=== PATIENT | male | born 1945 | race Caucasian/White ===

== ENCOUNTER 2017-11-11 19:41 | Observation (INO) | payer MEDICARE, BC, SELFPAY ==
[2017-11-11] VITALS (11 sets, daily range): BP systolic 97–138; BP diastolic 52–73; PULSE 52–136; RESP 14–20; TEMP 36.6–37.1; O2SAT 96–99; BMI 41.4; BMI 39.5
--- NOTE | 2017-11-11 20:25 | EKG12_ITS ---
Test Reason : REPEAT Blood Pressure : / mmHG Vent. Rate : 059 BPM Atrial Rate : 059 BPM P-R Int : 220 ms QRS Dur : 116 ms QT Int : 432 ms P-R-T Axes : 045 043 042 degrees QTc Int : 427 ms Sinus bradycardia with 1st degree A-V block Otherwise normal ECG Confirmed by JUMANA CONTRERAS, IRISH ([id number]), acquisitions editor REGINA PASCUAL ([id number] on 11/17/2017 2:34:27 PM Referred By: DR GARCIA Confirmed By:IRISH DENNEY MD
[2017-11-11 20:39] LABS: Absolute Lymphocyte Count 2.05 X10^3/ul (0.83-4.51); Absolute Neutrophil Count 6.3 X10^3/uL (2.0-7.7); Basophil# 0.04 X10^3/uL; Basophil% 0.4 % (0-1); Eosinophil# 0.22 X10^3/uL; Eosinophils% 2.3 % (0-5); Hematocrit 33.4 % (40-54); Hemoglobin 10.1 g/dl (13.0-16.5); Lymphocyte # 2.05 X10^3/ul (4.0); Lymphocyte % 21.6 % (19-41); Mean Corp Hgb Conc 30.2 g/gl (32-36); Mean Corpuscular Hgb 22.1 pg (27.0-32.0); Mean Corpuscular Volume 72.9 fL (80-94); Mean Platelet Vol. 9.9 fl (6.2-12.0); Monocyte# 0.88 X10^3/uL; Monocyte% 9.3 % (0-10); Neutrophil % 66.2 % (47-70); Platelet Count 373 K/mm3 (150-450); RBC Distribution Width CV 18.3 % (11.6-14.6); RBC Distribution Width SD 47.8 fl (35.1-43.9); Red Blood Count 4.58 M/mm3 (4.6-6.2); White Blood Count 9.5 K/mm3 (4.4-11.0)
[2017-11-11 20:42] LABS: POSITIVE COUNT NO; POSITIVE DIFFERENTIAL NO; POSITIVE MORPHOLOGY YES
[2017-11-11 20:43] LABS: Differential Indicated SCAN CRITERIA MET
--- NOTE | 2017-11-11 20:48 | RAD_ITS ---
STUDY: X-RAY CHEST REASON FOR EXAM: Male, 72 years old. Chest pain TECHNIQUE: Single AP portable view of the chest. COMPARISON: October 27, 2016 FINDINGS: There are monitoring devices. The lungs are hyperexpanded. There is no demonstrated pleural abnormality. There is mild cardiac enlargement. Normal mediastinum and chanell. Normal visualized pulmonary arteries. Normal visualized aortic arch and descending thoracic aorta. There are diffuse degenerative changes of the visualized thoracic spine. Stable left rib fractures. There is no demonstrated abnormality of the visualized soft tissue structures of the upper abdomen. RAD/Chest 1 View (Portable) IMPRESSION: Degenerative changes, as described above. No demonstrated acute cardiopulmonary process. Electronically Signed: Luigi Tinoco MD at 21:35 EDT , Service support ,
[2017-11-11 20:54] LABS: Anion Gap 10 (5-15); BUN 20 mg/dL (7-18); BUN/Creat Ratio 16.1 RATIO (10-20); Calcium,Total 8.5 mg/dL (8.5-10.1); Chloride 105 mmol/L (98-107); Creatinine, Serum 1.24 mg/dL (0.70-1.30); EST Glomerular Filtration Rate 61 mL/min (>60); Est Glom Filt Rate - Afr Amer 73 mL/min (>60); Estimated Creatinine Clearance 48.86 ml/min; Glucose 175 mg/dL (74-106); Potassium 3.9 mmol/L (3.5-5.1); Sodium Level 141 mmol/L (136-145)
[2017-11-11] MEDS: dilTIAZem 25 MG/5 ML Vial 20 MG IV BOLUS (20:54)
[2017-11-11] MEDS: Aspirin 81 MG TAB.CHEW 324 MG PO (20:54)
[2017-11-11 21:03] LABS: Anisocytosis 1+; Crenated RBC RARE; Differential Comment SCANNED; Hypochromasia RARE; Ovalocyte 1+; Schistocytes RARE
--- NOTE | 2017-11-11 22:03 | ED.VISSUMM ---
- ER Visit Summary Date of Service: 11/11/17 Chief Complaint: Chest pain History of Present Illness: The patient is a 72 M who presents with chest pain. It began 1 hour ago. It was with light activity after just walking across the room. He also felt short of breath. He describes his chest pain as a heaviness substernally. It was 8 out of 10 but is currently only 3 out of 10. He denies any nausea or diaphoresis. He has never had symptoms quite like this before. He is on antibiotics currently for an abrasion to his right forearm. It sounds like he was placed on this prophylactically. He did have some diarrhea for 1 day about 5 days ago but none since that time. Physical Examination: Afebrile heart rate 133 Heart irregularly irregular and tachycardic Lungs clear Abdomen soft 2+ radial pulses Extremities nontender Alert Test Results: EKG shows atrial fibrillation at a rate of 132. Chest x-ray shows no acute process. Labs notable for hemoglobin 10.1. Repeat EKG shows sinus bradycardia. Emergency Department Course and Treatment: Patient was given IV Cardizem. He converted to normal sinus rhythm. His symptoms resolved. However I am concerned that he states he has never had chest pain with atrial fibrillation before. He did have a stress test 1 month ago. I spoke to his career orientation teacher who would like patient to be placed in observation for repeat enzymes and monitoring. Treatment Plan: [] Disposition: Admit Impression: Chest pain Atrial for ablation with RVR This note was generated with [employer] dictation software. It may contain incorrect words, spelling, and punctuation that were not noted in review of the chart prior to signing ED Disposition - Plan for ED Patient: Chief Complaint: Chest Pain Referrals: Nathaniel Estrada MD [Primary Care Provider] -
--- NOTE | 2017-11-11 22:16 | PCM.HP.STD ---
Problem List (1) Paroxysmal atrial fibrillation Status: Chronic (2) Essential hypertension Status: Chronic (3) Type II diabetes mellitus Status: Chronic History of Present Illness Date of Admission: 11/11/17 Chief Complaint: Chest pain. The patient is a 72 year old M with past medical history as mentioned above presented to the emergency department because of chest pain. His symptoms started around 7 PM tonight when he was sitting watching TV with left-sided chest pain, sharp shooting pain, radiates to his neck, mild pain, 8 out of 10 in severity, associated with mild shortness of breath and palpitation and without aggravating or relieving factors. He denies dizziness, lightheadedness, syncope or presyncope. He denied nausea, vomiting or diaphoresis. At this time, he has no more chest pain. Upon arrival to ER, he was in A. fib with RVR, heart rate was 132, blood pressure was stable, was afebrile and pulse ox was 98% on 2 L. His routine blood work was remarkable for hemoglobin of 10.1 g/dL, otherwise normal. Initial EKG revealed A. fib with RVR, rate of 132, no acute ischemic changes. Patient received 1 dose of IV Cardizem bolus and he converted back to sinus rhythm and repeat EKG revealed sinus bradycardia with heart rate of 59 and again without acute ischemic changes. Troponin was negative. Chest x-ray showed no acute findings. 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 Dr. Wilson recommended to admit the patient and to cycle the cardiac enzymes without need to repeat stress test at this time. He is being admitted for A. fib with RVR, converted back to sinus rhythm as well as chest pain for evaluation. Past Medical History Past Medical History (Chronic Problems): Chronic Problems Paroxysmal atrial fibrillation (Chronic) Non-alcoholic fatty liver disease (Chronic) Essential hypertension (Chronic) Type II diabetes mellitus (Chronic) Allergies chlorpheniramine maleate [From Ornade] Adverse Reaction (Verified 11/11/17 19:42) Upset Stomach phenylpropanolamine HCl [From Ornade] Adverse Reaction (Verified 11/11/17 19:42) Upset Stomach rofecoxib [From Vioxx] Adverse Reaction (Verified 11/11/17 19:42) Upset Stomach sulfamethoxazole [From Bactrim] Adverse Reaction (Verified 11/11/17 19:42) Upset Stomach trimethoprim [From Bactrim] Adverse Reaction (Verified 11/11/17 19:42) Upset Stomach NALDECON Adverse Reaction (Uncoded 11/11/17 19:42) Upset Stomach Home Medications: Ambulatory Orders Medication Instructions Recorded Aspirin E.C. [Ecotrin] 81 mg PO DAILY@0800 09/15/14 Atenolol [Tenormin (beta des)] 12.5 mg PO DAILY 09/15/14 Flecainide [Tambocor] 100 mg PO BID 09/15/14 Furosemide [Lasix] 20 mg PO BID 09/15/14 Metformin HCl [Glucophage] 1,000 mg PO BID 09/15/14 Omeprazole [Prilosec] 20 mg PO DAILY 09/15/14 Warfarin [Coumadin] 6 mg PO SUTUTHSA 09/15/14 Warfarin [Coumadin] 7 mg PO MOWEFR 09/15/14 glipiZIDE XL [Glucotrol Xl] 5 mg PO DAILY@0800 09/15/14 Cephalexin [Keflex] 500 mg PO Q8 11/11/17 Dicyclomine HCl 10 mg PO QHS 11/11/17 Lisinopril [Zestril] 10 mg PO DAILY 11/11/17 Pioglitazone [Actos] 15 mg PO DAILY 11/11/17 Spironolactone [Aldactone] 25 mg PO DAILY 11/11/17 Surgical History: total knee arthroplasty, - - Partial thyroidectomy. Psychiatric History: No pertinent psych hx Lives: Spouse/ Significant Other Smoking Status: Former smoker Alcohol: None, Occasional Drugs: None - *Family History Maternal History Items: No pertinent history Paternal History Items: No pertinent history Review of Systems Constitutional: Denies: Anorexia, Chills, Fever, Weakness Eyes: Denies: Blurred vision, Double vision, Drainage, Redness HEENT: Denies: Difficulty Hearing, Ear Pain, Eye Pain, Nasal Congestion, Sore Throat Cardiovascular: Reports: Chest Pain, Palpitations. Denies: Edema, Heaviness, Light Headedness, Paroxysmal Noc. Dyspnea, Syncope Respiratory: Reports: Shortness of Breath. Denies: Cough, Pleuritic Pain, Sputum production, Wheezing Gastrointestinal: Denies: Abdominal Pain, Constipation, Diarrhea, Nausea, Vomiting Genitourinary: Denies: Dysuria, Frequency, Hematuria Musculoskeletal: Denies: Arm Pain, Back Pain, Foot Pain Skin: Denies: Dryness, Rash Neurological: Denies: Balance problems, Double vision, Change in Speech, Slurred speech, Focal weakness, Incoordination, Numbness Psychiatric: Denies: Anxiety, Depression Endocrine: Denies: Change in Body Habitus, Polydipsia VTE Information - Inpt Only VTE Present on Admission: No VTE Mechan Device Prophylaxis: None VTE Pharm Prophylaxis ordered?: No - Physical Exam General: Alert, Oriented x3, Cooperative HEENT: Atraumatic, PERRLA, EOMI, Normocephalic Oral: Moist Mucosa, No Gingival or Mucosal Lesions/ Ulcerations Neck: Supple, No JVD, Negative Carotid Bruits, Trachea Midline, Thyroid Normal Size and Texture Lungs: Clear to auscultation, No rhonchi, No wheeze, No rales, Diminished Cardiovascular: Regular rate, Regular Rhythm, Normal S1, Normal S2, PMI Normal, Bradycardic Abdomen: Bowel Sounds Present, Soft, Non Tender, Non-Distended, No Hepato-splenomegaly, Obese Extremities: No clubbing, No cyanosis, No edema Skin: No rashes, No breakdown Lymphatic: No Cervical, Supraclavicular, or Inguinal Adenopathy Neurological: Cranial nerves II-XII grossly intact, Motor Exam 5/5 strength throughout Psych/Mental Status: Normal Affect, Appropriate, Alert and oriented to time, place, person, mood and affect Vital Signs Temp Pulse Resp BP Pulse Ox 98.7 F 57 L 17 105/57 L 99 11/11/17 22:15 11/11/17 22:15 11/11/17 22:15 11/11/17 22:15 11/11/17 22:15 Oxygen Flow Rate (L/min) 2 Oxygen Delivery Method Nasal Cannula Weight: 264 lb 12.403 oz Body Mass Index (BMI) 41.4 Laboratory Tests Past 24 Hrs 11/11/17 11/11/17 19:46 19:46 WBC 9.5 RBC 4.58 L Hgb 10.1 L Hct 33.4 L MCV 72.9 L MCH 22.1 L MCHC 30.2 L RDW 18.3 H RDW Differential 47.8 H Plt Count 373 MPV 9.9 Immature Gran % (Auto) 0.200 Neut % (Auto) 66.2 Lymph % (Auto) 21.6 [place] % (Auto) 9.3 Eos % (Auto) 2.3 Baso % (Auto) 0.4 Absolute Neuts (auto) 6.3 Absolute Lymphs (auto) 2.05 Total Counted Not Reportable Differential Comment SCANNED RBC Morphology RARE Hypochromasia RARE Anisocytosis 1+ Ovalocytes 1+ Schistocytes RARE Sodium 141 Potassium 3.9 Chloride 105 Carbon Dioxide 26.0 Anion Gap 10 BUN 20 H Creatinine 1.24 Estim Creat Clear Calc 48.86 Est GFR (MDRD) Af Amer 73 Est GFR (MDRD) Non-Af 61 BUN/Creatinine Ratio 16.1 Glucose 175 H Calcium 8.5 Troponin I < 0.015 Clinical Impression(s) from Imaging Studies Chest X-Ray 11/11/17 20:48 IMPRESSION: Degenerative changes, as described above. No demonstrated acute cardiopulmonary process. Electronically Signed: Luigi Tinoco MD at 21:35 EDT , Service support , Assessment/Plan This is a 72 years old male patient presented to the ER because of chest pain, found to have A. fib with RVR, converted back to sinus rhythm after received 1 dose of IV Cardizem bolus and he is being admitted for observation. #1 chest pain: Could be due to A. fib with RVR. Initial and repeat EKG without acute ischemic changes. Troponin is negative x1. Chest x-ray without acute findings. At this time, patient in sinus rhythm, heart rate stable and he has no more chest pain. Reportedly and according to ER physician who spoke with Dr. Tariq Wilson, patient had a stress test last month and that was unremarkable for stress-induced myocardial ischemia. Plan: Admit to PCU for observation, cardiac monitoring, serial cardiac enzymes, repeat EKG tomorrow morning, continue aspirin, atenolol, lisinopril. According to Dr. Wilson after discussion with the ER physician, no need to repeat the stress test at this time unless cardiac enzymes become positive or patient started to have new EKG changes. #2 A. fib with RVR: Converted back to sinus rhythm after 1 dose of IV Cardizem bolus. At this time, heart rate is around 50s, blood pressure stable. EKG after the Cardizem bolus reviewed. Plan to continue atenolol and flecainide for rate control, continue Coumadin for anticoagulation, repeat EKG tomorrow morning, check pro time and INR. #3 anemia: Admission hemoglobin is 10.1 g/dL. In October,, hemoglobin was 12.2 g/dL. Patient mentioned that he had right upper forearm injury/laceration around 1 week ago and he had a large amount of bleeding. He denied epistaxis, hematemesis, hemoptysis, hematuria, hematochezia or melena. No indication for transfusion. Plan to repeat CBC tomorrow morning. #4 recent history of right upper forearm injury/laceration: Laceration of the right forearm is healing, dry and no evidence of infection. Patient was started on Keflex 6 days ago, plan to continue Keflex to complete 10 days of treatment as prescribed. #5 paroxysmal A. fib: Plan as above, continue atenolol and flecainide for rate control, continue Coumadin, check INR. #6 hypertension: Blood pressure stable, continue atenolol, Lasix, lisinopril and Aldactone. #7 type 2 diabetes mellitus: ADA diet, Accu-Cheks, insulin sliding scale, continue glipizide, metformin and Actos. #8 DVT prophylaxis: Patient on Coumadin, will check INR. This note was generated with [employer] dictation software. It may contain incorrect words, spelling, and punctuation that were not noted in checking the note before signing. Code Visit OBSV E&M: 08474 Initial observation care L3
--- NOTE | 2017-11-11 22:26 | HP.PCM_ITS ---
Problem List (1) Paroxysmal atrial fibrillation Status: Chronic (2) Essential hypertension Status: Chronic (3) Type II diabetes mellitus Status: Chronic History of Present Illness Date of Admission: 11/11/17 Chief Complaint: Chest pain. The patient is a 72 year old M with past medical history as mentioned above presented to the emergency department because of chest pain. His symptoms started around 7 PM tonight when he was sitting watching TV with left-sided chest pain, sharp shooting pain, radiates to his neck, mild pain, 8 out of 10 in severity, associated with mild shortness of breath and palpitation and without aggravating or relieving factors. He denies dizziness, lightheadedness , syncope or presyncope. He denied nausea, vomiting or diaphoresis. At this time, he has no more chest pain. Upon arrival to ER, he was in A. fib with RVR , heart rate was 132, blood pressure was stable, was afebrile and pulse ox was 98% on 2 L. His routine blood work was remarkable for hemoglobin of 10.1 g/dL, otherwise normal. Initial EKG revealed A. fib with RVR, rate of 132, no acute ischemic changes. Patient received 1 dose of IV Cardizem bolus and he converted back to sinus rhythm and repeat EKG revealed sinus bradycardia with heart rate of 59 and again without acute ischemic changes. Troponin was negative. Chest x-ray showed no acute findings. 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 Dr. Wilson recommended to admit the patient and to cycle the cardiac enzymes without need to repeat stress test at this time. He is being admitted for A. fib with RVR, converted back to sinus rhythm as well as chest pain for evaluation. Past Medical History Past Medical History (Chronic Problems): Chronic Problems Paroxysmal atrial fibrillation (Chronic) Non-alcoholic fatty liver disease (Chronic) Essential hypertension (Chronic) Type II diabetes mellitus (Chronic) Allergies chlorpheniramine maleate [From Ornade] Adverse Reaction (Verified 11/11/17 19:42 ) Upset Stomach phenylpropanolamine HCl [From Ornade] Adverse Reaction (Verified 11/11/17 19:42) Upset Stomach rofecoxib [From Vioxx] Adverse Reaction (Verified 11/11/17 19:42) Upset Stomach sulfamethoxazole [From Bactrim] Adverse Reaction (Verified 11/11/17 19:42) Upset Stomach trimethoprim [From Bactrim] Adverse Reaction (Verified 11/11/17 19:42) Upset Stomach NALDECON Adverse Reaction (Uncoded 11/11/17 19:42) Upset Stomach Home Medications: Ambulatory Orders Medication Instructions Recorded Aspirin E.C. [Ecotrin] 81 mg PO DAILY@0800 09/15/14 Atenolol [Tenormin (beta des)] 12.5 mg PO DAILY 09/15/14 Flecainide [Tambocor] 100 mg PO BID 09/15/14 Furosemide [Lasix] 20 mg PO BID 09/15/14 Metformin HCl [Glucophage] 1,000 mg PO BID 09/15/14 Omeprazole [Prilosec] 20 mg PO DAILY 09/15/14 Warfarin [Coumadin] 6 mg PO SUTUTHSA 09/15/14 Warfarin [Coumadin] 7 mg PO MOWEFR 09/15/14 glipiZIDE XL [Glucotrol Xl] 5 mg PO DAILY@0800 09/15/14 Cephalexin [Keflex] 500 mg PO Q8 11/11/17 Dicyclomine HCl 10 mg PO QHS 11/11/17 Lisinopril [Zestril] 10 mg PO DAILY 11/11/17 Pioglitazone [Actos] 15 mg PO DAILY 11/11/17 Spironolactone [Aldactone] 25 mg PO DAILY 11/11/17 Surgical History: total knee arthroplasty, - - Partial thyroidectomy. Psychiatric History: No pertinent psych hx Lives: Spouse/ Significant Other Smoking Status: Former smoker Alcohol: None, Occasional Drugs: None - *Family History Maternal History Items: No pertinent history Paternal History Items: No pertinent history Review of Systems Constitutional: Denies: Anorexia, Chills, Fever, Weakness Eyes: Denies: Blurred vision, Double vision, Drainage, Redness HEENT: Denies: Difficulty Hearing, Ear Pain, Eye Pain, Nasal Congestion, Sore Throat Cardiovascular: Reports: Chest Pain, Palpitations. Denies: Edema, Heaviness, Light Headedness, Paroxysmal Noc. Dyspnea, Syncope Respiratory: Reports: Shortness of Breath. Denies: Cough, Pleuritic Pain, Sputum production, Wheezing Gastrointestinal: Denies: Abdominal Pain, Constipation, Diarrhea, Nausea, Vomiting Genitourinary: Denies: Dysuria, Frequency, Hematuria Musculoskeletal: Denies: Arm Pain, Back Pain, Foot Pain Skin: Denies: Dryness, Rash Neurological: Denies: Balance problems, Double vision, Change in Speech, Slurred speech, Focal weakness, Incoordination, Numbness Psychiatric: Denies: Anxiety, Depression Endocrine: Denies: Change in Body Habitus, Polydipsia VTE Information - Inpt Only VTE Present on Admission: No VTE Mechan Device Prophylaxis: None VTE Pharm Prophylaxis ordered?: No - Physical Exam General: Alert, Oriented x3, Cooperative HEENT: Atraumatic, PERRLA, EOMI, Normocephalic Oral: Moist Mucosa, No Gingival or Mucosal Lesions/ Ulcerations Neck: Supple, No JVD, Negative Carotid Bruits, Trachea Midline, Thyroid Normal Size and Texture Lungs: Clear to auscultation, No rhonchi, No wheeze, No rales, Diminished Cardiovascular: Regular rate, Regular Rhythm, Normal S1, Normal S2, PMI Normal, Bradycardic Abdomen: Bowel Sounds Present, Soft, Non Tender, Non-Distended, No Hepato- splenomegaly, Obese Extremities: No clubbing, No cyanosis, No edema Skin: No rashes, No breakdown Lymphatic: No Cervical, Supraclavicular, or Inguinal Adenopathy Neurological: Cranial nerves II-XII grossly intact, Motor Exam 5/5 strength throughout Psych/Mental Status: Normal Affect, Appropriate, Alert and oriented to time, place, person, mood and affect Vital Signs Temp Pulse Resp BP Pulse Ox 98.7 F 57 L 17 105/57 L 99 11/11/17 22:15 11/11/17 22:15 11/11/17 22:15 11/11/17 22:15 11/11/17 22:15 Oxygen Flow Rate (L/min) 2 Oxygen Delivery Method Nasal Cannula Weight: 264 lb 12.403 oz Body Mass Index (BMI) 41.4 Laboratory Tests Past 24 Hrs 11/11/17 11/11/17 19:46 19:46 WBC 9.5 RBC 4.58 L Hgb 10.1 L Hct 33.4 L MCV 72.9 L MCH 22.1 L MCHC 30.2 L RDW 18.3 H RDW Differential 47.8 H Plt Count 373 MPV 9.9 Immature Gran % (Auto) 0.200 Neut % (Auto) 66.2 Lymph % (Auto) 21.6 [place] % (Auto) 9.3 Eos % (Auto) 2.3 Baso % (Auto) 0.4 Absolute Neuts (auto) 6.3 Absolute Lymphs (auto) 2.05 Total Counted Not Reportable Differential Comment SCANNED RBC Morphology RARE Hypochromasia RARE Anisocytosis 1+ Ovalocytes 1+ Schistocytes RARE Sodium 141 Potassium 3.9 Chloride 105 Carbon Dioxide 26.0 Anion Gap 10 BUN 20 H Creatinine 1.24 Estim Creat Clear Calc 48.86 Est GFR (MDRD) Af Amer 73 Est GFR (MDRD) Non-Af 61 BUN/Creatinine Ratio 16.1 Glucose 175 H Calcium 8.5 Troponin I < 0.015 Clinical Impression(s) from Imaging Studies Chest X-Ray 11/11/17 20:48 IMPRESSION: Degenerative changes, as described above. No demonstrated acute cardiopulmonary process. Electronically Signed: Luigi Tinoco MD at 21:35 EDT , Service support , Assessment/Plan This is a 72 years old male patient presented to the ER because of chest pain, found to have A. fib with RVR, converted back to sinus rhythm after received 1 dose of IV Cardizem bolus and he is being admitted for observation. #1 chest pain: Could be due to A. fib with RVR. Initial and repeat EKG without acute ischemic changes. Troponin is negative x1. Chest x-ray without acute findings. At this time, patient in sinus rhythm, heart rate stable and he has no more chest pain. Reportedly and according to ER physician who spoke with Dr. Tariq Wilson, patient had a stress test last month and that was unremarkable for stress-induced myocardial ischemia. Plan: Admit to PCU for observation, cardiac monitoring, serial cardiac enzymes, repeat EKG tomorrow morning, continue aspirin, atenolol, lisinopril. According to Dr. Wilson after discussion with the ER physician, no need to repeat the stress test at this time unless cardiac enzymes become positive or patient started to have new EKG changes. #2 A. fib with RVR: Converted back to sinus rhythm after 1 dose of IV Cardizem bolus. At this time, heart rate is around 50s, blood pressure stable. EKG after the Cardizem bolus reviewed. Plan to continue atenolol and flecainide for rate control, continue Coumadin for anticoagulation, repeat EKG tomorrow morning, check pro time and INR. #3 anemia: Admission hemoglobin is 10.1 g/dL. In October,, hemoglobin was 12.2 g/dL. Patient mentioned that he had right upper forearm injury/laceration around 1 week ago and he had a large amount of bleeding. He denied epistaxis, hematemesis, hemoptysis, hematuria, hematochezia or melena. No indication for transfusion. Plan to repeat CBC tomorrow morning. #4 recent history of right upper forearm injury/laceration: Laceration of the right forearm is healing, dry and no evidence of infection. Patient was started on Keflex 6 days ago, plan to continue Keflex to complete 10 days of treatment as prescribed. #5 paroxysmal A. fib: Plan as above, continue atenolol and flecainide for rate control, continue Coumadin, check INR. #6 hypertension: Blood pressure stable, continue atenolol, Lasix, lisinopril and Aldactone. #7 type 2 diabetes mellitus: ADA diet, Accu-Cheks, insulin sliding scale, continue glipizide, metformin and Actos. #8 DVT prophylaxis: Patient on Coumadin, will check INR. This note was generated with [employer] dictation software. It may contain incorrect words, spelling, and punctuation that were not noted in checking the note before signing. Code Visit OBSV E&M: 23763 Initial observation care L3
--- NOTE | 2017-11-11 22:37 | EKG12_ITS ---
Test Reason : CP Blood Pressure : / mmHG Vent. Rate : 132 BPM Atrial Rate : 132 BPM P-R Int : 264 ms QRS Dur : 124 ms QT Int : 342 ms P-R-T Axes : 000 050 017 degrees QTc Int : 506 ms Sinus tachycardia with 1st degree A-V block Otherwise normal ECG Confirmed by JUMANA CONTRERAS, IRISH ([id number]), market editor REGINA PASCUAL ([id number]) on 11/17/2017 2:34:45 PM Referred By: RADHA Confirmed By:IRISH DENNEY MD
[2017-11-11 23:18] LABS: International Normalized Ratio 2.3; Prothrombin Time (Protime)PT. 25.4 SECONDS (11.7-14.9)
[2017-11-11 23:39] LABS: Magnesium 1.7 mg/dL (1.6-2.6); Thyroid Stim Hormone (TSH) 2.86 uIU/mL (0.358-3.74)
[2017-11-12] MEDS: 0.9% NaCl Peripheral Flush Adult/Peds IV (02:00)
[2017-11-12] MEDS: Acetaminophen 325 MG Tablet 650 MG PO (02:00)
[2017-11-12] MEDS: Ondansetron 4 MG/2 ML Vial IV (02:01)
[2017-11-12 02:59] LABS: Absolute Lymphocyte Count 2.67 X10^3/ul (0.83-4.51); Absolute Neutrophil Count 4.2 X10^3/uL (2.0-7.7); Basophil# 0.03 X10^3/uL; Basophil% 0.4 % (0-1); Eosinophil# 0.25 X10^3/uL; Eosinophils% 3.1 % (0-5); Hematocrit 34.2 % (40-54); Lymphocyte # 2.67 X10^3/ul (4.0); Lymphocyte % 33.3 % (19-41); Mean Corp Hgb Conc 29.2 g/gl (32-36); Mean Corpuscular Hgb 21.5 pg (27.0-32.0); Mean Corpuscular Volume 73.4 fL (80-94); Mean Platelet Vol. 9.4 fl (6.2-12.0); Monocyte# 0.85 X10^3/uL; Monocyte% 10.6 % (0-10); Neutrophil % 52.2 % (47-70); Platelet Count 347 K/mm3 (150-450); Red Blood Count 4.66 M/mm3 (4.6-6.2)
[2017-11-12 03:00] VITALS: PULSE 55
[2017-11-12 03:10] LABS: Differential Indicated SCAN CRITERIA MET; POSITIVE COUNT NO; POSITIVE DIFFERENTIAL NO; POSITIVE MORPHOLOGY YES
[2017-11-12 03:12] LABS: Differential Comment SCANNED; Hypochromasia 2+; Microcytosis 2+
[2017-11-12 04:58] VITALS: BP 105/58; PULSE 56; RESP 16; TEMP 36.6; O2SAT 92
[2017-11-12] MEDS: Cephalexin 500 MG Capsule PO (05:11)
--- NOTE | 2017-11-12 05:55 | EKG12_ITS ---
Test Reason : AM EKG Blood Pressure : / mmHG Vent. Rate : 055 BPM Atrial Rate : 055 BPM P-R Int : 200 ms QRS Dur : 112 ms QT Int : 466 ms P-R-T Axes : 072 037 043 degrees QTc Int : 445 ms Sinus bradycardia Otherwise normal ECG When compared with ECG of 11-NOV-2017 21:28, MANUAL COMPARISON REQUIRED, DATA IS UNCONFIRMED Confirmed by JUMANA CONTRERAS, IRISH ([id number]), graphics editor REGINA PASCUAL ([id number]) on 11/16/2017 2:06:31 PM Referred By: MATEUSZ Confirmed By:IRISH DENNEY MD
[2017-11-12 06:50] LABS: Bedside Glucose 102 mg/dL (70-110)
[2017-11-12 07:46] VITALS: O2SAT 94
[2017-11-12 08:08] VITALS: PULSE 58
[2017-11-12] MEDS: Aspirin E.C. 81 MG Tablet PO (08:47)
[2017-11-12] MEDS: glipiZIDE XL 5 MG Tablet PO (08:47)
[2017-11-12] MEDS: metFORMIN HCl 1,000 MG Tablet 1000 MG PO (08:47)
[2017-11-12 10:53] VITALS: BP 112/59; PULSE 60; RESP 14; TEMP 36.6; O2SAT 95
[2017-11-12] MEDS: Furosemide 20 MG Tablet PO (10:56)
[2017-11-12] MEDS: Flecainide 100 MG Tablet PO (10:56)
[2017-11-12] MEDS: Pantoprazole Sodium 20 MG Tablet PO (10:57)
[2017-11-12] MEDS: Spironolactone 25 MG Tablet PO (10:57)
[2017-11-12] MEDS: Lisinopril 10 MG Tablet PO (10:57)
[2017-11-12] MEDS: Pioglitazone Hydrochloride 15 MG Tablet PO (10:57)
[2017-11-12] MEDS: Atenolol 25 MG Tablet 12.5 MG PO (10:58)
[2017-11-12 11:07] VITALS: PULSE 61
--- NOTE | 2017-11-12 11:16 | DCINST_ITS ---
You will use the following diet at home:: Cardiac - <2g sodium per day Your food should be the consistency of: Regular Your liquids should be the consistency of: Regular/Thin Discharge Activity: Return to Normal Activity Allergies/Adverse Reactions: Allergies chlorpheniramine maleate [From Ornade] Adverse Reaction (Verified 11/11/17 19:42 ) Upset Stomach phenylpropanolamine HCl [From Ornade] Adverse Reaction (Verified 11/11/17 19:42) Upset Stomach rofecoxib [From Vioxx] Adverse Reaction (Verified 11/11/17 19:42) Upset Stomach sulfamethoxazole [From Bactrim] Adverse Reaction (Verified 11/11/17 19:42) Upset Stomach trimethoprim [From Bactrim] Adverse Reaction (Verified 11/11/17 19:42) Upset Stomach NALDECON Adverse Reaction (Uncoded 11/11/17 19:42) Upset Stomach Medications to take at Discharge Aspirin E.C. [Ecotrin] 81 mg PO DAILY@0800 09/15/14 Atenolol [Tenormin (beta des)] 12.5 mg PO DAILY 09/15/14 Flecainide [Tambocor] 100 mg PO BID 09/15/14 Furosemide [Lasix] 20 mg PO BID 09/15/14 Metformin HCl [Glucophage] 1,000 mg PO BID 09/15/14 Omeprazole [Prilosec] 20 mg PO DAILY 09/15/14 Warfarin [Coumadin] 6 mg PO SUTUTHSA 09/15/14 Warfarin [Coumadin] 7 mg PO MOWEFR 09/15/14 glipiZIDE XL [Glucotrol Xl] 5 mg PO DAILY@0800 09/15/14 Cephalexin [Keflex] 500 mg PO Q8 11/11/17 Dicyclomine HCl 10 mg PO QHS 11/11/17 Lisinopril [Zestril] 10 mg PO DAILY 11/11/17 Pioglitazone [Actos] 15 mg PO DAILY 11/11/17 Spironolactone [Aldactone] 25 mg PO DAILY 11/11/17 Primary Care Physician: Nathaniel Estrada MD [Primary Care Provider] - Please follow up with your Primary Care Physician in: 2 weeks Test Results: Test results from this visit will be discussed in further detail at your follow- up appointment, if applicable. Please Follow Up With: Sudarshan Gant MD When: 1-2 weeks Proposed Discharge Date: 11/12/17
[2017-11-12 12:10] LABS: Bedside Glucose 105 mg/dL (70-110)
--- NOTE | 2017-11-12 13:23 | PCM.DC.SUM ---
<Doni Rapp - Last Filed: 11/12/17 13:23> Discharge Date and Diagnosis Date of Admission: 11/11/17 Date of Discharge: 11/12/17 - Primary Discharge Diagnosis Paroxysmal atrial fibrillation with RVR Chest pain secondary to above Microcytic anemia Recent right upper forearm laceration Hypertension Type 2 diabetes - Secondary Discharge Diagnosis Chronic Problems Paroxysmal atrial fibrillation (Chronic) Non-alcoholic fatty liver disease (Chronic) Essential hypertension (Chronic) Type II diabetes mellitus (Chronic) Hospital Course and Treatment Imaging Results: RAD/Chest 1 View (Portable) IMPRESSION: Degenerative changes, as described above. No demonstrated acute cardiopulmonary process. Operations: None Procedures: None Summary of Care Provided: Physical exam on day of discharge: General: Resting comfortably NAD Psych: A/Ox3 normal affect HEENT: PEARRLA AT NC Neck: Supple NT CV: RRR no m/t/r/g/h Resp: CTA Abd: [id number] Soft NT no guarding or rigidity Ext: DP2+= no edema Skin: W/D normal turgor Lymph/Heme: No active bleeding or adenopathy Neuro: CN2-12 intact Hospital course: The patient is a 72 year old M with a history of paroxysmal atrial fibrillation who follows with Dr. Sudarshan Gant-on flecainide atenolol and warfarin as an outpatient, also with a history of a forearm laceration 1 week ago for which she is currently being treated with Keflex, and a history of hypertension, microcytic anemia, type 2 diabetes mellitus, who presented to the emergency room with chest pain and was found to be in atrial fibrillation with rapid ventricular response. EKG and troponin were negative, TSH was negative, magnesium was negative. He was given a dose of IV Cardizem in the emergency room and converted to normal sinus rhythm. Per discussion with his river rat he had a stress test 1 month ago which was negative at that time and he recommended hospital admission, cycling enzymes, and not repeating the stress test. Patient was admitted to PCU placed on cardiac monitoring, serial EKGs and troponins were obtained which were negative. His rate and rhythm remained normal throughout the rest of his stay with no additional agents provided. His Coumadin remained therapeutic. The following morning he had no further chest pain, and no events overnight. He was discharged home in stable condition and advised to follow-up with his PCP and with his river rat in 1-2 weeks. This patient was seen by Doni Rapp PA-C under the supervision of Doctor Mary. [] Discharge Diet: Low fat/ Low Cholesterol, 1800 Calorie Control Diet, 2000 mg Sodium Diet Discharge Activity: Return to Normal Activity Home Medications: Medications to take at Discharge Aspirin E.C. [Ecotrin] 81 mg PO DAILY@0800 09/15/14 Atenolol [Tenormin (beta des)] 12.5 mg PO DAILY 09/15/14 Flecainide [Tambocor] 100 mg PO BID 09/15/14 Furosemide [Lasix] 20 mg PO BID 09/15/14 Metformin HCl [Glucophage] 1,000 mg PO BID 09/15/14 Omeprazole [Prilosec] 20 mg PO DAILY 09/15/14 Warfarin [Coumadin] 6 mg PO SUTUTHSA 09/15/14 Warfarin [Coumadin] 7 mg PO MOWEFR 09/15/14 glipiZIDE XL [Glucotrol Xl] 5 mg PO DAILY@0800 09/15/14 Cephalexin [Keflex] 500 mg PO Q8 11/11/17 Dicyclomine HCl 10 mg PO QHS 11/11/17 Lisinopril [Zestril] 10 mg PO DAILY 11/11/17 Pioglitazone [Actos] 15 mg PO DAILY 11/11/17 Spironolactone [Aldactone] 25 mg PO DAILY 11/11/17 Primary Care Physician: Nathaniel Estrada MD [Primary Care Provider] - Please follow up with your Primary Care Physician in: 2 weeks Please Follow Up With: Sudarshan Gant MD When: 1-2 weeks Disposition: Home Minutes spent on discharge:: 35 Patient Condition:: Stable Medical Necessity - Tobacco Use Smoking Status: Former smoker Meaningful Use Info Meaningful Use Diagnoses (Choose all that apply): None applicable <Irving Hernandez - Last Filed: 11/12/17 14:08> Discharge Date and Diagnosis - Secondary Discharge Diagnosis Chronic Problems Paroxysmal atrial fibrillation (Chronic) Non-alcoholic fatty liver disease (Chronic) Essential hypertension (Chronic) Type II diabetes mellitus (Chronic) Hospital Course and Treatment Operations: None Procedures: None Summary of Care Provided: Patient seen and examined independently. Data reviewed. I agree with the above note by the physician assistant superintendent. The patient is a 72 year old M presents with H fibrillation with RVR. Patient converted to normal sinus rhythm with a one-time dose of IV Cardizem. She was monitored overnight and had no further atrial fibrillation with RVR. He has remained chest pain-free, and is short of breath free. Patient will be discharged with instruction to follow-up with cardiology. [] Discharge Diet: Low fat/ Low Cholesterol, 1800 Calorie Control Diet, 2000 mg Sodium Diet Discharge Activity: Return to Normal Activity Disposition: Home Minutes spent on discharge:: 35 Patient Condition:: Stable Meaningful Use Info Meaningful Use Diagnoses (Choose all that apply): None applicable Code Visit OBSV E&M: 17862 Observation care discharge
--- NOTE | 2017-11-12 13:30 | DS.PCM_ITS ---
<Doni Rapp - Last Filed: 11/12/17 13:23> Discharge Date and Diagnosis Date of Admission: 11/11/17 Date of Discharge: 11/12/17 - Primary Discharge Diagnosis Paroxysmal atrial fibrillation with RVR Chest pain secondary to above Microcytic anemia Recent right upper forearm laceration Hypertension Type 2 diabetes - Secondary Discharge Diagnosis Chronic Problems Paroxysmal atrial fibrillation (Chronic) Non-alcoholic fatty liver disease (Chronic) Essential hypertension (Chronic) Type II diabetes mellitus (Chronic) Hospital Course and Treatment Imaging Results: RAD/Chest 1 View (Portable) IMPRESSION: Degenerative changes, as described above. No demonstrated acute cardiopulmonary process. Operations: None Procedures: None Summary of Care Provided: Physical exam on day of discharge: General: Resting comfortably NAD Psych: A/Ox3 normal affect HEENT: PEARRLA AT NC Neck: Supple NT CV: RRR no m/t/r/g/h Resp: CTA Abd: NABSX4 Soft NT no guarding or rigidity Ext: DP2+= no edema Skin: W/D normal turgor Lymph/Heme: No active bleeding or adenopathy Neuro: CN2-12 intact Hospital course: The patient is a 72 year old M with a history of paroxysmal atrial fibrillation who follows with Dr. Sudarshan Gant-on flecainide atenolol and warfarin as an outpatient, also with a history of a forearm laceration 1 week ago for which she is currently being treated with Keflex, and a history of hypertension, microcytic anemia, type 2 diabetes mellitus, who presented to the emergency room with chest pain and was found to be in atrial fibrillation with rapid ventricular response. EKG and troponin were negative, TSH was negative, magnesium was negative. He was given a dose of IV Cardizem in the emergency room and converted to normal sinus rhythm. Per discussion with his building equipment inspector he had a stress test 1 month ago which was negative at that time and he recommended hospital admission, cycling enzymes, and not repeating the stress test. Patient was admitted to PCU placed on cardiac monitoring, serial EKGs and troponins were obtained which were negative. His rate and rhythm remained normal throughout the rest of his stay with no additional agents provided. His Coumadin remained therapeutic. The following morning he had no further chest pain, and no events overnight. He was discharged home in stable condition and advised to follow-up with his PCP and with his building equipment inspector in 1- 2 weeks. This patient was seen by Doni Rapp PA-C under the supervision of Doctor Mary. [] Discharge Diet: Low fat/ Low Cholesterol, 1800 Calorie Control Diet, 2000 mg Sodium Diet Discharge Activity: Return to Normal Activity Home Medications: Medications to take at Discharge Aspirin E.C. [Ecotrin] 81 mg PO DAILY@0800 09/15/14 Atenolol [Tenormin (beta des)] 12.5 mg PO DAILY 09/15/14 Flecainide [Tambocor] 100 mg PO BID 09/15/14 Furosemide [Lasix] 20 mg PO BID 09/15/14 Metformin HCl [Glucophage] 1,000 mg PO BID 09/15/14 Omeprazole [Prilosec] 20 mg PO DAILY 09/15/14 Warfarin [Coumadin] 6 mg PO SUTUTHSA 09/15/14 Warfarin [Coumadin] 7 mg PO MOWEFR 09/15/14 glipiZIDE XL [Glucotrol Xl] 5 mg PO DAILY@0800 09/15/14 Cephalexin [Keflex] 500 mg PO Q8 11/11/17 Dicyclomine HCl 10 mg PO QHS 11/11/17 Lisinopril [Zestril] 10 mg PO DAILY 11/11/17 Pioglitazone [Actos] 15 mg PO DAILY 11/11/17 Spironolactone [Aldactone] 25 mg PO DAILY 11/11/17 Primary Care Physician: Nathaniel Estrada MD [Primary Care Provider] - Please follow up with your Primary Care Physician in: 2 weeks Please Follow Up With: Sudarshan Gant MD When: 1-2 weeks Disposition: Home Minutes spent on discharge:: 35 Patient Condition:: Stable Medical Necessity - Tobacco Use Smoking Status: Former smoker Meaningful Use Info Meaningful Use Diagnoses (Choose all that apply): None applicable <Irving Hernandez - Last Filed: 11/12/17 14:08> Discharge Date and Diagnosis - Secondary Discharge Diagnosis Chronic Problems Paroxysmal atrial fibrillation (Chronic) Non-alcoholic fatty liver disease (Chronic) Essential hypertension (Chronic) Type II diabetes mellitus (Chronic) Hospital Course and Treatment Operations: None Procedures: None Summary of Care Provided: Patient seen and examined independently. Data reviewed. I agree with the above note by the physician acute care certified nursing assistant. The patient is a 72 year old M presents with H fibrillation with RVR. Patient converted to normal sinus rhythm with a one-time dose of IV Cardizem. She was monitored overnight and had no further atrial fibrillation with RVR. He has remained chest pain-free, and is short of breath free. Patient will be discharged with instruction to follow-up with cardiology. [] Discharge Diet: Low fat/ Low Cholesterol, 1800 Calorie Control Diet, 2000 mg Sodium Diet Discharge Activity: Return to Normal Activity Disposition: Home Minutes spent on discharge:: 35 Patient Condition:: Stable Meaningful Use Info Meaningful Use Diagnoses (Choose all that apply): None applicable Code Visit OBSV E&M: 25140 Observation care discharge
== END 2017-11-12 11:16 | disposition home or self-care (01) ==
LOC: ED 20:59 → PCU 22:21
PROVIDERS: Admitting Provider Hospitalist; Emergency Provider Emergency Medicine; Family Provider Family Medicine; PCP Family Medicine
DX: I48.0 Paroxysmal atrial fibrillation (principal); R00.1 Bradycardia, unspecified; E11.9 Type 2 diabetes mellitus without complications; I10 Essential (primary) hypertension; K76.0 Fatty (change of) liver, not elsewhere classified; Z79.899 Other long term (current) drug therapy; Z79.82 Long term (current) use of aspirin; Z79.01 Long term (current) use of anticoagulants; Z79.84 Long term (current) use of oral hypoglycemic drugs; Z87.891 Personal history of nicotine dependence; K21.9 Gastro-esophageal reflux disease without esophagitis; D50.9 Iron deficiency anemia, unspecified; S51.811D Laceration without foreign body of right forearm, subsequent encounter; W45.8XXD Other foreign body or object entering through skin, subsequent encounter
CPT/HCPCS: 36415; 71045; 80048; 82962; 83735; 84443; 84484; 85025; 85610; 93005; 96374; 96375; 99218; 99285; J7030; A4216; G0378; J2405

== ENCOUNTER 2018-04-19 11:19 | Day surgery (SDC) | payer MEDICARE, BC, SELFPAY ==
[2018-04-19 11:40] LABS: Prothrombin Time Fingerstick 13.4 SEC (11.9-14.4)
[2018-04-19 11:48] VITALS: BP 128/77; PULSE 53; RESP 16; TEMP 36.7; O2SAT 95; BMI 38.9
[2018-04-19 11:55] LABS: Bedside Glucose 98 mg/dL (70-110)
--- NOTE | 2018-04-19 12:30 | IMM_PTH ---
PATIENT: ANKIT RODRIGUEZ Jr. LOC: EN U#:[id number] AGE/SX: 73/M ROOM: RE04/19/[address]: Dr. Lola Lyon MD : 1945 BED: DIS: 04/19/2018 SPEC #: [id number] RECD: 04/19/18 15:49 STATUS: JUAN REQ #: [id number] ZORA: 04/19/18 12:[address]: Lola Lyon DEPT: IMMUNOHISTOCHEMISTRY RECD BY: Мария Mcdaniel ENTERED: 04/19/18 15:49 SP TYPE: IMMUNO OTHR DR: Dr. Nathaniel Estrada MD Tissues: Stomach, NOS Procedures: H Pylori (initial) Comments: @ Specimen number changed from [id number] to [id number] @ on 04/20/18 at 0756 by RGOOD. PHYSICIAN & INSTITUTION [place] [id number] SPECIMEN INFORMATION: Tissue Source: Antrum biopsy Clinical Info: Matias Specimen Number: [id number] CPT code: 71952 METHODOLOGY: Deparaffinized sections of prefer/formalin-fixed tissue or PAP/DQ stained slides are incubated with monoclonal/polyclonal antibodies/oligonucleotide probes. Localization is made via biotin free immunoperoxidase method. Appropriate controls are performed and reacted as expected. Results on target cell population are indicated in the following table: RESULTS: ANTIBODY / CLONE RESULT H Pylori (polyclonal) negative These tests were developed and their performance characteristics determined by [facility]. They may not have been cleared or approved by the [place]. Food and Drug Administration. The FDA has determined that such clearance or approval is not necessary. INTERPRETATION: Antrum, biopsy: Negative for Helicobacter pylori organisms. SJ:dorothy 04/20/18
--- NOTE | 2018-04-19 12:30 | EGD_PTH ---
PATIENT: ANKIT RODRIGUEZ Jr. LOC: EN U#:[id number] AGE/SX: 73/M ROOM: RE04/19/[address]: Dr. Lola Lyon MD : 1945 BED: DIS: 04/19/2018 SPEC #: [id number] RECD: 04/19/18 13:23 STATUS: JUAN AGUSTÍN #: [id number] ZORA: 04/19/18 12:[address]: Lola Lyon DEPT: SURGICAL PATHOLOGY RECD BY: Mack Millan ENTERED: 04/19/18 13:37 SP TYPE: EGD BIOPSY OTHR DR: Dr. Nathaniel Estrada MD Tissues: Gastric mucous membrane Procedures: Surgery Specimen Level IV HEADER OPERATION: Colonoscopy, EGD ([facility]) PRE-OP DIAGNOSIS: Anemia TISSUE SUBMITTED: Antrum biopsy for H. pylori and path MICROSCOPIC DIAGNOSIS Antral biopsy: Mild gastritis. See microscopic description and comment. SJ:dorothy 04/20/18 COMMENT The results of immunohistochemistry for Helicobacter pylori will be reported separately ([id number]). MICROSCOPIC DESCRIPTION Slides are reviewed. The specimen shows fragments of gastric mucosa with chronic inflammatory cell infiltrates in the lamina propria consisting of lymphocytes and plasma cells, consistent with mild chronic gastritis. GROSS DESCRIPTION Received in fixative is one container labeled with the patient's name and designated antrum. The specimen consists of one irregular fragment of light garcia soft tissue that measures 0.5 x 0.5 x 0.1 cm. The specimen is totally submitted in one cassette. / AM:dorothy 04/19/18 TC:3 [facility]: [id number]
--- NOTE | 2018-04-19 12:38 | PCM.HP.BLA ---
History and Physical Date of Admission: 04/19/18 Junior West Jr. 1945 ? REFERRING PHYSICIAN: Nathaniel Estrada MD ? CHIEF COMPLAINT: Consult (anemia) ? HPI: The patient is a pleasant 72 year old male presents with iron deficiency anemia. Last had colonoscopy [address] Briones - findings of diverticulosis, fecal occult blood negative. Denies abdominal pain - except chronic left upper quadrant. Denies noting blood in stools. Denies melena. Denies hematemesis. Had been scheduled for cardiac catheterization but cancelled due to Hgb of 10.1. Patient's major complaint is left sided chest pain for which he states radiates to left side of neck and down left arm. Denies heartburn. Denies swallowing problems. ? Brother had esophageal cancer d'xd in his 60s. Sister of MD at age 54. ? ? PAST MEDICAL HISTORY ? Abdominal pain, LLQ 12/04/2014 ? Atrial fibrillation (HCC) ? ? chronic ? Biliary dyskinesia 10/01/2011 ? Symptom free at this time 03/2015 ? BPH W URINARY OBS/LUTS 05/12/2006 ? DIARRHEA NOS 10/12/2008 ? Essential and other specified forms of tremor 09/10/2011 ? Essential hypertension, benign 12/26/2009 ? Fatty liver 05/08/2011 ? Generalized osteoarthrosis, unspecified site ? ? hands, knees, hips ? GERD without esophagitis 03/06/2015 ? Hiatal hernia. ? HALLUX VALGUS 10/14/2005 ? Hypertension ? ? Irritable bowel syndrome ? ? episodic abd pain, diarrhea ? Mesenteric adenitis 10/27/2014 ? Multinodular goiter 12/19/2013 ? S/p left lobectomy ? LOI treated with BiPAP ? ? [place] ? Postinflammatory pulmonary fibrosis (HCC) ? ? asbestos exposure and smoking ? Trigger finger (acquired) 07/17/2014 ? Type 2 diabetes mellitus with diabetic neuropathy (HCC) 03/06/2015 ? ? PAST SURGICAL HISTORY ? COLONOSCOP W/ OR W/O [facility] SPEC ? 1997,1988 ? Colonoscopy ? COLONOSCOPY W/BX ? 10/12/08 ? COLONOSCOPY W/BX ? 12/04/2014 ? Repeat 2024 ? EGD W/O [facility] SPECIMEN W/BX ? 10/12/08 ? FECAL OCCULT BLOOD TEST ? 08/01/2016 ? negative ? INCISION OF TENDON SHEATH ? 07/07/14 ? right thumb trigger release ? PAST SURGICAL HISTORY OF ? 1962 ? left knee ? PAST SURGICAL HISTORY OF ? 2013 ? R knee meniscus tears ? STRESS TEST ? 07/2015 ? NL ? STRESS TEST ? 10/09/2017 ? normel ? THYROIDECTOMY ? 2004 ? Left side ? TOTAL KNEE REPLACEMENT ? 05/24/2012 ? Left ? ? Current Outpatient Prescriptions: glipiZIDE (GLUCOTROL XL) 10mg 24 hr tablet TAKE 1 TABLET DAILY docusate sodium (STOOL SOFTENER ORAL) Take by mouth. warfarin (COUMADIN) 3 mg tablet TAKE 1 TABLET DAILY OR DIRECTED ferrous sulfate 325 mg (65 mg iron) tablet Take 1 tablet by mouth three times daily with meals. metFORMIN ER (GLUCOPHAGE XR) 500 mg 24 hr tablet TAKE 2 TABLETS TWICE A DAY dicyclomine (BENTYL) 10 mg capsule TAKE 1 CAPSULE AT BEDTIME NEEDED spironolactone (ALDACTONE) 25 mg tablet Take 1 tablet by mouth once daily. potassium chloride ER (K-DUR, KLOR-CON) 10 mEq tablet Take 1 tablet by mouth once daily. flecainide (TAMBOCOR) 100 mg tablet Take 1 tablet by mouth twice daily. May take extra 100 mg once a day for breakthru symptoms atenolol (TENORMIN) 25 mg tablet TAKE ONE-HALF (1/2) TABLET DAILY furosemide (LASIX) 20 mg tablet TAKE 1 TABLET TWICE A DAY warfarin (COUMADIN) 2 mg tablet Take 1 tablet by mouth daily as directed. (Patient taking differently: Take 7 mg by mouth daily as directed. Alternating 7mg and 6mg ?lisinopril (PRINIVIL) 10 mg tablet Take 1 tablet by mouth once daily. pioglitazone (ACTOS) 15 mg tablet Take 1 tablet by mouth once daily. warfarin (COUMADIN) 5 mg tablet In combination with 2 or 3mg tablet as directed. nitroglycerin sublingual (NITROQUICK) 0.4 mg SL tablet Dissolve 1 tablet under the tongue as needed. FOR CHEST PAIN. IF NO RELIEF CALL 911 Artificial Tear, Hypromellose, (SYSTANE GEL) 0.3 % gel Use 1 Drop in both eyes daily at bedtime. Lancets lancets USE TO TEST BLOOD SUGAR ONCE A DAY AND NEEDED blood sugar diagnostic (CONTOUR TEST STRIPS) test strip USE FOR BLOOD SUGAR TESTING ONCE DAILY AND NEEDED, 250.00 omeprazole (PRILOSEC) 20 mg ORAL capsule Take one(1) capsule daily. aspirin(ECOTRIN LOW STRENGTH 81 MG TAB) Take one(1) tablet daily. mupirocin (BACTROBAN) 2 % ointment Apply 1 application to affected area three times daily. Location: right forearm ? ? ALLERGIES: Flomax [Tamsulosin Hcl]; Cortisone; Dexamethasone; Naldecon Senior Ex [Guaifenesin]; Ornade [Other]; Rynatan [Chlorpheniramine-Pe Tannates]; Septra [Sulfamethoxazole-Trimethoprim]; Vioxx [Rofecoxib] ? 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 Daughter Sole Galindo ? FAMILY HISTORY ? Heart Failure Mother ? ? COPD Mother ? ? Hypertension Mother ? ? other (tremors) Father ? ? age 96. ? other (AAA) Father ? ? Repaired at [facility]. ? Diabetes Brother ? ? other (tremors) Paternal Uncle ? ? Heart Failure Sister 54 ? viral. ? Cancer Brother ? ? esophagus ? Cancer Sister ? ? pancreas ? Cervical Cancer Maternal Aunt ? ? lung ? Cancer Maternal Aunt ? ? other (Idiopathic pulmonary fibrosis) Son ? ? age 47 after 2 lung transplants. ? ? REVIEW OF SYSTEMS: General: The patient NOTES fatigue, denies weight loss, denies weight gain, NOTES feeling hot, and denies feelings of cold. Eyes: The patient denies glaucoma, NOTES eye injury/surgery, does not wear glasses or contacts. Ear/Nose/Throat: The patient denies allergies, denies hayfever, denies ear infections, and denies bloody noses. Cardiovascular: The patient denies chest pain, denies heart disease, denies high blood pressure,denies cardiac stent, denies prior heart attack, NOTES irregular heart beat, denies high cholesterol, denies poor circulation, denies heart failure, other cardiac issues, denies claudication, denies cold feet, denies peripheral arterial stent. Respiratory: The patient denies tuberculosis, denies pneumonia, denies frequent cough, denies pulmonary embolism, denies shortness of breath, and denies coughing up blood. Gastrointestinal: The patient denies difficulty swallowing, denies acid reflux, denies ulcers, denies vomiting, denies jaundice/hepatitis, denies gallbladder problems, denies black or tarry stools, denies hemorrhoids, denies bleeding from rectum, denies diverticulitis, denies constipation, NOTES diarrhea, denies loss of stool control, and denies hernias. Kidney/Bladder: The patient denies kidney stones, denies urine infections, and denies bloody urine. Skin: The patient denies a history of skin cancer, denies bleeding/changing moles, and denies a history of skin rash. Neurologic: The patient denies a history of epilepsy/convulsions, denies headaches, denies head/spinal injuries, and denies stroke/TIA. Psychiatric: The patient denies psychiatric medications, denies depression, and denies voices, denies substance abuse. Endocrine: The patient denies thyroid disorders, NOTES diabetes, and denies hormonal problems. Hematologic: The patient denies a history of bruising, denies bleeding, and denies anemia, denies blood clots. Infections: The patient NOTES a history of measles and mumps, denies rheumatic fever, and denies sexually transmitted diseases. Musculoskeletal: The patient denies back pain/injury, denies back problems, denies sciatica, denies knee/foot trouble, denies arthritis, or denies gout. ? PHYSICAL EXAMINATION: General: The patient is 72 year old male, well nourished, well hydrated in no acute distress. The patient is oriented to time, place, and person. VITALS: Blood pressure 118/60, pulse 60, weight 117 kg (258 lb) Ht: 5'8 Body mass index is 40.11 kg/m?. Head ? Normocephalic. EOM intact with sclera clear and no icterus noted. Wearing glasses. Mouth with mucus membranes moist. Neck - supple with no jugular venous distention noted. Trachea is midline. Lungs ? clear to auscultation. Normal breath sounds. No rales/rhonchi/wheezing noted. No labored breathing noted, such as retractions. . Heart ? normal S1 and S2 auscultated. No rubs/clicks/murmurs noted. Regular rate. Abdomen ? soft and benign. Normal bowel sounds. Extremities ? no calf tenderness noted. Skin ? normal skin integrity. Neurological ? gait normal, no focal deficits noted Psych ? calm and appropriate ? IMPRESSION: iron deficiency anemia, chest pain ? PLAN: I have discussed the above with the patient. Since patient requires anesthesia (MAC for procedure), I discussed case with anesthesia at [facility]. They state that patient is high risk and rec'd consideration of MAC endoscopy at [facility]. I have explained the above to the patient and he understands. I have counseled the patient as to the risks of the procedure, including but not limited to: infection, bleeding, preforation of the GI tract, inability to complete the procedure, etc. - he understands . He wishes to proceed. ? I have answered all questions to the patient?s satisfaction and the patient has no further questions. . Diagnoses: (D50.9) Iron deficiency anemia, unspecified iron deficiency anemia type (primary encounter diagnosis) Return to Clinic: The patient is instructed to follow-up with me as per needed. ? Lola Lyon MD
[2018-04-19 13:15] VITALS: BP 128/77; BP 87/62; PULSE 54; RESP 15; TEMP 36.5; O2SAT 94
--- NOTE | 2018-04-19 13:17 | OP.ENDO_ITS ---
Patient Name: Junior West Procedure Date: 04/19/2018 12:34 PM Date of : 1945 Age: 73 Procedure: Upper GI endoscopy Indications: Iron deficiency anemia Providers: Lola Lyon MD Referring MD: Nathaniel Estrada Md Medicines: See the Anesthesia note for documentation of the administered medications Patient Profile: Refer to note in patient chart for documentation of history and physical. Complications: No immediate complications. Procedure: Pre-Anesthesia Assessment: - Prior to the procedure, a History and Physical was performed, and patient medications and allergies were reviewed. The patient is competent. The risks and benefits of the procedure and the sedation options and risks were discussed with the patient. All questions were answered and informed consent was obtained. Patient identification and proposed procedure were verified by the physician in the pre-procedure area. Mental Status Examination: alert and oriented. Airway Examination: normal oropharyngeal airway and neck mobility. Respiratory Examination: clear to auscultation. CV Examination: normal. Prophylactic Antibiotics: The patient does not require prophylactic antibiotics. Prior Anticoagulants: The patient has taken no previous anticoagulant or antiplatelet agents. ASA Grade Assessment: III - A patient with severe systemic disease. After reviewing the risks and benefits, the patient was deemed in satisfactory condition to undergo the procedure. The anesthesia plan was to use monitored anesthesia care (MAC). Immediately prior to administration of medications, the patient was re-assessed for adequacy to receive sedatives. The heart rate, respiratory rate, oxygen saturations, blood pressure, adequacy of pulmonary ventilation, and response to care were monitored throughout the procedure. The physical status of the patient was re-assessed after the procedure. After obtaining informed consent, the endoscope was passed under direct vision. Throughout the procedure, the patient's blood pressure, pulse, and oxygen saturations were monitored continuously. The gastroscope was introduced through the mouth, and advanced to the second part of duodenum. The upper GI endoscopy was accomplished without difficulty. The patient tolerated the procedure well. Scope In: 12:51:11 PM Scope Out: 12:55:15 PM Total Procedure Duration Time 0 hours 4 minutes 4 seconds Findings: Biopsies were taken with a cold forceps in the gastric antrum for histology. The examined esophagus was normal. The first portion of the duodenum and second portion of the duodenum were normal. The entire examined stomach was normal. Impression: - Normal esophagus. - Normal first portion of the duodenum and second portion of the duodenum. - Normal stomach. - Biopsies were taken with a cold forceps for histology in the gastric antrum. Recommendation: - My office will telephone with pathology results in 1-2 weeks.. - Continue present medications. Procedure Code(s): --- Professional --- 95758, Esophagogastroduodenoscopy, flexible, transoral; with biopsy, single or multiple Diagnosis Code(s): --- Professional --- D50.9, Iron deficiency anemia, unspecified CPT copyright 2017 [employer]. All rights reserved. The codes documented in this report are preliminary and upon kitchen food server review may be revised to meet current compliance requirements. MD Lola Alamo MD 04/19/2018 1:17:11 PM This report has been signed electronically. Number of Addenda: 0 Note Initiated On: 04/19/2018 12:34 PM
--- NOTE | 2018-04-19 13:19 | OP.ENDO_ITS ---
Patient Name: Junior West Procedure Date: 04/19/2018 12:57 PM Date of : 1945 Age: 73 Procedure: Colonoscopy Indications: Iron deficiency anemia Providers: Lola Lyon MD Referring MD: Nathaniel Estrada Md Medicines: See the Anesthesia note for documentation of the administered medications Patient Profile: Refer to note in patient chart for documentation of history and physical. Last Colonoscopy: date unknown. Complications: No immediate complications. Procedure: Pre-Anesthesia Assessment: - Prior to the procedure, a History and Physical was performed, and patient medications and allergies were reviewed. The patient is competent. The risks and benefits of the procedure and the sedation options and risks were discussed with the patient. All questions were answered and informed consent was obtained. Patient identification and proposed procedure were verified by the physician in the pre-procedure area. Mental Status Examination: alert and oriented. Airway Examination: normal oropharyngeal airway and neck mobility. Respiratory Examination: clear to auscultation. CV Examination: normal. Prophylactic Antibiotics: The patient does not require prophylactic antibiotics. Prior Anticoagulants: The patient has taken no previous anticoagulant or antiplatelet agents. ASA Grade Assessment: III - A patient with severe systemic disease. After reviewing the risks and benefits, the patient was deemed in satisfactory condition to undergo the procedure. The anesthesia plan was to use monitored anesthesia care (MAC). Immediately prior to administration of medications, the patient was re-assessed for adequacy to receive sedatives. The heart rate, respiratory rate, oxygen saturations, blood pressure, adequacy of pulmonary ventilation, and response to care were monitored throughout the procedure. The physical status of the patient was re-assessed after the procedure. After I obtained informed consent, the scope was passed under direct vision. Throughout the procedure, the patient's blood pressure, pulse, and oxygen saturations were monitored continuously. The colonoscope was introduced through the anus and advanced to the cecum, identified by appendiceal orifice and ileocecal valve. The colonoscopy was performed without difficulty. The patient tolerated the procedure well. The quality of the bowel preparation was adequate. Scope In: 12:58:38 PM Scope Withdrawal Time 0 hours 8 minutes 11 seconds Scope Out: 1:10:43 PM Total Procedure Duration Time 0 hours 12 minutes 5 seconds Findings: The perianal and digital rectal examinations were normal. Pertinent negatives include normal sphincter tone. Multiple small and large-mouthed diverticula were found in the sigmoid colon. Non-bleeding internal hemorrhoids were found. Impression: - Diverticulosis in the sigmoid colon. - Non-bleeding internal hemorrhoids. - No specimens collected. Recommendation: - Repeat colonoscopy in 10 years for screening purposes. - Return to primary care physician PRN. - Continue present medications. Procedure Code(s): --- Professional --- 95407, Colonoscopy, flexible; diagnostic, including collection of specimen(s) by brushing or washing, when performed (separate procedure) Diagnosis Code(s): --- Professional --- K64.8, Other hemorrhoids D50.9, Iron deficiency anemia, unspecified K57.30, Diverticulosis of large intestine without perforation or abscess without bleeding CPT copyright 2017 [employer]. All rights reserved. The codes documented in this report are preliminary and upon director enterprise sales review may be revised to meet current compliance requirements. MD Lola Alamo MD 04/19/2018 1:18:52 PM This report has been signed electronically. Number of Addenda: 0 Note Initiated On: 04/19/2018 12:57 PM
[2018-04-19 13:20] VITALS: BP 103/66; BP 128/77; PULSE 49; RESP 16; O2SAT 93
[2018-04-19 13:25] VITALS: BP 113/65; BP 128/77; PULSE 52; RESP 16; O2SAT 95
[2018-04-19 13:30] VITALS: BP 116/68; BP 128/77; PULSE 51; RESP 16; TEMP 36.6; O2SAT 97
[2018-04-19 13:54] VITALS: BP 128/77
--- OUTSIDE RECORDS SUMMARY | 2018-07-22 00:59 | XMS RPT_ITS ---
:1945 Author Organization OHIP Care Team Providers Name Role Phone Nathaniel Lakhani Primary Care Unavailable Ashelfah, Ghasem Admitting Unavailable Irving Hernandez Attending Unavailable Ashelfah, Ghasem Admitting Unavailable Ashelfah, Ghasem Attending Unavailable Nathaniel Lakhani Primary Care Unavailable Ashelfah, Ghasem Consulting Unavailable Ashelfah, Ghasem Admitting Unavailable Nathaniel Lakhani Primary Care Unavailable Irving Hernandez Consulting Unavailable Irving Hernandez Attending Unavailable Renan Thomas Attending Unavailable Ashelfah, Ghasem Referring Unavailable Lola Lyon Attending Unavailable Nathaniel Lakhani Primary Care Unavailable Kar, Nathaniel Referring Unavailable LAURA HOANG JR Attending Unavailable LAURA HOANG JR Referring Unavailable JADYN, SUDARSHAN E Referring Unavailable JADYN, SUDARSHAN E Referring Unavailable KAR, NATHANIEL A Referring Unavailable KAR, NATHANIEL A Attending Unavailable KAR, NATHANIEL A Referring Unavailable KAR, NATHANIEL A Referring Unavailable JADYN, SUDARSHAN E Attending Unavailable JADYN, SUDARSHAN E Referring Unavailable JADYN, SUDARSHAN E Referring Unavailable KAR, NATHANIEL A Referring Unavailable KAR, NATHANIEL A Referring Unavailable KAR, NATHANIEL A Referring Unavailable MADELAINE MARTINEZ (ARNOL) Attending Unavailable CLAUDIA PRADHAN Referring Unavailable JADYN, SUDARSHAN E Referring Unavailable KAR, NATHANIEL A Referring Unavailable KAR, NATHANIEL A Referring Unavailable JADYN, SUDARSHAN E Referring Unavailable JUAN, MADELAINE (ARNOL) Referring Unavailable RAQUEL PARADA (ARNOL) Referring Unavailable RAQUEL PARADA (ARNOL) Referring Unavailable JADYN, SUDARSHAN E Referring Unavailable JADYN, SUDARSHAN E Referring Unavailable JADYN, SUDARSHAN E Attending Unavailable JADYN, SUDARSHAN E Referring Unavailable JADYN, SUDARSHAN E Referring Unavailable JADYN, SUDARSHAN E Referring Unavailable JADYN, SUDARSHAN E Attending Unavailable JADYN, SUDARSHAN E Referring Unavailable JADYN, SUDARSHAN E Referring Unavailable JADYN, SUDARSHAN E Referring Unavailable KAR, NATHANEIL A Attending Unavailable JADYN, SUDARSHAN E Referring Unavailable LOLA LYON Attending Unavailable KAR, NATHANIEL A Referring Unavailable KAR, NATHANIEL A Attending Unavailable KAR, NATHANIEL A Referring Unavailable KAR, NATHANIEL A Referring Unavailable JADYN, SUDARSHAN E Attending Unavailable JADYN, SUDARSHAN E Referring Unavailable JUAN, MADELAINE (PA) Attending Unavailable JUAN MADELAINE (PA) Referring Unavailable JADYN, SUDARSHAN E Referring Unavailable JUAN, MADELAINE (PA) Referring Unavailable KAR, NATHANIEL A Referring Unavailable KAR, NATHANIEL A Referring Unavailable KAR, NATHANIEL A Referring Unavailable CHEY LINK Admitting Unavailable CHEY LINK Attending Unavailable JADYN, SUDARSHAN Attending Unavailable JADYN, SUDARSHAN Referring Unavailable CHEY LINK Admitting Unavailable CHEY LINK Attending Unavailable Kar Nathaniel A Primary Care Unavailable Chanel CHAMBERS Attending Unavailable SUDARSHAN SALAMANCA Referring Unavailable Nathaniel Lakhani Primary Care Unavailable Chanel CHAMBERS Attending Unavailable SUDARSHAN SALAMANCA Referring Unavailable Nathaniel Lakhani Primary Care Unavailable CHEY LINK Admitting Unavailable CHEY LINK Attending Unavailable Nathaniel Lakhani Primary Care Unavailable PROBLEMS PROBLEMS DATE TYPE CONDITION / CODE ATTENDING STATUS SOURCE 03/17/2018 Active Other forms of FARIBA CHEY Active [place] dyspnea / [facility] Other R06.09(ICD-10) [place] Repository 03/17/2018 Active Atherosclerotic CHEY LINK Active [facility]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 [facility] Other nikolai coronary [place] artery with other Repository forms of angina pectoris / I25.118(ICD-10) 03/17/2018 Admitting Unknown / CHEY LINK Active [facility] UNK(Unknown) [facility] Repository 02/05/2018 Active Iron deficiency NA Active [facility] anemia, unspecified Clinic Main / D50.9(ICD-10) [place] Repository 10/06/2017 Active Other shelter NA Active [facility] (current) drug Clinic Main therapy / [place] Z79.899(ICD-10) Repository 03/06/2015 Active Gastro-esophageal NA Active [facility] reflux disease Clinic Main without esophagitis [place] / K21.9(ICD-10) Repository 12/23/2017 Unknown R07.9 - Chest pain, William, Perry Active [facility] unspecified / Community R07.9(ICD-10) Hospital Repository 12/23/2017 Unknown R00.1 - Bradycardia, William, Renan Active [facility] unspecified / Community R00.1(ICD-10) Hospital Repository 12/23/2017 Unknown I48.0 - Paroxysmal William, Perry Active [place] atrial fibrillation Community / I48.0(ICD-10) Hospital Repository 12/23/2017 Unknown I10 - Essential William, Perry Active [place] (primary) Community hypertension / Hospital I10(ICD-10) Repository 10/29/2017 Active Other nonspecific NA Active [facility] abnormal finding of Clinic Main lung field / [place] R91.8(ICD-10) Repository 10/15/2017 Active Unspecified NA Active [facility] abdominal pain / Clinic Main R10.9(ICD-10) [place] Repository 10/15/2017 Active Unknown / NA Active [facility] UNK(Unknown) Clinic Main [place] Repository 10/13/2017 Active Paroxysmal atrial NA Active [facility] fibrillation / Clinic Main I48.0(ICD-10) [place] Repository 10/13/2017 Active Atherosclerosis of NA Active [facility] nikolai arteries of [facility] Main extremities with [place] intermittent Repository claudication, bilateral legs / I70.213(ICD-10) 10/13/2017 Active Chronic diastolic NA Active [facility] (congestive) heart [facility] Main failure / [place] I50.32(ICD-10) Repository 10/12/2017 Active Dysphagia, NA Active [facility] unspecified / Clinic Other R13.10(ICD-10) [place] Repository 10/09/2017 Active Encounter for NA Active [facility] screening for Clinic Other cardiovascular [place] disorders / Repository Z13.6(ICD-10) 03/11/2016 Active Disorder of NA Active [facility] prostate, [facility] Main unspecified / [place] N42.9(ICD-10) Repository 03/11/2016 Active Atherosclerotic NA Active [facility]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 [facility] Main nikolai coronary [place] artery without Repository angina pectoris / I25.10(ICD-10) 03/11/2016 Active Coronary NA Active [facility] atherosclerosis due Clinic Main to lipid rich plaque [place] / I25.83(ICD-10) Repository 11/08/2015 Active Type 2 diabetes NA Active [facility] mellitus with Clinic Main diabetic neuropathy, [place] unspecified / Repository E11.40(ICD-10) 03/06/2015 Active Essential (primary) NA Active [facility] hypertension / Clinic Main I10(ICD-10) [place] Repository 06/29/2017 Active Persistent atrial NA Active [facility] fibrillation / Clinic Main I48.1(ICD-10) [place] Repository PROCEDURES PROCEDURES No Procedure Records FoundRESULTS RESULTS CT CHEST WO IVCON Observed: 04/22/2018 Status: F Source: [place] 1:50 PM [facility]INIC [facility] REPOSITORY * * *Final Report* * * DATE OF EXAM: Apr 22 2018 1:50PM [facility] 0541 - CT CHEST WO IVCON / PROCEDURE REASON: Lung nodules * * * * Physician Interpretation * * * * EXAMINATION: CHEST CT WITHOUT CONTRAST CLINICAL HISTORY: Lung nodules Technique: Spiral CT acquisition of the chest from the thoracic inlet to the upper abdomen without contrast. MQ: CTCWOR_4 CT Dose-Length Product: 561 mGy*cm CT Dose Reduction Employed: Automated exposure control(AEC) and iterative recon Comparison: 10/29/2017, 04/17/2017, 10/07/2016. RESULT: Limitations: None. Lines, tubes, and devices: None. Lung parenchyma and pleura: There is mild emphysema with mild, diffuse bronchiectasis. There is mild biapical fibrosis. There is mild reticulation seen within the periphery of the lungs and lower lobes, bilaterally, suggesting early interstitial lung disease. No CT evidence for pneumonia. There is no pleural effusion, endobronchial lesion, or pneumothorax. There are stable subcentimeter pulmonary nodules. For example, there is a stable, approximately 5 mm nodule seen within the superior segment of the right lower lobe (series 2, image #118). Thoracic inlet, heart, and mediastinum: There is stable mediastinal adenopathy. For example, a precarinal lymph node measures approximately 1.3 cm in short axis dimension (series 2, image #78). There is stable bilateral hilar adenopathy. No owen axillary adenopathy is identified. Stable enlargement of the right lobe of thyroid gland, with associated substernal extension and heterogeneity, which can be seen with thyroid goiter. The left lobe of the thyroid gland is absent. Atherosclerotic calcifications are present thoracic aorta and predominantly the LAD. There is fatty hypertrophy of the intra-atrial septum. There is cardiomegaly. There is no significant pericardial effusion. Again seen are enlarged distal paraesophageal lymph nodes, stable. Bones and soft tissues: There is osteopenia, scoliosis, and multilevel degenerative change seen within the thoracic spine. There is no destructive bony lesion. There is bilateral shoulder DJD. Upper abdomen: Nonspecific wall thickening of the stomach likely relates to underdistention. The gallbladder is relatively collapsed but is otherwise unremarkable. Granulomas are again seen within the spleen. Fat stranding, with prominent lymph nodes again seen within the root of mesentery, a nonspecific finding but one which can be seen with mesenteric panniculitis. There is mild, nonspecific bilateral perinephric fat stranding. Calcified periportal lymph nodes. There is an approximately 1.5 x 1.2 cm exophytic cyst seen arising from the left kidney (series 3, image #208). IMPRESSION: No seen interval change in CT appearance of the chest. Mild emphysema with mild, diffuse bronchiectasis. Mild biapical fibrosis. No acute pulmonary process is identified. Reticulation again seen within the periphery of the lungs and lower lobes, bilaterally, suggesting early interstitial lung disease. Stable subcentimeter pulmonary nodules. Stable mediastinal, bilateral hilar, and distal esophageal lymphadenopathy. Stable fat stranding and prominent lymph nodes within the root of mesentery, a nonspecific finding, but one which can be seen with mesenteric panniculitis. Baseball Player: SIVAKUMAR Transcribe Date/Time: Apr 23 2018 7:33A Dictated by : ASAF BARRY MD This examination was interpreted and the report reviewed and electronically signed by: ASAF BARRY MD on Apr 23 2018 7:37AM EST [id number] HISTORY AND PHYSICAL Observed: 04/19/2018 Status: F Source: [facility] EXAM 1:47 PM [facility] REPOSITORY [facility] Medical Records Department [address] [place] [address] History and Physical 04/19/18 1238 MR#: [id number] Acct: [id number] Name: ANKIT WEST JrRicki Rep #: [id number] : 1945 73 From: Lola Lyon MD PCP: Nathaniel Lakhani MD Status: [facility] Location: [place] [address] History and Physical Date of Admission: 04/19/18 Ankit Keems Jenkins 1945 REFERRING PHYSICIAN: Nathaniel Lakhani MD CHIEF COMPLAINT: Consult (anemia) HPI: The patient is a pleasant 72 year old male presents with iron deficiency anemia. Last had colonoscopy [address] Briones - findings of diverticulosis, fecal occult blood negative. Denies abdominal pain - except chronic left upper quadrant. Denies noting blood in stools. Denies melena. Denies hematemesis. Had been scheduled for cardiac catheterization but cancelled due to Hgb of 10.1. Patient's major complaint is left sided chest pain for which he states radiates to left side of neck and down left arm. Denies heartburn. Denies swallowing problems. Brother had esophageal cancer d'xd in his 60s. Sister of IA at age 54. PAST MEDICAL HISTORY Abdominal pain, LLQ 12/04/2014 Atrial fibrillation (HCC) chronic Biliary dyskinesia 10/01/2011 Symptom free at this time 03/2015 BPH W URINARY OBS/LUTS 05/12/2006 DIARRHEA NOS 10/12/2008 Essential and other specified forms of tremor 09/10/2011 Essential hypertension, benign 12/26/2009 Fatty liver 05/08/2011 Generalized osteoarthrosis, unspecified site hands, knees, hips GERD without esophagitis 03/06/2015 Hiatal hernia. 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 Trigger finger (acquired) 07/17/2014 Type 2 diabetes mellitus with diabetic neuropathy (HCC) 03/06/2015 PAST SURGICAL HISTORY COLONOSCOP W/ OR W/O [facility] SPEC 1997,1988 Colonoscopy COLONOSCOPY W/BX 10/12/08 COLONOSCOPY W/BX 12/04/2014 Repeat 2024 EGD W/O [facility] SPECIMEN W/BX 10/12/08 FECAL OCCULT BLOOD TEST 08/01/2016 negative INCISION OF TENDON SHEATH 07/07/14 right thumb trigger release PAST SURGICAL HISTORY OF 1961 left knee PAST SURGICAL HISTORY OF 2013 R knee meniscus tears STRESS TEST 07/2015 NL STRESS TEST 10/09/2017 normel THYROIDECTOMY 2004 Left side TOTAL KNEE REPLACEMENT 05/24/2012 Left Current Outpatient Prescriptions: glipiZIDE (GLUCOTROL XL) 10mg 24 hr tablet TAKE 1 TABLET DAILY docusate sodium (STOOL SOFTENER ORAL) Take by mouth. warfarin (COUMADIN) 3 mg tablet TAKE 1 TABLET DAILY OR DIRECTED ferrous sulfate 325 mg (65 mg iron) tablet Take 1 tablet by mouth three times daily with meals. metFORMIN ER (GLUCOPHAGE XR) 500 mg 24 hr tablet TAKE 2 TABLETS TWICE A DAY dicyclomine (BENTYL) 10 mg capsule TAKE 1 CAPSULE AT BEDTIME NEEDED spironolactone (ALDACTONE) 25 mg tablet Take 1 tablet by mouth once daily. potassium chloride ER (K-DUR, KLOR-CON) 10 mEq tablet Take 1 tablet by mouth once daily. flecainide (TAMBOCOR) 100 mg tablet Take 1 tablet by mouth twice daily. May take extra 100 mg once a day for breakthru symptoms atenolol (TENORMIN) 25 mg tablet TAKE ONE-HALF (1/2) TABLET DAILY furosemide (LASIX) 20 mg tablet TAKE 1 TABLET TWICE A DAY warfarin (COUMADIN) 2 mg tablet Take 1 tablet by mouth daily as directed. (Patient taking differently: Take 7 mg by mouth daily as directed. Alternating 7mg and 6mg lisinopril (PRINIVIL) 10 mg tablet Take 1 tablet by mouth once daily. pioglitazone (ACTOS) 15 mg tablet Take 1 tablet by mouth once daily. warfarin (COUMADIN) 5 mg tablet In combination with 2 or 3mg tablet as directed. nitroglycerin sublingual (NITROQUICK) 0.4 mg SL tablet Dissolve 1 tablet under the tongue as needed. FOR CHEST PAIN. IF NO RELIEF CALL 911 Artificial Tear, Hypromellose, (SYSTANE GEL) 0.3 % gel Use 1 Drop in both eyes daily at bedtime. Lancets lancets USE TO TEST BLOOD SUGAR ONCE A DAY AND NEEDED blood sugar diagnostic (CONTOUR TEST STRIPS) test strip USE FOR BLOOD SUGAR TESTING ONCE DAILY AND NEEDED, 250.00 omeprazole (PRILOSEC) 20 mg ORAL capsule Take one(1) capsule daily. aspirin(ECOTRIN LOW STRENGTH 81 MG TAB) Take one(1) tablet daily. mupirocin (BACTROBAN) 2 % ointment Apply 1 application to affected area three times daily. 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 Daughter Sole Galindo FAMILY HISTORY Heart Failure Mother COPD Mother Hypertension Mother other (tremors) Father age 96. other (AAA) Father Repaired at [facility]. Diabetes Brother other (tremors) Paternal Uncle Heart Failure Sister 54 viral. Cancer Brother esophagus Cancer Sister pancreas Cervical Cancer Maternal Aunt lung Cancer Maternal Aunt other (Idiopathic pulmonary fibrosis) Son age 47 after 2 lung transplants. REVIEW OF SYSTEMS: General: The patient NOTES fatigue, denies weight loss, denies weight gain, NOTES feeling hot, and denies feelings of cold. Eyes: The patient denies glaucoma, NOTES eye injury/surgery, does not wear glasses or contacts. Ear/Nose/Throat: The patient denies allergies, denies hayfever, denies ear infections, and denies bloody noses. Cardiovascular: The patient denies chest pain, denies heart disease, denies high blood pressure,denies cardiac stent, denies prior heart attack, NOTES irregular heart beat, denies high cholesterol, denies poor circulation, denies heart failure, other cardiac issues, denies claudication, denies cold feet, denies peripheral arterial stent. Respiratory: The patient denies tuberculosis, denies pneumonia, denies frequent cough, denies pulmonary embolism, denies shortness of breath, and denies coughing up blood. Gastrointestinal: The patient denies difficulty swallowing, denies acid reflux, denies ulcers, denies vomiting, denies jaundice/hepatitis, denies gallbladder problems, denies black or tarry stools, denies hemorrhoids, denies bleeding from rectum, denies diverticulitis, denies constipation, NOTES diarrhea, denies loss of stool control, and denies hernias. Kidney/Bladder: The patient denies kidney stones, denies urine infections, and denies bloody urine. Skin: The patient denies a history of skin cancer, denies bleeding/changing moles, and denies a history of skin rash. Neurologic: The patient denies a history of epilepsy/convulsions, denies headaches, denies head/spinal injuries, and denies stroke/TIA. Psychiatric: The patient denies psychiatric medications, denies depression, and denies voices, denies substance abuse. Endocrine: The patient denies thyroid disorders, NOTES diabetes, and denies hormonal problems. Hematologic: The patient denies a history of bruising, denies bleeding, and denies anemia, denies blood clots. Infections: The patient NOTES a history of measles and mumps, denies rheumatic fever, and denies sexually transmitted diseases. Musculoskeletal: The patient denies back pain/injury, denies back problems, denies sciatica, denies knee/foot trouble, denies arthritis, or denies gout. PHYSICAL EXAMINATION: General: The patient is 72 year old male, well nourished, well hydrated in no acute distress. The patient is oriented to time, place, and person. VITALS: Blood pressure 118/60, pulse 60, weight 117 kg (258 lb) Ht: 5'8 Body mass index is 40.11 kg/m . Head Normocephalic. EOM intact with sclera clear and no icterus noted. Wearing glasses. Mouth with mucus membranes moist. Neck - supple with no jugular venous distention noted. Trachea is midline. Lungs clear to auscultation. Normal breath sounds. No rales/rhonchi/wheezing noted. No labored breathing noted, such as retractions. . Heart normal S1 and S2 auscultated. No rubs/clicks/murmurs noted. Regular rate. Abdomen soft and benign. Normal bowel sounds. Extremities no calf tenderness noted. Skin normal skin integrity. Neurological gait normal, no focal deficits noted Psych calm and appropriate IMPRESSION: iron deficiency anemia, chest pain PLAN: I have discussed the above with the patient. Since patient requires anesthesia (MAC for procedure), I discussed case with anesthesia at [facility]. They state that patient is high risk and rec'd consideration of MAC endoscopy at [facility]. I have explained the above to the patient and he understands. I have counseled the patient as to the risks of the procedure, including but not limited to: infection, bleeding, preforation of the GI tract, inability to complete the procedure, etc. - he understands . He wishes to proceed. I have answered all questions to the patient s satisfaction and the patient has no further questions. . Diagnoses: (D50.9) Iron deficiency anemia, unspecified iron deficiency anemia type (primary encounter diagnosis) Return to Clinic: The patient is instructed to follow-up with me as per needed. Lola Lyon MD 04/19/18 2954 <Electronically signed by Lola Lyon MD> Date Lola Lyon MD Cosigner Signature: Date (if applicable) CC: Nathaniel Lakhani MD; Lola Lyon MD Signed OPERATIVE REPORT - Observed: 04/19/2018 Status: F Source: [facility] END[facility] 1:19 PM [facility] REPOSITORY [facility] Medical Records Department [address] [place] [address] Operative Report - Endoscopy MR#: [id number] Acct: [id number] Name: ANKIT WEST Jr. Rep #: [id number] : 1945 73 From: Lola Lyon MD PCP: Nathaniel Lakhani MD [place] [facility] Patient Name: Ankit West Procedure Date: 04/19/2018 12:57 PM Date of : 1945 Age: 73 Procedure: Colonoscopy Indications: Iron deficiency anemia Providers: Lola Lyon MD Referring MD: Nathaniel Lakhani Md Medicines: See the Anesthesia note for documentation of the administered medications Patient Profile: Refer to note in patient chart for documentation of history and physical. Last Colonoscopy: date unknown. Complications: No immediate complications. Procedure: Pre-Anesthesia Assessment: - Prior to the procedure, a History and Physical was performed, and patient medications and allergies were reviewed. The patient is competent. The risks and benefits of the procedure and the sedation options and risks were discussed with the patient. All questions were answered and informed consent was obtained. Patient identification and proposed procedure were verified by the physician in the pre-procedure area. Mental Status Examination: alert and oriented. Airway Examination: normal oropharyngeal airway and neck mobility. Respiratory Examination: clear to auscultation. CV Examination: normal. Prophylactic Antibiotics: The patient does not require prophylactic antibiotics. Prior Anticoagulants: The patient has taken no previous anticoagulant or antiplatelet agents. ASA Grade Assessment: III - A patient with severe systemic disease. After reviewing the risks and benefits, the patient was deemed in satisfactory condition to undergo the procedure. The anesthesia plan was to use monitored anesthesia care (MAC). Immediately prior to administration of medications, the patient was re-assessed for adequacy to receive sedatives. The heart rate, respiratory rate, oxygen saturations, blood pressure, adequacy of pulmonary ventilation, and response to care were monitored throughout the procedure. The physical status of the patient was re-assessed after the procedure. After I obtained informed consent, the scope was passed under direct vision. Throughout the procedure, the patient's blood pressure, pulse, and oxygen saturations were monitored continuously. The colonoscope was introduced through the anus and advanced to the cecum, identified by appendiceal orifice and ileocecal valve. The colonoscopy was performed without difficulty. The patient tolerated the procedure well. The quality of the bowel preparation was adequate. Scope In: 12:58:38 PM Scope Withdrawal Time 0 hours 8 minutes 11 seconds Scope Out: 1:10:43 PM Total Procedure Duration Time 0 hours 12 minutes 5 seconds Findings: The perianal and digital rectal examinations were normal. Pertinent negatives include normal sphincter tone. Multiple small and large-mouthed diverticula were found in the sigmoid colon. Non-bleeding internal hemorrhoids were found. Impression: - Diverticulosis in the sigmoid colon. - Non-bleeding internal hemorrhoids. - No specimens collected. Recommendation: - Repeat colonoscopy in 10 years for screening purposes. - Return to primary care physician PRN. - Continue present medications. Procedure Code(s): --- Professional --- 42737, Colonoscopy, flexible; diagnostic, including collection of specimen(s) by brushing or washing, when performed (separate procedure) Diagnosis Code(s): --- Professional --- K64.8, Other hemorrhoids D50.9, Iron deficiency anemia, unspecified K57.30, Diverticulosis of large intestine without perforation or abscess without bleeding CPT copyright 2017 [employer]. All rights reserved. The codes documented in this report are preliminary and upon fur repair inspector review may be revised to meet current compliance requirements. MD Lola Alamo MD 04/19/2018 1:18:52 PM This report has been signed electronically. Number of Addenda: 0 Note Initiated On: 04/19/2018 12:57 PM 04/19/18 1318 Date Lola Lyon MD Cosigner Signature: Date (if indicated) CC: Nathaniel Lakhani MD; Lola Lyon MD Date Dictated: 04/19/181256 Transcribed: Baseball Player: CYNTHIA Signed OPERATIVE REPORT - Observed: 04/19/2018 Status: F Source: [facility] ENDOSCOPY 1:17 PM [facility] REPOSITORY [facility] Medical Records Department [address] [place] [address] Operative Report - Endoscopy MR#: [id number] Acct: [id number] Name: ANKIT WEST Jr. Rep #: [id number] : 1945 73 From: Lola Lyon MD PCP: Nathaniel Lakhani MD Status: REG SDC Patient Name: Ankit West Procedure Date: 04/19/2018 12:34 PM Date of : 1945 Age: 73 Procedure: Upper GI endoscopy Indications: Iron deficiency anemia Providers: Lola Lyon MD Referring MD: Nathaniel Lakhani Md Medicines: See the Anesthesia note for documentation of the administered medications Patient Profile: Refer to note in patient chart for documentation of history and physical. Complications: No immediate complications. Procedure: Pre-Anesthesia Assessment: - Prior to the procedure, a History and Physical was performed, and patient medications and allergies were reviewed. The patient is competent. The risks and benefits of the procedure and the sedation options and risks were discussed with the patient. All questions were answered and informed consent was obtained. Patient identification and proposed procedure were verified by the physician in the pre-procedure area. Mental Status Examination: alert and oriented. Airway Examination: normal oropharyngeal airway and neck mobility. Respiratory Examination: clear to auscultation. CV Examination: normal. Prophylactic Antibiotics: The patient does not require prophylactic antibiotics. Prior Anticoagulants: The patient has taken no previous anticoagulant or antiplatelet agents. ASA Grade Assessment: III - A patient with severe systemic disease. After reviewing the risks and benefits, the patient was deemed in satisfactory condition to undergo the procedure. The anesthesia plan was to use monitored anesthesia care (MAC). Immediately prior to administration of medications, the patient was re-assessed for adequacy to receive sedatives. The heart rate, respiratory rate, oxygen saturations, blood pressure, adequacy of pulmonary ventilation, and response to care were monitored throughout the procedure. The physical status of the patient was re-assessed after the procedure. After obtaining informed consent, the endoscope was passed under direct vision. Throughout the procedure, the patient's blood pressure, pulse, and oxygen saturations were monitored continuously. The gastroscope was introduced through the mouth, and advanced to the second part of duodenum. The upper GI endoscopy was accomplished without difficulty. The patient tolerated the procedure well. Scope In: 12:51:11 PM Scope Out: 12:55:15 PM Total Procedure Duration Time 0 hours 4 minutes 4 seconds Findings: Biopsies were taken with a cold forceps in the gastric antrum for histology. The examined esophagus was normal. The first portion of the duodenum and second portion of the duodenum were normal. The entire examined stomach was normal. Impression: - Normal esophagus. - Normal first portion of the duodenum and second portion of the duodenum. - Normal stomach. - Biopsies were taken with a cold forceps for histology in the gastric antrum. Recommendation: - My office will telephone with pathology results in 1-2 weeks.. - Continue present medications. Procedure Code(s): --- Professional --- 34647, Esophagogastroduodenoscopy, flexible, transoral; with biopsy, single or multiple Diagnosis Code(s): --- Professional --- D50.9, Iron deficiency anemia, unspecified CPT copyright 2017 [employer]. All rights reserved. The codes documented in this report are preliminary and upon fur repair inspector review may be revised to meet current compliance requirements. MD Lola Alamo MD 04/19/2018 1:17:11 PM This report has been signed electronically. Number of Addenda: 0 Note Initiated On: 04/19/2018 12:34 PM 04/19/18 1317 Date Lola Lyon MD Cosigner Signature: Date (if indicated) CC: Nathaniel Lakhani MD; Lola Lyon MD Date Dictated: 04/19/18 1234 Date Transcribed: Baseball Player: CYNTHIA Signed EGD ([facility]) Observed: 04/19/2018 Status: F Source: [place] 12:30 PM [facility] REPOSITORY Patient: ANKIT WEST Jr. : 1945 (73/M) Acct Num: [id number] Phys: Lola Lyon MD Unit Num: [id number] Loc: EN Specimen: [id number] Received: 04/19/181322 Spec Type: EGD BIOPSY TISSUES 1 TISSUES: Gastric mucous membrane COMMENT The results of immunohistochemistry for Helicobacter pylori will be reported separately ([id number]). GROSS DESCRIPTION Received in fixative is one container labeled with the patient's name and designated antrum. The specimen consists of one irregular fragment of light garcia soft tissue that measures 0.5 x 0.5 x 0.1 cm. The specimen is totally submitted in one cassette. / AM:dorothy 04/19/18 TC:3 CPT: 74282 HEADER OPERATION: Colonoscopy, EGD ([facility]) PRE-OP DIAGNOSIS: Anemia TISSUE SUBMITTED: Antrum biopsy for H. pylori and path MICROSCOPIC DESCRIPTION Slides are reviewed. The specimen shows fragments of gastric mucosa with chronic inflammatory cell infiltrates in the lamina propria consisting of lymphocytes and plasma cells, consistent with mild chronic gastritis. MICROSCOPIC DIAGNOSIS Antral biopsy: Mild gastritis. See microscopic description and comment. SJ:dorothy 04/20/18 Signed Jose Angel Tiwari MD 04/20/18 <signature on file> Performed By: #### PEGD #### [facility] [address] [place] [address]. [place], [place], [id number] IMMUNOHISTOCHEMISTRY Observed: 04/19/2018 Status: F Source: [place] 12:30 PM [facility] REPOSITORY Patient: ANKIT WEST Jr. : 1945 (73/M) Acct Num: [id number] Phys: Lola Lyon MD Unit Num: [id number] Loc: EN Specimen: [id number] Received: 04/19/18 1549 Spec Type: IMMUNO TISSUES 1 TISSUES: Stomach, NOS SPECIMEN INFORMATION: Tissue Source: Antrum biopsy Clinical Info: Anemia Specimen Number: [id number] CPT code: 66080 METHODOLOGY: Deparaffinized sections of prefer/formalin-fixed tissue or PAP/DQ stained slides are incubated with monoclonal/polyclonal antibodies/oligonucleotide probes. Localization is made via biotin free immunoperoxidase method. Appropriate controls are performed and reacted as expected. Results on target cell population are indicated in the following table: RESULTS: ANTIBODY / CLONE RESULT H Pylori (polyclonal) negative These tests were developed and their performance characteristics determined by [facility]. They may not have been cleared or approved by the U.S. Food and Drug Administration. The FDA has determined that such clearance or approval is not necessary. INTERPRETATION: Antrum, biopsy: Negative for Helicobacter pylori organisms. SJ:dorothy 04/20/18 PHYSICIAN AND INSTITUTION [address] [address] Signed Jose Angel Tiwari MD 04/20/18 <signature on file> Performed By: #### PIMM #### [facility] [address] [place] [address], [id number] BEDSIDE GLUCOSE Collected: 04/19/2018 Status: F Source: [place] 11:44 AM [facility] REPOSITORY TYPE CODE TESTS RESULT OUT OF RANGE REFERENCE UNITS LAB L501.080 70-110 mg/dL Normal BEDSIDE GLU 98 Result Comment: MANAGEMENT OF PATIENT CARE PER NURSING PROTOCOL Performed By: #### L501.080 #### [facility] Point of Care [address] [place] [address] PROTIME W/INR Collected: 04/19/2018 Status: F Source: [place] F[place]ER[place] 11:36 AM [facility] REPOSITORY TYPE CODE TESTS RESULT OUT OF RANGE REFERENCE UNITS LAB L9200.1001 11.9-14.4 SEC Normal PROTIME ISTAT 13.4 Result Comment: Reference Range 11.9 - 14.4 LAB L9200.2000 Normal INR ISTAT 1.10 Result Comment: Critical Value > 3.5 Performed By: #### L9200.0000 #### [facility] Point of Care [address] [place] [address] PROTIME Collected: 04/13/2018 Status: F Source: [place] 1:08 PM [facility] REPOSITORY TYPE CODE TESTS RESULT OUT OF RANGE REFERENCE UNITS LAB PSEC 9.7-13.0 sec High PT Sec 20.5 LAB INR 0.9-1.3 High PT INR 2.0 Result Comment: Vitamin K Antagonist (VKA) Therapeutic Range: INR 2 to 3 (Target INR of 2.5) Note: For patients treated with VKA drugs, such as warfarin, the [place] 2012 Guideline recommends a therapeutic INR range of 2 to 3 (target INR of 2.5). This recommendation includes high-risk patients with antiphospholipid syndrome with previous arterial or venous thromboembolism, current-generation mechanical or bioprosthetic aortic heart valve replacement. Note: Patients with mechanical aortic valve replacement and additional risk factors for thromboembolic events (atrial fibrillation, previous thromboembolism, LV dysfunction, hypercoagulable conditions) or an older generation mechanical AVR (i.e., ball in-Cage) or any mechanical MVR should have a INR therapeutic range of 2.5 to 3.5 (target INR of 3). Gusulmatt GH, et al. Chest 2012, 141:7S-47S Dave RA, et al. [facility] 2017, 70: 252-289 Performed By: #### PT #### [facility] [address], [place] [address] PROGRESS Observed: 04/12/2018 Status: COMPLETED Source: [place] 10:31 AM [facility] REPOSITORY HNO ID: [id number] Author: Madelaine Martinez Service: (none) Author Type: Physician Supervisor Waterproofing Type: Progress Notes Filed: 04/12/2018 10:51 AM Note Text: [facility] [place], 04/12/18: INTERVAL HISTORY: Mr. West is a 72 yo male who presents for follow up of dyspnea and exercise intolerance. PMH: AFib, HTN, LOI on CPAP, DM, Hyperlipidemia, ASHD, GERD, BPH. Former smoker, quit 1987. 111 pack years. Patient states breathing is the same as 6 months ago. Difficulty with climbing stairs. Minimal cough. Variable wheezing. No fevers or chills. Consistently wears CPAP with sleep. 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 ? ROS: General: Generally feels out of breath. Appetite good. Weight stable. Eyes, Ears, nose, throat: No post nasal drip, rhinorrhea, purulent nasal discharge, epistaxis, hoarseness. Vision stable. Cardiac: No angina, orthopnea, lower extremity edema. GI: No heartburn, diarrhea, constipation. 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 Musculoskeletal: No pain. Neuro:No headache, focal weakness, tremor. Skin: No rash. Otherwise negative. Allergies reviewed and updated, and medications reconciled today. Immunization History Administered Date(s) Administered Influenza Seasonal - High Dose - Age 65+ 04/04/2016 02/06/2017 03/10/2018 Influenza Seasonal Inj Age 3+ 03/02/2014 Influenza Seasonal Inj Quadrivalent Age 3+ 03/06/2015 Influenza Vaccine, Split-Non Spec 03/06/2006 03/09/2008 02/08/2009 03/29/2010 02/26/2011 03/01/2012 02/22/2013 Pneumococcal-13 Vac Conjugate 03/06/2015 Pneumovax 03/10/2005 03/29/2010 07/30/2016 Tdap (Age 7+) 02/06/2017 PMH: Reviewed with patient today. No changes. FAMH: Reviewed with patient today. No changes. SOCH: No changes. PHYSICAL EXAMINATION: BP 124/82 Pulse 54 Resp 17 Wt 260 lb (117.9kg) SpO2 98% Body mass index is 40.42 kg/m?. Gen: No acute distress. Cooperative with examination. ENT: Sclerae clear. Nares clear. Oral hygeine/dentition good. Pharynx clear. No halitosis. Resp: No stridor, accessory respiratory muscle use, supra- sternal or intercostal retractions. No crackles, wheezes, rubs. CV: Regular rythm. Heart tones normal. No carotid bruit. Radial pulses normal. Abd: Non distended. MSK: No kyphoscoliosis, joint deformities. Ext: Warm and well perfused. No clubbing, cyanosis, edema. Skin: Color normal. Texture normal. No rash, eczema, urticaria, Petechiae. Lymph: No adenopathy in neck, supra-clavicular fossae. Endo: No goiter, exophthalmos, onycholysis. Neuro: Mental status normal. Affect normal. Muscle tone normal. No tremor. IMPRESSION AND RECOMMENDATIONS: 1. Dyspnea. There is no CT evidence of ILD, specific asbestosis or asbestos related pleural disease. Additionally, there is no evidence of limit to ambulation, or O2 desaturation with ambulation, hence no evidence of ILD. - No further Pulmonary evaluation or treamtent is indicated at this time. 2. The subcentimeter pulmonary nodules identified on this CT scan. Initial CT scan October 2016. CT scan 04/2017 and 10/[address] scan now. Goal is for 2 years of stability (10/2018) -->If stable, repeat in 6 months. -->If progression, will further evaluate with flexible bronchoscopy and PET scan. 3. Your shortness of breath is most likely due to your morbid obesity. Body Mass Index (BMI) currently is 40.42 at current weight of 260 pounds. Normal BMI is 18.5-25, corresponding to a goal weight range of 120-160 pounds in an individual 5 feet 7 inches tall. - Weight loss is critical. Consider referral to Weight Management program such as Weight Watchers, or to Bariatric Surgery program. Deferred to Primary Care Physician, Nathaniel Lakhani MD. I addressed the questions of the patient and , and they expressed understanding and acceptance of my answers. Madelaine Martinez PA-C [facility] [place] [facility] [address] [address] CNOV Observed: 04/12/2018 Status: COMPLETED Source: [place] 10:30 AM [facility] REPOSITORY Office Visit (PULMWS) ANKIT WEST ([id number]) 1945 M [facility] Date Time Provider Department 04/12/18 10:30 AM MADELAINE MARTINEZ During your visit today, we recorded the following information about you: Pulse Respiration Blood pressure Weight 54/minute 17/minute 124/82 117.9 kg Madelaine Martinez PA-C 04/12/2018 10:51 AM Signed [facility] [place], 04/12/18: INTERVAL HISTORY: Mr. West is a 72 yo male who presents for follow up of dyspnea and exercise intolerance. PMH: AFib, HTN, LOI on CPAP, DM, Hyperlipidemia, ASHD, GERD, BPH. Former smoker, quit 1987. 111 pack years. Patient states breathing is the same as 6 months ago. Difficulty with climbing stairs. Minimal cough. Variable wheezing. No fevers or chills. Consistently wears CPAP with sleep. 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 ? ROS: General: Generally feels out of breath. Appetite good. Weight stable. Eyes, Ears, nose, throat: No post nasal drip, rhinorrhea, purulent nasal discharge, epistaxis, hoarseness. Vision stable. Cardiac: No angina, orthopnea, lower extremity edema. GI: No heartburn, diarrhea, constipation. 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 Musculoskeletal: No pain. Neuro:No headache, focal weakness, tremor. Skin: No rash. Otherwise negative. Allergies reviewed and updated, and medications reconciled today. Immunization History Administered Date(s) Administered Influenza Seasonal - High Dose - Age 65+ 04/04/2016 02/06/2017 03/10/2018 Influenza Seasonal Inj Age 3+ 03/02/2014 Influenza Seasonal Inj Quadrivalent Age 3+ 03/06/2015 Influenza Vaccine, Split-Non Spec 03/06/2006 03/09/2008 02/08/2009 03/29/2010 02/26/2011 03/01/2012 02/22/2013 Pneumococcal-13 Vac Conjugate 03/06/2015 Pneumovax 03/10/2005 03/29/2010 07/30/2016 Tdap (Age 7+) 02/06/2017 PMH: Reviewed with patient today. No changes. FAMH: Reviewed with patient today. No changes. SOCH: No changes. PHYSICAL EXAMINATION: BP 124/82 Pulse 54 Resp 17 Wt 260 lb (117.9kg) SpO2 98% Body mass index is 40.42 kg/m?. Gen: No acute distress. Cooperative with examination. ENT: Sclerae clear. Nares clear. Oral hygeine/dentition good. Pharynx clear. No halitosis. Resp: No stridor, accessory respiratory muscle use, supra- sternal or intercostal retractions. No crackles, wheezes, rubs. CV: Regular rythm. Heart tones normal. No carotid bruit. Radial pulses normal. Abd: Non distended. MSK: No kyphoscoliosis, joint deformities. Ext: Warm and well perfused. No clubbing, cyanosis, edema. Skin: Color normal. Texture normal. No rash, eczema, urticaria, Petechiae. Lymph: No adenopathy in neck, supra-clavicular fossae. Endo: No goiter, exophthalmos, onycholysis. Neuro: Mental status normal. Affect normal. Muscle tone normal. No tremor. IMPRESSION AND RECOMMENDATIONS: 1. Dyspnea. There is no CT evidence of ILD, specific asbestosis or asbestos related pleural disease. Additionally, there is no evidence of limit to ambulation, or O2 desaturation with ambulation, hence no evidence of ILD. - No further Pulmonary evaluation or treamtent is indicated at this time. 2. The subcentimeter pulmonary nodules identified on this CT scan. Initial CT scan October 2016. CT scan 04/2017 and 10/[address] scan now. Goal is for 2 years of stability (10/2018) -->If stable, repeat in 6 months. -->If progression, will further evaluate with flexible bronchoscopy and PET scan. 3. Your shortness of breath is most likely due to your morbid obesity. Body Mass Index (BMI) currently is 40.42 at current weight of 260 pounds. Normal BMI is 18.5-25, corresponding to a goal weight range of 120-160 pounds in an individual 5 feet 7 inches tall. - Weight loss is critical. Consider referral to Weight Management program such as Weight Watchers, or to Bariatric Surgery program. Deferred to Primary Care Physician, Nathaniel Lakhani MD. I addressed the questions of the patient and , and they expressed understanding and acceptance of my answers. Madelaine Martinez PA-C [facility] [place] [facility] [place] [address] [address] Madelaine Martinez PA-C 04/12/2018 10:50 AM Signed 1. Dyspnea. There is no CT evidence of ILD, specific asbestosis or asbestos related pleural disease. Additionally, there is no evidence of limit to ambulation, or O2 desaturation with ambulation, hence no evidence of ILD. - No further Pulmonary evaluation or treamtent is indicated at this time. 2. The subcentimeter pulmonary nodules identified on this CT scan. Initial CT scan October 2016. CT scan 04/2017 and 10/[address] scan now. Goal is for 2 years of stability (10/2018) -->If stable, repeat in 6 months. -->If progression, will further evaluate with flexible bronchoscopy and PET scan. 3. Your shortness of breath is most likely due to your morbid obesity. Body Mass Index (BMI) currently is 40.42 at current weight of 260 pounds. Normal BMI is 18.5-25, corresponding to a goal weight range of 120-160 pounds in an individual 5 feet 7 inches tall. - Weight loss is critical. Consider referral to Weight Management program such as Weight Watchers, or to Bariatric Surgery program. Deferred to Primary Care Physician, Nathaniel Lakhani MD. Referring Provider: MADELAINE MARTINEZ [[id number]] Allergies As of Date: 04/12/2018 Noted Allergy Reaction FLOMAX (TAMSULOSIN HCL) 06/02/2017 7 - Swelling Comments: Couldn't sleep and acted strange CORTISONE 01/13/2012 14 - Other: See Comments Comments: Heart palpitations DEXAMETHASONE 01/13/2012 14 - Other: See Comments Comments: Heart palpitations NALDECON SENIOR EX (GUAIFENESIN) 12/31/2004 8 - GI Upset Comments: CTM=Chlor-Trimeton ornade [Other] 01/01/2005 8 - GI Upset RYNATAN (CHLORPHENIRAMINE-PE TANN*12/31/2004 8 - GI Upset SEPTRA (SULFAMETHOXAZOLE-TRIMETHO*12/31/2004 8 - GI Upset VIOXX (ROFECOXIB) 12/31/2004 8 - GI Upset Date Reviewed: 04/12/2018 Reviewed by: Madelaine Martinez - Fully Assessed Primary Visit Diagnosis:Dyspnea and respiratory abnormalities [R06.00, R06.89] Other Visit Diagnosis:Lung nodules [R91.8] Prescriptions as of 04/12/2018 Sig: GLIPIZIDE ER 10 MG TABLET, EX* TAKE 1 TABLET DAILY STOOL SOFTENER ORAL Take by mouth. WARFARIN 3 MG TABLET TAKE 1 TABLET DAILY OR DIR* FERROUS SULFATE 325 MG (65 MG* Take 1 tablet by mouth three * METFORMIN ER 500 MG TABLET,EX* TAKE 2 TABLETS TWICE A DAY DICYCLOMINE 10 MG CAPSULE TAKE 1 CAPSULE AT BEDTIME * SPIRONOLACTONE 25 MG TABLET Take 1 tablet by mouth once d* POTASSIUM CHLORIDE ER 10 MEQ * Take 1 tablet by mouth once d* FLECAINIDE 100 MG TABLET Take 1 tablet by mouth twice * ATENOLOL 25 MG TABLET TAKE ONE-HALF (1/2) TABLET DA* MUPIROCIN 2 % TOPICAL OINTMENT Apply 1 application to affect* FUROSEMIDE 20 MG TABLET TAKE 1 TABLET TWICE A DAY WARFARIN 2 MG TABLET Take 1 tablet by mouth daily * Patient taking differently: Take 7 mg by mouth daily as d* LISINOPRIL 10 MG TABLET Take 1 tablet by mouth once d* PIOGLITAZONE 15 MG TABLET Take 1 tablet by mouth once d* WARFARIN 5 MG TABLET In combination with 2 or 3mg * NITROGLYCERIN 0.4 MG SUBLINGU* Dissolve 1 tablet under the t* * OMEPRAZOLE 20 MG CAPSULE,RENY* Take one(1) capsule daily. * ECOTRIN LOW STRENGTH 81 MG TA* Take one(1) tablet daily. 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 Generalized osteoarthrosis, unspecified site [M* Hallux valgus (acquired) [M20.10] INVALID FOR* Benign non-nodular prostatic hyperplasia with l*INVALID FOR* Acute gastritis without mention of hemorrhage [*INVALID FOR*07/04/2014 Essential hypertension, benign [I10] INVALID FOR* Type II or unspecified type diabetes mellitus w*INVALID FOR*12/02/2013 More... Fatty liver [K76.0] INVALID FOR* Essential tremor [G25.0] INVALID FOR* Right flank pain [R10.9] INVALID FOR*07/04/2014 Biliary dyskinesia [K82.8] INVALID FOR* More... Chest pain [R07.9] INVALID FOR*07/04/2014 Knee effusion, left [M25.462] INVALID FOR*07/04/2014 More... Respiratory failure with hypoxia (HCC) [J96.91] INVALID FOR*07/04/2014 More... Normocytic anemia [D64.9] INVALID FOR*07/04/2014 More... Fall [W19.XXXA] INVALID FOR*02/07/2012 More... SUMMARY [V999.95] INVALID FOR*07/04/2014 More... DISPOSITION AND FOLLOW-UP [V999.01] INVALID FOR*07/04/2014 More... LOI on CPAP [G47.33, Z99.89] INVALID FOR*04/03/2014 Multinodular goiter [E04.2] INVALID FOR* More... LOI (obstructive sleep apnea) [G47.33] INVALID FOR* More... Trigger finger (acquired) [M65.30] INVALID FOR* Mesenteric adenitis [I88.0] INVALID FOR* GERD without esophagitis [K21.9] INVALID FOR* Ex-smoker [Z87.891] INVALID FOR* Asbestosis (HCC) [J61] INVALID FOR* More... Type 2 diabetes mellitus with diabetic neuropat*INVALID FOR* Coronary atherosclerosis due to lipid rich plaq*INVALID FOR* More... Disorder of prostate [N42.9] INVALID FOR* Well adult exam [Z00.00] INVALID FOR* More... Colon cancer screening [Z12.11] INVALID FOR* Morbid obesity due to excess calories (HCC) [E6*INVALID FOR* Diabetic eye exam (HCC) [Z01.00, E11.9] INVALID FOR* More... Dyspnea on exertion [R06.09] INVALID FOR* More... 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 Medicare annual wellness visit, subsequent [Z00*INVALID FOR* More... Current use of proton pump inhibitor [Z79.899] INVALID FOR* Obesity, Class II, BMI 35-39.9 [E66.9] INVALID FOR* Iron deficiency anemia [D50.9] INVALID FOR* Coronary artery disease of nikolai artery of adrián*INVALID FOR* Other instructions from your clinician: 1. Dyspnea. There is no CT evidence of ILD, specific asbestosis or asbestos related pleural disease. Additionally, there is no evidence of limit to ambulation, or O2 desaturation with ambulation, hence no evidence of ILD. - No further Pulmonary evaluation or treamtent is indicated at this time. 2. The subcentimeter pulmonary nodules identified on this CT scan. Initial CT scan October 2016. CT scan 04/2017 and 10/[address] scan now. Goal is for 2 years of stability (10/2018) -->If stable, repeat in 6 months. -->If progression, will further evaluate with flexible bronchoscopy and PET scan. 3. Your shortness of breath is most likely due to your morbid obesity. Body Mass Index (BMI) currently is 40.42 at current weight of 260 pounds. Normal BMI is 18.5-25, corresponding to a goal weight range of 120-160 pounds in an individual 5 feet 7 inches tall. - Weight loss is critical. Consider referral to Weight Management program such as Weight Watchers, or to Bariatric Surgery program. Deferred to Primary Care Physician, Nathaniel Lakhani MD. Disposition: Return in about 6 months (around 10/11/2018). Follow-up and Disposition History Recorded Encounter Status:Closed by MADELAINE MARTINEZ on 04/12/18 PROGRESS Observed: 04/02/2018 Status: COMPLETED Source: [place] 4:[address] [facility] [place] REPOSITORY HNO ID: [id number] Author: Sanford Pascual Service: (none) Author Type: (none) Type: Progress Notes Filed: 04/02/2018 4:39 PM Note Text: 04-19-2018 Colon/EGD [facility] Sanford Pascual PROGRESS Observed: 03/29/2018 Status: COMPLETED Source: [place] 9:59 AM [facility] REPOSITORY HNO ID: [id number] Author: Sudarshan Salamanca Service: (none) Author Type: Physician Type: Progress Notes Filed: 03/29/2018 12:14 PM Note Text: PERTINENT CARDIAC HISTORY Atrial fib - PAF HTN LOI - CPAP DM HL - declines statin ASHD - moderate plaque by cath ADHERENCE TO GUIDELINES ARMAND-I or ARB for HF with prior LVEF<40 (NQF 0081) - N/A ASA or Plavix for ASHD (NQF 0067) - met Beta des for ASHD with prior IA or prior LVEF<40 (NQF 0070) - met Beta des for HF with prior LVEF<40 (NQF 0083) - N/A ARMAND-I or ARB for ASHD with DM or prior LVEF<40 (NQF 0066) - met Statin therapy for ASHD or FHL or DM - declined BMI documented and plan if >25 (NQF 0421) - lifestyle recommendation form Tobacco use screening and referral (NQF 0028) - lifestyle recommendation form Recommendation for whole food, plant based diet - lifestyle recommendation form CLINICAL IMPRESSION/PLAN: Ankit West has stable ischemic heart disease. His chest pain pattern is stable and atrial fibrillation is relatively inactive. There is no contra indication to proceeding locally with investigation into his iron deficiency anemia. I will forward copies of this record to Dr. Lyon and ask that this evaluation proceed. He is willing to take a statin for his moderate coronary disease. He will start Lipitor 20 milligrams daily and I've asked him to give me an update in a few weeks. I will see him in 4 months or as needed. Written and verbal health teaching given to patient, patient verbalizes understanding and agrees with treatment plan. DIAGNOSIS FOR VISIT: ASHD Hypertension HISTORY OF PRESENT ILLNESS Ankit West returns for follow-up of his cardiac issues. He recently underwent angiography which disclosed stable coronary disease. No intervention was necessary. He's had no recent chest discomfort. His palpitations have improved. He's had no orthopnea, edema, syncope, TIAs, amaurosis or claudication. He reports that Dr. Link stressed to him that he should be on a calorie restricted diet. ALLERGIES: ALLERGIES Allergen Reactions - Flomax [Tamsulosin * Swelling Couldn't sleep and acted strange - Cortisone Other: See Comments Heart palpitations - Dexamethasone Other: See Comments Heart palpitations - Naldecon Senior Ex * GI Upset CTM=Chlor-Trimeton - Ornade [Other] GI Upset - Rynatan [Chlorpheni* GI Upset - Septra [Sulfamethox* GI Upset - Vioxx [Rofecoxib] GI Upset CURRENT OUTPATIENT MEDICATIONS: glipiZIDE (GLUCOTROL XL) 10mg 24 hr tablet TAKE 1 TABLET DAILY docusate sodium (STOOL SOFTENER ORAL) Take by mouth. warfarin (COUMADIN) 3 mg tablet TAKE 1 TABLET DAILY OR DIRECTED ferrous sulfate 325 mg (65 mg iron) tablet Take 1 tablet by mouth three times daily with meals. metFORMIN ER (GLUCOPHAGE XR) 500 mg 24 hr tablet TAKE 2 TABLETS TWICE A DAY dicyclomine (BENTYL) 10 mg capsule TAKE 1 CAPSULE AT BEDTIME NEEDED spironolactone (ALDACTONE) 25 mg tablet Take 1 tablet by mouth once daily. potassium chloride ER (K-DUR, KLOR-CON) 10 mEq tablet Take 1 tablet by mouth once daily. flecainide (TAMBOCOR) 100 mg tablet Take 1 tablet by mouth twice daily. May take extra 100 mg once a day for breakthru symptoms atenolol (TENORMIN) 25 mg tablet TAKE ONE-HALF (1/2) TABLET DAILY furosemide (LASIX) 20 mg tablet TAKE 1 TABLET TWICE A DAY warfarin (COUMADIN) 2 mg tablet Take 1 tablet by mouth daily as directed. lisinopril (PRINIVIL) 10 mg tablet Take 1 tablet by mouth once daily. pioglitazone (ACTOS) 15 mg tablet Take 1 tablet by mouth once daily. warfarin (COUMADIN) 5 mg tablet In combination with 2 or 3mg tablet as directed. nitroglycerin sublingual (NITROQUICK) 0.4 mg SL tablet Dissolve 1 tablet under the tongue as needed. FOR CHEST PAIN. IF NO RELIEF CALL 911 Artificial Tear, Hypromellose, (SYSTANE GEL) 0.3 % gel Use 1 Drop in both eyes daily at bedtime. Lancets lancets USE TO TEST BLOOD SUGAR ONCE A DAY AND NEEDED blood sugar diagnostic (CONTOUR TEST STRIPS) test strip USE FOR BLOOD SUGAR TESTING ONCE DAILY AND NEEDED, 250.00 omeprazole (PRILOSEC) 20 mg ORAL capsule Take one(1) capsule daily. aspirin(ECOTRIN LOW STRENGTH 81 MG TAB) Take one(1) tablet daily. mupirocin (BACTROBAN) 2 % ointment Apply 1 application to affected area three times daily. Location: right forearm PHYSICAL EXAMINATION: VITAL SIGNS: BP 119/72 Pulse 51 Ht 5' 7.25 (1.71m) Wt 260 lb 9.6 oz (118.2kg) BMI 40.52 kg/(m2). Chest: Clear to auscultation. Trachea is midline. Air entry is equal. Cardiac: Regular rhythm. S1 and S2 are normal. PMI is nondisplaced. There is a soft systolic ejection murmur. Carotids are brisk without bruits. JVP is less than 10 cm. Abdomen: Soft and nontender. There is morbid obesity. There are no pulsatile masses or bruits. No liver enlargement. Bowel sounds are active. Extremities: No edema. Pulses are intact and symmetrical. Recent labs were reviewed. Hemoglobin has improved. Renal function is mildly impaired, but stable. Electronically Signed: Sudarshan Salamanca MD March 29, 2018 9:59 AM CC: Nathaniel Lakhani MD CNOV Observed: 03/29/2018 Status: COMPLETED Source: [place] 9:45 AM [facility] REPOSITORY Office Visit (CAWSTR) WESTANKIT OCASIO ([id number]) 1945 M [facility] Date Time Provider Department 03/29/18 9:45 AM SUDARSHAN SALAMANCA During your visit today, we recorded the following information about you: Pulse Blood pressure Weight Height 51/minute 119/72 118.2 kg 1.708 m Sudarshan Salamanca MD 03/29/2018 12:14 PM Signed PERTINENT CARDIAC HISTORY Atrial fib - PAF HTN LOI - CPAP DM HL - declines statin ASHD - moderate plaque by cath ADHERENCE TO GUIDELINES ARMAND-I or ARB for HF with prior LVEF<40 (NQF 0081) - N/A ASA or Plavix for ASHD (NQF 0067) - met Beta des for ASHD with prior IA or prior LVEF<40 (NQF 0070) - met Beta des for HF with prior LVEF<40 (NQF 0083) - N/A ARMAND-I or ARB for ASHD with DM or prior LVEF<40 (NQF 0066) - met Statin therapy for ASHD or FHL or DM - declined BMI documented and plan if >25 (NQF 0421) - lifestyle recommendation form Tobacco use screening and referral (NQF 0028) - lifestyle recommendation form Recommendation for whole food, plant based diet - lifestyle recommendation form CLINICAL IMPRESSION/PLAN: Ankit West has stable ischemic heart disease. His chest pain pattern is stable and atrial fibrillation is relatively inactive. There is no contra indication to proceeding locally with investigation into his iron deficiency anemia. I will forward copies of this record to Dr. Lyon and ask that this evaluation proceed. He is willing to take a statin for his moderate coronary disease. He will start Lipitor 20 milligrams daily and I've asked him to give me an update in a few weeks. I will see him in 4 months or as needed. Written and verbal health teaching given to patient, patient verbalizes understanding and agrees with treatment plan. DIAGNOSIS FOR VISIT: ASHD Hypertension HISTORY OF PRESENT ILLNESS Ankit West returns for follow-up of his cardiac issues. He recently underwent angiography which disclosed stable coronary disease. No intervention was necessary. He's had no recent chest discomfort. His palpitations have improved. He's had no orthopnea, edema, syncope, TIAs, amaurosis or claudication. He reports that Dr. Link stressed to him that he should be on a calorie restricted diet. ALLERGIES: ALLERGIES Allergen Reactions - Flomax [Tamsulosin * Swelling Couldn't sleep and acted strange - Cortisone Other: See Comments Heart palpitations - Dexamethasone Other: See Comments Heart palpitations - Naldecon Senior Ex * GI Upset CTM=Chlor-Trimeton - Ornade [Other] GI Upset - Rynatan [Chlorpheni* GI Upset - Septra [Sulfamethox* GI Upset - Vioxx [Rofecoxib] GI Upset CURRENT OUTPATIENT MEDICATIONS: glipiZIDE (GLUCOTROL XL) 10mg 24 hr tablet TAKE 1 TABLET DAILY docusate sodium (STOOL SOFTENER ORAL) Take by mouth. warfarin (COUMADIN) 3 mg tablet TAKE 1 TABLET DAILY OR DIRECTED ferrous sulfate 325 mg (65 mg iron) tablet Take 1 tablet by mouth three times daily with meals. metFORMIN ER (GLUCOPHAGE XR) 500 mg 24 hr tablet TAKE 2 TABLETS TWICE A DAY dicyclomine (BENTYL) 10 mg capsule TAKE 1 CAPSULE AT BEDTIME NEEDED spironolactone (ALDACTONE) 25 mg tablet Take 1 tablet by mouth once daily. potassium chloride ER (K-DUR, KLOR-CON) 10 mEq tablet Take 1 tablet by mouth once daily. flecainide (TAMBOCOR) 100 mg tablet Take 1 tablet by mouth twice daily. May take extra 100 mg once a day for breakthru symptoms atenolol (TENORMIN) 25 mg tablet TAKE ONE-HALF (1/2) TABLET DAILY furosemide (LASIX) 20 mg tablet TAKE 1 TABLET TWICE A DAY warfarin (COUMADIN) 2 mg tablet Take 1 tablet by mouth daily as directed. lisinopril (PRINIVIL) 10 mg tablet Take 1 tablet by mouth once daily. pioglitazone (ACTOS) 15 mg tablet Take 1 tablet by mouth once daily. warfarin (COUMADIN) 5 mg tablet In combination with 2 or 3mg tablet as directed. nitroglycerin sublingual (NITROQUICK) 0.4 mg SL tablet Dissolve 1 tablet under the tongue as needed. FOR CHEST PAIN. IF NO RELIEF CALL 911 Artificial Tear, Hypromellose, (SYSTANE GEL) 0.3 % gel Use 1 Drop in both eyes daily at bedtime. Lancets lancets USE TO TEST BLOOD SUGAR ONCE A DAY AND NEEDED blood sugar diagnostic (CONTOUR TEST STRIPS) test strip USE FOR BLOOD SUGAR TESTING ONCE DAILY AND NEEDED, 250.00 omeprazole (PRILOSEC) 20 mg ORAL capsule Take one(1) capsule daily. aspirin(ECOTRIN LOW STRENGTH 81 MG TAB) Take one(1) tablet daily. mupirocin (BACTROBAN) 2 % ointment Apply 1 application to affected area three times daily. Location: right forearm PHYSICAL EXAMINATION: VITAL SIGNS: BP 119/72 Pulse 51 Ht 5' 7.25 (1.71m) Wt 260 lb 9.6 oz (118.2kg) BMI 40.52 kg/(m2). Chest: Clear to auscultation. Trachea is midline. Air entry is equal. Cardiac: Regular rhythm. S1 and S2 are normal. PMI is nondisplaced. There is a soft systolic ejection murmur. Carotids are brisk without bruits. JVP is less than 10 cm. Abdomen: Soft and nontender. There is morbid obesity. There are no pulsatile masses or bruits. No liver enlargement. Bowel sounds are active. Extremities: No edema. Pulses are intact and symmetrical. Recent labs were reviewed. Hemoglobin has improved. Renal function is mildly impaired, but stable. Electronically Signed: Sudarshan Salamanca MD March 29, 2018 9:59 AM CC: MD Sudarshan Alcantara MD 03/29/2018 10:00 AM Signed LIFESTYLE CHANGE A healthy lifestyle is the most important component of your overall treatment plan. Please give serious thought to the following areas and commit to making shelter changes. EAT A WHOLE FOOD, PLANT BASED DIET The nutrition your body gets is more important than the medicine you take. What matters most is the overall way you eat. We encourage you to minimize the use of animal products (which include dairy and all meats except fatty fish) and use whole, unprocessed plant foods to provide your protein, vitamins and other nutrients. We have a lot of information to share with you on this topic. This is not a diet. It is a way of life that you will keep with you. EXERCISE REGULARLY It is not important to spend hours in the gym, lifting weights and perspiring heavily. A total of 2-3 hours per week of aerobic (causing you to be moderately short of breath) exercise is sufficient to improve your health. Talk to us before you begin a new exercise program, if you have heart disease or experience shortness of breath or chest pain. REDUCE STRESS Chronic emotional and physical stress leads to disease. Ways of reducing stress include meditation, visualization, prayer, yoga and other forms of relaxation therapy. Consistency is the gutierres. Find a technique that works for you and do it every day. CULTIVATE RELATIONSHIPS Loneliness and isolation have a major negative impact on health. Seek out others who can love, care for and nurture you. Avoid hurtful relationships. MAINTAIN IDEAL BODY WEIGHT The best way to do this is to do all the things above. Our bodies naturally find the right weight if we keep moving and feed ourselves the right food. If your BMI is greater than 25, we strongly recommend a referral to a weight management program. Please speak to us or your family physician about available programs. AVOID NICOTINE IN ALL FORMS This includes all tobacco products, whether chewed, smoked, vaped, or rubbed on the skin. Smoking cessation programs, which can make use of tobacco substitutes, medications to suppress cravings and behavior management, are available. Please contact your family physician about programs in your area. Sanofrd Pascual 04/02/2018 4:39 PM Signed 04-19-2018 Colon/EGD [facility] Sanford Pascual Referring Provider: SUDARSHAN SALAMANCA [[id number]] Allergies As of Date: 03/29/2018 Noted Allergy Reaction FLOMAX (TAMSULOSIN HCL) 06/02/2017 7 - Swelling Comments: Couldn't sleep and acted strange CORTISONE 01/13/2012 14 - Other: See Comments Comments: Heart palpitations DEXAMETHASONE 01/13/2012 14 - Other: See Comments Comments: Heart palpitations NALDECON SENIOR EX (GUAIFENESIN) 12/31/2004 8 - GI Upset Comments: CTM=Chlor-Trimeton ornade [Other] 01/01/2005 8 - GI Upset RYNATAN (CHLORPHENIRAMINE-PE TANN*12/31/2004 8 - GI Upset SEPTRA (SULFAMETHOXAZOLE-TRIMETHO*12/31/2004 8 - GI Upset VIOXX (ROFECOXIB) 12/31/2004 8 - GI Upset Date Reviewed: 03/29/2018 Reviewed by: Rebeca Mcclure MA - Fully Assessed Reason for Visit: Established Patient [175] Primary Visit Diagnosis:ASHD (arteriosclerotic heart disease) [I25.10] Other Visit Diagnosis:Essential hypertension [I10] Order(s):atorvastatin (LIPITOR) 20 mg tabletTake 1 tablet by mouth once daily.Disp: 90 tabletRfl: 3 Prescriptions as of 03/29/2018 Sig: GLIPIZIDE ER 10 MG TABLET, EX* TAKE 1 TABLET DAILY STOOL SOFTENER ORAL Take by mouth. WARFARIN 3 MG TABLET TAKE 1 TABLET DAILY OR DIR* FERROUS SULFATE 325 MG (65 MG* Take 1 tablet by mouth three * METFORMIN ER 500 MG TABLET,EX* TAKE 2 TABLETS TWICE A DAY DICYCLOMINE 10 MG CAPSULE TAKE 1 CAPSULE AT BEDTIME * SPIRONOLACTONE 25 MG TABLET Take 1 tablet by mouth once d* POTASSIUM CHLORIDE ER 10 MEQ * Take 1 tablet by mouth once d* FLECAINIDE 100 MG TABLET Take 1 tablet by mouth twice * ATENOLOL 25 MG TABLET TAKE ONE-HALF (1/2) TABLET DA* FUROSEMIDE 20 MG TABLET TAKE 1 TABLET TWICE A DAY WARFARIN 2 MG TABLET Take 1 tablet by mouth daily * Patient taking differently: Take 7 mg by mouth daily as d* LISINOPRIL 10 MG TABLET Take 1 tablet by mouth once d* PIOGLITAZONE 15 MG TABLET Take 1 tablet by mouth once d* WARFARIN 5 MG TABLET In combination with 2 or 3mg * NITROGLYCERIN 0.4 MG SUBLINGU* Dissolve 1 tablet under the t* ARTIFICIAL TEARS (HYPROMELLOS* Use 1 Drop in both eyes daily* LANCETS USE TO TEST BLOOD SUGAR ONCE * BLOOD SUGAR DIAGNOSTIC STRIPS USE FOR BLOOD SUGAR TESTING O* * OMEPRAZOLE 20 MG CAPSULE,RENY* Take one(1) capsule daily. * ECOTRIN LOW STRENGTH 81 MG TA* Take one(1) tablet daily. 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 Generalized osteoarthrosis, unspecified site [M* Hallux valgus (acquired) [M20.10] INVALID FOR* Benign non-nodular prostatic hyperplasia with l*INVALID FOR* Acute gastritis without mention of hemorrhage [*INVALID FOR*07/04/2014 Essential hypertension, benign [I10] INVALID FOR* Type II or unspecified type diabetes mellitus w*INVALID FOR*12/02/2013 More... Fatty liver [K76.0] INVALID FOR* Essential tremor [G25.0] INVALID FOR* Right flank pain [R10.9] INVALID FOR*07/04/2014 Biliary dyskinesia [K82.8] INVALID FOR* More... Chest pain [R07.9] INVALID FOR*07/04/2014 Knee effusion, left [M25.462] INVALID FOR*07/04/2014 More... Respiratory failure with hypoxia (HCC) [J96.91] INVALID FOR*07/04/2014 More... Normocytic anemia [D64.9] INVALID FOR*07/04/2014 More... Fall [W19.XXXA] INVALID FOR*02/07/2012 More... SUMMARY [V999.95] INVALID FOR*07/04/2014 More... DISPOSITION AND FOLLOW-UP [V999.01] INVALID FOR*07/04/2014 More... LOI on CPAP [G47.33, Z99.89] INVALID FOR*04/03/2014 Multinodular goiter [E04.2] INVALID FOR* More... LOI (obstructive sleep apnea) [G47.33] INVALID FOR* More... Trigger finger (acquired) [M65.30] INVALID FOR* Mesenteric adenitis [I88.0] INVALID FOR* GERD without esophagitis [K21.9] INVALID FOR* Ex-smoker [Z87.891] INVALID FOR* Asbestosis (HCC) [J61] INVALID FOR* More... Type 2 diabetes mellitus with diabetic neuropat*INVALID FOR* Coronary atherosclerosis due to lipid rich plaq*INVALID FOR* More... Disorder of prostate [N42.9] INVALID FOR* Well adult exam [Z00.00] INVALID FOR* More... Colon cancer screening [Z12.11] INVALID FOR* Morbid obesity due to excess calories (HCC) [E6*INVALID FOR* Diabetic eye exam (HCC) [Z01.00, E11.9] INVALID FOR* More... Dyspnea on exertion [R06.09] INVALID FOR* More... 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 Medicare annual wellness visit, subsequent [Z00*INVALID FOR* More... Current use of proton pump inhibitor [Z79.899] INVALID FOR* Obesity, Class II, BMI 35-39.9 [E66.9] INVALID FOR* Iron deficiency anemia [D50.9] INVALID FOR* Coronary artery disease of nikolai artery of adrián*INVALID FOR* Other instructions from your clinician: LIFESTYLE CHANGE A healthy lifestyle is the most important component of your overall treatment plan. Please give serious thought to the following areas and commit to making shelter changes. EAT A WHOLE FOOD, PLANT BASED DIET The nutrition your body gets is more important than the medicine you take. What matters most is the overall way you eat. We encourage you to minimize the use of animal products (which include dairy and all meats except fatty fish) and use whole, unprocessed plant foods to provide your protein, vitamins and other nutrients. We have a lot of information to share with you on this topic. This is not a diet. It is a way of life that you will keep with you. EXERCISE REGULARLY It is not important to spend hours in the gym, lifting weights and perspiring heavily. A total of 2-3 hours per week of aerobic (causing you to be moderately short of breath) exercise is sufficient to improve your health. Talk to us before you begin a new exercise program, if you have heart disease or experience shortness of breath or chest pain. REDUCE STRESS Chronic emotional and physical stress leads to disease. Ways of reducing stress include meditation, visualization, prayer, yoga and other forms of relaxation therapy. Consistency is the gutierres. Find a technique that works for you and do it every day. CULTIVATE RELATIONSHIPS Loneliness and isolation have a major negative impact on health. Seek out others who can love, care for and nurture you. Avoid hurtful relationships. MAINTAIN IDEAL BODY WEIGHT The best way to do this is to do all the things above. Our bodies naturally find the right weight if we keep moving and feed ourselves the right food. If your BMI is greater than 25, we strongly recommend a referral to a weight management program. Please speak to us or your family physician about available programs. AVOID NICOTINE IN ALL FORMS This includes all tobacco products, whether chewed, smoked, vaped, or rubbed on the skin. Smoking cessation programs, which can make use of tobacco substitutes, medications to suppress cravings and behavior management, are available. Please contact your family physician about programs in your area. Prescriptions ordered this encounter Disp Refills Start End ATORVASTATIN 20 MG TABLET 90 t* 3 03/29/2018 Class: Med Update Route: ORAL Sig: Take 1 tablet by mouth once daily. Follow-up and Disposition History Recorded Encounter Status:Closed by SUDARSHAN SALAMANCA MD on 03/29/18 CNPN Observed: 03/23/2018 Status: COMPLETED Source: [place] 12:00 AM [facility] REPOSITORY Telephone (CAWSTR) ANKIT WEST ([id number]) 1945 [facility] Date Time Provider Department 03/23/18 SUDARSHAN SALAMANCA CAWSTR During your visit today, we recorded the following information about you: Sudarshan Salamanca MD 03/23/2018 12:07 PM Signed Angiogram performed and shows no high-grade coronary disease. He may proceed with GI evaluation locally. Please help him expedite. Please note that I did not receive a copy of this cath report, done at [facility], even though my name is listed as referring MD Rebecca Shah [facility] 03/23/2018 12:47 PM Signed Please have Sanford schedule for endoscopy or does patient need to see someone first? ?thanks (Routing comment) Sanford Pascual 04/02/2018 4:06 PM Signed 1st failed attempt left message Sanford Pascual 04/02/2018 4:34 PM Signed 04-19-[address] [facility] Dr Camron Pascual Allergies As of Date: 03/23/2018 Noted Allergy Reaction FLOMAX (TAMSULOSIN HCL) 06/02/2017 7 - Swelling Comments: Couldn't sleep and acted strange CORTISONE 01/13/2012 14 - Other: See Comments Comments: Heart palpitations DEXAMETHASONE 01/13/2012 14 - Other: See Comments Comments: Heart palpitations NALDECON SENIOR EX (GUAIFENESIN) 12/31/2004 8 - GI Upset Comments: CTM=Chlor-Trimeton ornade [Other] 01/01/2005 8 - GI Upset RYNATAN (CHLORPHENIRAMINE-PE TANN*12/31/2004 8 - GI Upset SEPTRA (SULFAMETHOXAZOLE-TRIMETHO*12/31/2004 8 - GI Upset VIOXX (ROFECOXIB) 12/31/2004 8 - GI Upset Date Reviewed: 03/17/2018 Reviewed by: Kathryn (Kimberly) KIMBERLY Cotton - Fully Assessed Reason for Visit: Colon [facility] [Other] Reason For Visit History Recorded Prescriptions as of 03/23/2018 Sig: GLIPIZIDE ER 10 MG TABLET, EX* TAKE 1 TABLET DAILY STOOL SOFTENER ORAL Take by mouth. WARFARIN 3 MG TABLET TAKE 1 TABLET DAILY OR DIR* FERROUS SULFATE 325 MG (65 MG* Take 1 tablet by mouth three * METFORMIN ER 500 MG TABLET,EX* TAKE 2 TABLETS TWICE A DAY DICYCLOMINE 10 MG CAPSULE TAKE 1 CAPSULE AT BEDTIME * SPIRONOLACTONE 25 MG TABLET Take 1 tablet by mouth once d* POTASSIUM CHLORIDE ER 10 MEQ * Take 1 tablet by mouth once d* FLECAINIDE 100 MG TABLET Take 1 tablet by mouth twice * ATENOLOL 25 MG TABLET TAKE ONE-HALF (1/2) TABLET DA* MUPIROCIN 2 % TOPICAL OINTMENT Apply 1 application to affect* Patient not taking: Reported on 03/29/2018 FUROSEMIDE 20 MG TABLET TAKE 1 TABLET TWICE A DAY WARFARIN 2 MG TABLET Take 1 tablet by mouth daily * Patient taking differently: Take 7 mg by mouth daily as d* LISINOPRIL 10 MG TABLET Take 1 tablet by mouth once d* PIOGLITAZONE 15 MG TABLET Take 1 tablet by mouth once d* WARFARIN 5 MG TABLET In combination with 2 or 3mg * NITROGLYCERIN 0.4 MG SUBLINGU* Dissolve 1 tablet under the t* ARTIFICIAL TEARS (HYPROMELLOS* Use 1 Drop in both eyes daily* LANCETS USE TO TEST BLOOD SUGAR ONCE * BLOOD SUGAR DIAGNOSTIC STRIPS USE FOR BLOOD SUGAR TESTING O* * OMEPRAZOLE 20 MG CAPSULE,RENY* Take one(1) capsule daily. * ECOTRIN LOW STRENGTH 81 MG TA* Take one(1) tablet daily. 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 Generalized osteoarthrosis, unspecified site [M* Hallux valgus (acquired) [M20.10] INVALID FOR* Benign non-nodular prostatic hyperplasia with l*INVALID FOR* Acute gastritis without mention of hemorrhage [*INVALID FOR*07/04/2014 Essential hypertension, benign [I10] INVALID FOR* Type II or unspecified type diabetes mellitus w*INVALID FOR*12/02/2013 More... Fatty liver [K76.0] INVALID FOR* Essential tremor [G25.0] INVALID FOR* Right flank pain [R10.9] INVALID FOR*07/04/2014 Biliary dyskinesia [K82.8] INVALID FOR* More... Chest pain [R07.9] INVALID FOR*07/04/2014 Knee effusion, left [M25.462] INVALID FOR*07/04/2014 More... Respiratory failure with hypoxia (HCC) [J96.91] INVALID FOR*07/04/2014 More... Normocytic anemia [D64.9] INVALID FOR*07/04/2014 More... Fall [W19.XXXA] INVALID FOR*02/07/2012 More... SUMMARY [V999.95] INVALID FOR*07/04/2014 More... DISPOSITION AND FOLLOW-UP [V999.01] INVALID FOR*07/04/2014 More... LOI on CPAP [G47.33, Z99.89] INVALID FOR*04/03/2014 Multinodular goiter [E04.2] INVALID FOR* More... LOI (obstructive sleep apnea) [G47.33] INVALID FOR* More... Trigger finger (acquired) [M65.30] INVALID FOR* Mesenteric adenitis [I88.0] INVALID FOR* GERD without esophagitis [K21.9] INVALID FOR* Ex-smoker [Z87.891] INVALID FOR* Asbestosis (HCC) [J61] INVALID FOR* More... Type 2 diabetes mellitus with diabetic neuropat*INVALID FOR* Coronary atherosclerosis due to lipid rich plaq*INVALID FOR* More... Disorder of prostate [N42.9] INVALID FOR* Well adult exam [Z00.00] INVALID FOR* More... Colon cancer screening [Z12.11] INVALID FOR* Morbid obesity due to excess calories (HCC) [E6*INVALID FOR* Diabetic eye exam (HCC) [Z01.00, E11.9] INVALID FOR* More... Dyspnea on exertion [R06.09] INVALID FOR* More... 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 Medicare annual wellness visit, subsequent [Z00*INVALID FOR* More... Current use of proton pump inhibitor [Z79.899] INVALID FOR* Obesity, Class II, BMI 35-39.9 [E66.9] INVALID FOR* Iron deficiency anemia [D50.9] INVALID FOR* Coronary artery disease of nikolai artery of adrián*INVALID FOR* Encounter Status:Closed by SUDARSHAN SALAMANCA MD on 03/23/18 HISTORY PHYSICAL Observed: 03/17/2018 Status: COMPLETED Source: [facility] [place] 9:45 AM CLINIC OTHER CAMPUS REPOSITORY O ID: [id number] Author: Chey Link Service: Interventional Cardiology Author Type: Physician Type: HANDP Filed: 03/17/2018 9:52 AM Note Text: HISTORY AND PHYSICAL EXAMINATION SERVICE DATE: 03/17/2018 SERVICE TIME: 7:30 PRIMARY CARE PHYSICIAN: Nathaniel Lakhani MD Subjective CHIEF COMPLAINT: Chest pain HPI: This is a 73 year old male who presents with a history of coronary artery disease as noted on cardiac catheterization in 2016. He also suffers from paroxysmal atrial fibrillation. He's been having increasing episodes of chest pain on exertion and with recurrence of atrial fibrillation and rapid ventricular response. Unfortunately, the patient is very noncompliant with dietary modification. He continues to gain weight and eat poorly. His diabetes has been difficult to control due to dietary noncompliance. He's had no symptoms for CHF including PND, orthopnea, or lower extremity edema. FUNCTIONAL STATUS: Independent PAST MEDICAL HISTORY Diagnosis Date - Abdominal pain, LLQ 12/04/2014 - Atrial fibrillation (HCC) chronic - Biliary dyskinesia 10/01/2011 Symptom free at this time 03/2015 - BPH W URINARY OBS/LUTS 05/12/2006 - DIARRHEA NOS 10/12/2008 - Essential and other specified forms of tremor 09/10/2011 - Essential hypertension, benign 12/26/2009 - Fatty liver 05/08/2011 - Generalized osteoarthrosis, unspecified site hands, knees, hips - GERD without esophagitis 03/06/2015 Hiatal hernia. 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 - Trigger finger (acquired) 07/17/2014 - Type 2 diabetes mellitus with diabetic neuropathy (HCC) 03/06/2015 PAST SURGICAL HISTORY Procedure Laterality Date - COLONOSCOP W/ OR W/O [facility] SPEC 1997,1988 Colonoscopy - COLONOSCOPY W/BX 10/12/08 - COLONOSCOPY W/BX 12/04/2014 Repeat 2024 - EGD W/O [facility] SPECIMEN W/BX 10/12/08 - FECAL OCCULT BLOOD TEST 08/01/2016 negative - INCISION OF TENDON SHEATH 07/07/14 right thumb trigger release - PAST SURGICAL HISTORY OF 1961 left knee - PAST SURGICAL HISTORY OF 2013 R knee meniscus tears - STRESS TEST 07/2015 NL - STRESS TEST 10/09/2017 normel - THYROIDECTOMY 2004 Left side - TOTAL KNEE REPLACEMENT 05/24/2012 Left FAMILY HISTORY Problem Relation Age of Onset - Heart Failure Mother - COPD Mother - Hypertension Mother - other (tremors) Father age 96. - other (AAA) Father Repaired at [facility]. - Diabetes Brother - other (tremors) Paternal Uncle - Heart Failure Sister 54 viral. - Cancer Brother esophagus - Cancer Sister pancreas - Cervical Cancer Maternal Aunt lung - Cancer Maternal Aunt - other (Idiopathic pulmonary fibrosis) Son age 47 after 2 lung transplants. Social History Substance Use Topics - Smoking status: Former Smoker Packs/day: 3.00 Years: 37.00 Types: Cigarettes Quit date: 05/04/1987 - Smokeless tobacco: Never Used - Alcohol use 1.5 oz/week 1 Cans of Beer (12oz) per week Comment: occasional Prescriptions Prior to Admission: glipiZIDE (GLUCOTROL XL) 10mg 24 hr tablet TAKE 1 TABLET DAILY Disp: 90 tablet Rfl: 1 03/16/2018 at Unknown time ferrous sulfate 325 mg (65 mg iron) tablet Take 1 tablet by mouth three times daily with meals. Disp: 270 tablet Rfl: 3 03/16/2018 at Unknown time metFORMIN ER (GLUCOPHAGE XR) 500 mg 24 hr tablet TAKE 2 TABLETS TWICE A DAY Disp: 360 tablet Rfl: 1 03/16/2018 at Unknown time spironolactone (ALDACTONE) 25 mg tablet Take 1 tablet by mouth once daily. Disp: Rfl: 03/17/2018 at Unknown time potassium chloride ER (K-DUR, KLOR-CON) 10 mEq tablet Take 1 tablet by mouth once daily. Disp: Rfl: 03/16/2018 at Unknown time flecainide (TAMBOCOR) 100 mg tablet Take 1 tablet by mouth twice daily. May take extra 100 mg once a day for breakthru symptoms Disp: 180 tablet Rfl: 3 03/17/2018 at Unknown time atenolol (TENORMIN) 25 mg tablet TAKE ONE-HALF (1/2) TABLET DAILY Disp: 45 tablet Rfl: 1 03/17/2018 at Unknown time furosemide (LASIX) 20 mg tablet TAKE 1 TABLET TWICE A DAY Disp: 180 tablet Rfl: 3 03/16/2018 at Unknown time lisinopril (PRINIVIL) 10 mg tablet Take 1 tablet by mouth once daily. Disp: 90 tablet Rfl: 3 03/17/2018 at Unknown time pioglitazone (ACTOS) 15 mg tablet Take 1 tablet by mouth once daily. Disp: 90 tablet Rfl: 3 03/16/2018 at Unknown time omeprazole (PRILOSEC) 20 mg ORAL capsule Take one(1) capsule daily. Disp: 90 capsule Rfl: 3 03/16/2018 at Unknown time aspirin(ECOTRIN LOW STRENGTH 81 MG TAB) Take one(1) tablet daily. Disp: Rfl: 0 03/17/2018 at Unknown time docusate sodium (STOOL SOFTENER ORAL) Take by mouth. Disp: Rfl: Taking warfarin (COUMADIN) 3 mg tablet TAKE 1 TABLET DAILY OR DIRECTED Disp: 90 tablet Rfl: 3 03/11/2018 dicyclomine (BENTYL) 10 mg capsule TAKE 1 CAPSULE AT BEDTIME NEEDED Disp: 90 capsule Rfl: 1 Unknown at Unknown time mupirocin (BACTROBAN) 2 % ointment Apply 1 application to affected area three times daily. Location: right forearm Disp: 30 g Rfl: 0 Not Taking warfarin (COUMADIN) 2 mg tablet Take 1 tablet by mouth daily as directed. (Patient taking differently: Take 7 mg by mouth daily as directed. Alternating 7mg and 6mg ) Disp: 90 tablet Rfl: 3 03/11/2018 warfarin (COUMADIN) 5 mg tablet In combination with 2 or 3mg tablet as directed. Disp: 90 tablet Rfl: 3 03/11/2018 nitroglycerin sublingual (NITROQUICK) 0.4 mg SL tablet Dissolve 1 tablet under the tongue as needed. FOR CHEST PAIN. IF NO RELIEF CALL 911 Disp: 1 Bottle of 25 Rfl: 3 Unknown at Unknown time Artificial Tear, Hypromellose, (SYSTANE GEL) 0.3 % gel Use 1 Drop in both eyes daily at bedtime. Disp: Rfl: Taking Lancets lancets USE TO TEST BLOOD SUGAR ONCE A DAY AND NEEDED Disp: 100 Each Rfl: 3 Taking blood sugar diagnostic (CONTOUR TEST STRIPS) test strip USE FOR BLOOD SUGAR TESTING ONCE DAILY AND NEEDED, 250.00 Disp: 50 Strip Rfl: 6 Taking ALLERGIES Allergen Reactions - Flomax [Tamsulosin * Swelling Couldn't sleep and acted strange - Cortisone Other: See Comments Heart palpitations - Dexamethasone Other: See Comments Heart palpitations - Naldecon Senior Ex * GI Upset CTM=Chlor-Trimeton - Ornade [Other] GI Upset - Rynatan [Chlorpheni* GI Upset - Septra [Sulfamethox* GI Upset - Vioxx [Rofecoxib] GI Upset COMPLETE REVIEW OF SYSTEMS: PAIN ASSESSMENT: Negative for pain, history of chronic pain, or current treatment for a chronic pain condition. GENERAL: No weight loss, malaise or fevers HEENT: Negative for frequent or significant headaches, No changes in hearing or vision, no nose bleeds or other nasal problems RESPIRATORY: Negative for cough, hemoptysis, wheezing, COPD, dyspnea or shortness of breath CARDIOVASCULAR: See HPI GI: No nausea, vomiting, or diarrhea MUSCULOSKELETAL: Negative for joint pain or swelling, back pain or muscle pain PSYCH: Negative for sleep disturbance, mood disorder and recent psychosocial stressors ENDOCRINE: Negative for cold or heat intolerance, polyuria, polydipsia and goiter NEURO: No history of headaches, syncope, paralysis, seizures or tremors Objective PHYSICAL EXAM: Physical Exam Performed: GENERAL: Alert, no distress, cooperative, oriented ?3 LUNGS: Lungs clear to auscultation, Good diaphragmatic excursion CARDIAC: Normal S1 and S2; no rubs, murmurs, or gallops ABDOMEN: Abdomen soft obese, non-tender, BS normal, No masses or organomegaly EXTREMITIES: Extremities normal, no deformities, edema, clubbing or skin discoloration. Good capillary refill., No ulcers PULSES: 2+ radial, 2+ carotid BP 119/61 Pulse 51 Temp (Src) 97.7 (Temporal Artery) Resp 12 Ht 5' 7.5 (1.72m) Wt 256 lb 9.6 oz (116.4kg) SpO2 96% BMI 39.57 kg/(m2). DATA: Diagnostic tests reviewed for today's visit: Most recent labs and imaging results. Assessment/Plan 73-year-old gentleman with morbid obesity, paroxysmal atrial fibrillation, known coronary artery disease on prior catheterization who presents for evaluation of worsening chest pain with exertion and with A. fib RVR. His symptoms are consistent with class III angina. Risk, benefits, and alternatives of cardiac catheterization have been reviewed with the patient in detail. I discussed the risks of stent placement in the event that he has severe obstructive coronary disease. This will need to be considered in light of the fact that he has had recent diagnosis of anemia and iron deficiency. SIGNATURE: Chey Link MD PATIENT NAME: Ankit West DATE: March 17, 2018 TIME: 8:00 AM PAGER/CONTACT #: [email or web address] OP NOT Observed: 03/17/2018 Status: COMPLETED Source: [facility] 9:[address] [facility] OTHER CAMPUS REPOSITORY O ID: [id number] Author: Chey Link Service: Interventional Cardiology Author Type: Physician Type: Brief Op Note Filed: 03/17/2018 9:14 AM Note Text: CARDIAC CATHETERIZATION REPORT PATIENT NAME: Ankit West SERVICE DATE: 03/17/2018 SERVICE TIME: 9:09 AM Actuary Clerk: Dr Sudarshan Salamanca Attending: Chey Link RECOMMENDATIONS: Patient needs aggressive risk factor modification. I recommended starting statin therapy despite his cholesterol levels. In addition, I discussed weight loss dietary modification and exercise with the patient and his family in detail. Pre-Procedure Diagnosis: This is a 73-year-old gentleman with history of coronary artery disease by catheterization 2016. He also has paroxysmal atrial fibrillation. He's been having increasing episodes of chest pain when he goes into A. fib with rapid ventricular response. He also complains of shortness of breath and dyspnea on exertion. Patient had had a low risk stress test completed approximately one year ago. He's recently diagnosed with anemia. He is referred for catheterization prior to further procedures. Post- Procedure Diagnosis: Mild diffuse coronary artery disease and a right coronary dominant system. His catheterization is unchanged from catheterization of 2016. Procedure: Left Heart Catheterization Access: Right Radial Artery Under Local anesthesia the Right Radial Artery was entered by Modified Seldinger's technique using a micro puncture needle. A 6F sheath was introduced into the Right Radial Artery . Selective injections were made in the left and right coronary arteries in various right and left anterior oblique views. An LV angiogram was performed in 30 degree LIZAMA. The sheath was removed and hemostatsis was established using Hemo-band closure device. There was no bleeding at the end of the procedure. The pt was returned to the recovery room in a stable condition. FINDINGS: Hemodynamics: LVEDP: 18 mmHg LV - AORTA: No gradient. Coronary Angiography: Left Main: The LAD and left circumflex essentially arise from separate ostia. Left Anterior Descending: Large caliber vessel with mild diffuse disease. Diagonal: Circumflex: Large caliber vessel extending into a single large distal obtuse marginal branch. The mid vessel has a 40% hazy lesion and unchanged from prior catheterization. Right Coronary Artery: Large caliber dominant vessel with mild diffuse disease Collaterals: None LV Gram: LVEF: 50% Wall Motion: Low-normal left ventricular function without significant wall motion abnormality. Complications: None SIGNATURE: Chey Link MD DATE: March 17, 2018 TIME: 9:09 AM INR, POCT WHOLE Collected: 03/17/2018 Status: F Source: [facility] 7:35 AM HEALTH SYSTEM REPOSITORY TYPE CODE TESTS RESULT OUT OF RANGE REFERENCE UNITS LAB PINR(LOINC) 0.90-1.10 High INR, POCT 1.30 Whole Blood Result Comment: Standard Therapy 2.0-3.0 High Dose 2.5-3.5 Performed By: #### PINR #### [place] [address] NURSING PROG Observed: 03/17/2018 Status: COMPLETED Source: [facility] 7:10 AM CLINIC OTHER CAMPUS REPOSITORY HNO ID: [id number] Author: Kathryn Hatch) KIMBERLY Cotton Service: Nursing Author Type: Registered Nurse Type: Nursing Progress Note Filed: 03/17/2018 7:27 AM Note Text: Nursing Progress Note Patient Name: Ankit West Patient [facility]: [facility] 0710 - Patient arrived to [facility] accompanied by , Rosie. Patient oriented to room, procedure explained, and sedation teaching initiated. Patient verbalizes understanding. This note was completed by: Kathryn Cotton RN HOSP Observed: 03/11/2018 Status: COMPLETED Source: [facility] 12:00 AM CLINIC OTHER CAMPUS REPOSITORY Patient:Ankit West MRN: <[id number]> Height:5' 7.5(1.715 m) Weight:256 lb 9.6 oz (116.393 kg) Outpatient Medications as of 03/17/18: glipiZIDE (GLUCOTROL XL) 10mg 24 hr tablet docusate sodium (STOOL SOFTENER ORAL) warfarin (COUMADIN) 3 mg tablet ferrous sulfate 325 mg (65 mg iron) tablet metFORMIN ER (GLUCOPHAGE XR) 500 mg 24 hr tablet dicyclomine (BENTYL) 10 mg capsule spironolactone (ALDACTONE) 25 mg tablet potassium chloride ER (K-DUR, KLOR-CON) 10 mEq tablet flecainide (TAMBOCOR) 100 mg tablet atenolol (TENORMIN) 25 mg tablet mupirocin (BACTROBAN) 2 % ointment furosemide (LASIX) 20 mg tablet warfarin (COUMADIN) 2 mg tablet lisinopril (PRINIVIL) 10 mg tablet pioglitazone (ACTOS) 15 mg tablet warfarin (COUMADIN) 5 mg tablet nitroglycerin sublingual (NITROQUICK) 0.4 mg SL tablet Artificial Tear, Hypromellose, (SYSTANE GEL) 0.3 % gel Lancets lancets blood sugar diagnostic (CONTOUR TEST STRIPS) test strip omeprazole (PRILOSEC) 20 mg ORAL capsule aspirin(ECOTRIN LOW STRENGTH 81 MG TAB) Admission/Clinic Administered Medications as of 03/17/18: NaCl 0.9% iv infusion heparin 1,000 Units in D5W 250 mL heparin 3,000 Units in NaCl 0.9% 500 mL irrigation Problem List: Postinflammatory pulmonary fibrosis [J84.10] Irritable bowel syndrome [K58.9] Atrial fibrillation [I48.91] Generalized osteoarthrosis, unspecified site [M15.9] Hallux valgus (acquired) [M20.10] Benign non-nodular prostatic hyperplasia with lower urinary tract symptoms [N40.1] Essential hypertension, benign [I10] Fatty liver [K76.0] Essential tremor [G25.0] Biliary dyskinesia [K82.8] Multinodular goiter [E04.2] LOI (obstructive sleep apnea) [G47.33] Trigger finger (acquired) [M65.30] Mesenteric adenitis [I88.0] GERD without esophagitis [K21.9] Ex-smoker [Z87.891] Asbestosis (HCC) [J61] Type 2 diabetes mellitus with diabetic neuropathy, without long-term current use of insulin (HCC) [E11.40] Coronary atherosclerosis due to lipid rich plaque [I25.10, I25.83] Disorder of prostate [N42.9] Well adult exam [Z00.00] Colon cancer screening [Z12.11] Morbid obesity due to excess calories (HCC) [E66.01] Diabetic eye exam (HCC) [Z01.00, E11.9] WILSON (dyspnea on exertion) [R06.09] Acute midline low back pain without sciatica [M54.5] Arthritis, lumbar spine [M47.816] Hip arthritis [M16.10] Medicare annual wellness visit, subsequent [Z00.00] Current use of proton pump inhibitor [Z79.899] Obesity, Class II, BMI 35-39.9 [E66.9] Iron deficiency anemia [D50.9] Allergies: Flomax [Tamsulosin Hcl] Cortisone Dexamethasone Naldecon Senior Ex [Guaifenesin] ornade [Other] Rynatan [Chlorpheniramine-Pe Tannates] Septra [Sulfamethoxazole-Trimethoprim] Vioxx [Rofecoxib] Date Verified: 03/17/18 Lab Values Lab Value Units Date High Low POTA* 4.5 mmol/L 03/10/2018 5.1 3.7 DARBY* 40.4 % 03/10/2018 51.0 39.0 Progress Notes (CARD AG SONAI STEWARTB): Berenice West RN 03/15/2018 9:50 AM Signed Patient scheduled for left heart cath, Rt radial, with Dr Link on Thu03/17/18. Instructions reviewed. Questions answered. Patient verbalized understanding. Instructions were as follows: -Arrive to [facility] HANDV Entrance 03/17/18 at time assigned by [facility] ear mold laboratory technician staff in phone call 03/16/18 PM.. -Nothing by mouth after midnight evening prior. -With a sip of water on 03/17/18 morning take: Aspirin 325mg along with usual BP meds- Atenolol, flecainide, lisinopril and aldactone. -Pt to hold DM meds 03/17/18. He will hold Metformin 03/16 and 03/17. -Labs done. - You must have someone drive you home from your procedure. -ear mold laboratory technician policy is pt not be alone first evening Office phone number provided for questions or concerns. [facility] lab director notified. Berenice West RN Progress Notes ([facility]): Viky Carvalho RN 03/12/2018 3:26 PM Signed Called AND talked with pt - see phone note Viky Carvalho RN LIPID PANEL, BASIC Collected: 03/10/2018 Status: F Source: [facility] [place] 12:45 PM CLINIC MAIN [place] REPOSITORY TYPE CODE TESTS RESULT OUT OF REFERENCE UNITS RANGE LAB CHOL <200 mg/dL Cholesterol 130 Result Comment: <200 mg/dL, Desirable 200-239 mg/dL, Borderline high >239 mg/dL, High LAB TRIGLY <150 mg/dL Triglyceride 92 Result Comment: <150 mg/dL, Normal 150-199 mg/dL, Borderline high 200-499 mg/dL, High >499 mg/dL, Very high LAB HDL >39 mg/dL HDL-Cholesterol 41 Result Comment: 40-59 mg/dL, Acceptable >59 mg/dL, High: Negative risk factor for coronary heart disease <40 mg/dL, Low: Positive risk factor for coronary heart disease LAB LDL <100 mg/dL LDL-Cholesterol 71 Result Comment: <100 mg/dL, Optimal 100-129 mg/dL, Near optimal/above optimal 130-159 mg/dL, Borderline high 160-189 mg/dL, High >189 mg/dL, Very high Secondary prevention optimal LDL Cholesterol levels are recommended to be < 70 mg/dL LAB NONHDL <130 mg/dL Non HDL Cholesterol 89 Result Comment: <130 mg/dL, Optimal 130-159 mg/dL, Near optimal/above optimal 160-189 mg/dL, Borderline high 190-219 mg/dL, High >219 mg/dL, Very high Secondary prevention optimal non HDL Cholesterol levels are recommended to be < 100 mg/dL LAB FT hrs Fasting Time 5 LAB VLDL <30 mg/dL VLDL Cholesterol 18 LAB TCHDL <5.10 TC:HDL Ratio 3.17 LAB LDLHDL <2.54 LDL:HDL Ratio 1.73 Result Comment: Reference: 1. National Cholesterol Education Program ATP III Guideline At-A-Glance Quick Desk Reference: National Heart, Lung, and Blood [place]. National Institutes of Health. 2001: NIH Publication No. 01-3305. 2. An International Atherosclerosis Society position paper: global recommendations for the management of dyslipidemia: executive summary, Atherosclerosis. 2014: 232(2):410-413. Performed By: #### LIPB, HBA1C #### [facility] [address] [place] [address] HEMOGLOBIN A1C Collected: 03/10/2018 Status: F Source: [place] 12:45 PM [facility] REPOSITORY TYPE CODE TESTS RESULT OUT OF REFERENCE UNITS RANGE LAB HGBA1C 4.3-5.6 % High Hemoglobin A1c 6.4 LAB HBA0 mg/dL Est. Average Glucose 137 Result Comment: eAG: (Estimated average glucose) is a calculated value from HgbA1c and is client support representative of the average blood glucose level in the last 2-3 month period. Performed By: #### LIPB, HBA1C #### [facility] [address] [address] ALBUMIN/CREAT RATIO Collected: 03/10/2018 Status: F Source: [place] [place] 12:45 PM [facility] REPOSITORY TYPE CODE TESTS RESULT OUT OF REFERENCE UNITS RANGE LAB UCRR 20-300 mg/dL 210.3 Creatinine,Ur ine,Ran LAB UALBR 0.0-23.0 mg/L <12.0 Albumin Urine Random LAB UALBCR 0-30 mg/g Not Albumin/Creat calculated Ratio Performed By: #### UACR #### [facility] [address] [id number] URINALYSIS WITH Collected: 03/10/2018 Status: F Source: [facility] 12:45 PM [facility] REPOSITORY TYPE CODE TESTS RESULT OUT OF REFERENCE UNITS RANGE LAB UCOL Yellow Color Yellow LAB [facility] Clear Clarity Clear LAB UGLUC Negative mg/dL Glucose, Urine Negative LAB UBIL Negative Bilirubin, Urine Negative LAB UKET Negative Ketones, Urine Negative LAB USPG 1.005-1.030 Specific [place], Ur 1.024 LAB UHGB Negative Hemoglobin/Blood, Negative Ur LAB UPH 4.5-8.0 pH 5.0 LAB UPROT Negative mg/dL Protein, Urine Negative LAB UUROB Normal Urobilinogen Normal LAB UNITR Negative Nitrites Negative LAB ULKEST Negative Leukest Negative LAB UCOM Comments SEE COMMENT Result Comment: N/A LAB UMCOM Urine SEE Bj Comment COMMENT Result Comment: N/A LAB UWBC 0-5 /HPF WBC 0-5 LAB URBC 0-3 /HPF RBC 0-3 Performed By: #### UAWMIC #### [facility] [employer] [address] [place], [place] [address] MAGNESIUM Collected: 03/10/2018 Status: F Source: [place] 12:42 PM [facility] REPOSITORY TYPE CODE TESTS RESULT OUT OF REFERENCE UNITS RANGE LAB MG 1.7-2.3 mg/dL Magnesium 1.8 Performed By: #### CBC #### [facility] [employer] [address] [place], [place] [address] COMP METABOLIC PANEL Collected: 03/10/2018 Status: F Source: [place] 12:42 PM [facility] REPOSITORY TYPE CODE TESTS RESULT OUT OF REFERENCE UNITS RANGE LAB TP 6.3-8.0 g/dL Protein, Total 6.7 LAB ALB 3.9-4.9 g/dL Albumin 4.1 LAB CA 8.5-10.2 mg/dL Calcium, Total 9.1 LAB TBIL 0.2-1.3 mg/dL Bilirubin, Total 0.3 LAB ALKP 38-113 U/L Alkaline Phosphatase 70 LAB AST 14-40 U/L AST Low 8 LAB GLU 74-99 mg/dL Glucose 78 LAB BUN 7-21 mg/dL BUN High 22 LAB CRET 0.73-1.22 mg/dL Creatinine 0.94 LAB NA 136-144 mmol/L Sodium 141 LAB K 3.7-5.1 mmol/L Potassium 4.5 LAB CL 97-105 mmol/L Chloride 105 LAB CO2 22-30 mmol/L CO2 26 LAB AGAP 9-18 mmol/L Anion Gap 10 LAB ALT 10-54 U/L ALT 10 LAB GFRAA eGFR- >60 Amer. LAB GFRNAA . eGFR-All Other Races >60 Result Comment: eGFR (Estimated GFR) Units of measure: mL/min/1.73 meters squared eGFR is derived from the reexpressed MDRD Study equation using the following parameters: serum creatinine, age, gender and race. The creatinine assay has been calibrated to be traceable to IDMS. An eGFR <60 mL/min/1.73m2 for >3 months is consistent with chronic kidney disease. Refer to KDOQI guidelines for clinical interpretation. In patients with unstable renal function, e.g. those with acute kidney injury, the eGFR may not accurately reflect actual GFR. Performed By: #### CBC #### [facility] [employer] [address] [id number] CBC Collected: 03/10/2018 Status: F Source: [place] 12:42 PM [facility] REPOSITORY TYPE CODE TESTS RESULT OUT OF REFERENCE UNITS RANGE LAB WBC 3.70-11.00 k/uL WBC 6.73 LAB RBC 4.20-6.00 m/uL RBC 5.12 LAB HGB 13.0-17.0 g/dL Low Hemoglobin 11.7 LAB HCT 39.0-51.0 % Hematocrit 40.4 LAB MCV 80.0-100.0 fL Low MCV 78.9 LAB MCH 26.0-34.0 pG Low MCH 22.9 LAB MCHC 30.5-36.0 g/dL Low MCHC 29.0 LAB RDWCV 11.5-15.0 % RDW-CV High 23.3 LAB PLTCT 150-400 k/uL Platelet Count 310 LAB MPV 9.0-12.7 fL MPV 10.2 LAB ABSNUC <0.01 k/uL Absolute nRBC <0.01 Performed By: #### CBC #### [facility] [employer] [address], [place] [address] PROGRESS Observed: 03/10/2018 Status: COMPLETED Source: [place] 11:43 AM [facility] REPOSITORY HNO ID: [id number] Author: Rebeca Nicholson Service: (none) Author Type: Nurse Practitioner Type: Progress Notes Filed: 03/10/2018 4:02 PM Note Text: 03/10/2018 Patient presents with: 6 Month Exam SUBJECTIVE: This is a 73 year old that is here today for follow up chronic conditions. He is frustrated because he has been dealing with CP that seems related to Afib with Dr. Salamanca stating he needed a cath and newly found anemia trying to get scheduled for colonoscopy and EGD to rule out bleeding, but the general surgeon did not feel that with his heart concerns it would be safe to do it at [facility], so recommended [facility]. [facility]onia has pushed his appointment back a couple of times and he is now not having it until May 19. Anemia: He states that he is taking the iron supplements as prescribed and he has noticed darker stools, but denies blood, He is having about 2 BMs a day and started taking stool softener every other day because of the iron. He denies any lightheadedness or dizziness, no falls, no blood in urine. Cardiac: He states that he has not had an episode of Afib or CP since January. He has nitro if needed. He is taking all of his medications as prescribed. He has been in contact with Dr. Salamanca and he states that he feels that the cath can wait until after the colonoscopy DIABETES MELLITUS: Since our last visit he denies excessive thirst or increased frequency of urination, new or unusual visual symptoms, low sugar/hypoglycemic reactions, weight loss/gain, lightheadedness/dizziness and bowel changes/loose stools. Patient admits to have low sugar/hypoglycemic reactions with symptoms of sweating and feeling shakey and only 2 occasssions since last visit- Jan 28 and dec 24. Patient does have some numbness of feet. He checks feet regularly. Reiteration of importance of diabetic foot care give Follows a diabetic diet some of the time. He is compliant with medication(s) and is tolerating med(s) without any side effects. He reports checking his glucose on a once a day schedule with sugars in the fasting 110-130 range. Patient's last HgA1C was Hemoglobin A1C (%) Date Value 10/02/2017 6.9 04/02/2017 6.9 ) Last Ophthalmology exam was within the past 6 months Last Podiatry exam was within the past 6 months Influenza vaccine given HTN: Mr. West indicates that he is feeling well and denies any symptoms referable to elevated blood pressure. Specifically denies headache, chest pain and peripheral edema. Patient denies any side effects of his medication(s) and is compliant with their regimen. He does check BP's away from this office with average BP's in the 115/70s range. Ankit denies regular aerobic exercise. He watches his diet for sodium, low fat and low cholesterol some of the time. Last 3 Encounter BP Readings: Date: BP: 03/10/2018 116/72 02/11/2018 118/60 02/05/2018 110/62 Respiratory: he feels that he is stable, but is often SOB with exertion. He is wearing his CPAP nightly. PAST MEDICAL HISTORY Diagnosis Date - Abdominal pain, LLQ 12/04/2014 - Atrial fibrillation (HCC) chronic - Biliary dyskinesia 10/01/2011 Symptom free at this time 03/2015 - BPH W URINARY OBS/LUTS 05/12/2006 - DIARRHEA NOS 10/12/2008 - Essential and other specified forms of tremor 09/10/2011 - Essential hypertension, benign 12/26/2009 - Fatty liver 05/08/2011 - Generalized osteoarthrosis, unspecified site hands, knees, hips - GERD without esophagitis 03/06/2015 Hiatal hernia. 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 warfarin (COUMADIN) 3 mg tablet TAKE 1 TABLET DAILY OR DIRECTED ferrous sulfate 325 mg (65 mg iron) tablet Take 1 tablet by mouth three times daily with meals. metFORMIN ER (GLUCOPHAGE XR) 500 mg 24 hr tablet TAKE 2 TABLETS TWICE A DAY dicyclomine (BENTYL) 10 mg capsule TAKE 1 CAPSULE AT BEDTIME NEEDED spironolactone (ALDACTONE) 25 mg tablet Take 1 tablet by mouth once daily. potassium chloride ER (K-DUR, KLOR-CON) 10 mEq tablet Take 1 tablet by mouth once daily. flecainide (TAMBOCOR) 100 mg tablet Take 1 tablet by mouth twice daily. May take extra 100 mg once a day for breakthru symptoms atenolol (TENORMIN) 25 mg tablet TAKE ONE-HALF (1/2) TABLET DAILY mupirocin (BACTROBAN) 2 % ointment Apply 1 application to affected area three times daily. Location: right forearm furosemide (LASIX) 20 mg tablet TAKE 1 TABLET TWICE A DAY warfarin (COUMADIN) 2 mg tablet Take 1 tablet by mouth daily as directed. (Patient taking differently: Take 7 mg by mouth daily as directed. Alternating 7mg and 6mg ) lisinopril (PRINIVIL) 10 mg tablet Take 1 tablet by mouth once daily. pioglitazone (ACTOS) 15 mg tablet Take 1 tablet by mouth once daily. warfarin (COUMADIN) 5 mg tablet In combination with 2 or 3mg tablet as directed. nitroglycerin sublingual (NITROQUICK) 0.4 mg SL tablet Dissolve 1 tablet under the tongue as needed. FOR CHEST PAIN. IF NO RELIEF CALL 911 Artificial Tear, Hypromellose, (SYSTANE GEL) 0.3 % gel Use 1 Drop in both eyes daily at bedtime. Lancets lancets USE TO TEST BLOOD SUGAR ONCE A DAY AND NEEDED blood sugar diagnostic (CONTOUR TEST STRIPS) test strip USE FOR BLOOD SUGAR TESTING ONCE DAILY AND NEEDED, 250.00 omeprazole (PRILOSEC) 20 mg ORAL capsule Take one(1) capsule daily. aspirin(ECOTRIN LOW STRENGTH 81 MG TAB) Take one(1) tablet daily. No current facility-administered medications for this visit. Medications and allergies reviewed by this provider. 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 Daughter Sole Galindo REVIEW OF SYSTEMS see HPI OBJECTIVE: BP 116/72 Pulse (!) 55 Resp 20 Wt 117.9 kg (260 lb) SpO2 96% BMI 40.42 kg/m? . Vital signs reviewed by this provider. PHYSICAL EXAMINATION: General appearance: Well appearing, alert, in no acute distress, well-hydrated, well nourished. and Morbidly obese Skin: Skin color, texture, turgor normal, no suspicious rashes or lesions Neck: Supple, no adenopathy; thyroid symmetric, normal size, no bruits Lungs: lungs clear to auscultation. No wheezing, rhonchi, rales Heart: RRR without murmur, gallop, or rubs. No ectopy Abdomen: Abdomen soft, non-tender. Bowel sounds normal. No masses, Unable to assess for organomegaly d/t body habitus Extremities: No deformities, edema, skin discoloration, clubbing or cyanosis. Good capillary refill. , Pulses: 2+ ASSESSMENT/PLAN: 1. Type 2 diabetes mellitus with diabetic neuropathy, without long-term current use of insulin (HCC) - ICD9: 250.60, 357.2, ICD10: E11.40 (primary diagnosis) Controlled. - Continue current medications - Blood glucose monitoring on a once a day schedule - Encouraged regular aerobic exercise and weight loss - Follow up in 6 months, sooner should any other issues arise. - Discussed diabetic education issues of hypoglycemic symptoms, hyperglycemic symptoms, diet, medications- side effects and need for compliance and importance of exercise with patient. - BP goal of <130/80 - LDL goal of <100 2. Persistent atrial fibrillation (HCC) - ICD9: 427.31, ICD10: I48.1 - continue to follow with Dr. Salamanca 3. Essential hypertension, benign - ICD9: 401.1, ICD10: I10 - good control - Continue current medication(s) - Encouraged dietary sodium restriction/DASH diet - Recommended regular aerobic exercise. - Recommend home blood pressure monitoring, to bring results in on next visit - Discussed need and benefit for weight loss. - Recheck in 6 months, sooner should new symptoms or problems arise. - Reviewed risks of HTN and principles of treatment - Goal of BP <130/80 - Recommended no refined sugar, low refined starch, healthy oil intake (olive oil), healthy protein (fish) along the lines of the Mediterranean diet. 4. GERD without esophagitis - ICD9: 530.81, ICD10: K21.9 - Continue treatment with Prilosec 20 mg QD 5. Essential tremor - ICD9: 333.1, ICD10: G25.0 - pt considering follow up again with Dr. Jain, but unsure because she suggested increasing beta des dose and he feels that it will slow him down too much, he states that he will discuss with Dr. Salamanca 6. LOI (obstructive sleep apnea) - ICD9: 327.23, ICD10: G47.33 - continue CPAP 7. Morbid obesity due to excess calories (HCC) - ICD9: 278.01, ICD10: E66.01 - discussed and encouraged healthy diet and exercise 8. WILSON (dyspnea on exertion) - ICD9: 786.09, ICD10: R06.09 - discussed benefits of weight loss - continue current medications and follow up with specialists 9. Iron deficiency anemia, unspecified iron deficiency anemia type - ICD9: 280.9, ICD10: D50.9 - will re order CBC today, encouraged to follow up with surgery as planned for colonoscopy and EGD. Continue iron. Discussed red flags and encouraged ER if experiencing them. - CBC 10. Need for vaccination - ICD9: V05.9, ICD10: Z23 - ADMIN OF INFLUENZA VACCINE - INFLUENZA SEASONAL HIGH DOSE AGE 65+ Rebeca Nicholson APRN.CHOCOLATE FINISHER PROGRESS Observed: 03/10/2018 Status: COMPLETED Source: [place] 11:[address] [facility] [place] REPOSITORY O ID: [id number] Author: Stephanie Clifton) CHELLY Ramirez Service: (none) Author Type: Ignition Specialist Type: Progress Notes Filed: 03/10/2018 4:02 PM Note Text: Influenza Vaccine Documentation: ? Patient is identified by name and date of : Yes ? Patient is older than 6 months of age: Yes ? Patient denies a severe allergy to any vaccine component or to a previous dose of influenza vaccine: Yes FOR EGG ALLERGY CONCERNS, REFER TO PROVIDER. ? Denies allergy to gelatin, formaldehyde, thimerosol :Yes ? Patient is afebrile and not moderately or severely ill: Yes ? Does the patient have a history of Guillain ?[place] Syndrome (a severe paralytic illness): No ? Denies bone marrow transplant prior 6 months or solid organ transplant prior 3 months: Yes ? Denies a history of fainting after a prior injection or medical procedure? Yes If patient has fainted in the past, the CDC recommends sitting or lying down for 15 minutes after the vaccination. ? VIS sheet provided: Yes ? See Immunization Form in [facility] for details of immunizations administered today. If patient reports dizziness, vision changes or ringing in the ears post vaccination ? please have patient sit or lie down for 15 minutes. Stephanie Ramirez MA CNOV Observed: 03/10/2018 Status: COMPLETED Source: [place] 11:20 AM [facility] REPOSITORY Office Visit (FAMPWS) ANKIT WEST JR. ([id number]) 1945 M Date Time Provider Department 03/10/18 11:20 AM REBECA NICHOLSON ([facility]) FAMPWS During your visit today, we recorded the following information about you: Pulse Respiration Blood pressure Weight 55/minute 20/minute 116/72 117.9 kg Stephanie Ramirez MA, MA 03/10/2018 4:02 PM Signed Influenza Vaccine Documentation: ? Patient is identified by name and date of : Yes ? Patient is older than 6 months of age: Yes ? Patient denies a severe allergy to any vaccine component or to a previous dose of influenza vaccine: Yes FOR EGG ALLERGY CONCERNS, REFER TO PROVIDER. ? Denies allergy to gelatin, formaldehyde, thimerosol :Yes ? Patient is afebrile and not moderately or severely ill: Yes ? Does the patient have a history of Guillain ?[place] Syndrome (a severe paralytic illness): No ? Denies bone marrow transplant prior 6 months or solid organ transplant prior 3 months: Yes ? Denies a history of fainting after a prior injection or medical procedure? Yes If patient has fainted in the past, the CDC recommends sitting or lying down for 15 minutes after the vaccination. ? VIS sheet provided: Yes ? [facility] for details of immunizations administered today. If patient reports dizziness, vision changes or ringing in the ears post vaccination ? please have patient sit or lie down for 15 minutes. CHELLY Chan APRN.CHOCOLATE FINISHER 03/10/2018 4:02 PM Signed 03/10/2018 Patient presents with: 6 Month Exam SUBJECTIVE: This is a 73 year old that is here today for follow up chronic conditions. He is frustrated because he has been dealing with CP that seems related to Afib with Dr. Salamanca stating he needed a cath and newly found anemia trying to get scheduled for colonoscopy and EGD to rule out bleeding, but the general surgeon did not feel that with his heart concerns it would be safe to do it at [facility], so recommended [facility]. Sonia has pushed his appointment back a couple of times and he is now not having it until May 19. Anemia: He states that he is taking the iron supplements as prescribed and he has noticed darker stools, but denies blood, He is having about 2 BMs a day and started taking stool softener every other day because of the iron. He denies any lightheadedness or dizziness, no falls, no blood in urine. Cardiac: He states that he has not had an episode of Afib or CP since January. He has nitro if needed. He is taking all of his medications as prescribed. He has been in contact with Dr. Salamanca and he states that he feels that the cath can wait until after the colonoscopy DIABETES MELLITUS: Since our last visit he denies excessive thirst or increased frequency of urination, new or unusual visual symptoms, low sugar/hypoglycemic reactions, weight loss/gain, lightheadedness/dizziness and bowel changes/loose stools. Patient admits to have low sugar/hypoglycemic reactions with symptoms of sweating and feeling shakey and only 2 occasssions since last visit- Jan 28 59 and dec 24. Patient does have some numbness of feet. He checks feet regularly. Reiteration of importance of diabetic foot care give Follows a diabetic diet some of the time. He is compliant with medication(s) and is tolerating med(s) without any side effects. He reports checking his glucose on a once a day schedule with sugars in the fasting 110-130 range. Patient's last HgA1C was Hemoglobin A1C (%) Date Value 10/02/2017 6.9 04/02/2017 6.9 ) Last Ophthalmology exam was within the past 6 months Last Podiatry exam was within the past 6 months Influenza vaccine given HTN: Mr. West indicates that he is feeling well and denies any symptoms referable to elevated blood pressure. Specifically denies headache, chest pain and peripheral edema. Patient denies any side effects of his medication(s) and is compliant with their regimen. He does check BP's away from this office with average BP's in the 115/70s range. Ankit denies regular aerobic exercise. He watches his diet for sodium, low fat and low cholesterol some of the time. Last 3 Encounter BP Readings: Date: BP: 03/10/2018 116/72 02/11/2018 118/60 02/05/2018 110/62 Respiratory: he feels that he is stable, but is often SOB with exertion. He is wearing his CPAP nightly. PAST MEDICAL HISTORY Diagnosis Date - Abdominal pain, LLQ 12/04/2014 - Atrial fibrillation (HCC) chronic - Biliary dyskinesia 10/01/2011 Symptom free at this time 03/2015 - BPH W URINARY OBS/LUTS 05/12/2006 - DIARRHEA NOS 10/12/2008 - Essential and other specified forms of tremor 09/10/2011 - Essential hypertension, benign 12/26/2009 - Fatty liver 05/08/2011 - Generalized osteoarthrosis, unspecified site hands, knees, hips - GERD without esophagitis 03/06/2015 Hiatal hernia. 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 warfarin (COUMADIN) 3 mg tablet TAKE 1 TABLET DAILY OR DIRECTED ferrous sulfate 325 mg (65 mg iron) tablet Take 1 tablet by mouth three times daily with meals. metFORMIN ER (GLUCOPHAGE XR) 500 mg 24 hr tablet TAKE 2 TABLETS TWICE A DAY dicyclomine (BENTYL) 10 mg capsule TAKE 1 CAPSULE AT BEDTIME NEEDED spironolactone (ALDACTONE) 25 mg tablet Take 1 tablet by mouth once daily. potassium chloride ER (K-DUR, KLOR-CON) 10 mEq tablet Take 1 tablet by mouth once daily. flecainide (TAMBOCOR) 100 mg tablet Take 1 tablet by mouth twice daily. May take extra 100 mg once a day for breakthru symptoms atenolol (TENORMIN) 25 mg tablet TAKE ONE-HALF (1/2) TABLET DAILY mupirocin (BACTROBAN) 2 % ointment Apply 1 application to affected area three times daily. Location: right forearm furosemide (LASIX) 20 mg tablet TAKE 1 TABLET TWICE A DAY warfarin (COUMADIN) 2 mg tablet Take 1 tablet by mouth daily as directed. (Patient taking differently: Take 7 mg by mouth daily as directed. Alternating 7mg and 6mg ) lisinopril (PRINIVIL) 10 mg tablet Take 1 tablet by mouth once daily. pioglitazone (ACTOS) 15 mg tablet Take 1 tablet by mouth once daily. warfarin (COUMADIN) 5 mg tablet In combination with 2 or 3mg tablet as directed. nitroglycerin sublingual (NITROQUICK) 0.4 mg SL tablet Dissolve 1 tablet under the tongue as needed. FOR CHEST PAIN. IF NO RELIEF CALL 911 Artificial Tear, Hypromellose, (SYSTANE GEL) 0.3 % gel Use 1 Drop in both eyes daily at bedtime. Lancets lancets USE TO TEST BLOOD SUGAR ONCE A DAY AND NEEDED blood sugar diagnostic (CONTOUR TEST STRIPS) test strip USE FOR BLOOD SUGAR TESTING ONCE DAILY AND NEEDED, 250.00 omeprazole (PRILOSEC) 20 mg ORAL capsule Take one(1) capsule daily. aspirin(ECOTRIN LOW STRENGTH 81 MG TAB) Take one(1) tablet daily. No current facility-administered medications for this visit. Medications and allergies reviewed by this provider. 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 Daughter Sole Galindo REVIEW OF SYSTEMS see HPI OBJECTIVE: BP 116/72 Pulse (!) 55 Resp 20 Wt 117.9 kg (260 lb) SpO2 96% BMI 40.42 kg/m? . Vital signs reviewed by this provider. PHYSICAL EXAMINATION: General appearance: Well appearing, alert, in no acute distress, well-hydrated, well nourished. and Morbidly obese Skin: Skin color, texture, turgor normal, no suspicious rashes or lesions Neck: Supple, no adenopathy; thyroid symmetric, normal size, no bruits Lungs: lungs clear to auscultation. No wheezing, rhonchi, rales Heart: RRR without murmur, gallop, or rubs. No ectopy Abdomen: Abdomen soft, non-tender. Bowel sounds normal. No masses, Unable to assess for organomegaly d/t body habitus Extremities: No deformities, edema, skin discoloration, clubbing or cyanosis. Good capillary refill. , Pulses: 2+ ASSESSMENT/PLAN: 1. Type 2 diabetes mellitus with diabetic neuropathy, without long-term current use of insulin ([facility]) - ICD9: 250.60, 357.2, ICD10: E11.40 (primary diagnosis) Controlled. - Continue current medications - Blood glucose monitoring on a once a day schedule - Encouraged regular aerobic exercise and weight loss - Follow up in 6 months, sooner should any other issues arise. - Discussed diabetic education issues of hypoglycemic symptoms, hyperglycemic symptoms, diet, medications- side effects and need for compliance and importance of exercise with patient. - BP goal of <130/80 - LDL goal of <100 2. Persistent atrial fibrillation (HCC) - ICD9: 427.31, ICD10: I48.1 - continue to follow with Dr. Salamanca 3. Essential hypertension, benign - ICD9: 401.1, ICD10: I10 - good control - Continue current medication(s) - Encouraged dietary sodium restriction/DASH diet - Recommended regular aerobic exercise. - Recommend home blood pressure monitoring, to bring results in on next visit - Discussed need and benefit for weight loss. - Recheck in 6 months, sooner should new symptoms or problems arise. - Reviewed risks of HTN and principles of treatment - Goal of BP <130/80 - Recommended no refined sugar, low refined starch, healthy oil intake (olive oil), healthy protein (fish) along the lines of the Mediterranean diet. 4. GERD without esophagitis - ICD9: 530.81, ICD10: K21.9 - Continue treatment with Prilosec 20 mg QD 5. Essential tremor - ICD9: 333.1, ICD10: G25.0 - pt considering follow up again with Dr. Jain, but unsure because she suggested increasing beta des dose and he feels that it will slow him down too much, he states that he will discuss with Dr. Salamanca 6. LOI (obstructive sleep apnea) - ICD9: 327.23, ICD10: G47.33 - continue CPAP 7. Morbid obesity due to excess calories (HCC) - ICD9: 278.01, ICD10: E66.01 - discussed and encouraged healthy diet and exercise 8. WILSON (dyspnea on exertion) - ICD9: 786.09, ICD10: R06.09 - discussed benefits of weight loss - continue current medications and follow up with specialists 9. Iron deficiency anemia, unspecified iron deficiency anemia type - ICD9: 280.9, ICD10: D50.9 - will re order CBC today, encouraged to follow up with surgery as planned for colonoscopy and EGD. Continue iron. Discussed red flags and encouraged ER if experiencing them. - CBC 10. Need for vaccination - ICD9: V05.9, ICD10: Z23 - ADMIN OF INFLUENZA VACCINE - INFLUENZA SEASONAL HIGH DOSE AGE 65+ Rebeca Nicholson APRN.CHOCOLATE FINISHER Referring Provider: NATHANIEL LAKHANI [[id number]] Allergies As of Date: 03/10/2018 Noted Allergy Reaction FLOMAX (TAMSULOSIN HCL) 06/02/2017 7 - Swelling Comments: Couldn't sleep and acted strange CORTISONE 01/13/2012 14 - Other: See Comments Comments: Heart palpitations DEXAMETHASONE 01/13/2012 14 - Other: See Comments Comments: Heart palpitations NALDECON SENIOR EX (GUAIFENESIN) 12/31/2004 8 - GI Upset Comments: CTM=Chlor-Trimeton ornade [Other] 01/01/2005 8 - GI Upset RYNATAN (CHLORPHENIRAMINE-PE TANN*12/31/2004 8 - GI Upset SEPTRA (SULFAMETHOXAZOLE-TRIMETHO*12/31/2004 8 - GI Upset VIOXX (ROFECOXIB) 12/31/2004 8 - GI Upset Date Reviewed: 03/10/2018 Reviewed by: Stephanie Clifton) CHELLY Ramirez - Fully Assessed Reason for Visit: 6 Month Exam [189] Primary Visit Diagnosis:Type 2 diabetes mellitus with diabetic neuropathy, without long-term current use of insulin (HCC) [E11.40] Other Visit Diagnoses:Persistent atrial fibrillation (HCC) [I48.1] Essential hypertension, benign [I10] GERD without esophagitis [K21.9] Essential tremor [G25.0] LOI (obstructive sleep apnea) [G47.33] Morbid obesity due to excess calories (HCC) [E66.01] WILSON (dyspnea on exertion) [R06.09] Iron deficiency anemia, unspecified iron deficiency anemia type [D50.9] Need for vaccination [Z23] Order(s):ADMIN OF INFLUENZA VACCINE [[id number]] Order #: [id number]: 1 INFLUENZA SEASONAL HIGH DOSE AGE 65+ [[id number]] Order #: [id number] [facility] [[facility]] Order #: [id number] FUTURE Prescriptions as of 03/10/2018 Sig: GLIPIZIDE ER 10 MG TABLET, EX* TAKE 1 TABLET DAILY STOOL SOFTENER ORAL Take by mouth. WARFARIN 3 MG TABLET TAKE 1 TABLET DAILY OR DIR* FERROUS SULFATE 325 MG (65 MG* Take 1 tablet by mouth three * METFORMIN ER 500 MG TABLET,EX* TAKE 2 TABLETS TWICE A DAY DICYCLOMINE 10 MG CAPSULE TAKE 1 CAPSULE AT BEDTIME * SPIRONOLACTONE 25 MG TABLET Take 1 tablet by mouth once d* POTASSIUM CHLORIDE ER 10 MEQ * Take 1 tablet by mouth once d* FLECAINIDE 100 MG TABLET Take 1 tablet by mouth twice * ATENOLOL 25 MG TABLET TAKE ONE-HALF (1/2) TABLET DA* MUPIROCIN 2 % TOPICAL OINTMENT Apply 1 application to affect* FUROSEMIDE 20 MG TABLET TAKE 1 TABLET TWICE A DAY WARFARIN 2 MG TABLET Take 1 tablet by mouth daily * Patient taking differently: Take 7 mg by mouth daily as d* LISINOPRIL 10 MG TABLET Take 1 tablet by mouth once d* PIOGLITAZONE 15 MG TABLET Take 1 tablet by mouth once d* WARFARIN 5 MG TABLET In combination with 2 or 3mg * NITROGLYCERIN 0.4 MG SUBLINGU* Dissolve 1 tablet under the t* ARTIFICIAL TEARS (HYPROMELLOS* Use 1 Drop in both eyes daily* LANCETS USE TO TEST BLOOD SUGAR ONCE * BLOOD SUGAR DIAGNOSTIC STRIPS USE FOR BLOOD SUGAR TESTING O* * OMEPRAZOLE 20 MG CAPSULE,RENY* Take one(1) capsule daily. * ECOTRIN LOW STRENGTH 81 MG TA* Take one(1) tablet daily. 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 Generalized osteoarthrosis, unspecified site [M* Priority: M Hallux valgus (acquired) [M20.10] INVALID FOR* Priority: M Benign non-nodular prostatic hyperplasia with l*INVALID FOR* Priority: C Acute gastritis without mention of hemorrhage [*INVALID FOR*07/04/2014 Essential hypertension, benign [I10] INVALID FOR* Priority: A Type II or unspecified type diabetes mellitus w*INVALID FOR*12/02/2013 More... Fatty liver [K76.0] INVALID FOR* Priority: C Essential tremor [G25.0] INVALID FOR* Priority: B Right flank pain [R10.9] INVALID FOR*07/04/2014 Biliary dyskinesia [K82.8] INVALID FOR* Priority: C More... Chest pain [R07.9] INVALID FOR*07/04/2014 Knee effusion, left [M25.462] INVALID FOR*07/04/2014 More... Respiratory failure with hypoxia (HCC) [J96.91] INVALID FOR*07/04/2014 More... Normocytic anemia [D64.9] INVALID FOR*07/04/2014 More... Fall [W19.XXXA] INVALID FOR*02/07/2012 More... SUMMARY [V999.95] INVALID FOR*07/04/2014 Priority: A More... DISPOSITION AND FOLLOW-UP [V999.01] INVALID FOR*07/04/2014 Priority: D More... LOI on CPAP [G47.33, Z99.89] INVALID FOR*04/03/2014 Multinodular goiter [E04.2] INVALID FOR* Priority: B More... LOI (obstructive sleep apnea) [G47.33] INVALID FOR* Priority: B More... Trigger finger (acquired) [M65.30] INVALID FOR* Priority: M Mesenteric adenitis [I88.0] INVALID FOR* Priority: B GERD without esophagitis [K21.9] INVALID FOR* Priority: A Ex-smoker [Z87.891] INVALID FOR* Priority: B Asbestosis (HCC) [J61] INVALID FOR* Priority: B More... 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 Disorder of prostate [N42.9] INVALID FOR* Well adult exam [Z00.00] INVALID FOR* Priority: E More... Colon cancer screening [Z12.11] INVALID FOR* Morbid obesity due to excess calories (HCC) [E6*INVALID FOR* Priority: B Diabetic eye exam (HCC) [Z01.00, E11.9] INVALID FOR* Priority: A More... WILSON (dyspnea on exertion) [R06.09] INVALID FOR* Priority: B More... 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 Medicare annual wellness visit, subsequent [Z00*INVALID FOR* Priority: E More... Current use of proton pump inhibitor [Z79.899] INVALID FOR* Obesity, Class II, BMI 35-39.9 [E66.9] INVALID FOR* Iron deficiency anemia [D50.9] INVALID FOR* Disposition: Return in about 6 months (around 09/07/2018) for chronic conditions. Follow-up and Disposition History Recorded Encounter Status:Closed by REBECA NICHOLSON on 03/10/18 PROGRESS Observed: 02/11/2018 Status: COMPLETED Source: [place] 4:[address] [facility] [place] REPOSITORY HNO ID: [id number] Author: Lola Loyn Service: (none) Author Type: Physician Type: Progress Notes Filed: 02/13/2018 8:33 PM Note Text: Ankit West Jr. 1945 REFERRING PHYSICIAN: Nathaniel Lakhani MD CHIEF COMPLAINT: Consult (anemia) HPI: The patient is a pleasant 72 year old male presents with iron deficiency anemia. Last had colonoscopy [address] Briones - findings of diverticulosis, fecal occult blood negative. Denies abdominal pain - except chronic left upper quadrant. Denies noting blood in stools. Denies melena. Denies hematemesis. Had been scheduled for cardiac catheterization but cancelled due to Hgb of 10.1. Patient's major complaint is left sided chest pain for which he states radiates to left side of neck and down left arm. Denies heartburn. Denies swallowing problems. Brother had esophageal cancer d'xd in his 60s. Sister of IA at age 54. PAST MEDICAL HISTORY Diagnosis Date - Abdominal pain, LLQ 12/04/2014 - Atrial fibrillation (HCC) chronic - Biliary dyskinesia 10/01/2011 Symptom free at this time 03/2015 - BPH W URINARY OBS/LUTS 05/12/2006 - DIARRHEA NOS 10/12/2008 - Essential and other specified forms of tremor 09/10/2011 - Essential hypertension, benign 12/26/2009 - Fatty liver 05/08/2011 - Generalized osteoarthrosis, unspecified site hands, knees, hips - GERD without esophagitis 03/06/2015 Hiatal hernia. 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 - Trigger finger (acquired) 07/17/2014 - Type 2 diabetes mellitus with diabetic neuropathy (HCC) 03/06/2015 PAST SURGICAL HISTORY Procedure Laterality Date - COLONOSCOP W/ OR W/O [facility] SPEC 1997,1988 Colonoscopy - COLONOSCOPY W/BX 10/12/08 - COLONOSCOPY W/BX 12/04/2014 Repeat 2024 - EGD W/O [facility] SPECIMEN W/BX 10/12/08 - FECAL OCCULT BLOOD TEST 08/01/2016 negative - INCISION OF TENDON SHEATH 07/07/14 right thumb trigger release - PAST SURGICAL HISTORY OF 1961 left knee - PAST SURGICAL HISTORY OF 2013 R knee meniscus tears - STRESS TEST 07/2015 NL - STRESS TEST 10/09/2017 normel - THYROIDECTOMY 2004 Left side - TOTAL KNEE REPLACEMENT 05/24/2012 Left Current Outpatient Prescriptions: glipiZIDE (GLUCOTROL XL) 10mg 24 hr tablet TAKE 1 TABLET DAILY docusate sodium (STOOL SOFTENER ORAL) Take by mouth. warfarin (COUMADIN) 3 mg tablet TAKE 1 TABLET DAILY OR DIRECTED ferrous sulfate 325 mg (65 mg iron) tablet Take 1 tablet by mouth three times daily with meals. metFORMIN ER (GLUCOPHAGE XR) 500 mg 24 hr tablet TAKE 2 TABLETS TWICE A DAY dicyclomine (BENTYL) 10 mg capsule TAKE 1 CAPSULE AT BEDTIME NEEDED spironolactone (ALDACTONE) 25 mg tablet Take 1 tablet by mouth once daily. potassium chloride ER (K-DUR, KLOR-CON) 10 mEq tablet Take 1 tablet by mouth once daily. flecainide (TAMBOCOR) 100 mg tablet Take 1 tablet by mouth twice daily. May take extra 100 mg once a day for breakthru symptoms atenolol (TENORMIN) 25 mg tablet TAKE ONE-HALF (1/2) TABLET DAILY furosemide (LASIX) 20 mg tablet TAKE 1 TABLET TWICE A DAY warfarin (COUMADIN) 2 mg tablet Take 1 tablet by mouth daily as directed. (Patient taking differently: Take 7 mg by mouth daily as directed. Alternating 7mg and 6mg lisinopril (PRINIVIL) 10 mg tablet Take 1 tablet by mouth once daily. pioglitazone (ACTOS) 15 mg tablet Take 1 tablet by mouth once daily. warfarin (COUMADIN) 5 mg tablet In combination with 2 or 3mg tablet as directed. nitroglycerin sublingual (NITROQUICK) 0.4 mg SL tablet Dissolve 1 tablet under the tongue as needed. FOR CHEST PAIN. IF NO RELIEF CALL 911 Artificial Tear, Hypromellose, (SYSTANE GEL) 0.3 % gel Use 1 Drop in both eyes daily at bedtime. Lancets lancets USE TO TEST BLOOD SUGAR ONCE A DAY AND NEEDED blood sugar diagnostic (CONTOUR TEST STRIPS) test strip USE FOR BLOOD SUGAR TESTING ONCE DAILY AND NEEDED, 250.00 omeprazole (PRILOSEC) 20 mg ORAL capsule Take one(1) capsule daily. aspirin(ECOTRIN LOW STRENGTH 81 MG TAB) Take one(1) tablet daily. mupirocin (BACTROBAN) 2 % ointment Apply 1 application to affected area three times daily. Location: right forearm ALLERGIES: Flomax [Tamsulosin Hcl]; Cortisone; Dexamethasone; Naldecon Senior Ex [Guaifenesin]; Ornade [Other]; Rynatan [Chlorpheniramine-Pe Tannates]; Septra [Sulfamethoxazole-Trimethoprim]; Vioxx [Rofecoxib] PERSONAL HISTORY: Social History Marital status: Spouse name: Years of education: Number of children: 3 Occupational History Occupation Employer Comment retired- [employer] Social History Main Topics Smoking status: Former Smoker Packs/day: 3.00 Years: 37.00 Types: Cigarettes Quit date: 05/04/1987 Smokeless tobacco: Never Used Alcohol use: Yes 1.5 oz/week Cans of Beer (12oz): 1 per week Comment: occasional Drug use: No Sexual activity: Yes Partners with: Female Social History Narrative 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 Daughter Sole Galindo FAMILY HISTORY Problem Relation Age of Onset - Heart Failure Mother - COPD Mother - Hypertension Mother - other (tremors) Father age 96. - other (AAA) Father Repaired at [facility]. - Diabetes Brother - other (tremors) Paternal Uncle - Heart Failure Sister 54 viral. - Cancer Brother esophagus - Cancer Sister pancreas - Cervical Cancer Maternal Aunt lung - Cancer Maternal Aunt - other (Idiopathic pulmonary fibrosis) Son age 47 after 2 lung transplants. REVIEW OF SYSTEMS: General: The patient NOTES fatigue, denies weight loss, denies weight gain, NOTES feeling hot, and denies feelings of cold. Eyes: The patient denies glaucoma, NOTES eye injury/surgery, does not wear glasses or contacts. Ear/Nose/Throat: The patient denies allergies, denies hayfever, denies ear infections, and denies bloody noses. Cardiovascular: The patient denies chest pain, denies heart disease, denies high blood pressure,denies cardiac stent, denies prior heart attack, NOTES irregular heart beat, denies high cholesterol, denies poor circulation, denies heart failure, other cardiac issues, denies claudication, denies cold feet, denies peripheral arterial stent. Respiratory: The patient denies tuberculosis, denies pneumonia, denies frequent cough, denies pulmonary embolism, denies shortness of breath, and denies coughing up blood. Gastrointestinal: The patient denies difficulty swallowing, denies acid reflux, denies ulcers, denies vomiting, denies jaundice/hepatitis, denies gallbladder problems, denies black or tarry stools, denies hemorrhoids, denies bleeding from rectum, denies diverticulitis, denies constipation, NOTES diarrhea, denies loss of stool control, and denies hernias. Kidney/Bladder: The patient denies kidney stones, denies urine infections, and denies bloody urine. Skin: The patient denies a history of skin cancer, denies bleeding/changing moles, and denies a history of skin rash. Neurologic: The patient denies a history of epilepsy/convulsions, denies headaches, denies head/spinal injuries, and denies stroke/TIA. Psychiatric: The patient denies psychiatric medications, denies depression, and denies voices, denies substance abuse. Endocrine: The patient denies thyroid disorders, NOTES diabetes, and denies hormonal problems. Hematologic: The patient denies a history of bruising, denies bleeding, and denies anemia, denies blood clots. Infections: The patient NOTES a history of measles and mumps, denies rheumatic fever, and denies sexually transmitted diseases. Musculoskeletal: The patient denies back pain/injury, denies back problems, denies sciatica, denies knee/foot trouble, denies arthritis, or denies gout. PHYSICAL EXAMINATION: General: The patient is 72 year old male, well nourished, well hydrated in no acute distress. The patient is oriented to time, place, and person. VITALS: Blood pressure 118/60, pulse 60, weight 117 kg (258 lb) Ht: 5'8 Body mass index is 40.11 kg/m?. Head ? Normocephalic. EOM intact with sclera clear and no icterus noted. Wearing glasses. Mouth with mucus membranes moist. Neck - supple with no jugular venous distention noted. Trachea is midline. Lungs ? clear to auscultation. Normal breath sounds. No rales/rhonchi/wheezing noted. No labored breathing noted, such as retractions. . Heart ? normal S1 and S2 auscultated. No rubs/clicks/murmurs noted. Regular rate. Abdomen ? soft and benign. Normal bowel sounds. Extremities ? no calf tenderness noted. Skin ? normal skin integrity. Neurological ? gait normal, no focal deficits noted Psych ? calm and appropriate Assessment IMPRESSION: iron deficiency anemia, chest pain PLAN: I have discussed the above with the patient. Since patient requires anesthesia (MAC for procedure), I discussed case with anesthesia at [facility]. They state that patient is high risk and rec'd consideration of MAC endoscopy at [facility]. I have explained the above to the patient and he understands. procedure to the patient. I have answered all questions to the patient?s satisfaction and the patient has no further questions. . Diagnoses: (D50.9) Iron deficiency anemia, unspecified iron deficiency anemia type (primary encounter diagnosis) Return to Clinic: The patient is instructed to follow-up with me as per needed. Lola Lyon MD CNOV Observed: 02/11/2018 Status: COMPLETED Source: [place] 2:40 PM [facility] REPOSITORY Office Visit (SWS) ANKIT WEST JR. ([id number]) 1945 M Date Time Provider Department 02/11/18 2:40 PM LOLA LYON During your visit today, we recorded the following information about you: Pulse Blood pressure Weight 60/minute 118/60 117 kg Rebecca Osler [employer]ILITY WORKER 02/11/2018 3:03 PM Signed REVIEW OF SYSTEMS: General: The patient NOTES fatigue, denies weight loss, denies weight gain, NOTES feeling hot, and denies feelings of cold. Eyes: The patient denies glaucoma, NOTES eye injury/surgery, does not wear glasses or contacts. Ear/Nose/Throat: The patient denies allergies, denies hayfever, denies ear infections, and denies bloody noses. Cardiovascular: The patient denies chest pain, denies heart disease, denies high blood pressure,denies cardiac stent, denies prior heart attack, NOTES irregular heart beat, denies high cholesterol, denies poor circulation, denies heart failure, other cardiac issues, denies claudication, denies cold feet, denies peripheral arterial stent. Respiratory: The patient denies tuberculosis, denies pneumonia, denies frequent cough, denies pulmonary embolism, denies shortness of breath, and denies coughing up blood. Gastrointestinal: The patient denies difficulty swallowing, denies acid reflux, denies ulcers, denies vomiting, denies jaundice/hepatitis, denies gallbladder problems, denies black or tarry stools, denies hemorrhoids, denies bleeding from rectum, denies diverticulitis, denies constipation, NOTES diarrhea, denies loss of stool control, and denies hernias. Kidney/Bladder: The patient denies kidney stones, denies urine infections, and denies bloody urine. Skin: The patient denies a history of skin cancer, denies bleeding/changing moles, and denies a history of skin rash. Neurologic: The patient denies a history of epilepsy/convulsions, denies headaches, denies head/spinal injuries, and denies stroke/TIA. Psychiatric: The patient denies psychiatric medications, denies depression, and denies voices, denies substance abuse. Endocrine: The patient denies thyroid disorders, NOTES diabetes, and denies hormonal problems. Hematologic: The patient denies a history of bruising, denies bleeding, and denies anemia, denies blood clots. Infections: The patient NOTES a history of measles and mumps, denies rheumatic fever, and denies sexually transmitted diseases. Musculoskeletal: The patient denies back pain/injury, denies back problems, denies sciatica, denies knee/foot trouble, denies arthritis, or denies gout. When was patient's last Mammogram screening? N/A Last Colonoscopy: 12/2014 Rebecca Lyon MD 02/13/2018 8:33 PM Signed Ankit West 1945 REFERRING PHYSICIAN: Nathaniel Lakhani MD CHIEF COMPLAINT: Consult (anemia) HPI: The patient is a pleasant 72 year old male presents with iron deficiency anemia. Last had colonoscopy [address] Briones - findings of diverticulosis, fecal occult blood negative. Denies abdominal pain - except chronic left upper quadrant. Denies noting blood in stools. Denies melena. Denies hematemesis. Had been scheduled for cardiac catheterization but cancelled due to Hgb of 10.1. Patient's major complaint is left sided chest pain for which he states radiates to left side of neck and down left arm. Denies heartburn. Denies swallowing problems. Brother had esophageal cancer d'xd in his 60s. Sister of IA at age 54. PAST MEDICAL HISTORY Diagnosis Date - Abdominal pain, LLQ 12/04/2014 - Atrial fibrillation (HCC) chronic - Biliary dyskinesia 10/01/2011 Symptom free at this time 03/2015 - BPH W URINARY OBS/LUTS 05/12/2006 - DIARRHEA NOS 10/12/2008 - Essential and other specified forms of tremor 09/10/2011 - Essential hypertension, benign 12/26/2009 - Fatty liver 05/08/2011 - Generalized osteoarthrosis, unspecified site hands, knees, hips - GERD without esophagitis 03/06/2015 Hiatal hernia. 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 - Trigger finger (acquired) 07/17/2014 - Type 2 diabetes mellitus with diabetic neuropathy (HCC) 03/06/2015 PAST SURGICAL HISTORY Procedure Laterality Date - COLONOSCOP W/ OR W/O [facility] SPEC 1997,1988 Colonoscopy - COLONOSCOPY W/BX 10/12/08 - COLONOSCOPY W/BX 12/04/2014 Repeat 2024 - EGD W/O [facility] SPECIMEN W/BX 10/12/08 - FECAL OCCULT BLOOD TEST 08/01/2016 negative - INCISION OF TENDON SHEATH 07/07/14 right thumb trigger release - PAST SURGICAL HISTORY OF 1961 left knee - PAST SURGICAL HISTORY OF 2013 R knee meniscus tears - STRESS TEST 07/2015 NL - STRESS TEST 10/09/2017 normel - THYROIDECTOMY 2004 Left side - TOTAL KNEE REPLACEMENT 05/24/2012 Left Current Outpatient Prescriptions: glipiZIDE (GLUCOTROL XL) 10mg 24 hr tablet TAKE 1 TABLET DAILY docusate sodium (STOOL SOFTENER ORAL) Take by mouth. warfarin (COUMADIN) 3 mg tablet TAKE 1 TABLET DAILY OR DIRECTED ferrous sulfate 325 mg (65 mg iron) tablet Take 1 tablet by mouth three times daily with meals. metFORMIN ER (GLUCOPHAGE XR) 500 mg 24 hr tablet TAKE 2 TABLETS TWICE A DAY dicyclomine (BENTYL) 10 mg capsule TAKE 1 CAPSULE AT BEDTIME NEEDED spironolactone (ALDACTONE) 25 mg tablet Take 1 tablet by mouth once daily. potassium chloride ER (K-DUR, KLOR-CON) 10 mEq tablet Take 1 tablet by mouth once daily. flecainide (TAMBOCOR) 100 mg tablet Take 1 tablet by mouth twice daily. May take extra 100 mg once a day for breakthru symptoms atenolol (TENORMIN) 25 mg tablet TAKE ONE-HALF (1/2) TABLET DAILY furosemide (LASIX) 20 mg tablet TAKE 1 TABLET TWICE A DAY warfarin (COUMADIN) 2 mg tablet Take 1 tablet by mouth daily as directed. (Patient taking differently: Take 7 mg by mouth daily as directed. Alternating 7mg and 6mg lisinopril (PRINIVIL) 10 mg tablet Take 1 tablet by mouth once daily. pioglitazone (ACTOS) 15 mg tablet Take 1 tablet by mouth once daily. warfarin (COUMADIN) 5 mg tablet In combination with 2 or 3mg tablet as directed. nitroglycerin sublingual (NITROQUICK) 0.4 mg SL tablet Dissolve 1 tablet under the tongue as needed. FOR CHEST PAIN. IF NO RELIEF CALL 911 Artificial Tear, Hypromellose, (SYSTANE GEL) 0.3 % gel Use 1 Drop in both eyes daily at bedtime. Lancets lancets USE TO TEST BLOOD SUGAR ONCE A DAY AND NEEDED blood sugar diagnostic (CONTOUR TEST STRIPS) test strip USE FOR BLOOD SUGAR TESTING ONCE DAILY AND NEEDED, 250.00 omeprazole (PRILOSEC) 20 mg ORAL capsule Take one(1) capsule daily. aspirin(ECOTRIN LOW STRENGTH 81 MG TAB) Take one(1) tablet daily. mupirocin (BACTROBAN) 2 % ointment Apply 1 application to affected area three times daily. 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 Daughter Sole Galindo FAMILY HISTORY Problem Relation Age of Onset - Heart Failure Mother - COPD Mother - Hypertension Mother - other (tremors) Father age 96. - other (AAA) Father Repaired at [facility]. - Diabetes Brother - other (tremors) Paternal Uncle - Heart Failure Sister 54 viral. - Cancer Brother esophagus - Cancer Sister pancreas - Cervical Cancer Maternal Aunt lung - Cancer Maternal Aunt - other (Idiopathic pulmonary fibrosis) Son age 47 after 2 lung transplants. REVIEW OF SYSTEMS: General: The patient NOTES fatigue, denies weight loss, denies weight gain, NOTES feeling hot, and denies feelings of cold. Eyes: The patient denies glaucoma, NOTES eye injury/surgery, does not wear glasses or contacts. Ear/Nose/Throat: The patient denies allergies, denies hayfever, denies ear infections, and denies bloody noses. Cardiovascular: The patient denies chest pain, denies heart disease, denies high blood pressure,denies cardiac stent, denies prior heart attack, NOTES irregular heart beat, denies high cholesterol, denies poor circulation, denies heart failure, other cardiac issues, denies claudication, denies cold feet, denies peripheral arterial stent. Respiratory: The patient denies tuberculosis, denies pneumonia, denies frequent cough, denies pulmonary embolism, denies shortness of breath, and denies coughing up blood. Gastrointestinal: The patient denies difficulty swallowing, denies acid reflux, denies ulcers, denies vomiting, denies jaundice/hepatitis, denies gallbladder problems, denies black or tarry stools, denies hemorrhoids, denies bleeding from rectum, denies diverticulitis, denies constipation, NOTES diarrhea, denies loss of stool control, and denies hernias. Kidney/Bladder: The patient denies kidney stones, denies urine infections, and denies bloody urine. Skin: The patient denies a history of skin cancer, denies bleeding/changing moles, and denies a history of skin rash. Neurologic: The patient denies a history of epilepsy/convulsions, denies headaches, denies head/spinal injuries, and denies stroke/TIA. Psychiatric: The patient denies psychiatric medications, denies depression, and denies voices, denies substance abuse. Endocrine: The patient denies thyroid disorders, NOTES diabetes, and denies hormonal problems. Hematologic: The patient denies a history of bruising, denies bleeding, and denies anemia, denies blood clots. Infections: The patient NOTES a history of measles and mumps, denies rheumatic fever, and denies sexually transmitted diseases. Musculoskeletal: The patient denies back pain/injury, denies back problems, denies sciatica, denies knee/foot trouble, denies arthritis, or denies gout. PHYSICAL EXAMINATION: General: The patient is 72 year old male, well nourished, well hydrated in no acute distress. The patient is oriented to time, place, and person. VITALS: Blood pressure 118/60, pulse 60, weight 117 kg (258 lb) Ht: 5'8 Body mass index is 40.11 kg/m?. Head ? Normocephalic. EOM intact with sclera clear and no icterus noted. Wearing glasses. Mouth with mucus membranes moist. Neck - supple with no jugular venous distention noted. Trachea is midline. Lungs ? clear to auscultation. Normal breath sounds. No rales/rhonchi/wheezing noted. No labored breathing noted, such as retractions. . Heart ? normal S1 and S2 auscultated. No rubs/clicks/murmurs noted. Regular rate. Abdomen ? soft and benign. Normal bowel sounds. Extremities ? no calf tenderness noted. Skin ? normal skin integrity. Neurological ? gait normal, no focal deficits noted Psych ? calm and appropriate Assessment IMPRESSION: iron deficiency anemia, chest pain PLAN: I have discussed the above with the patient. Since patient requires anesthesia (MAC for procedure), I discussed case with anesthesia at [facility]. They state that patient is high risk and rec'd consideration of MAC endoscopy at [facility]. I have explained the above to the patient and he understands. procedure to the patient. I have answered all questions to the patient?s satisfaction and the patient has no further questions. . Diagnoses: (D50.9) Iron deficiency anemia, unspecified iron deficiency anemia type (primary encounter diagnosis) Return to Clinic: The patient is instructed to follow-up with me as per needed. Lola Lyon MD Referring Provider: NATHANIEL LAKHANI [[id number]] Allergies As of Date: 02/11/2018 Noted Allergy Reaction FLOMAX (TAMSULOSIN HCL) 06/02/2017 7 - Swelling Comments: Couldn't sleep and acted strange CORTISONE 01/13/2012 14 - Other: See Comments Comments: Heart palpitations DEXAMETHASONE 01/13/2012 14 - Other: See Comments Comments: Heart palpitations NALDECON SENIOR EX (GUAIFENESIN) 12/31/2004 8 - GI Upset Comments: CTM=Chlor-Trimeton ornade [Other] 01/01/2005 8 - GI Upset RYNATAN (CHLORPHENIRAMINE-PE TANN*12/31/2004 8 - GI Upset SEPTRA (SULFAMETHOXAZOLE-TRIMETHO*12/31/2004 8 - GI Upset VIOXX (ROFECOXIB) 12/31/2004 8 - GI Upset Date Reviewed: 02/11/2018 Reviewed by: Genevieve Su RN - Fully Assessed Reason for Visit: Consult [173] Cmt: anemia Primary Visit Diagnosis:Iron deficiency anemia, unspecified iron deficiency anemia type [D50.9] Prescriptions as of 02/11/2018 Sig: GLIPIZIDE ER 10 MG TABLET, EX* TAKE 1 TABLET DAILY STOOL SOFTENER ORAL Take by mouth. WARFARIN 3 MG TABLET TAKE 1 TABLET DAILY OR DIR* FERROUS SULFATE 325 MG (65 MG* Take 1 tablet by mouth three * METFORMIN ER 500 MG TABLET,EX* TAKE 2 TABLETS TWICE A DAY DICYCLOMINE 10 MG CAPSULE TAKE 1 CAPSULE AT BEDTIME * SPIRONOLACTONE 25 MG TABLET Take 1 tablet by mouth once d* POTASSIUM CHLORIDE ER 10 MEQ * Take 1 tablet by mouth once d* FLECAINIDE 100 MG TABLET Take 1 tablet by mouth twice * ATENOLOL 25 MG TABLET TAKE ONE-HALF (1/2) TABLET DA* FUROSEMIDE 20 MG TABLET TAKE 1 TABLET TWICE A DAY WARFARIN 2 MG TABLET Take 1 tablet by mouth daily * Patient taking differently: Take 7 mg by mouth daily as d* LISINOPRIL 10 MG TABLET Take 1 tablet by mouth once d* PIOGLITAZONE 15 MG TABLET Take 1 tablet by mouth once d* WARFARIN 5 MG TABLET In combination with 2 or 3mg * NITROGLYCERIN 0.4 MG SUBLINGU* Dissolve 1 tablet under the t* ARTIFICIAL TEARS (HYPROMELLOS* Use 1 Drop in both eyes daily* LANCETS USE TO TEST BLOOD SUGAR ONCE * BLOOD SUGAR DIAGNOSTIC STRIPS USE FOR BLOOD SUGAR TESTING O* * OMEPRAZOLE 20 MG CAPSULE,RENY* Take one(1) capsule daily. * ECOTRIN LOW STRENGTH 81 MG TA* Take one(1) tablet daily. MUPIROCIN 2 % TOPICAL OINTMENT Apply 1 application to affect* Problem List As Of Date 02/11/2018 Noted Resolved Postinflammatory pulmonary fibrosis [J84.10] Priority: B Irritable bowel syndrome [K58.9] Priority: C Atrial fibrillation [I48.91] Priority: A More... Generalized osteoarthrosis, unspecified site [M* Priority: M Hallux valgus (acquired) [M20.10] INVALID FOR* Priority: M Benign non-nodular prostatic hyperplasia with l*INVALID FOR* Priority: C Acute gastritis without mention of hemorrhage [*INVALID FOR*07/04/2014 Essential hypertension, benign [I10] INVALID FOR* Priority: A Type II or unspecified type diabetes mellitus w*INVALID FOR*12/02/2013 More... Fatty liver [K76.0] INVALID FOR* Priority: C Essential tremor [G25.0] INVALID FOR* Priority: B Right flank pain [R10.9] INVALID FOR*07/04/2014 Biliary dyskinesia [K82.8] INVALID FOR* Priority: C More... Chest pain [R07.9] INVALID FOR*07/04/2014 Knee effusion, left [M25.462] INVALID FOR*07/04/2014 More... Respiratory failure with hypoxia (HCC) [J96.91] INVALID FOR*07/04/2014 More... Normocytic anemia [D64.9] INVALID FOR*07/04/2014 More... Fall [W19.XXXA] INVALID FOR*02/07/2012 More... SUMMARY [V999.95] INVALID FOR*07/04/2014 Priority: A More... DISPOSITION AND FOLLOW-UP [V999.01] INVALID FOR*07/04/2014 Priority: D More... LOI on CPAP [G47.33, Z99.89] INVALID FOR*04/03/2014 Multinodular goiter [E04.2] INVALID FOR* Priority: B More... LOI (obstructive sleep apnea) [G47.33] INVALID FOR* Priority: B More... Trigger finger (acquired) [M65.30] INVALID FOR* Priority: M Mesenteric adenitis [I88.0] INVALID FOR* Priority: B GERD without esophagitis [K21.9] INVALID FOR* Priority: A Ex-smoker [Z87.891] INVALID FOR* Priority: B Asbestosis (HCC) [J61] INVALID FOR* Priority: B More... 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 Disorder of prostate [N42.9] INVALID FOR* Well adult exam [Z00.00] INVALID FOR* Priority: E More... Colon cancer screening [Z12.11] INVALID FOR* Morbid obesity due to excess calories (HCC) [E6*INVALID FOR* Priority: B Diabetic eye exam (HCC) [Z01.00, E11.9] INVALID FOR* Priority: A More... WILSON (dyspnea on exertion) [R06.09] INVALID FOR* Priority: B More... 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 Medicare annual wellness visit, subsequent [Z00*INVALID FOR* Priority: E More... Current use of proton pump inhibitor [Z79.899] INVALID FOR* Obesity, Class II, BMI 35-39.9 [E66.9] INVALID FOR* Iron deficiency anemia [D50.9] INVALID FOR* Visit Notes: >> Rebecca Chicas JESSE Gala Feb 11, 2018 3:02 PM Status: Signed REVIEW OF SYSTEMS: General: The patient NOTES fatigue, denies weight loss, denies weight gain, NOTES feeling hot, and denies feelings of cold. Eyes: The patient denies glaucoma, NOTES eye injury/surgery, does not wear glasses or contacts. Ear/Nose/Throat: The patient denies allergies, denies hayfever, denies ear infections, and denies bloody noses. Cardiovascular: The patient denies chest pain, denies heart disease, denies high blood pressure,denies cardiac stent, denies prior heart attack, NOTES irregular heart beat, denies high cholesterol, denies poor circulation, denies heart failure, other cardiac issues, denies claudication, denies cold feet, denies peripheral arterial stent. Respiratory: The patient denies tuberculosis, denies pneumonia, denies frequent cough, denies pulmonary embolism, denies shortness of breath, and denies coughing up blood. Gastrointestinal: The patient denies difficulty swallowing, denies acid reflux, denies ulcers, denies vomiting, denies jaundice/hepatitis, denies gallbladder problems, denies black or tarry stools, denies hemorrhoids, denies bleeding from rectum, denies diverticulitis, denies constipation, NOTES diarrhea, denies loss of stool control, and denies hernias. Kidney/Bladder: The patient denies kidney stones, denies urine infections, and denies bloody urine. Skin: The patient denies a history of skin cancer, denies bleeding/changing moles, and denies a history of skin rash. Neurologic: The patient denies a history of epilepsy/convulsions, denies headaches, denies head/spinal injuries, and denies stroke/TIA. Psychiatric: The patient denies psychiatric medications, denies depression, and denies voices, denies substance abuse. Endocrine: The patient denies thyroid disorders, NOTES diabetes, and denies hormonal problems. Hematologic: The patient denies a history of bruising, denies bleeding, and denies anemia, denies blood clots. Infections: The patient NOTES a history of measles and mumps, denies rheumatic fever, and denies sexually transmitted diseases. Musculoskeletal: The patient denies back pain/injury, denies back problems, denies sciatica, denies knee/foot trouble, denies arthritis, or denies gout. When was patient's last Mammogram screening? N/A Last Colonoscopy: 12/2014 Rebecca Chicas LPN Follow-up and Disposition History Recorded Letter Text Encounter Status:Closed by MD LOLA LYON on 02/13/18 PROGRESS Observed: 02/05/2018 Status: COMPLETED Source: [place] 11:15 AM [facility] REPOSITORY HNO ID: [id number] Author: Nathaniel Lakhani Service: (none) Author Type: Physician Type: Progress Notes Filed: 02/05/2018 12:41 PM Note Text: Chief Complaint Patient presents with: Recheck: low iron/anemia HPI Ankit West Jr. is a 72 year old male who presents here today for Above Complaints.. Patient recently had blood work that came back showing his Hg had dropped from his stable base line of 12.1-13.5 to 10.5. No stomach pains. No hematemesis or hemoptysis. No hematochezia. When he was in [place] over labor day weekend he had diarrhea and took some peptobismo and for about 3 days after had some black stools. No black stools otherwise until starting iron this past weekend. IFOBT was neg. Iron studies showed low iron and transferrin with an elevated TIBG. Past medical history, appointments, medications, allergies reviewed. Previous Medical History PAST MEDICAL HISTORY Diagnosis Date - Abdominal pain, LLQ 12/04/2014 - Atrial fibrillation (HCC) chronic - Biliary dyskinesia 10/01/2011 Symptom free at this time 03/2015 - BPH W URINARY OBS/LUTS 05/12/2006 - DIARRHEA NOS 10/12/2008 - Essential and other specified forms of tremor 09/10/2011 - Essential hypertension, benign 12/26/2009 - Fatty liver 05/08/2011 - Generalized osteoarthrosis, unspecified site hands, knees, hips - GERD without esophagitis 03/06/2015 Hiatal hernia. 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 - Trigger finger (acquired) 07/17/2014 - Type 2 diabetes mellitus with diabetic neuropathy (HCC) 03/06/2015 Previous Surgical History PAST SURGICAL HISTORY Procedure Laterality Date - COLONOSCOP W/ OR W/O [facility] SPEC 1997,1988 Colonoscopy - COLONOSCOPY W/BX 10/12/08 - COLONOSCOPY W/BX 12/04/2014 Repeat 2024 - EGD W/O BRS SPECIMEN W/BX 10/12/08 - FECAL OCCULT BLOOD TEST 08/01/2016 negative - INCISION OF TENDON SHEATH 07/07/14 right thumb trigger release - PAST SURGICAL HISTORY OF 1961 left knee - PAST SURGICAL HISTORY OF 2013 R knee meniscus tears - STRESS TEST 07/2015 NL - STRESS TEST 10/09/2017 normel - THYROIDECTOMY 2004 Left side - TOTAL KNEE REPLACEMENT 05/24/2012 Left Family History FAMILY HISTORY Problem Relation Age of Onset - Heart Failure Mother - COPD Mother - Hypertension Mother - other (tremors) Father age 96. - other (AAA) Father Repaired at [facility]. - Diabetes Brother - other (tremors) Paternal Uncle - Heart Failure Sister 54 viral. - Cancer Brother esophagus - Cancer Sister pancreas - Cervical Cancer Maternal Aunt lung - Cancer Maternal Aunt - other (Idiopathic pulmonary fibrosis) Son age 47 after 2 lung transplants. Patient Allergies ALLERGIES Allergen Reactions - Flomax [Tamsulosin * Swelling Couldn't sleep and acted strange - Cortisone Other: See Comments Heart palpitations - Dexamethasone Other: See Comments Heart palpitations - Naldecon Senior Ex * GI Upset CTM=Chlor-Trimeton - Ornade [Other] GI Upset - Rynatan [Chlorpheni* GI Upset - Septra [Sulfamethox* GI Upset - Vioxx [Rofecoxib] GI Upset Current Medications Current Outpatient Prescriptions on File Prior to Visit: warfarin (COUMADIN) 3 mg tablet TAKE 1 TABLET DAILY OR DIRECTED ferrous sulfate 325 mg (65 mg iron) tablet Take 1 tablet by mouth three times daily with meals. metFORMIN ER (GLUCOPHAGE XR) 500 mg 24 hr tablet TAKE 2 TABLETS TWICE A DAY dicyclomine (BENTYL) 10 mg capsule TAKE 1 CAPSULE AT BEDTIME NEEDED spironolactone (ALDACTONE) 25 mg tablet Take 1 tablet by mouth once daily. potassium chloride ER (K-DUR, KLOR-CON) 10 mEq tablet Take 1 tablet by mouth once daily. flecainide (TAMBOCOR) 100 mg tablet Take 1 tablet by mouth twice daily. May take extra 100 mg once a day for breakthru symptoms atenolol (TENORMIN) 25 mg tablet TAKE ONE-HALF (1/2) TABLET DAILY mupirocin (BACTROBAN) 2 % ointment Apply 1 application to affected area three times daily. Location: right forearm glipiZIDE XL (GLUCOTROL XL) 10 mg 24 hr tablet TAKE 1 TABLET DAILY furosemide (LASIX) 20 mg tablet TAKE 1 TABLET TWICE A DAY warfarin (COUMADIN) 2 mg tablet Take 1 tablet by mouth daily as directed. (Patient taking differently: Take 7 mg by mouth daily as directed. Alternating 7mg and 6mg ) lisinopril (PRINIVIL) 10 mg tablet Take 1 tablet by mouth once daily. pioglitazone (ACTOS) 15 mg tablet Take 1 tablet by mouth once daily. warfarin (COUMADIN) 5 mg tablet In combination with 2 or 3mg tablet as directed. nitroglycerin sublingual (NITROQUICK) 0.4 mg SL tablet Dissolve 1 tablet under the tongue as needed. FOR CHEST PAIN. IF NO RELIEF CALL 911 Artificial Tear, Hypromellose, (SYSTANE GEL) 0.3 % gel Use 1 Drop in both eyes daily at bedtime. Lancets lancets USE TO TEST BLOOD SUGAR ONCE A DAY AND NEEDED blood sugar diagnostic (CONTOUR TEST STRIPS) test strip USE FOR BLOOD SUGAR TESTING ONCE DAILY AND NEEDED, 250.00 omeprazole (PRILOSEC) 20 mg ORAL capsule Take one(1) capsule daily. aspirin(ECOTRIN LOW STRENGTH 81 MG TAB) Take one(1) tablet daily. No current facility-administered medications on file prior to visit. 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 Daughter Sole Galindo Review of Symptoms REVIEW OF SYSTEMS RESPIRATORY: Negative for cough, hemoptysis, wheezing, COPD. Has had some mild shortness of breath more then his base line CARDIOVASCULAR: Negative for leg swelling, hypertension. With his A. Fib with increased rate he has been getting chest pain. This is reason cardio wanting to get a cath. NEURO: No history of headaches, syncope, paralysis, seizures. EXAM: BP 110/62 Pulse 60 Resp 14 Wt 116.6 kg (257 lb) BMI 39.95 kg/m? General Appearance: Well appearing, alert, in no acute distress, well-hydrated, well nourished.. Neck: Supple, no adenopathy; thyroid symmetric, normal size, no bruits. Lungs: Lungs clear to auscultation. No wheezing, rhonchi, rales. Heart: RRR without murmur, gallop, or rubs. No ectopy. Abdomen: Normal abdominal exam, Abdomen soft, non-tender. Bowel sounds normal. No masses, organomegaly. Ortho's in office okay and no symptoms of dizziness. Health Maintenance List INFLUENZA(1) due on 01/02/2018 DIABETES MED ADHERENCE due on 03/04/2018 URINE ALBUMIN:CREATININE RATIO due on 04/02/2018 HBA1C due on 04/03/2018 LDL CHOLESTEROL due on 10/02/2018 DIABETIC FOOT EXAM due on 10/06/2018 ANNUAL PCP TEAM CHRONIC DISEASE VISIT due on 10/06/2018 DILATED RETINAL EXAM due on 10/08/2018 BP CONTROLLED (<130/80) due on 01/28/2019 COLORECTAL CANCER SCREENING,SEE MODIFIER due on 12/04/2024 DTAP,TDAP,TD(2 - Td) due on 02/06/2027 ADULT PREVNAR-13 Completed PNEUMOVAX AGE 65 AND OVER WITH 5YR LOOKBACK Completed Data reviewed Component Latest Ref Rng AND Units 02/07/2012 02/08/2012 02/09/2012 02/10/2012 01/01/2016 01/28/2018 02/04/2018 WBC 3.70 - 11.00 k/uL 9.70 8.50 8.10 7.70 7.87 8.11 7.07 RBC 4.20 - 6.00 m/uL 4.40 4.43 4.63 4.25 5.09 4.74 4.74 Hemoglobin 13.0 - 17.0 g/dL 12.5 (L) 12.7 (L) 13.2 12.1 (L) 13.5 10.2 (L) 10.1 (L) Hematocrit 39.0 - 51.0 % 37.2 (L) 37.7 (L) 39.7 36.4 (L) 42.9 35.4 (L) 35.5 (L) MCV 80.0 - 100.0 fL 84.6 85.1 85.8 85.6 84.3 74.7 (L) 74.9 (L) MCH 26.0 - 34.0 pG 28.5 28.6 28.4 28.3 26.5 21.5 (L) 21.3 (L) MCHC 30.5 - 36.0 g/dL 33.7 33.6 33.1 33.1 31.5 28.8 (L) 28.5 (L) RDW-CV 11.5 - 15.0 % 13.8 13.8 13.7 13.9 15.5 (H) 19.3 (H) 20.2 (H) Platelet Count 150 - 400 k/uL 207 236 283 303 305 370 404 (H) MPV 9.0 - 12.7 fL 8.2 8.1 8.3 7.9 10.7 10.5 10.6 Neut% 45.0 - 75.0 % 72.0 65.7 60.0 69.3 Abs Neut (ANC) 1.70 - 7.00 k/uL 7.00 5.60 4.80 5.30 Lymph% 15.0 - 40.0 % 12.2 (L) 16.9 23.2 15.1 Abs Lymph 0.90 - 4.00 k/uL 1.20 1.40 1.90 1.20 Cuming% 5.0 - 11.0 % 11.9 (H) 12.3 (H) 10.5 8.5 Abs Cuming 0.20 - 1.00 k/uL 1.20 (H) 1.00 0.80 0.70 Eosin% 0.0 - 5.0 % 3.4 4.7 5.6 (H) 6.6 (H) Abs Eosin 0.00 - 0.40 k/uL 0.30 0.40 0.50 (H) 0.50 (H) Baso% 0.0 - 2.0 % 0.5 0.4 0.7 0.5 Abs Baso 0.00 - 0.10 k/uL 0.10 0.00 0.10 0.00 Absolute nRBC <0.01 k/uL <0.01 <0.01 Component Latest Ref Rng AND Units 02/03/2018 Occult Blood Source Stool Occult Blood Diagnostic Negative Component Latest Ref Rng AND Units 02/04/2018 Iron 41 - 186 ug/dL 33 (L) TIBC 232 - 386 ug/dL 416 (H) Transferrin Saturation 15 - 57 % 8 (L) A/P ASSESSMENT/PLAN: 1. Iron deficiency anemia, unspecified iron deficiency anemia type - ICD9: 280.9, ICD10: D50.9 - CONSULT TO GENERAL SURGERY for expected endoscopy and colonoscopy. If ok will need to see Hematology for possible Iron transfusion. Nathaniel Lakhani MD CNOV Observed: 02/05/2018 Status: COMPLETED Source: [place] 11:00 AM [facility] REPOSITORY Office Visit (FAMPWS) ANKIT WEST JR. ([id number]) 1945 M Date Time Provider Department 02/05/18 11:00 AM NATHANIEL LAKHANI FAMPWS During your visit today, we recorded the following information about you: Pulse Respiration Blood pressure Weight 58/minute 14/minute 110/62 116.6 kg Nathaniel Lakhani MD 02/05/2018 12:41 PM Signed Chief Complaint Patient presents with: Recheck: low iron/anemia CRISTHIAN Darbyph Jenna James. is a 72 year old male who presents here today for Above Complaints.. Patient recently had blood work that came back showing his Hg had dropped from his stable base line of 12.1-13.5 to 10.5. No stomach pains. No hematemesis or hemoptysis. No hematochezia. When he was in [place] over labor day weekend he had diarrhea and took some peptobismo and for about 3 days after had some black stools. No black stools otherwise until starting iron this past weekend. IFOBT was neg. Iron studies showed low iron and transferrin with an elevated TIBG. Past medical history, appointments, medications, allergies reviewed. Previous Medical History PAST MEDICAL HISTORY Diagnosis Date - Abdominal pain, LLQ 12/04/2014 - Atrial fibrillation (HCC) chronic - Biliary dyskinesia 10/01/2011 Symptom free at this time 03/2015 - BPH W URINARY OBS/LUTS 05/12/2006 - DIARRHEA NOS 10/12/2008 - Essential and other specified forms of tremor 09/10/2011 - Essential hypertension, benign 12/26/2009 - Fatty liver 05/08/2011 - Generalized osteoarthrosis, unspecified site hands, knees, hips - GERD without esophagitis 03/06/2015 Hiatal hernia. 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 - Trigger finger (acquired) 07/17/2014 - Type 2 diabetes mellitus with diabetic neuropathy (HCC) 03/06/2015 Previous Surgical History PAST SURGICAL HISTORY Procedure Laterality Date - COLONOSCOP W/ OR W/O [facility] SPEC 1997,1988 Colonoscopy - COLONOSCOPY W/BX 10/12/08 - COLONOSCOPY W/BX 12/04/2014 Repeat 2024 - EGD W/O [facility] SPECIMEN W/BX 10/12/08 - FECAL OCCULT BLOOD TEST 08/01/2016 negative - INCISION OF TENDON SHEATH 07/07/14 right thumb trigger release - PAST SURGICAL HISTORY OF 1961 left knee - PAST SURGICAL HISTORY OF 2013 R knee meniscus tears - STRESS TEST 07/2015 NL - STRESS TEST 10/09/2017 normel - THYROIDECTOMY 2004 Left side - TOTAL KNEE REPLACEMENT 05/24/2012 Left Family History FAMILY HISTORY Problem Relation Age of Onset - Heart Failure Mother - COPD Mother - Hypertension Mother - other (tremors) Father age 96. - other (AAA) Father Repaired at [facility]. - Diabetes Brother - other (tremors) Paternal Uncle - Heart Failure Sister 54 viral. - Cancer Brother esophagus - Cancer Sister pancreas - Cervical Cancer Maternal Aunt lung - Cancer Maternal Aunt - other (Idiopathic pulmonary fibrosis) Son age 47 after 2 lung transplants. Patient Allergies ALLERGIES Allergen Reactions - Flomax [Tamsulosin * Swelling Couldn't sleep and acted strange - Cortisone Other: See Comments Heart palpitations - Dexamethasone Other: See Comments Heart palpitations - Naldecon Senior Ex * GI Upset CTM=Chlor-Trimeton - Ornade [Other] GI Upset - Rynatan [Chlorpheni* GI Upset - Septra [Sulfamethox* GI Upset - Vioxx [Rofecoxib] GI Upset Current Medications Current Outpatient Prescriptions on File Prior to Visit: warfarin (COUMADIN) 3 mg tablet TAKE 1 TABLET DAILY OR DIRECTED ferrous sulfate 325 mg (65 mg iron) tablet Take 1 tablet by mouth three times daily with meals. metFORMIN ER (GLUCOPHAGE XR) 500 mg 24 hr tablet TAKE 2 TABLETS TWICE A DAY dicyclomine (BENTYL) 10 mg capsule TAKE 1 CAPSULE AT BEDTIME NEEDED spironolactone (ALDACTONE) 25 mg tablet Take 1 tablet by mouth once daily. potassium chloride ER (K-DUR, KLOR-CON) 10 mEq tablet Take 1 tablet by mouth once daily. flecainide (TAMBOCOR) 100 mg tablet Take 1 tablet by mouth twice daily. May take extra 100 mg once a day for breakthru symptoms atenolol (TENORMIN) 25 mg tablet TAKE ONE-HALF (1/2) TABLET DAILY mupirocin (BACTROBAN) 2 % ointment Apply 1 application to affected area three times daily. Location: right forearm glipiZIDE XL (GLUCOTROL XL) 10 mg 24 hr tablet TAKE 1 TABLET DAILY furosemide (LASIX) 20 mg tablet TAKE 1 TABLET TWICE A DAY warfarin (COUMADIN) 2 mg tablet Take 1 tablet by mouth daily as directed. (Patient taking differently: Take 7 mg by mouth daily as directed. Alternating 7mg and 6mg ) lisinopril (PRINIVIL) 10 mg tablet Take 1 tablet by mouth once daily. pioglitazone (ACTOS) 15 mg tablet Take 1 tablet by mouth once daily. warfarin (COUMADIN) 5 mg tablet In combination with 2 or 3mg tablet as directed. nitroglycerin sublingual (NITROQUICK) 0.4 mg SL tablet Dissolve 1 tablet under the tongue as needed. FOR CHEST PAIN. IF NO RELIEF CALL 911 Artificial Tear, Hypromellose, (SYSTANE GEL) 0.3 % gel Use 1 Drop in both eyes daily at bedtime. Lancets lancets USE TO TEST BLOOD SUGAR ONCE A DAY AND NEEDED blood sugar diagnostic (CONTOUR TEST STRIPS) test strip USE FOR BLOOD SUGAR TESTING ONCE DAILY AND NEEDED, 250.00 omeprazole (PRILOSEC) 20 mg ORAL capsule Take one(1) capsule daily. aspirin(ECOTRIN LOW STRENGTH 81 MG TAB) Take one(1) tablet daily. No current facility-administered medications on file prior to visit. 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 Daughter Sole Galindo Review of Symptoms REVIEW OF SYSTEMS RESPIRATORY: Negative for cough, hemoptysis, wheezing, COPD. Has had some mild shortness of breath more then his base line CARDIOVASCULAR: Negative for leg swelling, hypertension. With his A. Fib with increased rate he has been getting chest pain. This is reason cardio wanting to get a cath. NEURO: No history of headaches, syncope, paralysis, seizures. EXAM: BP 110/62 Pulse 60 Resp 14 Wt 116.6 kg (257 lb) BMI 39.95 kg/m? General Appearance: Well appearing, alert, in no acute distress, well-hydrated, well nourished.. Neck: Supple, no adenopathy; thyroid symmetric, normal size, no bruits. Lungs: Lungs clear to auscultation. No wheezing, rhonchi, rales. Heart: RRR without murmur, gallop, or rubs. No ectopy. Abdomen: Normal abdominal exam, Abdomen soft, non-tender. Bowel sounds normal. No masses, organomegaly. Ortho's in office okay and no symptoms of dizziness. Health Maintenance List INFLUENZA(1) due on 01/02/2018 DIABETES MED ADHERENCE due on 03/04/2018 URINE ALBUMIN:CREATININE RATIO due on 04/02/2018 HBA1C due on 04/03/2018 LDL CHOLESTEROL due on 10/02/2018 DIABETIC FOOT EXAM due on 10/06/2018 ANNUAL PCP TEAM CHRONIC DISEASE VISIT due on 10/06/2018 DILATED RETINAL EXAM due on 10/08/2018 BP CONTROLLED (<130/80) due on 01/28/2019 COLORECTAL CANCER SCREENING,SEE MODIFIER due on 12/04/2024 DTAP,TDAP,TD(2 - Td) due on 02/06/2027 ADULT PREVNAR-13 Completed PNEUMOVAX AGE 65 AND OVER WITH 5YR LOOKBACK Completed Data reviewed Component Latest Ref Rng AND Units 02/07/2012 02/08/2012 02/09/2012 02/10/2012 01/01/2016 01/28/2018 02/04/2018 WBC 3.70 - 11.00 k/uL 9.70 8.50 8.10 7.70 7.87 8.11 7.07 RBC 4.20 - 6.00 m/uL 4.40 4.43 4.63 4.25 5.09 4.74 4.74 Hemoglobin 13.0 - 17.0 g/dL 12.5 (L) 12.7 (L) 13.2 12.1 (L) 13.5 10.2 (L) 10.1 (L) Hematocrit 39.0 - 51.0 % 37.2 (L) 37.7 (L) 39.7 36.4 (L) 42.9 35.4 (L) 35.5 (L) MCV 80.0 - 100.0 fL 84.6 85.1 85.8 85.6 84.3 74.7 (L) 74.9 (L) MCH 26.0 - 34.0 pG 28.5 28.6 28.4 28.3 26.5 21.5 (L) 21.3 (L) MCHC 30.5 - 36.0 g/dL 33.7 33.6 33.1 33.1 31.5 28.8 (L) 28.5 (L) RDW-CV 11.5 - 15.0 % 13.8 13.8 13.7 13.9 15.5 (H) 19.3 (H) 20.2 (H) Platelet Count 150 - 400 k/uL 207 236 283 303 305 370 404 (H) MPV 9.0 - 12.7 fL 8.2 8.1 8.3 7.9 10.7 10.5 10.6 Neut% 45.0 - 75.0 % 72.0 65.7 60.0 69.3 Abs Neut (ANC) 1.70 - 7.00 k/uL 7.00 5.60 4.80 5.30 Lymph% 15.0 - 40.0 % 12.2 (L) 16.9 23.2 15.1 Abs Lymph 0.90 - 4.00 k/uL 1.20 1.40 1.90 1.20 Cuming% 5.0 - 11.0 % 11.9 (H) 12.3 (H) 10.5 8.5 Abs Cuming 0.20 - 1.00 k/uL 1.20 (H) 1.00 0.80 0.70 Eosin% 0.0 - 5.0 % 3.4 4.7 5.6 (H) 6.6 (H) Abs Eosin 0.00 - 0.40 k/uL 0.30 0.40 0.50 (H) 0.50 (H) Baso% 0.0 - 2.0 % 0.5 0.4 0.7 0.5 Abs Baso 0.00 - 0.10 k/uL 0.10 0.00 0.10 0.00 Absolute nRBC <0.01 k/uL <0.01 <0.01 Component Latest Ref Rng AND Units 02/03/2018 Occult Blood Source Stool Occult Blood Diagnostic Negative Component Latest Ref Rng AND Units 02/04/2018 Iron 41 - 186 ug/dL 33 (L) TIBC 232 - 386 ug/dL 416 (H) Transferrin Saturation 15 - 57 % 8 (L) A/P ASSESSMENT/PLAN: 1. Iron deficiency anemia, unspecified iron deficiency anemia type - ICD9: 280.9, ICD10: D50.9 - CONSULT TO GENERAL SURGERY for expected endoscopy and colonoscopy. If ok will need to see Hematology for possible Iron transfusion. MD Yohana Alcantara Ma 02/05/2018 11:42 AM Signed orthostatic vitals Supine 132/74 Pulse 54 Sitting 128/72 Pulse 54 Standing 132/70 Pulse 56 Referring Provider: SUDARSHAN SALAMANCA [[id number]] Allergies As of Date: 02/05/2018 Noted Allergy Reaction FLOMAX (TAMSULOSIN HCL) 06/02/2017 7 - Swelling Comments: Couldn't sleep and acted strange CORTISONE 01/13/2012 14 - Other: See Comments Comments: Heart palpitations DEXAMETHASONE 01/13/2012 14 - Other: See Comments Comments: Heart palpitations NALDECON SENIOR EX (GUAIFENESIN) 12/31/2004 8 - GI Upset Comments: CTM=Chlor-Trimeton ornade [Other] 01/01/2005 8 - GI Upset RYNATAN (CHLORPHENIRAMINE-PE TANN*12/31/2004 8 - GI Upset SEPTRA (SULFAMETHOXAZOLE-TRIMETHO*12/31/2004 8 - GI Upset VIOXX (ROFECOXIB) 12/31/2004 8 - GI Upset Date Reviewed: 02/05/2018 Reviewed by: Nathaniel Lakhani - Fully Assessed Reason for Visit: Recheck [92] Cmt: low iron/anemia Primary Visit Diagnosis:Iron deficiency anemia, unspecified iron deficiency anemia type [D50.9] Order(s):CONSULT TO GENERAL SURGERY [9011] Order #: [id number]: 1 Prescriptions as of 02/05/2018 Sig: STOOL SOFTENER ORAL Take by mouth. WARFARIN 3 MG TABLET TAKE 1 TABLET DAILY OR DIR* FERROUS SULFATE 325 MG (65 MG* Take 1 tablet by mouth three * METFORMIN ER 500 MG TABLET,EX* TAKE 2 TABLETS TWICE A DAY DICYCLOMINE 10 MG CAPSULE TAKE 1 CAPSULE AT BEDTIME * SPIRONOLACTONE 25 MG TABLET Take 1 tablet by mouth once d* POTASSIUM CHLORIDE ER 10 MEQ * Take 1 tablet by mouth once d* FLECAINIDE 100 MG TABLET Take 1 tablet by mouth twice * ATENOLOL 25 MG TABLET TAKE ONE-HALF (1/2) TABLET DA* MUPIROCIN 2 % TOPICAL OINTMENT Apply 1 application to affect* GLIPIZIDE ER 10 MG TABLET, EX* TAKE 1 TABLET DAILY FUROSEMIDE 20 MG TABLET TAKE 1 TABLET TWICE A DAY WARFARIN 2 MG TABLET Take 1 tablet by mouth daily * Patient taking differently: Take 7 mg by mouth daily as d* LISINOPRIL 10 MG TABLET Take 1 tablet by mouth once d* PIOGLITAZONE 15 MG TABLET Take 1 tablet by mouth once d* WARFARIN 5 MG TABLET In combination with 2 or 3mg * NITROGLYCERIN 0.4 MG SUBLINGU* Dissolve 1 tablet under the t* ARTIFICIAL TEARS (HYPROMELLOS* Use 1 Drop in both eyes daily* LANCETS USE TO TEST BLOOD SUGAR ONCE * BLOOD SUGAR DIAGNOSTIC STRIPS USE FOR BLOOD SUGAR TESTING O* * OMEPRAZOLE 20 MG CAPSULE,RENY* Take one(1) capsule daily. * ECOTRIN LOW STRENGTH 81 MG TA* Take one(1) tablet daily. 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 Generalized osteoarthrosis, unspecified site [M* Priority: M Hallux valgus (acquired) [M20.10] INVALID FOR* Priority: M Benign non-nodular prostatic hyperplasia with l*INVALID FOR* Priority: C Acute gastritis without mention of hemorrhage [*INVALID FOR*07/04/2014 Essential hypertension, benign [I10] INVALID FOR* Priority: A Type II or unspecified type diabetes mellitus w*INVALID FOR*12/02/2013 More... Fatty liver [K76.0] INVALID FOR* Priority: C Essential tremor [G25.0] INVALID FOR* Priority: B Right flank pain [R10.9] INVALID FOR*07/04/2014 Biliary dyskinesia [K82.8] INVALID FOR* Priority: C More... Chest pain [R07.9] INVALID FOR*07/04/2014 Knee effusion, left [M25.462] INVALID FOR*07/04/2014 More... Respiratory failure with hypoxia (HCC) [J96.91] INVALID FOR*07/04/2014 More... Normocytic anemia [D64.9] INVALID FOR*07/04/2014 More... Fall [W19.XXXA] INVALID FOR*02/07/2012 More... SUMMARY [V999.95] INVALID FOR*07/04/2014 Priority: A More... DISPOSITION AND FOLLOW-UP [V999.01] INVALID FOR*07/04/2014 Priority: D More... LOI on CPAP [G47.33, Z99.89] INVALID FOR*04/03/2014 Multinodular goiter [E04.2] INVALID FOR* Priority: B More... LOI (obstructive sleep apnea) [G47.33] INVALID FOR* Priority: B More... Trigger finger (acquired) [M65.30] INVALID FOR* Priority: M Mesenteric adenitis [I88.0] INVALID FOR* Priority: B GERD without esophagitis [K21.9] INVALID FOR* Priority: A Ex-smoker [Z87.891] INVALID FOR* Priority: B Asbestosis (HCC) [J61] INVALID FOR* Priority: B More... 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 Disorder of prostate [N42.9] INVALID FOR* Well adult exam [Z00.00] INVALID FOR* Priority: E More... Colon cancer screening [Z12.11] INVALID FOR* Morbid obesity due to excess calories (HCC) [E6*INVALID FOR* Priority: B Diabetic eye exam (HCC) [Z01.00, E11.9] INVALID FOR* Priority: A More... WILSON (dyspnea on exertion) [R06.09] INVALID FOR* Priority: B More... 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 Medicare annual wellness visit, subsequent [Z00*INVALID FOR* Priority: E More... Current use of proton pump inhibitor [Z79.899] INVALID FOR* Obesity, Class II, BMI 35-39.9 [E66.9] INVALID FOR* Iron deficiency anemia [D50.9] INVALID FOR* Visit Notes: >> Yohana Moraes Ma Fri Feb 05, 2018 11:36 AM Status: Signed orthostatic vitals Supine 132/74 Pulse 54 Sitting 128/72 Pulse 54 Standing 132/70 Pulse 56 Disposition: Return if symptoms worsen or fail to improve. Follow-up and Disposition History Recorded Encounter Status:Closed by NATHANIEL LAKHANI on 02/05/18 ISSAC Observed: 02/05/2018 Status: COMPLETED Source: [place] 12:00 AM [facility] REPOSITORY Telephone (CAWSTR) ANKIT WEST JR. ([id number]) 1945 M Date Time Provider Department 02/05/18 SUDARSHAN SALAMANCA During your visit today, we recorded the following information about you: Kerri Lees LPN 02/05/2018 9:33 AM Signed ----- Message from Sudarshan Salamanca sent at 02/04/2018 4:16 PM EDT ----- Stool is currently negative for blood. It does not mean that he hasn't bled at some time in the past and we still need to evaluate his GI tract for possible bleeding. This needs to be done before his cath. Please place angiogram on hold for the time being. MD Kerri Shah LPN 02/05/2018 9:35 AM Signed Left message to call office. 02/05/2018 9:34 AM JESSE Jimenez LPN 02/05/2018 2:33 PM Signed ----- Message from Sudarshan Salamanca sent at 02/05/2018 11:52 AM EDT ----- Kidney function is about the same. Blood counts are no better. He definitely has low iron levels. I recommend proceeding with EGD and colonoscopy and deferring angiogram for the time being. However, if his chest pain becomes more unstable, angiography takes precedence. If there is a high-grade lesion, he can be treated with a bare metal stent or plain angioplasty to shorten duration of dual antiplatelet therapy. Since he has had recent chest discomfort which is unexplained, I advise that outpatient endoscopies be done in a hospital setting. He has seen Dr. Lakhani today, and I will forward this note to him. MD Kerri Shah LPN 02/05/2018 2:34 PM Signed See both messages. Left message earlier today to return call.JESSE Jimenez LPN 02/05/2018 2:52 PM Signed ----- Message from Sudarshan Salamanca sent at 02/05/2018 12:15 PM EDT ----- Regarding: RE: cath They have been told, but we will call them to make sure. Pool - please call [facility]. He is still on the schedule. Sudarshan Salamanca MD ----- Message ----- From: Nathaniel Lakhani Sent: 02/05/2018 12:11 PM To: Sudarshan Salamanca Subject: cath Does cardio know cath being put on hold yet? Kerri Lees LPN 02/05/2018 4:49 PM Signed Patient notified of results and provider's instructions. Patient verbalizes understanding. Kerri Lees LPN Attempted to contact [facility] to cancel. Was transferred several times and hung up on. Forwarded note to lab director nurse Berenice West RN. Berenice West RN 02/08/2018 8:59 AM Signed [facility] lab director notified of cath cancellation. Berenice West RN Allergies As of Date: 02/05/2018 Noted Allergy Reaction FLOMAX (TAMSULOSIN HCL) 06/02/2017 7 - Swelling Comments: Couldn't sleep and acted strange CORTISONE 01/13/2012 14 - Other: See Comments Comments: Heart palpitations DEXAMETHASONE 01/13/2012 14 - Other: See Comments Comments: Heart palpitations NALDECON SENIOR EX (GUAIFENESIN) 12/31/2004 8 - GI Upset Comments: CTM=Chlor-Trimeton ornade [Other] 01/01/2005 8 - GI Upset RYNATAN (CHLORPHENIRAMINE-PE TANN*12/31/2004 8 - GI Upset SEPTRA (SULFAMETHOXAZOLE-TRIMETHO*12/31/2004 8 - GI Upset VIOXX (ROFECOXIB) 12/31/2004 8 - GI Upset Date Reviewed: 02/05/2018 Reviewed by: Nathaniel Lakhani - Fully Assessed Reason for Visit: Results [95] Prescriptions as of 02/05/2018 Sig: STOOL SOFTENER ORAL Take by mouth. WARFARIN 3 MG TABLET TAKE 1 TABLET DAILY OR DIR* FERROUS SULFATE 325 MG (65 MG* Take 1 tablet by mouth three * METFORMIN ER 500 MG TABLET,EX* TAKE 2 TABLETS TWICE A DAY DICYCLOMINE 10 MG CAPSULE TAKE 1 CAPSULE AT BEDTIME * SPIRONOLACTONE 25 MG TABLET Take 1 tablet by mouth once d* POTASSIUM CHLORIDE ER 10 MEQ * Take 1 tablet by mouth once d* FLECAINIDE 100 MG TABLET Take 1 tablet by mouth twice * ATENOLOL 25 MG TABLET TAKE ONE-HALF (1/2) TABLET DA* MUPIROCIN 2 % TOPICAL OINTMENT Apply 1 application to affect* X GLIPIZIDE ER 10 MG TABLET, EX* TAKE 1 TABLET DAILY FUROSEMIDE 20 MG TABLET TAKE 1 TABLET TWICE A DAY WARFARIN 2 MG TABLET Take 1 tablet by mouth daily * Patient taking differently: Take 7 mg by mouth daily as d* LISINOPRIL 10 MG TABLET Take 1 tablet by mouth once d* PIOGLITAZONE 15 MG TABLET Take 1 tablet by mouth once d* WARFARIN 5 MG TABLET In combination with 2 or 3mg * NITROGLYCERIN 0.4 MG SUBLINGU* Dissolve 1 tablet under the t* ARTIFICIAL TEARS (HYPROMELLOS* Use 1 Drop in both eyes daily* LANCETS USE TO TEST BLOOD SUGAR ONCE * BLOOD SUGAR DIAGNOSTIC STRIPS USE FOR BLOOD SUGAR TESTING O* * OMEPRAZOLE 20 MG CAPSULE,RENY* Take one(1) capsule daily. * ECOTRIN LOW STRENGTH 81 MG TA* Take one(1) tablet daily. 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 Generalized osteoarthrosis, unspecified site [M* Priority: M Hallux valgus (acquired) [M20.10] INVALID FOR* Priority: M Benign non-nodular prostatic hyperplasia with l*INVALID FOR* Priority: C Acute gastritis without mention of hemorrhage [*INVALID FOR*07/04/2014 Essential hypertension, benign [I10] INVALID FOR* Priority: A Type II or unspecified type diabetes mellitus w*INVALID FOR*12/02/2013 More... Fatty liver [K76.0] INVALID FOR* Priority: C Essential tremor [G25.0] INVALID FOR* Priority: B Right flank pain [R10.9] INVALID FOR*07/04/2014 Biliary dyskinesia [K82.8] INVALID FOR* Priority: C More... Chest pain [R07.9] INVALID FOR*07/04/2014 Knee effusion, left [M25.462] INVALID FOR*07/04/2014 More... Respiratory failure with hypoxia (HCC) [J96.91] INVALID FOR*07/04/2014 More... Normocytic anemia [D64.9] INVALID FOR*07/04/2014 More... Fall [W19.XXXA] INVALID FOR*02/07/2012 More... SUMMARY [V999.95] INVALID FOR*07/04/2014 Priority: A More... DISPOSITION AND FOLLOW-UP [V999.01] INVALID FOR*07/04/2014 Priority: D More... LOI on CPAP [G47.33, Z99.89] INVALID FOR*04/03/2014 Multinodular goiter [E04.2] INVALID FOR* Priority: B More... LOI (obstructive sleep apnea) [G47.33] INVALID FOR* Priority: B More... Trigger finger (acquired) [M65.30] INVALID FOR* Priority: M Mesenteric adenitis [I88.0] INVALID FOR* Priority: B GERD without esophagitis [K21.9] INVALID FOR* Priority: A Ex-smoker [Z87.891] INVALID FOR* Priority: B Asbestosis (HCC) [J61] INVALID FOR* Priority: B More... 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 Disorder of prostate [N42.9] INVALID FOR* Well adult exam [Z00.00] INVALID FOR* Priority: E More... Colon cancer screening [Z12.11] INVALID FOR* Morbid obesity due to excess calories (HCC) [E6*INVALID FOR* Priority: B Diabetic eye exam (HCC) [Z01.00, E11.9] INVALID FOR* Priority: A More... WILSON (dyspnea on exertion) [R06.09] INVALID FOR* Priority: B More... 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 Medicare annual wellness visit, subsequent [Z00*INVALID FOR* Priority: E More... Current use of proton pump inhibitor [Z79.899] INVALID FOR* Obesity, Class II, BMI 35-39.9 [E66.9] INVALID FOR* Iron deficiency anemia [D50.9] INVALID FOR* Encounter Status:Closed by VIKY CARVALHO RN on 02/11/18 CBC Collected: 02/04/2018 Status: F Source: [place] 10:40 AM [facility] REPOSITORY TYPE CODE TESTS RESULT OUT OF REFERENCE UNITS RANGE LAB WBC 3.70-11.00 k/uL WBC 7.07 LAB RBC 4.20-6.00 m/uL RBC 4.74 LAB HGB 13.0-17.0 g/dL Low Hemoglobin 10.1 LAB HCT 39.0-51.0 % Low Hematocrit 35.5 LAB MCV 80.0-100.0 fL Low MCV 74.9 LAB MCH 26.0-34.0 pG Low MCH 21.3 LAB MCHC 30.5-36.0 g/dL Low MCHC 28.5 LAB RDWCV 11.5-15.0 % RDW-CV High 20.2 LAB PLTCT 150-400 k/uL Platelet High Count 404 LAB MPV 9.0-12.7 fL MPV 10.6 LAB ABSNUC <0.01 k/uL Absolute nRBC <0.01 Performed By: #### CBC, BMP, IRON #### [facility] [address] [place], [place] [address] BASIC METABOLIC PANL Collected: 02/04/2018 Status: F Source: [place] 10:40 AM [facility] REPOSITORY TYPE CODE TESTS RESULT OUT OF REFERENCE UNITS RANGE LAB GLU 74-99 mg/dL Glucose 96 Result Comment: The [place] [employer] (ADA) provides guidance for cutoff values for fasting glucose and random glucose. The ADA defines fasting as no caloric intake for at least 8 hours. Fas ting plasma glucose results between 100 to 125 mg/dL indicate increased risk for diabetes (prediabetes). Fasting plasma glucose results greater than or equal to 126 mg/dL meet the criteria for diagnosis of diabetes. In the absence of unequivocal hyperglycemia, results should be confirmed by repeat testing. In a patient with classic symptoms of hyperglycemia or hyperglycemic crisis, random plasma glucose results greater than or equal to 200 mg/dL meet the criteria for diagnosis of diabetes. Reference: Standards of Medical Care in Diabetes 2016, [place] [employer]. Diabetes Care. 2016.39(Suppl 1). LAB BUN 9-24 mg/dL BUN 21 LAB CRET 0.73-1.22 mg/dL Creatinine High 1.25 LAB NA 136-144 mmol/L Sodium 141 LAB K 3.7-5.1 mmol/L Potassium 4.6 LAB CL 97-105 mmol/L Chloride 103 LAB CO2 22-30 mmol/L Low CO2 21 LAB AGAP 9-18 mmol/L Anion Gap 17 LAB CA 8.5-10.2 mg/dL Calcium, Total 9.2 LAB GFRAA eGFR- Amer. >60 LAB GFRNAA . eGFR-All Other Races 56 Result Comment: eGFR (Estimated GFR) Units of measure: mL/min/1.73 meters squared eGFR is derived from the reexpressed MDRD Study equation using the following parameters: serum creatinine, age, gender and race. The creatinine assay has been calibrated to be traceable to IDMS. An eGFR <60 mL/min/1.73m2 for >3 months is consistent with chronic kidney disease. Refer to KDOQI guidelines for clinical interpretation. In patients with unstable renal function, e.g. those with acute kidney injury, the eGFR may not accurately reflect actual GFR. Performed By: #### CBC, BMP, IRON #### [facility] [employer] [address] [place], [place] [address] IRON AND TIBC Collected: 02/04/2018 Status: F Source: [place] 10:[address] [facility] REPOSITORY TYPE CODE TESTS RESULT OUT OF REFERENCE UNITS RANGE LAB IRN 41-186 ug/dL Low Iron 33 LAB TIBC 232-386 ug/dL TIBC High 416 LAB SAT 15-57 % Low Transferrin Saturatn 8 Performed By: #### CBC, BMP, IRON #### [facility] [employer] [address] [place], [place] [address] OCCULT BLOOD DIAG. Collected: 02/03/2018 Status: F Source: [place] 7:[address] [facility] [place] REPOSITORY TYPE CODE TESTS RESULT OUT OF REFERENCE UNITS RANGE LAB OBSRCE Occult Stool Blood Source: LAB OBD Occult Negative Blood Diag. Performed By: #### OBDX #### [facility] [address] [place], [place] [address] OBSOLETE Observed: 02/02/2018 Status: COMPLETED Source: [place] 12:[address] [facility] OTHER [place] REPOSITORY Refill (AGCARDWST) ANKIT WEST JR. ([id number]) 1945 M Date Time Provider Department 02/02/18 SUDARSHAN SALAMANCA AGCARDWST During your visit today, we recorded the following information about you: Allergies As of Date: 02/02/2018 Noted Allergy Reaction FLOMAX (TAMSULOSIN HCL) 06/02/2017 7 - Swelling Comments: Couldn't sleep and acted strange CORTISONE 01/13/2012 14 - Other: See Comments Comments: Heart palpitations DEXAMETHASONE 01/13/2012 14 - Other: See Comments Comments: Heart palpitations NALDECON SENIOR EX (GUAIFENESIN) 12/31/2004 8 - GI Upset Comments: CTM=Chlor-Trimeton ornade [Other] 01/01/2005 8 - GI Upset RYNATAN (CHLORPHENIRAMINE-PE TANN*12/31/2004 8 - GI Upset SEPTRA (SULFAMETHOXAZOLE-TRIMETHO*12/31/2004 8 - GI Upset VIOXX (ROFECOXIB) 12/31/2004 8 - GI Upset Date Reviewed: 01/28/2018 Reviewed by: Rebeca Mcclure MA - Fully Assessed Reason for Visit: Refill Request [94] Order(s):warfarin (COUMADIN) 3 mg tabletTAKE 1 TABLET DAILY OR DIRECTEDDisp: 90 tabletRfl: 3 Prescriptions as of 02/02/2018 Sig: WARFARIN 3 MG TABLET TAKE 1 TABLET DAILY OR DIR* FERROUS SULFATE 325 MG (65 MG* Take 1 tablet by mouth three * METFORMIN ER 500 MG TABLET,EX* TAKE 2 TABLETS TWICE A DAY DICYCLOMINE 10 MG CAPSULE TAKE 1 CAPSULE AT BEDTIME * SPIRONOLACTONE 25 MG TABLET Take 1 tablet by mouth once d* POTASSIUM CHLORIDE ER 10 MEQ * Take 1 tablet by mouth once d* FLECAINIDE 100 MG TABLET Take 1 tablet by mouth twice * ATENOLOL 25 MG TABLET TAKE ONE-HALF (1/2) TABLET DA* MUPIROCIN 2 % TOPICAL OINTMENT Apply 1 application to affect* Patient not taking: Reported on 01/28/2018 GLIPIZIDE ER 10 MG TABLET, EX* TAKE 1 TABLET DAILY FUROSEMIDE 20 MG TABLET TAKE 1 TABLET TWICE A DAY WARFARIN 2 MG TABLET Take 1 tablet by mouth daily * Patient taking differently: Take 7 mg by mouth daily as d* LISINOPRIL 10 MG TABLET Take 1 tablet by mouth once d* PIOGLITAZONE 15 MG TABLET Take 1 tablet by mouth once d* WARFARIN 5 MG TABLET In combination with 2 or 3mg * NITROGLYCERIN 0.4 MG SUBLINGU* Dissolve 1 tablet under the t* ARTIFICIAL TEARS (HYPROMELLOS* Use 1 Drop in both eyes daily* LANCETS USE TO TEST BLOOD SUGAR ONCE * BLOOD SUGAR DIAGNOSTIC STRIPS USE FOR BLOOD SUGAR TESTING O* * OMEPRAZOLE 20 MG CAPSULE,RENY* Take one(1) capsule daily. * ECOTRIN LOW STRENGTH 81 MG TA* Take one(1) tablet daily. 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 Generalized osteoarthrosis, unspecified site [M* Priority: M Hallux valgus (acquired) [M20.10] INVALID FOR* Priority: M Benign non-nodular prostatic hyperplasia with l*INVALID FOR* Priority: C Acute gastritis without mention of hemorrhage [*INVALID FOR*07/04/2014 Essential hypertension, benign [I10] INVALID FOR* Priority: A Type II or unspecified type diabetes mellitus w*INVALID FOR*12/02/2013 More... Fatty liver [K76.0] INVALID FOR* Priority: B Essential tremor [G25.0] INVALID FOR* Priority: B Right flank pain [R10.9] INVALID FOR*07/04/2014 Biliary dyskinesia [K82.8] INVALID FOR* Priority: B More... Chest pain [R07.9] INVALID FOR*07/04/2014 Knee effusion, left [M25.462] INVALID FOR*07/04/2014 More... Respiratory failure with hypoxia (HCC) [J96.91] INVALID FOR*07/04/2014 More... Normocytic anemia [D64.9] INVALID FOR*07/04/2014 More... Fall [W19.XXXA] INVALID FOR*02/07/2012 More... SUMMARY [V999.95] INVALID FOR*07/04/2014 Priority: A More... DISPOSITION AND FOLLOW-UP [V999.01] INVALID FOR*07/04/2014 Priority: D More... LOI on CPAP [G47.33, Z99.89] INVALID FOR*04/03/2014 Multinodular goiter [E04.2] INVALID FOR* Priority: B More... LOI (obstructive sleep apnea) [G47.33] INVALID FOR* Priority: B More... Trigger finger (acquired) [M65.30] INVALID FOR* Priority: M Mesenteric adenitis [I88.0] INVALID FOR* Priority: B GERD without esophagitis [K21.9] INVALID FOR* Priority: A Ex-smoker [Z87.891] INVALID FOR* Priority: C Asbestosis (HCC) [J61] INVALID FOR* Priority: B More... 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 Disorder of prostate [N42.9] INVALID FOR* Well adult exam [Z00.00] INVALID FOR* Priority: E More... Colon cancer screening [Z12.11] INVALID FOR* Morbid obesity due to excess calories (HCC) [E6*INVALID FOR* Priority: B Diabetic eye exam (HCC) [Z01.00, E11.9] INVALID FOR* Priority: A More... WILSON (dyspnea on exertion) [R06.09] INVALID FOR* Priority: B More... 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 Medicare annual wellness visit, subsequent [Z00*INVALID FOR* Priority: E More... Current use of proton pump inhibitor [Z79.899] INVALID FOR* Obesity, Class II, BMI 35-39.9 [E66.9] INVALID FOR* Prescriptions ordered this encounter Disp Refills Start End WARFARIN 3 MG TABLET 90 t* 3 02/02/2018 Sig: TAKE 1 TABLET DAILY OR DIRECTED Medications Discontinued During This Encounter warfarin (COUMADIN) 3 mg tablet 90 t* 3 02/05/2017 02/02/2018 Sig: TAKE 1 TABLET DAILY OR DIRECTED Disc: Reason for discontinue is not on file. Encounter Status:Closed by VIKY CARVALHO RN on 02/02/18 PROTIME Collected: 01/28/2018 Status: F Source: [place] 2:[address] [facility] [place] REPOSITORY TYPE CODE TESTS RESULT OUT OF RANGE REFERENCE UNITS LAB PSEC 9.7-13.0 sec High PT Sec 21.1 LAB INR 0.9-1.3 High PT INR 2.1 Result Comment: Vitamin K Antagonist (VKA) Therapeutic Range: INR 2 to 3 (Target INR of 2.5) Note: For patients treated with VKA drugs, such as warfarin, the [place] [employer] 2012 Guideline recommends a therapeutic INR range of 2 to 3 (target INR of 2.5). This recommendation includes high-risk patients with antiphospholipid syndrome with previous arterial or venous thromboembolism, current-generation mechanical or bioprosthetic aortic heart valve replacement. Note: Patients with mechanical aortic valve replacement and additional risk factors for thromboembolic events (atrial fibrillation, previous thromboembolism, LV dysfunction, hypercoagulable conditions) or an older generation mechanical AVR (i.e., ball in-Cage) or any mechanical MVR should have a INR therapeutic range of 2.5 to 3.5 (target INR of 3). Na GORMAN, et al. Chest 2012, 141:7S-47S Dave RA, et al. [facility] 2017, 70: 252-289 Performed By: #### PT, CBC, BMP #### [facility] [address], [place] [address] CBC Collected: 01/28/2018 Status: F Source: [place] 2:42 [facility] REPOSITORY TYPE CODE TESTS RESULT OUT OF REFERENCE UNITS RANGE LAB WBC 3.70-11.00 k/uL WBC 8.11 LAB RBC 4.20-6.00 m/uL RBC 4.74 LAB HGB 13.0-17.0 g/dL Low Hemoglobin 10.2 LAB HCT 39.0-51.0 % Low Hematocrit 35.4 LAB MCV 80.0-100.0 fL Low MCV 74.7 LAB MCH 26.0-34.0 pG Low MCH 21.5 LAB MCHC 30.5-36.0 g/dL Low MCHC 28.8 LAB RDWCV 11.5-15.0 % RDW-CV High 19.3 LAB PLTCT 150-400 k/uL Platelet Count 370 LAB MPV 9.0-12.7 fL MPV 10.5 LAB ABSNUC <0.01 k/uL Absolute nRBC <0.01 Performed By: #### PT, CBC, BMP #### [facility] [address], [place] [address] BASIC METABOLIC PANL Collected: 01/28/2018 Status: F Source: [place] 2:42 [facility] REPOSITORY TYPE CODE TESTS RESULT OUT OF REFERENCE UNITS RANGE LAB GLU 74-99 mg/dL High Glucose 114 Result Comment: The [place] [employer] (ADA) provides guidance for cutoff values for fasting glucose and random glucose. The ADA defines fasting as no caloric intake for at least 8 hours. Fas ting plasma glucose results between 100 to 125 mg/dL indicate increased risk for diabetes (prediabetes). Fasting plasma glucose results greater than or equal to 126 mg/dL meet the criteria for diagnosis of diabetes. In the absence of unequivocal hyperglycemia, results should be confirmed by repeat testing. In a patient with classic symptoms of hyperglycemia or hyperglycemic crisis, random plasma glucose results greater than or equal to 200 mg/dL meet the criteria for diagnosis of diabetes. Reference: Standards of Medical Care in Diabetes 2016, [place] [employer]. Diabetes Care. 2016.39(Suppl 1). LAB BUN 9-24 mg/dL BUN 20 LAB CRET 0.73-1.22 mg/dL Creatinine 1.13 LAB NA 136-144 mmol/L Sodium 140 LAB K 3.7-5.1 mmol/L Potassium 4.4 LAB CL 97-105 mmol/L Chloride 102 LAB CO2 22-30 mmol/L CO2 27 LAB AGAP 9-18 mmol/L Anion Gap 11 LAB CA 8.5-10.2 mg/dL Calcium, Total 9.2 LAB GFRAA eGFR- Amer. >60 LAB GFRNAA . eGFR-All Other Races >60 Result Comment: eGFR (Estimated GFR) Units of measure: mL/min/1.73 meters squared eGFR is derived from the reexpressed MDRD Study equation using the following parameters: serum creatinine, age, gender and race. The creatinine assay has been calibrated to be traceable to IDMS. An eGFR <60 mL/min/1.73m2 for >3 months is consistent with chronic kidney disease. Refer to KDOQI guidelines for clinical interpretation. In patients with unstable renal function, e.g. those with acute kidney injury, the eGFR may not accurately reflect actual GFR. Performed By: #### PT, CBC, BMP #### [facility] [address] [place] [id number] PROGRESS Observed: 01/28/2018 Status: COMPLETED Source: [place] 2:27 PM [facility] REPOSITORY O ID: [id number] Author: Sudarshan Salamanca Service: (none) Author Type: Physician Type: Progress Notes Filed: 01/28/2018 5:39 PM Note Text: PERTINENT CARDIAC HISTORY Atrial fib - PAF HTN LOI - CPAP DM HL - declines statin ASHD - moderate plaque by cath ADHERENCE TO GUIDELINES ARMAND-I or ARB for HF with prior LVEF<40 (NQF 0081) - N/A ASA or Plavix for ASHD (NQF 0067) - met Beta des for ASHD with prior IA or prior LVEF<40 (NQF 0070) - met Beta des for HF with prior LVEF<40 (NQF 0083) - N/A ARMAND-I or ARB for ASHD with DM or prior LVEF<40 (NQF 0066) - met Statin therapy for ASHD or FHL or DM - declined BMI documented and plan if >25 (NQF 0421) - lifestyle recommendation form Tobacco use screening and referral (NQF 0028) - lifestyle recommendation form Recommendation for whole food, plant based diet - lifestyle recommendation form CLINICAL IMPRESSION/PLAN: Ankit West Jr. is having recurrent atrial fibrillation. I am hesitant to increase flecainide as he is having chest discomfort and may have underlying coronary disease which needs more aggressive treatment. As his most recent stress test was normal, it would not aid in decision making to repeat this. I recommend that we proceed with angiography. If there is no significant obstructive disease, we will optimize his medical therapy, consider increasing flecainide or possibly changing to a different antiarrhythmic. He wishes for this angiogram to be done at [facility], where he had his previous study. Labs and chest x-ray will be updated. He has been encouraged to use nitroglycerin liberally for chest discomfort, and not to wait. He may take a supplemental 100 mg flecainide after one hour of symptoms, even if he has recently taken his usual dose. He will be seen as originally scheduled or as needed. Written and verbal health teaching given to patient, patient verbalizes understanding and agrees with treatment plan. DIAGNOSIS FOR VISIT: Atrial fibrillation Chest pain HISTORY OF PRESENT ILLNESS Ankit West Jr. returns for problem follow-up visit. He recently had an episode of tachycardia with heart rate in the 130 range. This was associated with severe chest pain which radiated into the left arm. He took no nitroglycerin. He arrhythmia converted spontaneously after 90 minutes and chest pain resolved. He took no supplemental flecainide as he had taken his evening dose shortly before. He's had no recurrent symptoms. Overall his exercise tolerance has decreased over the last 6 months. He is concerned about the possibility of ischemic heart disease. His atrial fibrillation previously was associated with lightheadedness, but never chest pain until the last 6 months. He had a stress test done this summer which showed no ischemia . He's had no edema, syncope, TIAs, amaurosis or claudication. He has not been active and continues to gain weight. He has had some nonspecific abdominal discomfort and is currently being evaluated for that. ALLERGIES: ALLERGIES Allergen Reactions - Flomax [Tamsulosin * Swelling Couldn't sleep and acted strange - Cortisone Other: See Comments Heart palpitations - Dexamethasone Other: See Comments Heart palpitations - Naldecon Senior Ex * GI Upset CTM=Chlor-Trimeton - Ornade [Other] GI Upset - Rynatan [Chlorpheni* GI Upset - Septra [Sulfamethox* GI Upset - Vioxx [Rofecoxib] GI Upset CURRENT OUTPATIENT MEDICATIONS: metFORMIN ER (GLUCOPHAGE XR) 500 mg 24 hr tablet TAKE 2 TABLETS TWICE A DAY dicyclomine (BENTYL) 10 mg capsule TAKE 1 CAPSULE AT BEDTIME NEEDED spironolactone (ALDACTONE) 25 mg tablet Take 1 tablet by mouth once daily. potassium chloride ER (K-DUR, KLOR-CON) 10 mEq tablet Take 1 tablet by mouth once daily. flecainide (TAMBOCOR) 100 mg tablet Take 1 tablet by mouth twice daily. May take extra 100 mg once a day for breakthru symptoms atenolol (TENORMIN) 25 mg tablet TAKE ONE-HALF (1/2) TABLET DAILY glipiZIDE XL (GLUCOTROL XL) 10 mg 24 hr tablet TAKE 1 TABLET DAILY furosemide (LASIX) 20 mg tablet TAKE 1 TABLET TWICE A DAY warfarin (COUMADIN) 2 mg tablet Take 1 tablet by mouth daily as directed. lisinopril (PRINIVIL) 10 mg tablet Take 1 tablet by mouth once daily. pioglitazone (ACTOS) 15 mg tablet Take 1 tablet by mouth once daily. warfarin (COUMADIN) 3 mg tablet TAKE 1 TABLET DAILY OR DIRECTED warfarin (COUMADIN) 5 mg tablet In combination with 2 or 3mg tablet as directed. nitroglycerin sublingual (NITROQUICK) 0.4 mg SL tablet Dissolve 1 tablet under the tongue as needed. FOR CHEST PAIN. IF NO RELIEF CALL 911 Artificial Tear, Hypromellose, (SYSTANE GEL) 0.3 % gel Use 1 Drop in both eyes daily at bedtime. Lancets lancets USE TO TEST BLOOD SUGAR ONCE A DAY AND NEEDED blood sugar diagnostic (CONTOUR TEST STRIPS) test strip USE FOR BLOOD SUGAR TESTING ONCE DAILY AND NEEDED, 250.00 omeprazole (PRILOSEC) 20 mg ORAL capsule Take one(1) capsule daily. aspirin(ECOTRIN LOW STRENGTH 81 MG TAB) Take one(1) tablet daily. mupirocin (BACTROBAN) 2 % ointment Apply 1 application to affected area three times daily. Location: right forearm PAST MEDICAL HISTORY Diagnosis Date - Abdominal pain, LLQ 12/04/2014 - Atrial fibrillation (HCC) chronic - Biliary dyskinesia 10/01/2011 Symptom free at this time 03/2015 - BPH W URINARY OBS/LUTS 05/12/2006 - DIARRHEA NOS 10/12/2008 - Essential and other specified forms of tremor 09/10/2011 - Essential hypertension, benign 12/26/2009 - Fatty liver 05/08/2011 - Generalized osteoarthrosis, unspecified site hands, knees, hips - GERD without esophagitis 03/06/2015 Hiatal hernia. 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 - Trigger finger (acquired) 07/17/2014 - Type 2 diabetes mellitus with diabetic neuropathy (HCC) 03/06/2015 PAST SURGICAL HISTORY Procedure Laterality Date - COLONOSCOP W/ OR W/O [facility] SPEC 1997,1988 Colonoscopy - COLONOSCOPY W/BX 10/12/08 - COLONOSCOPY W/BX 12/04/2014 Repeat 2024 - EGD W/O [facility] SPECIMEN W/BX 10/12/08 - FECAL OCCULT BLOOD TEST 08/01/2016 negative - INCISION OF TENDON SHEATH 07/07/14 right thumb trigger release - PAST SURGICAL HISTORY OF 1961 left knee - PAST SURGICAL HISTORY OF 2013 R knee meniscus tears - STRESS TEST 07/2015 NL - STRESS TEST 10/09/2017 normel - THYROIDECTOMY 2004 Left side - TOTAL KNEE REPLACEMENT 05/24/2012 Left FAMILY HISTORY Problem Relation Age of Onset - Heart Failure Mother - COPD Mother - Hypertension Mother - other (tremors) Father age 96. - other (AAA) Father Repaired at [facility]. - Diabetes Brother - other (tremors) Paternal Uncle - Heart Failure Sister 54 viral. - Cancer Brother esophagus - Cancer Sister pancreas - Cervical Cancer Maternal Aunt lung - Cancer Maternal Aunt - other (Idiopathic pulmonary fibrosis) Son age 47 after 2 lung transplants. 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 Daughter Sole Galindo REVIEW OF SYSTEMS: General: No chills, fever, weight loss, night sweats. Respiratory: No productive cough. Cardiac: As noted above. GI: No melena. : No dysuria. Musculoskeletal: No myalgias. PHYSICAL EXAMINATION: S/he is alert and in no distress. VITAL SIGNS: BP 125/78 Pulse 56 Ht 5' 7.25 (1.71m) Wt 259 lb 6.4 oz (117.7kg) BMI 40.33 kg/(m2). SHEENT: Skin is warm and dry. No xanthelasmas appreciated. Pharynx is benign. There is no oral cyanosis. Neck: supple. No adenopathy or thyroid enlargement. Chest: Clear to auscultation. Trachea is midline. Air entry is equal. There is no chest wall tenderness. Cardiac: Regular rhythm. S1 and S2 are normal. PMI is nondisplaced. There is a 1/6 systolic ejection murmur. No click is heard. Carotids are brisk without bruits. JVP is less than 10 cm. Abdomen: Soft and nontender. There is morbid obesity. There are no pulsatile masses or bruits. No liver enlargement. Bowel sounds are active. Extremities: Trace edema. Pulses are intact and symmetrical. No clubbing or cyanosis. No femoral bruits. Neurologic: Grossly normal motor and sensory. S/he is alert and oriented x4. Recent labs were reviewed. Renal function is stable. EKG today shows sinus bradycardia with first-degree. There is no significant change. Electronically Signed: Sudarshan Salamanca MD January 28, 2018 2:27 PM CC:Nathaniel Lakhani MD EKG1 Observed: 01/28/2018 Status: F Source: [place] 2:[facility] PM [facility] REPOSITORY NAME : ANKIT WEST PID : [id number] : 1945 Gender : Male Race : ORD : Procedure Date : Jan 28 2018 14:01:17 Edit Date : Jan 29 2018 10:42:30 Diagnosis:SINUS BRADYCARDIA WITH 1ST DEGREE AV BLOCK OTHERWISE NORMAL ECG NO SIGNIFICANT CHANGE FROM PREVIOUS ECG Confirmed by SUDARSHAN SALAMANCA MD ([id number]) on 01/29/2018 10:42:29 AM Ventricular Rate : 53 BPM Atrial Rate : 53 BPM P-R Interval : 212 ms QRS Duration : 110 ms Q-T Interval : 452 ms QTC Calculation(Bezet) : 424 ms P [place] : 63 degrees R [place] : 43 degrees T [place] : 49 degrees Test Reason : Location : 136 : [facility] Overread By : SUDARSHAN SALAMANCA MD Edited By : SUDARSHAN SALAMANCA MD Referred By : SUDARSHAN SALAMANCA Acquired by : IRLANDA DOWNS Observed: 01/28/2018 Status: COMPLETED Source: [place] 1:45 PM [facility] REPOSITORY Office Visit (CAWSTR) ANKIT WEST JR. ([id number]) 1945 M Date Time Provider Department 01/28/18 1:45 PM SUDARSHAN SALAMANCA [facility]WSTR During your visit today, we recorded the following information about you: Pulse Blood pressure Weight Height 56/minute 125/78 117.7 kg 1.708 m Sudarshan Salamanca MD 01/28/2018 2:25 PM Signed LIFESTYLE CHANGE A healthy lifestyle is the most important component of your overall treatment plan. 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 EAT A WHOLE FOOD, PLANT BASED DIET The nutrition your body gets is more important than the medicine you take. What matters most is the overall way you eat. We encourage you to minimize the use of animal products (which include dairy and all meats except fatty fish) and use whole, unprocessed plant foods to provide your protein, vitamins and other nutrients. We have a lot of information to share with you on this topic. This is not a diet. It is a way of life that you will keep with you. EXERCISE REGULARLY It is not important to spend hours in the gym, lifting weights and perspiring heavily. A total of 2-3 hours per week of aerobic (causing you to be moderately short of breath) exercise is sufficient to improve your health. Talk to us before you begin a new exercise program, if you have heart disease or experience shortness of breath or chest pain. REDUCE STRESS Chronic emotional and physical stress leads to disease. Ways of reducing stress include meditation, visualization, prayer, yoga and other forms of relaxation therapy. Consistency is the gutierres. Find a technique that works for you and do it every day. CULTIVATE RELATIONSHIPS Loneliness and isolation have a major negative impact on health. Seek out others who can love, care for and nurture you. Avoid hurtful relationships. MAINTAIN IDEAL BODY WEIGHT The best way to do this is to do all the things above. Our bodies naturally find the right weight if we keep moving and feed ourselves the right food. If your BMI is greater than 25, we strongly recommend a referral to a weight management program. Please speak to us or your family physician about available programs. AVOID NICOTINE IN ALL FORMS This includes all tobacco products, whether chewed, smoked, vaped, or rubbed on the skin. Smoking cessation programs, which can make use of tobacco substitutes, medications to suppress cravings and behavior management, are available. Please contact your family physician about programs in your area. Sudarshan Salamanca MD 01/28/2018 5:39 PM Signed PERTINENT CARDIAC HISTORY Atrial fib - PAF HTN LOI - CPAP DM HL - declines statin ASHD - moderate plaque by cath ADHERENCE TO GUIDELINES ARMAND-I or ARB for HF with prior LVEF<40 (NQF 0081) - N/A ASA or Plavix for ASHD (NQF 0067) - met Beta des for ASHD with prior IA or prior LVEF<40 (NQF 0070) - met Beta des for HF with prior LVEF<40 (NQF 0083) - N/A ARMAND-I or ARB for ASHD with DM or prior LVEF<40 (NQF 0066) - met Statin therapy for ASHD or FHL or DM - declined BMI documented and plan if >25 (NQF 0421) - lifestyle recommendation form Tobacco use screening and referral (NQF 0028) - lifestyle recommendation form Recommendation for whole food, plant based diet - lifestyle recommendation form CLINICAL IMPRESSION/PLAN: Ankit West Jr. is having recurrent atrial fibrillation. I am hesitant to increase flecainide as he is having chest discomfort and may have underlying coronary disease which needs more aggressive treatment. As his most recent stress test was normal, it would not aid in decision making to repeat this. I recommend that we proceed with angiography. If there is no significant obstructive disease, we will optimize his medical therapy, consider increasing flecainide or possibly changing to a different antiarrhythmic. He wishes for this angiogram to be done at [facility], where he had his previous study. Labs and chest x-ray will be updated. He has been encouraged to use nitroglycerin liberally for chest discomfort, and not to wait. He may take a supplemental 100 mg flecainide after one hour of symptoms, even if he has recently taken his usual dose. He will be seen as originally scheduled or as needed. Written and verbal health teaching given to patient, patient verbalizes understanding and agrees with treatment plan. DIAGNOSIS FOR VISIT: Atrial fibrillation Chest pain HISTORY OF PRESENT ILLNESS Ankit West JrRicki returns for problem follow-up visit. He recently had an episode of tachycardia with heart rate in the 130 range. This was associated with severe chest pain which radiated into the left arm. He took no nitroglycerin. He arrhythmia converted spontaneously after 90 minutes and chest pain resolved. He took no supplemental flecainide as he had taken his evening dose shortly before. He's had no recurrent symptoms. Overall his exercise tolerance has decreased over the last 6 months. He is concerned about the possibility of ischemic heart disease. His atrial fibrillation previously was associated with lightheadedness, but never chest pain until the last 6 months. He had a stress test done this summer which showed no ischemia . He's had no edema, syncope, TIAs, amaurosis or claudication. He has not been active and continues to gain weight. He has had some nonspecific abdominal discomfort and is currently being evaluated for that. ALLERGIES: ALLERGIES Allergen Reactions - Flomax [Tamsulosin * Swelling Couldn't sleep and acted strange - Cortisone Other: See Comments Heart palpitations - Dexamethasone Other: See Comments Heart palpitations - Naldecon Senior Ex * GI Upset CTM=Chlor-Trimeton - Ornade [Other] GI Upset - Rynatan [Chlorpheni* GI Upset - Septra [Sulfamethox* GI Upset - Vioxx [Rofecoxib] GI Upset CURRENT OUTPATIENT MEDICATIONS: metFORMIN ER (GLUCOPHAGE XR) 500 mg 24 hr tablet TAKE 2 TABLETS TWICE A DAY dicyclomine (BENTYL) 10 mg capsule TAKE 1 CAPSULE AT BEDTIME NEEDED spironolactone (ALDACTONE) 25 mg tablet Take 1 tablet by mouth once daily. potassium chloride ER (K-DUR, KLOR-CON) 10 mEq tablet Take 1 tablet by mouth once daily. flecainide (TAMBOCOR) 100 mg tablet Take 1 tablet by mouth twice daily. May take extra 100 mg once a day for breakthru symptoms atenolol (TENORMIN) 25 mg tablet TAKE ONE-HALF (1/2) TABLET DAILY glipiZIDE XL (GLUCOTROL XL) 10 mg 24 hr tablet TAKE 1 TABLET DAILY furosemide (LASIX) 20 mg tablet TAKE 1 TABLET TWICE A DAY warfarin (COUMADIN) 2 mg tablet Take 1 tablet by mouth daily as directed. lisinopril (PRINIVIL) 10 mg tablet Take 1 tablet by mouth once daily. pioglitazone (ACTOS) 15 mg tablet Take 1 tablet by mouth once daily. warfarin (COUMADIN) 3 mg tablet TAKE 1 TABLET DAILY OR DIRECTED warfarin (COUMADIN) 5 mg tablet In combination with 2 or 3mg tablet as directed. nitroglycerin sublingual (NITROQUICK) 0.4 mg SL tablet Dissolve 1 tablet under the tongue as needed. FOR CHEST PAIN. IF NO RELIEF CALL 911 Artificial Tear, Hypromellose, (SYSTANE GEL) 0.3 % gel Use 1 Drop in both eyes daily at bedtime. Lancets lancets USE TO TEST BLOOD SUGAR ONCE A DAY AND NEEDED blood sugar diagnostic (CONTOUR TEST STRIPS) test strip USE FOR BLOOD SUGAR TESTING ONCE DAILY AND NEEDED, 250.00 omeprazole (PRILOSEC) 20 mg ORAL capsule Take one(1) capsule daily. aspirin(ECOTRIN LOW STRENGTH 81 MG TAB) Take one(1) tablet daily. mupirocin (BACTROBAN) 2 % ointment Apply 1 application to affected area three times daily. Location: right forearm PAST MEDICAL HISTORY Diagnosis Date - Abdominal pain, LLQ 12/04/2014 - Atrial fibrillation (HCC) chronic - Biliary dyskinesia 10/01/2011 Symptom free at this time 03/2015 - BPH W URINARY OBS/LUTS 05/12/2006 - DIARRHEA NOS 10/12/2008 - Essential and other specified forms of tremor 09/10/2011 - Essential hypertension, benign 12/26/2009 - Fatty liver 05/08/2011 - Generalized osteoarthrosis, unspecified site hands, knees, hips - GERD without esophagitis 03/06/2015 Hiatal hernia. 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 - Trigger finger (acquired) 07/17/2014 - Type 2 diabetes mellitus with diabetic neuropathy (HCC) 03/06/2015 PAST SURGICAL HISTORY Procedure Laterality Date - COLONOSCOP W/ OR W/O [facility] SPEC 1997,1988 Colonoscopy - COLONOSCOPY W/BX 10/12/08 - COLONOSCOPY W/BX 12/04/2014 Repeat 2024 - EGD W/O [facility] SPECIMEN W/BX 10/12/08 - FECAL OCCULT BLOOD TEST 08/01/2016 negative - INCISION OF TENDON SHEATH 07/07/14 right thumb trigger release - PAST SURGICAL HISTORY OF 1961 left knee - PAST SURGICAL HISTORY OF 2013 R knee meniscus tears - STRESS TEST 07/2015 NL - STRESS TEST 10/09/2017 normel - THYROIDECTOMY 2004 Left side - TOTAL KNEE REPLACEMENT 05/24/2012 Left FAMILY HISTORY Problem Relation Age of Onset - Heart Failure Mother - COPD Mother - Hypertension Mother - other (tremors) Father age 96. - other (AAA) Father Repaired at [facility]. - Diabetes Brother - other (tremors) Paternal Uncle - Heart Failure Sister 54 viral. - Cancer Brother esophagus - Cancer Sister pancreas - Cervical Cancer Maternal Aunt lung - Cancer Maternal Aunt - other (Idiopathic pulmonary fibrosis) Son age 47 after 2 lung transplants. 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 Daughter Sole Galindo REVIEW OF SYSTEMS: General: No chills, fever, weight loss, night sweats. Respiratory: No productive cough. Cardiac: As noted above. GI: No melena. : No dysuria. Musculoskeletal: No myalgias. PHYSICAL EXAMINATION: S/he is alert and in no distress. VITAL SIGNS: BP 125/78 Pulse 56 Ht 5' 7.25 (1.71m) Wt 259 lb 6.4 oz (117.7kg) BMI 40.33 kg/(m2). SHEENT: Skin is warm and dry. No xanthelasmas appreciated. Pharynx is benign. There is no oral cyanosis. Neck: supple. No adenopathy or thyroid enlargement. Chest: Clear to auscultation. Trachea is midline. Air entry is equal. There is no chest wall tenderness. Cardiac: Regular rhythm. S1 and S2 are normal. PMI is nondisplaced. There is a 1/6 systolic ejection murmur. No click is heard. Carotids are brisk without bruits. JVP is less than 10 cm. Abdomen: Soft and nontender. There is morbid obesity. There are no pulsatile masses or bruits. No liver enlargement. Bowel sounds are active. Extremities: Trace edema. Pulses are intact and symmetrical. No clubbing or cyanosis. No femoral bruits. Neurologic: Grossly normal motor and sensory. S/he is alert and oriented x4. Recent labs were reviewed. Renal function is stable. EKG today shows sinus bradycardia with first-degree. There is no significant change. Electronically Signed: Sudarshan Salamanca MD January 28, 2018 2:27 PM CC:Nathaniel Lakhani MD Referring Provider: SUDARSHAN SALAMANCA [[id number]] Allergies As of Date: 01/28/2018 Noted Allergy Reaction FLOMAX (TAMSULOSIN HCL) 06/02/2017 7 - Swelling Comments: Couldn't sleep and acted strange CORTISONE 01/13/2012 14 - Other: See Comments Comments: Heart palpitations DEXAMETHASONE 01/13/2012 14 - Other: See Comments Comments: Heart palpitations NALDECON SENIOR EX (GUAIFENESIN) 12/31/2004 8 - GI Upset Comments: CTM=Chlor-Trimeton ornade [Other] 01/01/2005 8 - GI Upset RYNATAN (CHLORPHENIRAMINE-PE TANN*12/31/2004 8 - GI Upset SEPTRA (SULFAMETHOXAZOLE-TRIMETHO*12/31/2004 8 - GI Upset VIOXX (ROFECOXIB) 12/31/2004 8 - GI Upset Date Reviewed: 01/28/2018 Reviewed by: Rebeca Mcclure MA - Fully Assessed Primary Visit Diagnosis:PAF (paroxysmal atrial fibrillation) (HCC) [I48.0] Other Visit Diagnosis:ASHD (arteriosclerotic heart disease) [I25.10] Order(s):ECG COMPLETE W INTERPRETATION [ECG01] Order #: [id number] FUTURE BASIC METABOLIC PNL [SQBMP] Order #: [id number] FUTURE CBC [SQCBC] Order #: [id number] FUTURE CATH PLMT L HRT AND ARTS W/NJX AND ANGIO IMG CAITLYN [18169KMD] Order #: [id number] PROTHROMBIN TIME/PT [SQPT] Order #: [id number] FUTURE COMPLETE ECG [8831906] Order #: [id number]. #:[id number]--[id number]: 1 Prescriptions as of 01/28/2018 Sig: METFORMIN ER 500 MG TABLET,EX* TAKE 2 TABLETS TWICE A DAY DICYCLOMINE 10 MG CAPSULE TAKE 1 CAPSULE AT BEDTIME * SPIRONOLACTONE 25 MG TABLET Take 1 tablet by mouth once d* POTASSIUM CHLORIDE ER 10 MEQ * Take 1 tablet by mouth once d* FLECAINIDE 100 MG TABLET Take 1 tablet by mouth twice * ATENOLOL 25 MG TABLET TAKE ONE-HALF (1/2) TABLET DA* GLIPIZIDE ER 10 MG TABLET, EX* TAKE 1 TABLET DAILY FUROSEMIDE 20 MG TABLET TAKE 1 TABLET TWICE A DAY WARFARIN 2 MG TABLET Take 1 tablet by mouth daily * Patient taking differently: Take 7 mg by mouth daily as d* LISINOPRIL 10 MG TABLET Take 1 tablet by mouth once d* PIOGLITAZONE 15 MG TABLET Take 1 tablet by mouth once d* WARFARIN 3 MG TABLET TAKE 1 TABLET DAILY OR DIR* WARFARIN 5 MG TABLET In combination with 2 or 3mg * NITROGLYCERIN 0.4 MG SUBLINGU* Dissolve 1 tablet under the t* ARTIFICIAL TEARS (HYPROMELLOS* Use 1 Drop in both eyes daily* LANCETS USE TO TEST BLOOD SUGAR ONCE * BLOOD SUGAR DIAGNOSTIC STRIPS USE FOR BLOOD SUGAR TESTING O* * OMEPRAZOLE 20 MG CAPSULE,RENY* Take one(1) capsule daily. * ECOTRIN LOW STRENGTH 81 MG TA* Take one(1) tablet daily. 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 Generalized osteoarthrosis, unspecified site [M* Priority: M Hallux valgus (acquired) [M20.10] INVALID FOR* Priority: M Benign non-nodular prostatic hyperplasia with l*INVALID FOR* Priority: C Acute gastritis without mention of hemorrhage [*INVALID FOR*07/04/2014 Essential hypertension, benign [I10] INVALID FOR* Priority: A Type II or unspecified type diabetes mellitus w*INVALID FOR*12/02/2013 More... Fatty liver [K76.0] INVALID FOR* Priority: B Essential tremor [G25.0] INVALID FOR* Priority: B Right flank pain [R10.9] INVALID FOR*07/04/2014 Biliary dyskinesia [K82.8] INVALID FOR* Priority: B More... Chest pain [R07.9] INVALID FOR*07/04/2014 Knee effusion, left [M25.462] INVALID FOR*07/04/2014 More... Respiratory failure with hypoxia (HCC) [J96.91] INVALID FOR*07/04/2014 More... Normocytic anemia [D64.9] INVALID FOR*07/04/2014 More... Fall [W19.XXXA] INVALID FOR*02/07/2012 More... SUMMARY [V999.95] INVALID FOR*07/04/2014 Priority: A More... DISPOSITION AND FOLLOW-UP [V999.01] INVALID FOR*07/04/2014 Priority: D More... LOI on CPAP [G47.33, Z99.89] INVALID FOR*04/03/2014 Multinodular goiter [E04.2] INVALID FOR* Priority: B More... LOI (obstructive sleep apnea) [G47.33] INVALID FOR* Priority: B More... Trigger finger (acquired) [M65.30] INVALID FOR* Priority: M Mesenteric adenitis [I88.0] INVALID FOR* Priority: B GERD without esophagitis [K21.9] INVALID FOR* Priority: A Ex-smoker [Z87.891] INVALID FOR* Priority: C Asbestosis (HCC) [J61] INVALID FOR* Priority: B More... 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 Disorder of prostate [N42.9] INVALID FOR* Well adult exam [Z00.00] INVALID FOR* Priority: E More... Colon cancer screening [Z12.11] INVALID FOR* Morbid obesity due to excess calories (HCC) [E6*INVALID FOR* Priority: B Diabetic eye exam (HCC) [Z01.00, E11.9] INVALID FOR* Priority: A More... WILSON (dyspnea on exertion) [R06.09] INVALID FOR* Priority: B More... 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 Medicare annual wellness visit, subsequent [Z00*INVALID FOR* Priority: E More... Current use of proton pump inhibitor [Z79.899] INVALID FOR* Obesity, Class II, BMI 35-39.9 [E66.9] INVALID FOR* Other instructions from your clinician: LIFESTYLE CHANGE A healthy lifestyle is the most important component of your overall treatment plan. Please give serious thought to the following areas and commit to making shelter changes. EAT A WHOLE FOOD, PLANT BASED DIET The nutrition your body gets is more important than the medicine you take. What matters most is the overall way you eat. We encourage you to minimize the use of animal products (which include dairy and all meats except fatty fish) and use whole, unprocessed plant foods to provide your protein, vitamins and other nutrients. We have a lot of information to share with you on this topic. This is not a diet. It is a way of life that you will keep with you. EXERCISE REGULARLY It is not important to spend hours in the gym, lifting weights and perspiring heavily. A total of 2-3 hours per week of aerobic (causing you to be moderately short of breath) exercise is sufficient to improve your health. Talk to us before you begin a new exercise program, if you have heart disease or experience shortness of breath or chest pain. REDUCE STRESS Chronic emotional and physical stress leads to disease. Ways of reducing stress include meditation, visualization, prayer, yoga and other forms of relaxation therapy. Consistency is the gutierres. Find a technique that works for you and do it every day. CULTIVATE RELATIONSHIPS Loneliness and isolation have a major negative impact on health. Seek out others who can love, care for and nurture you. Avoid hurtful relationships. MAINTAIN IDEAL BODY WEIGHT The best way to do this is to do all the things above. Our bodies naturally find the right weight if we keep moving and feed ourselves the right food. If your BMI is greater than 25, we strongly recommend a referral to a weight management program. Please speak to us or your family physician about available programs. AVOID NICOTINE IN ALL FORMS This includes all tobacco products, whether chewed, smoked, vaped, or rubbed on the skin. Smoking cessation programs, which can make use of tobacco substitutes, medications to suppress cravings and behavior management, are available. Please contact your family physician about programs in your area. Follow-up and Disposition History Recorded Encounter Status:Closed by SUDARSHAN SALAMANCA MD on 01/28/18 CNNURSE Observed: 01/28/2018 Status: COMPLETED Source: [place] 11:30 AM [facility] REPOSITORY Nurse Visit ([facility]) ANKIT WEST JR. ([id number]) 1945 M Date Time Provider Department 01/28/18 11:30 AM [facility] During your visit today, we recorded the following information about you: Rebeca Mcclure MA 02/01/2018 10:03 AM Signed EKG completed and given to Dr Salamanca for review. Rebeca Mcclure MA Referring Provider: SUDARSHAN SALAMANCA [[id number]] Allergies As of Date: 01/28/2018 Noted Allergy Reaction FLOMAX (TAMSULOSIN HCL) 06/02/2017 7 - Swelling Comments: Couldn't sleep and acted strange CORTISONE 01/13/2012 14 - Other: See Comments Comments: Heart palpitations DEXAMETHASONE 01/13/2012 14 - Other: See Comments Comments: Heart palpitations NALDECON SENIOR EX (GUAIFENESIN) 12/31/2004 8 - GI Upset Comments: CTM=Chlor-Trimeton ornade [Other] 01/01/2005 8 - GI Upset RYNATAN (CHLORPHENIRAMINE-PE TANN*12/31/2004 8 - GI Upset SEPTRA (SULFAMETHOXAZOLE-TRIMETHO*12/31/2004 8 - GI Upset VIOXX (ROFECOXIB) 12/31/2004 8 - GI Upset Date Reviewed: 01/28/2018 Reviewed by: Rebeca Mcclure MA - Fully Assessed Reason for Visit: Allied Health Visit [5] Visit Diagnoses:PAF (paroxysmal atrial fibrillation) ([facility]) [I48.0] ASHD (arteriosclerotic heart disease) [I25.10] Prescriptions as of 01/28/2018 Sig: METFORMIN ER 500 MG TABLET,EX* TAKE 2 TABLETS TWICE A DAY DICYCLOMINE 10 MG CAPSULE TAKE 1 CAPSULE AT BEDTIME * SPIRONOLACTONE 25 MG TABLET Take 1 tablet by mouth once d* POTASSIUM CHLORIDE ER 10 MEQ * Take 1 tablet by mouth once d* FLECAINIDE 100 MG TABLET Take 1 tablet by mouth twice * ATENOLOL 25 MG TABLET TAKE ONE-HALF (1/2) TABLET DA* MUPIROCIN 2 % TOPICAL OINTMENT Apply 1 application to affect* Patient not taking: Reported on 01/28/2018 GLIPIZIDE ER 10 MG TABLET, EX* TAKE 1 TABLET DAILY FUROSEMIDE 20 MG TABLET TAKE 1 TABLET TWICE A DAY WARFARIN 2 MG TABLET Take 1 tablet by mouth daily * Patient taking differently: Take 7 mg by mouth daily as d* LISINOPRIL 10 MG TABLET Take 1 tablet by mouth once d* PIOGLITAZONE 15 MG TABLET Take 1 tablet by mouth once d* WARFARIN 3 MG TABLET TAKE 1 TABLET DAILY OR DIR* WARFARIN 5 MG TABLET In combination with 2 or 3mg * NITROGLYCERIN 0.4 MG SUBLINGU* Dissolve 1 tablet under the t* ARTIFICIAL TEARS (HYPROMELLOS* Use 1 Drop in both eyes daily* LANCETS USE TO TEST BLOOD SUGAR ONCE * BLOOD SUGAR DIAGNOSTIC STRIPS USE FOR BLOOD SUGAR TESTING O* * OMEPRAZOLE 20 MG CAPSULE,RENY* Take one(1) capsule daily. * ECOTRIN LOW STRENGTH 81 MG TA* Take one(1) tablet daily. 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 Generalized osteoarthrosis, unspecified site [M* Priority: M Hallux valgus (acquired) [M20.10] INVALID FOR* Priority: M Benign non-nodular prostatic hyperplasia with l*INVALID FOR* Priority: C Acute gastritis without mention of hemorrhage [*INVALID FOR*07/04/2014 Essential hypertension, benign [I10] INVALID FOR* Priority: A Type II or unspecified type diabetes mellitus w*INVALID FOR*12/02/2013 More... Fatty liver [K76.0] INVALID FOR* Priority: B Essential tremor [G25.0] INVALID FOR* Priority: B Right flank pain [R10.9] INVALID FOR*07/04/2014 Biliary dyskinesia [K82.8] INVALID FOR* Priority: B More... Chest pain [R07.9] INVALID FOR*07/04/2014 Knee effusion, left [M25.462] INVALID FOR*07/04/2014 More... Respiratory failure with hypoxia (HCC) [J96.91] INVALID FOR*07/04/2014 More... Normocytic anemia [D64.9] INVALID FOR*07/04/2014 More... Fall [W19.XXXA] INVALID FOR*02/07/2012 More... SUMMARY [V999.95] INVALID FOR*07/04/2014 Priority: A More... DISPOSITION AND FOLLOW-UP [V999.01] INVALID FOR*07/04/2014 Priority: D More... LOI on CPAP [G47.33, Z99.89] INVALID FOR*04/03/2014 Multinodular goiter [E04.2] INVALID FOR* Priority: B More... LOI (obstructive sleep apnea) [G47.33] INVALID FOR* Priority: B More... Trigger finger (acquired) [M65.30] INVALID FOR* Priority: M Mesenteric adenitis [I88.0] INVALID FOR* Priority: B GERD without esophagitis [K21.9] INVALID FOR* Priority: A Ex-smoker [Z87.891] INVALID FOR* Priority: C Asbestosis (HCC) [J61] INVALID FOR* Priority: B More... 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 Disorder of prostate [N42.9] INVALID FOR* Well adult exam [Z00.00] INVALID FOR* Priority: E More... Colon cancer screening [Z12.11] INVALID FOR* Morbid obesity due to excess calories (HCC) [E6*INVALID FOR* Priority: B Diabetic eye exam (HCC) [Z01.00, E11.9] INVALID FOR* Priority: A More... WILSON (dyspnea on exertion) [R06.09] INVALID FOR* Priority: B More... 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 Medicare annual wellness visit, subsequent [Z00*INVALID FOR* Priority: E More... Current use of proton pump inhibitor [Z79.899] INVALID FOR* Obesity, Class II, BMI 35-39.9 [E66.9] INVALID FOR* Visit Notes: >> Rebeca Mcclure MA Mon Feb 01, 2018 10:02 AM Status: Signed EKG completed and given to Dr Salamanca for review. Rebeca Mcclure MA Encounter Status:Closed by REBECA MCCLURE MA on 02/01/18 PROTIME Collected: 01/06/2018 Status: F Source: [place] 2:44 PM [facility] REPOS[facility]ORY TYPE CODE TESTS RESULT OUT OF RANGE REFERENCE UNITS LAB PSEC 9.7-13.0 sec High PT Sec 22.4 LAB INR 0.9-1.3 High PT INR 2.3 Result Comment: Vitamin K Antagonist (VKA) Therapeutic Range: INR 2 to 3 (Target INR of 2.5) Note: For patients treated with VKA drugs, such as warfarin, the [place] [employer] 2012 Guideline recommends a therapeutic INR range of 2 to 3 (target INR of 2.5). This recommendation includes high-risk patients with antiphospholipid syndrome with previous arterial or venous thromboembolism, current-generation mechanical or bioprosthetic aortic heart valve replacement. Note: Patients with mechanical aortic valve replacement and additional risk factors for thromboembolic events (atrial fibrillation, previous thromboembolism, LV dysfunction, hypercoagulable conditions) or an older generation mechanical AVR (i.e., ball in-Cage) or any mechanical MVR should have a INR therapeutic range of 2.5 to 3.5 (target INR of 3). Na GH, et al. Chest 2012, 141:7S-47S Dave RA, et al. [facility] 2017, 70: 252-289 Performed By: #### PT #### [facility] [address] [address] BASIC METABOLIC PANL Collected: 12/08/2017 Status: F Source: [place] 11:00 AM [facility] REPOSITORY TYPE CODE TESTS RESULT OUT OF REFERENCE UNITS RANGE LAB GLU 74-99 mg/dL Glucose 74 Result Comment: The [place] [employer] (ADA) provides guidance for cutoff values for fasting glucose and random glucose. The ADA defines fasting as no caloric intake for at least 8 hours. Fas ting plasma glucose results between 100 to 125 mg/dL indicate increased risk for diabetes (prediabetes). Fasting plasma glucose results greater than or equal to 126 mg/dL meet the criteria for diagnosis of diabetes. In the absence of unequivocal hyperglycemia, results should be confirmed by repeat testing. In a patient with classic symptoms of hyperglycemia or hyperglycemic crisis, random plasma glucose results greater than or equal to 200 mg/dL meet the criteria for diagnosis of diabetes. Reference: Standards of Medical Care in Diabetes 2016, [place] [employer] Association. Diabetes Care. 2016.39(Suppl 1). LAB BUN 9-24 mg/dL BUN 23 LAB CRET 0.73-1.22 mg/dL Creatinine 1.06 LAB NA 136-144 mmol/L Sodium 139 LAB K 3.7-5.1 mmol/L Potassium 4.7 LAB CL 97-105 mmol/L Chloride 102 LAB CO2 22-30 mmol/L CO2 22 LAB AGAP 9-18 mmol/L Anion Gap 15 LAB CA 8.5-10.2 mg/dL Calcium, Total 9.2 LAB GFRAA eGFR- Amer. >60 LAB GFRNAA . eGFR-All Other Races >60 Result Comment: eGFR (Estimated GFR) Units of measure: mL/min/1.73 meters squared eGFR is derived from the reexpressed MDRD Study equation using the following parameters: serum creatinine, age, gender and race. The creatinine assay has been calibrated to be traceable to IDMS. An eGFR <60 mL/min/1.73m2 for >3 months is consistent with chronic kidney disease. Refer to KDOQI guidelines for clinical interpretation. In patients with unstable renal function, e.g. those with acute kidney injury, the eGFR may not accurately reflect actual GFR. Performed By: #### BMP #### [facility] [employer] [address] [place], [place] [address] PROGRESS Observed: 11/24/2017 Status: COMPLETED Source: [place] 12:00 PM [facility] REPOSITORY HNO ID: [id number] Author: Sudarshan Salamanca Service: (none) Author Type: Physician Type: Progress Notes Filed: 11/24/2017 8:32 PM Note Text: PERTINENT CARDIAC HISTORY Atrial fib - PAF HTN LOI - CPAP DM HL - declines statin ASHD - moderate plaque by cath ADHERENCE TO GUIDELINES ARMAND-I or ARB for HF with prior LVEF<40 (NQF 0081) - N/A ASA or Plavix for ASHD (NQF 0067) - met Beta des for ASHD with prior IA or prior LVEF<40 (NQF 0070) - met Beta des for HF with prior LVEF<40 (NQF 0083) - N/A ARMAND-I or ARB for ASHD with DM or prior LVEF<40 (NQF 0066) - met Statin therapy for ASHD or FHL or DM - declined BMI documented and plan if >25 (NQF 0421) - lifestyle recommendation form Tobacco use screening and referral (NQF 0028) - lifestyle recommendation form Recommendation for whole food, plant based diet - lifestyle recommendation form CLINICAL IMPRESSION/PLAN: Ankit West Jr. continues to have intermittent atrial fibrillation. We may be near the time when we will have to choose another agent, but I have asked him to try taking an extra 100 milligrams of flecainide up to once daily on a when necessary basis if he has breakthrough symptoms. We will try this strategy for a time. I advised him to continue his Aldactone once daily. Potassium was restarted at 1 tablet daily. He will have basic profile in 2 weeks. Stress test will not be repeated as it was just done last month. If he continues to have atrial fibrillation and chest discomfort, we will consider referring him for angiography. I will see him as originally scheduled. Written and verbal health teaching given to patient, patient verbalizes understanding and agrees with treatment plan. DIAGNOSIS FOR VISIT: Atrial fibrillation Chest pain HISTORY OF PRESENT ILLNESS Ankit West Jr. returns for problem follow-up visit. He was recently hospitalized for an episode of paroxysmal atrial fibrillation. This converted spontaneously in the emergency department. He was observed overnight and there was no evidence of acute coronary syndrome. No change was made in his medication. Since he has had a recent stress test, this was not repeated. Chest pain in association with his atrial fibrillation is somewhat unusual for him, although has happened in the past. Typically he has near syncope with it. He has noted intermittent episodes of chest discomfort which have been unrelated to activity. Overall his exercise tolerance has been pretty good if he gets himself going. He notes some lower back pain and leg aching when he begins exercise, but this gets better as he ambulates further. Overall he states that he feels better when he is moving around and walking. He was recently started on Aldactone as he had some mild pulmonary hypertension and a tendency to volume accumulation. He reports that he was unable to take 2 tablets daily but is doing well with 1. He denies syncope, TIAs, amaurosis and claudication. ALLERGIES: ALLERGIES Allergen Reactions - Flomax [Tamsulosin * Swelling Couldn't sleep and acted strange - Cortisone Other: See Comments Heart palpitations - Dexamethasone Other: See Comments Heart palpitations - Naldecon Senior Ex * GI Upset CTM=Chlor-Trimeton - Ornade [Other] GI Upset - Rynatan [Chlorpheni* GI Upset - Septra [Sulfamethox* GI Upset - Vioxx [Rofecoxib] GI Upset CURRENT OUTPATIENT MEDICATIONS: spironolactone (ALDACTONE) 25 mg tablet Take 1 tablet by mouth once daily. atenolol (TENORMIN) 25 mg tablet TAKE ONE-HALF (1/2) TABLET DAILY glipiZIDE XL (GLUCOTROL XL) 10 mg 24 hr tablet TAKE 1 TABLET DAILY metFORMIN ER (GLUCOPHAGE XR) 500 mg 24 hr tablet TAKE 2 TABLETS TWICE A DAY dicyclomine (BENTYL) 10 mg capsule TAKE 1 CAPSULE AT BEDTIME NEEDED furosemide (LASIX) 20 mg tablet TAKE 1 TABLET TWICE A DAY warfarin (COUMADIN) 2 mg tablet Take 1 tablet by mouth daily as directed. lisinopril (PRINIVIL) 10 mg tablet Take 1 tablet by mouth once daily. flecainide (TAMBOCOR) 100 mg tablet Take 1 tablet by mouth twice daily. pioglitazone (ACTOS) 15 mg tablet Take 1 tablet by mouth once daily. warfarin (COUMADIN) 3 mg tablet TAKE 1 TABLET DAILY OR DIRECTED warfarin (COUMADIN) 5 mg tablet In combination with 2 or 3mg tablet as directed. nitroglycerin sublingual (NITROQUICK) 0.4 mg SL tablet Dissolve 1 tablet under the tongue as needed. FOR CHEST PAIN. IF NO RELIEF CALL 911 Lancets lancets USE TO TEST BLOOD SUGAR ONCE A DAY AND NEEDED blood sugar diagnostic (CONTOUR TEST STRIPS) test strip USE FOR BLOOD SUGAR TESTING ONCE DAILY AND NEEDED, 250.00 omeprazole (PRILOSEC) 20 mg ORAL capsule Take one(1) capsule daily. aspirin(ECOTRIN LOW STRENGTH 81 MG TAB) Take one(1) tablet daily. mupirocin (BACTROBAN) 2 % ointment Apply 1 application to affected area three times daily. Location: right forearm Artificial Tear, Hypromellose, (SYSTANE GEL) 0.3 % gel Use 1 Drop in both eyes daily at bedtime. PHYSICAL EXAMINATION: VITAL SIGNS: BP 121/74 Pulse 60 Wt 254 lb 4.8 oz (115.4kg) Chest: Clear to percussion and auscultation. Trachea is midline. Air entry is equal. Cardiac: Regular rhythm. S1 and S2 are normal. PMI is nondisplaced. Is a soft systolic ejection murmur. Carotids are brisk without bruits. JVP is less than 10 cm. Abdomen: Soft and nontender. There is morbid obesity. There are no pulsatile masses or bruits. No liver enlargement. Bowel sounds are active. Extremities: Trace edema. Pulses are intact and symmetrical. EKG at the hospital showed normal axis and intervals. There is sinus bradycardia. Recent stress test showed no evidence of ischemia. Lower extremity arterial Doppler was unremarkable. Workup in the emergency department showed normal chemistries, troponin and EKG. He converted spontaneously in the emergency department. No additional medications were given. Electronically Signed: Sudarshan Salamanca MD November 24, 2017 12:00 PM CC: Nathaniel Lakhani MD CNOV Observed: 11/24/2017 Status: COMPLETED Source: [place] 11:15 AM [facility] REPOSITORY Office Visit (CAWSTR) ANKIT WEST JR. ([id number]) 1945 M Date Time Provider Department 11/24/17 11:15 AM SUDARSHAN SALAMANCA CAWSTR During your visit today, we recorded the following information about you: Pulse Blood pressure Weight 60/minute 121/74 115.3 kg Sudarshan Salamanca MD 11/24/2017 8:32 PM Signed PERTINENT CARDIAC HISTORY Atrial fib - PAF HTN LOI - CPAP DM HL - declines statin ASHD - moderate plaque by cath ADHERENCE TO GUIDELINES ARMAND-I or ARB for HF with prior LVEF<40 (NQF 0081) - N/A ASA or Plavix for ASHD (NQF 0067) - met Beta des for ASHD with prior IA or prior LVEF<40 (NQF 0070) - met Beta des for HF with prior LVEF<40 (NQF 0083) - N/A ARMAND-I or ARB for ASHD with DM or prior LVEF<40 (NQF 0066) - met Statin therapy for ASHD or FHL or DM - declined BMI documented and plan if >25 (NQF 0421) - lifestyle recommendation form Tobacco use screening and referral (NQF 0028) - lifestyle recommendation form Recommendation for whole food, plant based diet - lifestyle recommendation form CLINICAL IMPRESSION/PLAN: Ankit West Jr. continues to have intermittent atrial fibrillation. We may be near the time when we will have to choose another agent, but I have asked him to try taking an extra 100 milligrams of flecainide up to once daily on a when necessary basis if he has breakthrough symptoms. We will try this strategy for a time. I advised him to continue his Aldactone once daily. Potassium was restarted at 1 tablet daily. He will have basic profile in 2 weeks. Stress test will not be repeated as it was just done last month. If he continues to have atrial fibrillation and chest discomfort, we will consider referring him for angiography. I will see him as originally scheduled. Written and verbal health teaching given to patient, patient verbalizes understanding and agrees with treatment plan. DIAGNOSIS FOR VISIT: Atrial fibrillation Chest pain HISTORY OF PRESENT ILLNESS Ankit West Jr. returns for problem follow-up visit. He was recently hospitalized for an episode of paroxysmal atrial fibrillation. This converted spontaneously in the emergency department. He was observed overnight and there was no evidence of acute coronary syndrome. No change was made in his medication. Since he has had a recent stress test, this was not repeated. Chest pain in association with his atrial fibrillation is somewhat unusual for him, although has happened in the past. Typically he has near syncope with it. He has noted intermittent episodes of chest discomfort which have been unrelated to activity. Overall his exercise tolerance has been pretty good if he gets himself going. He notes some lower back pain and leg aching when he begins exercise, but this gets better as he ambulates further. Overall he states that he feels better when he is moving around and walking. He was recently started on Aldactone as he had some mild pulmonary hypertension and a tendency to volume accumulation. He reports that he was unable to take 2 tablets daily but is doing well with 1. He denies syncope, TIAs, amaurosis and claudication. ALLERGIES: ALLERGIES Allergen Reactions - Flomax [Tamsulosin * Swelling Couldn't sleep and acted strange - Cortisone Other: See Comments Heart palpitations - Dexamethasone Other: See Comments Heart palpitations - Naldecon Senior Ex * GI Upset CTM=Chlor-Trimeton - Ornade [Other] GI Upset - Rynatan [Chlorpheni* GI Upset - Septra [Sulfamethox* GI Upset - Vioxx [Rofecoxib] GI Upset CURRENT OUTPATIENT MEDICATIONS: spironolactone (ALDACTONE) 25 mg tablet Take 1 tablet by mouth once daily. atenolol (TENORMIN) 25 mg tablet TAKE ONE-HALF (1/2) TABLET DAILY glipiZIDE XL (GLUCOTROL XL) 10 mg 24 hr tablet TAKE 1 TABLET DAILY metFORMIN ER (GLUCOPHAGE XR) 500 mg 24 hr tablet TAKE 2 TABLETS TWICE A DAY dicyclomine (BENTYL) 10 mg capsule TAKE 1 CAPSULE AT BEDTIME NEEDED furosemide (LASIX) 20 mg tablet TAKE 1 TABLET TWICE A DAY warfarin (COUMADIN) 2 mg tablet Take 1 tablet by mouth daily as directed. lisinopril (PRINIVIL) 10 mg tablet Take 1 tablet by mouth once daily. flecainide (TAMBOCOR) 100 mg tablet Take 1 tablet by mouth twice daily. pioglitazone (ACTOS) 15 mg tablet Take 1 tablet by mouth once daily. warfarin (COUMADIN) 3 mg tablet TAKE 1 TABLET DAILY OR DIRECTED warfarin (COUMADIN) 5 mg tablet In combination with 2 or 3mg tablet as directed. nitroglycerin sublingual (NITROQUICK) 0.4 mg SL tablet Dissolve 1 tablet under the tongue as needed. FOR CHEST PAIN. IF NO RELIEF CALL 911 Lancets lancets USE TO TEST BLOOD SUGAR ONCE A DAY AND NEEDED blood sugar diagnostic (CONTOUR TEST STRIPS) test strip USE FOR BLOOD SUGAR TESTING ONCE DAILY AND NEEDED, 250.00 omeprazole (PRILOSEC) 20 mg ORAL capsule Take one(1) capsule daily. aspirin(ECOTRIN LOW STRENGTH 81 MG TAB) Take one(1) tablet daily. mupirocin (BACTROBAN) 2 % ointment Apply 1 application to affected area three times daily. Location: right forearm Artificial Tear, Hypromellose, (SYSTANE GEL) 0.3 % gel Use 1 Drop in both eyes daily at bedtime. PHYSICAL EXAMINATION: VITAL SIGNS: BP 121/74 Pulse 60 Wt 254 lb 4.8 oz (115.4kg) Chest: Clear to percussion and auscultation. Trachea is midline. Air entry is equal. Cardiac: Regular rhythm. S1 and S2 are normal. PMI is nondisplaced. Is a soft systolic ejection murmur. Carotids are brisk without bruits. JVP is less than 10 cm. Abdomen: Soft and nontender. There is morbid obesity. There are no pulsatile masses or bruits. No liver enlargement. Bowel sounds are active. Extremities: Trace edema. Pulses are intact and symmetrical. EKG at the hospital showed normal axis and intervals. There is sinus bradycardia. Recent stress test showed no evidence of ischemia. Lower extremity arterial Doppler was unremarkable. Workup in the emergency department showed normal chemistries, troponin and EKG. He converted spontaneously in the emergency department. No additional medications were given. Electronically Signed: Sudarshan Salamanca MD November 24, 2017 12:00 PM CC: MD Sudarshan Alcantara MD 11/24/2017 12:00 PM Signed LIFESTYLE CHANGE A healthy lifestyle is the most important component of your overall treatment plan. Please give serious thought to the following areas and commit to making shelter changes. EAT A WHOLE FOOD, PLANT BASED DIET The nutrition your body gets is more important than the medicine you take. What matters most is the overall way you eat. We encourage you to minimize the use of animal products (which include dairy and all meats except fatty fish) and use whole, unprocessed plant foods to provide your protein, vitamins and other nutrients. We have a lot of information to share with you on this topic. This is not a diet. It is a way of life that you will keep with you. EXERCISE REGULARLY It is not important to spend hours in the gym, lifting weights and perspiring heavily. A total of 2-3 hours per week of aerobic (causing you to be moderately short of breath) exercise is sufficient to improve your health. Talk to us before you begin a new exercise program, if you have heart disease or experience shortness of breath or chest pain. REDUCE STRESS Chronic emotional and physical stress leads to disease. Ways of reducing stress include meditation, visualization, prayer, yoga and other forms of relaxation therapy. Consistency is the gutierres. Find a technique that works for you and do it every day. CULTIVATE RELATIONSHIPS Loneliness and isolation have a major negative impact on health. Seek out others who can love, care for and nurture you. Avoid hurtful relationships. MAINTAIN IDEAL BODY WEIGHT The best way to do this is to do all the things above. Our bodies naturally find the right weight if we keep moving and feed ourselves the right food. If your BMI is greater than 25, we strongly recommend a referral to a weight management program. Please speak to us or your family physician about available programs. AVOID NICOTINE IN ALL FORMS This includes all tobacco products, whether chewed, smoked, vaped, or rubbed on the skin. Smoking cessation programs, which can make use of tobacco substitutes, medications to suppress cravings and behavior management, are available. Please contact your family physician about programs in your area. Referring Provider: SUDARSHAN SALAMANCA [[id number]] Allergies As of Date: 11/24/2017 Noted Allergy Reaction FLOMAX (TAMSULOSIN HCL) 06/02/2017 7 - Swelling Comments: Couldn't sleep and acted strange CORTISONE 01/13/2012 14 - Other: See Comments Comments: Heart palpitations DEXAMETHASONE 01/13/2012 14 - Other: See Comments Comments: Heart palpitations NALDECON SENIOR EX (GUAIFENESIN) 12/31/2004 8 - GI Upset Comments: CTM=Chlor-Trimeton ornade [Other] 01/01/2005 8 - GI Upset RYNATAN (CHLORPHENIRAMINE-PE TANN*12/31/2004 8 - GI Upset SEPTRA (SULFAMETHOXAZOLE-TRIMETHO*12/31/2004 8 - GI Upset VIOXX (ROFECOXIB) 12/31/2004 8 - GI Upset Date Reviewed: 11/24/2017 Reviewed by: Genevieve Rendon Ma - Fully Assessed Reason for Visit: Established Patient [175] Cmt: Hospital follow up Primary Visit Diagnosis:PAF (paroxysmal atrial fibrillation) (HCC) [I48.0] Other Visit Diagnosis:Primary hypertension [I10] Order(s):spironolactone (ALDACTONE) 25 mg tabletTake 1 tablet by mouth once daily.Disp: Rfl: BASIC METABOLIC PNL [SQBMP] Order #: [id number] FUTURE potassium chloride ER (K-DUR, KLOR-CON) 10 mEq tabletTake 1 tablet by mouth once daily.Disp: Rfl: flecainide (TAMBOCOR) 100 mg tabletTake 1 tablet by mouth twice daily. May take extra 100 mg once a day for breakthru symptomsDisp: 180 tabletRfl: 3 Prescriptions as of 11/24/2017 Sig: SPIRONOLACTONE 25 MG TABLET Take 1 tablet by mouth once d* FLECAINIDE 100 MG TABLET Take 1 tablet by mouth twice * ATENOLOL 25 MG TABLET TAKE ONE-HALF (1/2) TABLET DA* GLIPIZIDE ER 10 MG TABLET, EX* TAKE 1 TABLET DAILY METFORMIN ER 500 MG TABLET,EX* TAKE 2 TABLETS TWICE A DAY DICYCLOMINE 10 MG CAPSULE TAKE 1 CAPSULE AT BEDTIME * FUROSEMIDE 20 MG TABLET TAKE 1 TABLET TWICE A DAY WARFARIN 2 MG TABLET Take 1 tablet by mouth daily * Patient taking differently: Take 7 mg by mouth daily as d* LISINOPRIL 10 MG TABLET Take 1 tablet by mouth once d* PIOGLITAZONE 15 MG TABLET Take 1 tablet by mouth once d* WARFARIN 3 MG TABLET TAKE 1 TABLET DAILY OR DIR* WARFARIN 5 MG TABLET In combination with 2 or 3mg * NITROGLYCERIN 0.4 MG SUBLINGU* Dissolve 1 tablet under the t* LANCETS USE TO TEST BLOOD SUGAR ONCE * BLOOD SUGAR DIAGNOSTIC STRIPS USE FOR BLOOD SUGAR TESTING O* * OMEPRAZOLE 20 MG CAPSULE,RENY* Take one(1) capsule daily. * ECOTRIN LOW STRENGTH 81 MG TA* Take one(1) tablet daily. POTASSIUM CHLORIDE ER 10 MEQ * Take 1 tablet by mouth once d* MUPIROCIN 2 % TOPICAL OINTMENT Apply 1 application to affect* ARTIFICIAL TEARS (HYPROMELLOS* Use 1 Drop in both eyes daily* Medication notes this encounter MUPIROCIN 2 % TOPICAL OINTMENT >> Genevieve Rendon Ma 11/24/2017 11:37 AM >> GENEVIEVE RENDON MA Nov 24, 2017 11:37 AM Not using. SPIRONOLACTONE 25 MG TABLET >> Genevieve Rendon Ma 11/24/2017 11:38 AM >> GENEVIEVE RENDON MA Nov 24, 2017 11:38 AM Only taking 1 time per day. 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 Generalized osteoarthrosis, unspecified site [M* Priority: M Hallux valgus (acquired) [M20.10] INVALID FOR* Priority: M Benign non-nodular prostatic hyperplasia with l*INVALID FOR* Priority: C Acute gastritis without mention of hemorrhage [*INVALID FOR*07/04/2014 Essential hypertension, benign [I10] INVALID FOR* Priority: A Type II or unspecified type diabetes mellitus w*INVALID FOR*12/02/2013 More... Fatty liver [K76.0] INVALID FOR* Priority: B Essential tremor [G25.0] INVALID FOR* Priority: B Right flank pain [R10.9] INVALID FOR*07/04/2014 Biliary dyskinesia [K82.8] INVALID FOR* Priority: B More... Chest pain [R07.9] INVALID FOR*07/04/2014 Knee effusion, left [M25.462] INVALID FOR*07/04/2014 More... Respiratory failure with hypoxia (HCC) [J96.91] INVALID FOR*07/04/2014 More... Normocytic anemia [D64.9] INVALID FOR*07/04/2014 More... Fall [W19.XXXA] INVALID FOR*02/07/2012 More... SUMMARY [V999.95] INVALID FOR*07/04/2014 Priority: A More... DISPOSITION AND FOLLOW-UP [V999.01] INVALID FOR*07/04/2014 Priority: D More... LOI on CPAP [G47.33, Z99.89] INVALID FOR*04/03/2014 Multinodular goiter [E04.2] INVALID FOR* Priority: B More... LOI (obstructive sleep apnea) [G47.33] INVALID FOR* Priority: B More... Trigger finger (acquired) [M65.30] INVALID FOR* Priority: M Mesenteric adenitis [I88.0] INVALID FOR* Priority: B GERD without esophagitis [K21.9] INVALID FOR* Priority: A Ex-smoker [Z87.891] INVALID FOR* Priority: C Asbestosis (HCC) [J61] INVALID FOR* Priority: B More... 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 Disorder of prostate [N42.9] INVALID FOR* Well adult exam [Z00.00] INVALID FOR* Priority: E More... Colon cancer screening [Z12.11] INVALID FOR* Morbid obesity due to excess calories (HCC) [E6*INVALID FOR* Priority: B Diabetic eye exam (HCC) [Z01.00, E11.9] INVALID FOR* Priority: A More... WILSON (dyspnea on exertion) [R06.09] INVALID FOR* Priority: B More... 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 Medicare annual wellness visit, subsequent [Z00*INVALID FOR* Priority: E More... Current use of proton pump inhibitor [Z79.899] INVALID FOR* Obesity, Class II, BMI 35-39.9 [E66.9] INVALID FOR* Other instructions from your clinician: LIFESTYLE CHANGE A healthy lifestyle is the most important component of your overall treatment plan. 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 EAT A WHOLE FOOD, PLANT BASED DIET The nutrition your body gets is more important than the medicine you take. What matters most is the overall way you eat. We encourage you to minimize the use of animal products (which include dairy and all meats except fatty fish) and use whole, unprocessed plant foods to provide your protein, vitamins and other nutrients. We have a lot of information to share with you on this topic. This is not a diet. It is a way of life that you will keep with you. EXERCISE REGULARLY It is not important to spend hours in the gym, lifting weights and perspiring heavily. A total of 2-3 hours per week of aerobic (causing you to be moderately short of breath) exercise is sufficient to improve your health. Talk to us before you begin a new exercise program, if you have heart disease or experience shortness of breath or chest pain. REDUCE STRESS Chronic emotional and physical stress leads to disease. Ways of reducing stress include meditation, visualization, prayer, yoga and other forms of relaxation therapy. Consistency is the gutierres. Find a technique that works for you and do it every day. CULTIVATE RELATIONSHIPS Loneliness and isolation have a major negative impact on health. Seek out others who can love, care for and nurture you. Avoid hurtful relationships. MAINTAIN IDEAL BODY WEIGHT The best way to do this is to do all the things above. Our bodies naturally find the right weight if we keep moving and feed ourselves the right food. If your BMI is greater than 25, we strongly recommend a referral to a weight management program. Please speak to us or your family physician about available programs. AVOID NICOTINE IN ALL FORMS This includes all tobacco products, whether chewed, smoked, vaped, or rubbed on the skin. Smoking cessation programs, which can make use of tobacco substitutes, medications to suppress cravings and behavior management, are available. Please contact your family physician about programs in your area. Prescriptions ordered this encounter Disp Refills Start End SPIRONOLACTONE 25 MG TABLET 11/24/2017 Class: Med Update Route: ORAL Sig: Take 1 tablet by mouth once daily. POTASSIUM CHLORIDE ER 10 MEQ TABLET,* 11/24/2017 Class: Med Update Route: ORAL Sig: Take 1 tablet by mouth once daily. FLECAINIDE 100 MG TABLET 180 * 3 11/24/2017 Route: ORAL Sig: Take 1 tablet by mouth twice daily. May take extra 100 mg once a day for breakthru symptoms Medications Discontinued During This Encounter spironolactone (ALDACTONE) 25 mg tab* 10/26/2017 11/24/2017 Class: Med Update Route: ORAL Sig: Take 1 tablet by mouth twice daily. Disc: Reason for discontinue is not on file. flecainide (TAMBOCOR) 100 mg tablet 180 * 3 05/07/2017 11/24/2017 Class: [facility] Route: ORAL Sig: Take 1 tablet by mouth twice daily. Disc: Reason for discontinue is not on file. Encounter Status:Closed by SUDARSHAN SALAMANCA MD on 11/24/17 12 LEAD ELECTROCARDIOGRAM Observed: 11/17/2017 Status: F Source: [place] 2:34 PM [facility] REPOSITORY [facility] Cardiovascular Services [address] [place] [id number] 12 Lead EKG 11/11/172127 MR#: [id number] Acct: [id number] Name: ANKIT WEST Rep #: [id number] : 1945 72 From: Renan Thomas MD Attending Dr: Irving Hernandez DO Status: DIS BERTA Ordering Dr: Eric Lawson MD Date: 11/11/17 Location: [facility] Sex: M C Admitted: 11/11/17 Test Reason : REPEAT Blood Pressure : / mmHG Vent. Rate : 059 BPM Atrial Rate : 059 BPM P-R Int : 220 ms QRS Dur : 116 ms QT Int : 432 ms P-R-T Axes : 045 043 042 degrees QTc Int : 427 ms Sinus bradycardia with 1st degree A-V block Otherwise normal ECG Confirmed by RENAN THOMAS MD ([id number]), telegraph editor REGINA PASCUAL ([id number]) on 11/17/2017 2:34:27 PM Referred By: DR LAWSON Confirmed By:RENAN THOMAS MD 11/17/171433 Date Renan Thomas MD CC: Irving Hernandez DO; Nathaniel Lakhani MD; Eric Lawson MD Signed 12 LEAD ELECTROCARDIOGRAM Observed: 11/17/2017 Status: F Source: [place] 2:34 PM [facility] REPOSITORY [facility] Cardiovascular Services [address] [place] [address] 12 Lead EKG 11/11/171943 MR#: [id number] Acct: [id number] Name: ANKIT WEST Jr. Rep #: [id number] : 1945 72 From: Renan Thomas MD Attending Dr: Irving Hernandez DO Status: DIS BERTA Ordering Dr: Eric Lawson MD Date: 11/11/17 Location: [facility] Sex: M C Admitted: 11/11/17 Test Reason : CP Blood Pressure : / mmHG Vent. Rate : 132 BPM Atrial Rate : 132 BPM P-R Int : 264 ms QRS Dur : 124 ms QT Int : 342 ms P-R-T Axes : 000 050 017 degrees QTc Int : 506 ms Sinus tachycardia with 1st degree A-V block Otherwise normal ECG Confirmed by RENAN THOMAS MD ([id number]), telegraph editor REGINA PASCUAL ([id number]) on 11/17/2017 2:34:45 PM Referred By: RADHA Confirmed By:RENAN THOMAS MD 11/17/171433 Date Renan Thomas MD CC: Irving Hernandez DO; Nathaniel Lakhani MD; Eric Lawson MD Signed 12 LEAD ELECTROCARDIOGRAM Observed: 11/16/2017 Status: F Source: [place] 2:07 PM [facility] REPOSITORY [facility] Cardiovascular Services [address] [place] [address] 12 Lead EKG 11/12/17 0523 MR#: [id number] Acct: [id number] Name: ANKIT WEST Jr. Rep #: [id number] : 1945 72 From: Renan Thomas MD Attending Dr: Irving Hernandez DO Status: DIS BERTA Ordering Dr: Jl Gresham MD Date: 11/12/17 Location: [facility] Sex: M C Admitted: 11/11/17 Test Reason : AM EKG Blood Pressure : / mmHG Vent. Rate : 055 BPM Atrial Rate : 055 BPM P-R Int : 200 ms QRS Dur : 112 ms QT Int : 466 ms P-R-T Axes : 072 037 043 degrees QTc Int : 445 ms Sinus bradycardia Otherwise normal ECG When compared with ECG of 11-NOV-2017 21:28, MANUAL COMPARISON REQUIRED, DATA IS UNCONFIRMED Confirmed by RENAN THOMSA MD ([id number]), telegraph editor REGINA PASCUAL ([id number]) on 11/16/2017 2:06:31 PM Referred By: MARGA Confirmed By:RENAN THOMAS MD 11/16/17 1406 Date Renan Thomas MD CC: Irving Hernandez DO; Jl Gresham; Nathaniel Lakhani MD Signed DISCHARGE SUMMARY Observed: 11/12/2017 Status: F Source: A[place] 2:09 PM [facility] REPOSITORY [facility] Medical Records Department [address] [place] [address] Discharge Summary 11/12/17 1323 MR#: [id number] Acct: [id number] Name: ANKIT WEST Jr. Rep #: [id number] : 1945 72 From: Doni AMBROSE PCP: Nathaniel Lakhani MD Status: DIS BERTA Y Location: [place] [id number] <Doni Rapp - Last Filed: 11/12/17 13:23> Discharge Date and Diagnosis Date of Admission: 11/11/17 Date of Discharge: 11/12/17 - Primary Discharge Diagnosis Paroxysmal atrial fibrillation with RVR Chest pain secondary to above Microcytic anemia Recent right upper forearm laceration Hypertension Type 2 diabetes - Secondary Discharge Diagnosis Chronic Problems Paroxysmal atrial fibrillation (Chronic) Non-alcoholic fatty liver disease (Chronic) Essential hypertension (Chronic) Type II diabetes mellitus (Chronic) Hospital Course and Treatment Imaging Results: RAD/Chest 1 View (Portable) IMPRESSION: Degenerative changes, as described above. No demonstrated acute cardiopulmonary process. Operations: None Procedures: None Summary of Care Provided: Physical exam on day of discharge: General: Resting comfortably NAD Psych: A/Ox3 normal affect HEENT: PEARRLA AT NC Neck: Supple NT CV: RRR no m/t/r/g/h Resp: CTA Abd: [id number] Soft NT no guarding or rigidity Ext: DP2+= no edema Skin: W/D normal turgor Lymph/Heme: No active bleeding or adenopathy Neuro: CN2-12 intact Hospital course: The patient is a 72 year old M with a history of paroxysmal atrial fibrillation who follows with Dr. Sudarshan Salamanca-on flecainide atenolol and warfarin as an outpatient, also with a history of a forearm laceration 1 week ago for which she is currently being treated with Keflex, and a history of hypertension, microcytic anemia, type 2 diabetes mellitus, who presented to the emergency room with chest pain and was found to be in atrial fibrillation with rapid ventricular response. EKG and troponin were negative, TSH was negative, magnesium was negative. He was given a dose of IV Cardizem in the emergency room and converted to normal sinus rhythm. 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 Patient was admitted to PCU placed on cardiac monitoring, serial EKGs and troponins were obtained which were negative. His rate and rhythm remained normal throughout the rest of his stay with no additional agents provided. His Coumadin remained therapeutic. The following morning he had no further chest pain, and no events overnight. He was discharged home in stable condition and advised to follow-up with his PCP and with his director enterprise sales in 1-2 weeks. This patient was seen by Doni Rapp PA-C under the supervision of Doctor Mary. [] Discharge Diet: Low fat/ Low Cholesterol, 1800 Calorie Control Diet, 2000 mg Sodium Diet Discharge Activity: Return to Normal Activity Home Medications: Medications to take at Discharge Aspirin E.C. [Ecotrin] 81 mg PO DAILY@0800 09/15/14 Atenolol [Tenormin (beta des)] 12.5 mg PO DAILY 09/15/14 Flecainide [Tambocor] 100 mg PO BID 09/15/14 Furosemide [Lasix] 20 mg PO BID 09/15/14 Metformin HCl [Glucophage] 1,000 mg PO BID 09/15/14 Omeprazole [Prilosec] 20 mg PO DAILY 09/15/14 Warfarin [Coumadin] 6 mg PO SUTUTHSA 09/15/14 Warfarin [Coumadin] 7 mg PO MOWEFR 09/15/14 glipiZIDE XL [Glucotrol Xl] 5 mg PO DAILY@0800 09/15/14 Cephalexin [Keflex] 500 mg PO Q8 11/11/17 Dicyclomine HCl 10 mg PO [facility] 11/11/17 Lisinopril [Zestril] 10 mg PO DAILY 11/11/17 Pioglitazone [Actos] 15 mg PO DAILY 11/11/17 Spironolactone [Aldactone] 25 mg PO DAILY 11/11/17 Primary Care Physician: Nathaniel Lakhani MD [Primary Care Provider] - Please follow up with your Primary Care Physician in: 2 weeks Please Follow Up With: Sudarshan Salamanca MD When: 1-2 weeks Disposition: Home Minutes spent on discharge:: 35 Patient Condition:: Stable Medical Necessity - Tobacco Use Smoking Status: Former smoker Meaningful Use Info Meaningful Use Diagnoses (Choose all that apply): None applicable <Irving Hernandez - Last Filed: 11/12/17 14:08> Discharge Date and Diagnosis - Secondary Discharge Diagnosis Chronic Problems Paroxysmal atrial fibrillation (Chronic) Non-alcoholic fatty liver disease (Chronic) Essential hypertension (Chronic) Type II diabetes mellitus (Chronic) Hospital Course and Treatment Operations: None Procedures: None Summary of Care Provided: Patient seen and examined independently. Data reviewed. I agree with the above note by the physician drug safety assistant. The patient is a 72 year old M presents with H fibrillation with RVR. Patient converted to normal sinus rhythm with a one-time dose of IV Cardizem. She was monitored overnight and had no further atrial fibrillation with RVR. He has remained chest pain-free, and is short of breath free. Patient will be discharged with instruction to follow-up with cardiology. [] Discharge Diet: Low fat/ Low Cholesterol, 1800 Calorie Control Diet, 2000 mg Sodium Diet Discharge Activity: Return to Normal Activity Disposition: Home Minutes spent on discharge:: 35 Patient Condition:: Stable Meaningful Use Info Meaningful Use Diagnoses (Choose all that apply): None applicable Code Visit OBSV Bryce AND Erasto: 58593 Observation care discharge 11/12/17 1330 <Electronically signed by Doni AMBROSE> Date Doni AMBROSE 11/12/17 1409<Electronically signed by Irving Hernandez DO> Cosigner Signature (if applicable): Date Irving Hernandez DO CC: ARNOL Rapp; Irving Hernandez DO; Nathaniel Lakhani MD; Sudarshan Salamanca MD Signed BEDSIDE GLUCOSE Collected: 11/12/2017 Status: F Source: [place] 12:05 PM [facility] REPOSITORY TYPE CODE TESTS RESULT OUT OF RANGE REFERENCE UNITS LAB L501.080 70-110 mg/dL Normal BEDSIDE GLU 105 Result Comment: MANAGEMENT OF PATIENT CARE PER NURSING PROTOCOL Performed By: #### L501.080 #### [facility] Point of Care [address] [place] [address] DISCHARGE INSTRUCTION Observed: 11/12/2017 Status: F Source: [place]IND 11:16 AM [facility] REPOSITORY [facility] Medical Records Department [address] [place] [address] Instructions for Home/Discharge Instructions 11/12/17 1115 MR#: [id number] Acct: [id number] Name: ANKIT WEST Jr. Rep #: [id number] : 1945 72 From: Doni AMBROSE PCP: Nathaniel Lakhani MD Status: ADM BERTA You will use the following diet at home:: Cardiac - <2g sodium per day Your food should be the consistency of: Regular Your liquids should be the consistency of: Regular/Thin Discharge Activity: Return to Normal Activity Allergies/Adverse Reactions: Allergies chlorpheniramine maleate [From Ornade] Adverse Reaction (Verified 11/11/17 19:42) Upset Stomach phenylpropanolamine HCl [From Ornade] Adverse Reaction (Verified 11/11/17 19:42) Upset Stomach rofecoxib [From Vioxx] Adverse Reaction (Verified 11/11/17 19:42) Upset Stomach sulfamethoxazole [From Bactrim] Adverse Reaction (Verified 11/11/17 19:42) Upset Stomach trimethoprim [From Bactrim] Adverse Reaction (Verified 11/11/17 19:42) Upset Stomach NALDECON Adverse Reaction (Uncoded 11/11/17 19:42) Upset Stomach Medications to take at Discharge Aspirin E.C. [Ecotrin] 81 mg PO DAILY@0800 09/15/14 Atenolol [Tenormin (beta des)] 12.5 mg PO DAILY 09/15/14 Flecainide [Tambocor] 100 mg PO BID 09/15/14 Furosemide [Lasix] 20 mg PO BID 09/15/14 Metformin HCl [Glucophage] 1,000 mg PO BID 09/15/14 Omeprazole [Prilosec] 20 mg PO DAILY 09/15/14 Warfarin [Coumadin] 6 mg PO SUTUTHSA 09/15/14 Warfarin [Coumadin] 7 mg PO MOWEFR 09/15/14 glipiZIDE XL [Glucotrol Xl] 5 mg PO DAILY@0800 09/15/14 Cephalexin [Keflex] 500 mg PO Q8 11/11/17 Dicyclomine HCl 10 mg PO QHS 11/11/17 Lisinopril [Zestril] 10 mg PO DAILY 11/11/17 Pioglitazone [Actos] 15 mg PO DAILY 11/11/17 Spironolactone [Aldactone] 25 mg PO DAILY 11/11/17 Primary Care Physician: Nathaniel Lakhani MD [Primary Care Provider] - Please follow up with your Primary Care Physician in: 2 weeks Test Results: Test results from this visit will be discussed in further detail at your follow-up appointment, if applicable. Please Follow Up With: Sudarshan Salamanca MD When: 1-2 weeks Proposed Discharge Date: 11/12/17 11/12/17 1116 <Electronically signed by Doni AMBROSE> Date Doni AMBROSE CC: Nathaniel Lakhani MD BEDSIDE GLUCOSE Collected: 11/12/2017 Status: F Source: [place] 6:45 AM [facility] REPOSITORY TYPE CODE TESTS RESULT OUT OF RANGE REFERENCE UNITS LAB L501.080 70-110 mg/dL Normal BEDSIDE GLU 102 Result Comment: MANAGEMENT OF PATIENT CARE PER NURSING PROTOCOL Performed By: #### L501.080 #### [facility] Point of Care [address] [place] [address]. [place] [address] TROPONIN-I Collected: 11/12/2017 Status: F Source: [place] 2:15 AM [facility] REPOSITORY Order Comment: 'TROP' Serial specimen #1, #2 or #3: 3 'TROP' Serial specimen #1, #2, #3, or #4: 3 TYPE CODE TESTS RESULT OUT OF RANGE REFERENCE UNITS LAB L501.4010 <0.045 ng/mL Normal < 0.015 TROPONIN-I Result Comment: TROPONIN-I EXPECTED VALUES <0.045 Negative 0.045 - 0.590 Consistent with Cardiac Damage > OR = 0.600 Critical Value Not every elevated troponin is indicative of IA. These values should be used with clinical judgement in examining the patient's clinical picture for diagnosis. To establish a diagnosis of IA versus myocardial injury, there must be a demonstrated rise and/or fall in the troponin values, in addition to ischemic symptoms, EKG changes, new regional wall motion abnormality, and/or angiographical evidence. PLEASE NOTE: REFERENCE RANGES EDITED 17 Performed By: #### L501.4010 #### [facility] [address] [facility] [place], [place], [address] CBC W/DIFF, AUTOMATED Collected: 11/12/2017 Status: F Source: [place] 2:15 AM [facility] REPOSITORY TYPE CODE TESTS RESULT OUT OF RANGE REFERENCE UNITS LAB L100.1000 4.4-11.0 K/mm3 Normal WBC 8.0 LAB L100.1200 4.6-6.2 M/mm3 Normal RBC 4.66 LAB L100.1300 13.0-16.5 g/dl Low HGB 10.0 LAB L100.1400 40-54 % Low HCT 34.2 LAB L100.1500 80-94 fL Low MCV 73.4 LAB L100.1600 27.0-32.0 pg Low MCH 21.5 LAB L100.1700 32-36 g/gl Low MCHC 29.2 LAB L100.1810 11.6-14.6 % High RDW CV 18.0 LAB L100.1820 35.1-43.9 fl High RDW SD 48.0 LAB L100.1900 150-450 K/mm3 Normal PLT 347 LAB L100.2000 6.2-12.0 fl Normal MPV 9.4 LAB L100.2100 47-70 % Normal NEUT% 52.2 LAB L100.2200 19-41 % Normal LY% 33.3 LAB L100.2300 0-10 % High MONO% 10.6 LAB L100.2400 0-5 % Normal EO% 3.1 LAB L100.2500 0-1 % Normal BASO% 0.4 LAB L100.2550 0.0-0.9 % Normal IM GRAN % 0.400 Result Comment: IG% - Immature Granulocytes (promyelocytes, myelocytes and metamyelocytes) > 1% indicates that a LEFT SHIFT is Present. LAB L100.2620 2.0-7.7 X10 3/uL Absolute Neut Normal 4.2 LAB L100.2720 0.83-4.51 X10 3/ul Absolute Lymph Normal 2.67 LAB L100.4500 SMEAR COMMENT Normal SCANNED LAB L100.7600 HYPOCHROMASIA Normal 2+ LAB L100.7700 MICROCYTES Normal 2+ Performed By: #### L100.0100 #### [facility] [address] [place], [address] PROTHROMBIN TIME W/INR Collected: 11/11/2017 Status: F Source: [place] 11:02 PM [facility] REPOSITORY TYPE CODE TESTS RESULT OUT OF RANGE REFERENCE UNITS LAB L300.4150 11.7-14.9 SECONDS High PROTIME 25.4 LAB L300.4200 Normal INR 2.3 Performed By: #### L300.3900 #### [facility] [address] [facility] [place], [address] MAGNESIUM Collected: 11/11/2017 Status: F Source: [place] 11:02 PM [facility] REPOSITORY TYPE CODE TESTS RESULT OUT OF RANGE REFERENCE UNITS LAB L501.5200 1.6-2.6 mg/dL Normal MG 1.7 Performed By: #### L501.5200, L501.9520 #### [facility] [address] [facility] [place], [address] THYROID STIM HORMONE Collected: 11/11/2017 Status: F Source: ARAVIND (TSH) 11:02 [facility] REPOSITORY TYPE CODE TESTS RESULT OUT OF RANGE REFERENCE UNITS LAB L501.9520 0.358-3.74 uIU/mL Normal TSH 2.86 Performed By: #### L501.5200, L501.9520 #### [facility] [address] [facility] [place], [address] HISTORY AND PHYSICAL Observed: 11/11/2017 Status: F Source: [place] EXAM 10:26 PM [facility] REPOSITORY [facility] Medical Records Department [address] [place] [address] [place] [address] History and Physical 11/11/17 2216 MR#: [id number] Acct: [id number] Name: ANKIT WEST Rep #: [id number] : 1945 72 From: Jl Gresham MD PCP: Nathaniel Lakhani MD Status: ADM BERTA Y Location: [place] [address] Problem List (1) Paroxysmal atrial fibrillation Status: Chronic (2) Essential hypertension Status: Chronic (3) Type II diabetes mellitus Status: Chronic History of Present Illness Date of Admission: 07/11/18 Chief Complaint: Chest pain. The patient is a 72 year old M with past medical history as mentioned above presented to the emergency department because of chest pain. His symptoms started around 7 PM tonight when he was sitting watching TV with left-sided chest pain, sharp shooting pain, radiates to his neck, mild pain, 8 out of 10 in severity, associated with mild shortness of breath and palpitation and without aggravating or relieving factors. He denies dizziness, lightheadedness, syncope or presyncope. He denied nausea, vomiting or diaphoresis. At this time, he has no more chest pain. Upon arrival to ER, he was in A. fib with RVR, heart rate was 132, blood pressure was stable, was afebrile and pulse ox was 98% on 2 L. His routine blood work was remarkable for hemoglobin of 10.1 g/dL, otherwise normal. Initial EKG revealed A. fib with RVR, rate of 132, no acute ischemic changes. Patient received 1 dose of IV Cardizem bolus and he converted back to sinus rhythm and repeat EKG revealed sinus bradycardia with heart rate of 59 and again without acute ischemic changes. Troponin was negative. Chest x-ray showed no acute findings. According to the ER physician who spoke with Dr. 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 Dr. Wilson recommended to admit the patient and to cycle the cardiac enzymes without need to repeat stress test at this time. He is being admitted for A. fib with RVR, converted back to sinus rhythm as well as chest pain for evaluation. Past Medical History Past Medical History (Chronic Problems): Chronic Problems Paroxysmal atrial fibrillation (Chronic) Non-alcoholic fatty liver disease (Chronic) Essential hypertension (Chronic) Type II diabetes mellitus (Chronic) Allergies chlorpheniramine maleate [From Ornade] Adverse Reaction (Verified 11/11/17 19:42) Upset Stomach phenylpropanolamine HCl [From Ornade] Adverse Reaction (Verified 11/11/17 19:42) Upset Stomach rofecoxib [From Vioxx] Adverse Reaction (Verified 11/11/17 19:42) Upset Stomach sulfamethoxazole [From Bactrim] Adverse Reaction (Verified 11/11/17 19:42) Upset Stomach trimethoprim [From Bactrim] Adverse Reaction (Verified 11/11/17 19:42) Upset Stomach NALDECON Adverse Reaction (Uncoded 11/11/17 19:42) Upset Stomach Home Medications: Ambulatory Orders Medication Instructions Recorded Aspirin E.C. [Ecotrin] 81 mg PO DAILY@0800 09/15/14 Atenolol [Tenormin (beta des)] 12.5 mg PO DAILY 09/15/14 Surgical History: total knee arthroplasty, - - Partial thyroidectomy. Psychiatric History: No pertinent psych hx Lives: Spouse/ Significant Other Smoking Status: Former smoker Alcohol: None, Occasional Drugs: None - *Family History Maternal History Items: No pertinent history Paternal History Items: No pertinent history Review of Systems Constitutional: Denies: Anorexia, Chills, Fever, Weakness Eyes: Denies: Blurred vision, Double vision, Drainage, Redness HEENT: Denies: Difficulty Hearing, Ear Pain, Eye Pain, Nasal Congestion, Sore Throat Cardiovascular: Reports: Chest Pain, Palpitations. Denies: Edema, Heaviness, Light Headedness, Paroxysmal Noc. Dyspnea, Syncope Respiratory: Reports: Shortness of Breath. Denies: Cough, Pleuritic Pain, Sputum production, Wheezing Gastrointestinal: Denies: Abdominal Pain, Constipation, Diarrhea, Nausea, Vomiting Genitourinary: Denies: Dysuria, Frequency, Hematuria Musculoskeletal: Denies: Arm Pain, Back Pain, Foot Pain Skin: Denies: Dryness, Rash Neurological: Denies: Balance problems, Double vision, Change in Speech, Slurred speech, Focal weakness, Incoordination, Numbness Psychiatric: Denies: Anxiety, Depression Endocrine: Denies: Change in Body Habitus, Polydipsia VTE Information - Inpt Only VTE Present on Admission: No VTE Mechan Device Prophylaxis: None VTE Pharm Prophylaxis ordered?: No - Physical Exam General: Alert, Oriented x3, Cooperative HEENT: Atraumatic, PERRLA, EOMI, Normocephalic Oral: Moist Mucosa, No Gingival or Mucosal Lesions/ Ulcerations Neck: Supple, No JVD, Negative Carotid Bruits, Trachea Midline, Thyroid Normal Size and Texture Lungs: Clear to auscultation, No rhonchi, No wheeze, No rales, Diminished Cardiovascular: Regular rate, Regular Rhythm, Normal S1, Normal S2, PMI Normal, Bradycardic Abdomen: Bowel Sounds Present, Soft, Non Tender, Non-Distended, No Hepato-splenomegaly, Obese Extremities: No clubbing, No cyanosis, No edema Skin: No rashes, No breakdown Lymphatic: No Cervical, Supraclavicular, or Inguinal Adenopathy Neurological: Cranial nerves II-XII grossly intact, Motor Exam 5/5 strength throughout Psych/Mental Status: Normal Affect, Appropriate, Alert and oriented to time, place, person, mood and affect Vital Signs Temp Pulse Resp BP Pulse Ox 98.7 F 57 L 17 105/57 L 99 11/11/17 22:15 11/11/17 22:15 11/11/17 22:15 11/11/17 22:15 11/11/17 22:15 Oxygen Flow Rate (L/min) 2 Oxygen Delivery Method Nasal Cannula Weight: 264 lb 12.403 oz Body Mass Index (BMI) 41.4 Laboratory Tests Past 24 Hrs WBC 9.5 RBC 4.58 L Hgb 10.1 L Hct 33.4 L MCV 72.9 L Clinical Impression(s) from Imaging Studies Chest X-Ray 11/11/17 20:48 IMPRESSION: Degenerative changes, as described above. No demonstrated acute cardiopulmonary process. Electronically Signed: Luigi Tinoco MD at 21:35 EDT , Service support , Assessment/Plan This is a 72 years old male patient presented to the ER because of chest pain, found to have A. fib with RVR, converted back to sinus rhythm after received 1 dose of IV Cardizem bolus and he is being admitted for observation. #1 chest pain: Could be due to A. fib with RVR. Initial and repeat EKG without acute ischemic changes. Troponin is negative x1. Chest x-ray without acute findings. At this time, patient in sinus rhythm, heart rate stable and he has no more chest pain. Reportedly and according to ER physician who spoke with Dr. Tariq Wilson, patient had a stress test last month and that was unremarkable for stress-induced myocardial ischemia. Plan: Admit to PCU for observation, cardiac monitoring, serial cardiac enzymes, repeat EKG tomorrow morning, continue aspirin, atenolol, lisinopril. According to Dr. Wilson after discussion with the ER physician, no need to repeat the stress test at this time unless cardiac enzymes become positive or patient started to have new EKG changes. #2 A. fib with RVR: Converted back to sinus rhythm after 1 dose of IV Cardizem bolus. At this time, heart rate is around 50s, blood pressure stable. EKG after the Cardizem bolus reviewed. Plan to continue atenolol and flecainide for rate control, continue Coumadin for anticoagulation, repeat EKG tomorrow morning, check pro time and INR. #3 anemia: Admission hemoglobin is 10.1 g/dL. In October,, hemoglobin was 12.2 g/dL. Patient mentioned that he had right upper forearm injury/laceration around 1 week ago and he had a large amount of bleeding. He denied epistaxis, hematemesis, hemoptysis, hematuria, hematochezia or melena. No indication for transfusion. Plan to repeat CBC tomorrow morning. #4 recent history of right upper forearm injury/laceration: Laceration of the right forearm is healing, dry and no evidence of infection. Patient was started on Keflex 6 days ago, plan to continue Keflex to complete 10 days of treatment as prescribed. #5 paroxysmal A. fib: Plan as above, continue atenolol and flecainide for rate control, continue Coumadin, check INR. #6 hypertension: Blood pressure stable, continue atenolol, Lasix, lisinopril and Aldactone. #7 type 2 diabetes mellitus: ADA diet, Accu-Cheks, insulin sliding scale, continue glipizide, metformin and Actos. #8 DVT prophylaxis: Patient on Coumadin, will check INR. This note was generated with [employer] dictation software. It may contain incorrect words, spelling, and punctuation that were not noted in checking the note before signing. Code Visit OBSV E AND M: 60447 Initial observation care L3 11/11/17 7191 <Electronically signed by Jl Gresham MD> Date Jl Gresham MD Cosigner Signature: Date (if applicable) CC: Jl Gresham; Nathaniel Lakhani MD Signed EMERGENCY DEPARTMENT Observed: 11/11/2017 Status: F Source: [place] SUMMARY 10:05 PM [facility] REPOSITORY [facility] Medical Records Department [address] [place] [address] Emergency Department Summary 11/11/17 2203 MR#: [id number] Acct: [id number] Name: ANKIT WEST Rep #: [id number] : 1945 72 From: Eric Lawson MD PCP: Nathaniel Lakhani MD Status: REG ER - ER Visit Summary Date of Service: 11/11/17 Chief Complaint: Chest pain History of Present Illness: The patient is a 72 M who presents with chest pain. It began 1 hour ago. It was with light activity after just walking across the room. He also felt short of breath. He describes his chest pain as a heaviness substernally. It was 8 out of 10 but is currently only 3 out of 10. He denies any nausea or diaphoresis. He has never had symptoms quite like this before. He is on antibiotics currently for an abrasion to his right forearm. It sounds like he was placed on this prophylactically. He did have some diarrhea for 1 day about 5 days ago but none since that time. Physical Examination: Afebrile heart rate 133 Heart irregularly irregular and tachycardic Lungs clear Abdomen soft 2+ radial pulses Extremities nontender Alert Test Results: EKG shows atrial fibrillation at a rate of 132. Chest x-ray shows no acute process. Labs notable for hemoglobin 10.1. Repeat EKG shows sinus bradycardia. Emergency Department Course and Treatment: Patient was given IV Cardizem. He converted to normal sinus rhythm. His symptoms resolved. However I am concerned that he states he has never had chest pain with atrial fibrillation before. He did have a stress test 1 month ago. I spoke to his director enterprise sales who would like patient to be placed in observation for repeat enzymes and monitoring. Treatment Plan: [] Disposition: Admit Impression: Chest pain Atrial for ablation with RVR This note was generated with [employer] software. It may contain incorrect words, spelling, and punctuation that were not noted in review of the chart prior to signing ED Disposition - Plan for ED Patient: Chief Complaint: Chest Pain Referrals: Nathaniel Lakhani MD [Primary Care Provider] - What to do if you have Problems For any increased pain, shortness of breath, bleeding, nausea or vomiting, chest pain, or any unexpected problems, contact your Primary Care Provider. Call [facility] ([phone]) or report to the closest Emergency Room. Call 911 if necessary. 11/11/17 2203 <Electronically signed by Eric Lawson MD> Date Eric Lawson MD Cosigner Signature (If Indicated): Date CC: Nathaniel Lakhani MD CHEST 1 VIEW Observed: 11/11/2017 Status: F Source: [place] (PORTABLE) 8:27 PM [facility] REPOSITORY [facility] Imaging Services [address] [place] [id number] Chest 1 View (Portable) MR#: [id number] Acct: [id number] Name: ANKIT WEST Rep #: [id number] : 1945 M 72 From: Luigi Tinoco MD PCP: Nathaniel Lakhani MD Status: REG ER Study: Chest 1 View (Portable) Date of Exam: 11/11/17 Exam# [id number] Ordering Dr: Eric Lawson MD STUDY: X-RAY CHEST REASON FOR EXAM: Male, 72 years old. Chest pain TECHNIQUE: Single AP portable view of the chest. COMPARISON: October 27, 2016 FINDINGS: There are monitoring devices. The lungs are hyperexpanded. There is no demonstrated pleural abnormality. There is mild cardiac enlargement. Normal mediastinum and chanell. Normal visualized pulmonary arteries. Normal visualized aortic arch and descending thoracic aorta. There are diffuse degenerative changes of the visualized thoracic spine. Stable left rib fractures. There is no demonstrated abnormality of the visualized soft tissue structures of the upper abdomen. RAD/Chest 1 View (Portable) IMPRESSION: Degenerative changes, as described above. No demonstrated acute cardiopulmonary process. 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 CBC W/DIFF, AUTOMATED Collected: 11/11/2017 Status: F Source: IMOGENE 7:46 PM [facility] REPOSITORY TYPE CODE TESTS RESULT OUT OF RANGE REFERENCE UNITS LAB L100.1000 4.4-11.0 K/mm3 Normal WBC 9.5 LAB L100.1200 4.6-6.2 M/mm3 Low RBC 4.58 LAB L100.1300 13.0-16.5 g/dl Low HGB 10.1 LAB L100.1400 40-54 % Low HCT 33.4 LAB L100.1500 80-94 fL Low MCV 72.9 LAB L100.1600 27.0-32.0 pg Low MCH 22.1 LAB L100.1700 32-36 g/gl Low MCHC 30.2 LAB L100.1810 11.6-14.6 % High RDW CV 18.3 LAB L100.1820 35.1-43.9 fl High RDW SD 47.8 LAB L100.1900 150-450 K/mm3 Normal PLT 373 LAB L100.2000 6.2-12.0 fl Normal MPV 9.9 LAB L100.2100 47-70 % Normal NEUT% 66.2 LAB L100.2200 19-41 % Normal LY% 21.6 LAB L100.2300 0-10 % Normal MONO% 9.3 LAB L100.2400 0-5 % Normal EO% 2.3 LAB L100.2500 0-1 % Normal BASO% 0.4 LAB L100.2550 0.0-0.9 % Normal IM GRAN % 0.200 Result Comment: IG% - Immature Granulocytes (promyelocytes, myelocytes and metamyelocytes) > 1% indicates that a LEFT SHIFT is Present. LAB L100.2620 2.0-7.7 X10 3/uL Absolute Neut Normal 6.3 LAB L100.2720 0.83-4.51 X10 3/ul Absolute Lymph Normal 2.05 LAB L100.4500 SMEAR COMMENT Normal SCANNED LAB L100.7300 ANISO Normal 1+ LAB L100.7600 HYPOCHROMASIA Normal RARE LAB L100.8100 CRENATED RBC Normal RARE LAB L100.8200 OVALOCYTE Normal 1+ LAB L100.8400 SCHISTOCYTES Normal RARE Performed By: #### L100.0100 #### [facility] [address] [place], [address] BASIC METABOLIC Collected: 11/11/2017 Status: F Source: IMOGENE PROFILE ([facility]) 7:46 PM [facility] REPOSITORY TYPE CODE TESTS RESULT OUT OF RANGE REFERENCE UNITS LAB L501.0100 74-106 mg/dL High GLU 175 Result Comment: Fasting Glucose result greater than or equal to 126 mg/dL suggests DIABETES MELLITUS per A.D.A. criteria. Please note revised GLUCOSE reference range effective 2017. LAB L501.1000 7-18 mg/dL High BUN 20 LAB L501.1100 0.70-1.30 mg/dL Normal CREAT,SERUM 1.24 Result Comment: The validity of the calculated GFR AND GFRAA in patients over 70 years has not been determined. Clinical correlation is essential. LAB L501.1110 >60 mL/min Normal EST GFR 61 Result Comment: Non- GFR Calc LAB L501.1115 >60 mL/min Normal EST GFR - AA 73 Result Comment: GFR Calc LAB L501.1255 ml/min Normal Estimated CRCL 48.86 LAB L501.1300 10-20 RATIO Normal BUN/CRE 16.1 LAB L501.2200 8.5-10 mg/dL Normal .1 CA 8.5 LAB L501.5300 136-14 mmol/L Normal 5 NA 141 LAB L501.5600 3.5-5. mmol/L Normal 1 K 3.9 LAB L501.5900 98-107 mmol/L Normal CL 105 LAB L501.6100 21.0-3 mmol/L Normal 2.0 CO2 26.0 LAB L501.6200 5-15 Normal GAP 10 Performed By: #### L500.2500, L501.4010 #### [facility] [address] [place], [address] TROPONIN-I Collected: 11/11/2017 Status: F Source: [place] 7:46 PM [facility] REPOSITORY TYPE CODE TESTS RESULT OUT OF RANGE REFERENCE UNITS LAB L501.4010 <0.045 ng/mL Normal < 0.015 TROPONIN-I Result Comment: TROPONIN-I EXPECTED VALUES <0.045 Negative 0.045 - 0.590 Consistent with Cardiac Damage > OR = 0.600 Critical Value Not every elevated troponin is indicative of IA. These values should be used with clinical judgement in examining the patient's clinical picture for diagnosis. To establish a diagnosis of IA versus myocardial injury, there must be a demonstrated rise and/or fall in the troponin values, in addition to ischemic symptoms, EKG changes, new regional wall motion abnormality, and/or angiographical evidence. PLEASE NOTE: REFERENCE RANGES EDITED 17 Performed By: #### L500.2500, L501.4010 #### [facility] [address] [place], [address] PROTIME Collected: 11/09/2017 Status: F Source: [place] 12:45 PM [facility] REPOSITORY TYPE CODE TESTS RESULT OUT OF RANGE REFERENCE UNITS LAB PSEC 9.7-13.0 sec High PT Sec 23.7 LAB INR 0.9-1.3 High PT INR 2.4 Result Comment: Vitamin K Antagonist (VKA) Therapeutic Range: INR 2 to 3 (Target INR of 2.5) Note: For patients treated with VKA drugs, such as warfarin, the [place] [employer] 2012 Guideline recommends a therapeutic INR range of 2 to 3 (target INR of 2.5). This recommendation includes high-risk patients with antiphospholipid syndrome with previous arterial or venous thromboembolism, current-generation mechanical or bioprosthetic aortic heart valve replacement. Note: Patients with mechanical aortic valve replacement and additional risk factors for thromboembolic events (atrial fibrillation, previous thromboembolism, LV dysfunction, hypercoagulable conditions) or an older generation mechanical AVR (i.e., ball in-Cage) or any mechanical MVR should have a INR therapeutic range of 2.5 to 3.5 (target INR of 3). Na GORMAN, et al. Chest 2012, 141:7S-47S Dave KUMAR et al. [facility] 2017, 70: 252-289 Performed By: #### PT #### [facility] [address] [place], [place] [address] BASIC METABOLIC PANL Collected: 11/09/2017 Status: F Source: [place] 12:[address] [facility] REPOSITORY TYPE CODE TESTS RESULT OUT OF REFERENCE UNITS RANGE LAB GLU 74-99 mg/dL Low Glucose 66 Result Comment: The [place] [employer] Association (ADA) provides guidance for cutoff values for fasting glucose and random glucose. The ADA defines fasting as no caloric intake for at least 8 hours. Fas ting plasma glucose results between 100 to 125 mg/dL indicate increased risk for diabetes (prediabetes). Fasting plasma glucose results greater than or equal to 126 mg/dL meet the criteria for diagnosis of diabetes. In the absence of unequivocal hyperglycemia, results should be confirmed by repeat testing. In a patient with classic symptoms of hyperglycemia or hyperglycemic crisis, random plasma glucose results greater than or equal to 200 mg/dL meet the criteria for diagnosis of diabetes. Reference: Standards of Medical Care in Diabetes 2016, [place] [employer]. Diabetes Care. 2016.39(Suppl 1). LAB BUN 9-24 mg/dL BUN 15 LAB CRET 0.73-1.22 mg/dL Creatinine 1.07 LAB NA 136-144 mmol/L Sodium 142 LAB K 3.7-5.1 mmol/L Potassium 4.5 LAB CL 97-105 mmol/L Chloride 102 LAB CO2 22-30 mmol/L CO2 23 LAB AGAP 9-18 mmol/L Anion Gap 17 LAB CA 8.5-10.2 mg/dL Calcium, Total 9.0 LAB GFRAA eGFR- Amer. >60 LAB GFRNAA . eGFR-All Other Races >60 Result Comment: eGFR (Estimated GFR) Units of measure: mL/min/1.73 meters squared eGFR is derived from the reexpressed MDRD Study equation using the following parameters: serum creatinine, age, gender and race. The creatinine assay has been calibrated to be traceable to IDAL. An eGFR <60 mL/min/1.73m2 for >3 months is consistent with chronic kidney disease. Refer to KDOQI guidelines for clinical interpretation. In patients with unstable renal function, e.g. those with acute kidney injury, the eGFR may not accurately reflect actual GFR. Performed By: #### BMP #### [facility] [address] [place] [address] XR WRIST 3V PA/LAT/OBL Observed: 11/06/2017 Status: F Source: [place] RT 8:28 AM [facility] REPOSITORY * * *Final Report* * * DATE OF EXAM: Nov 06 2017 8:28AM WOX [id number] - XR WRIST 3V PA/LAT/OBL RT / PROCEDURE REASON: Unspecified injury of right shoulder and upper arm, initial encounter * * * * Physician Interpretation * * * * EXAM: XR WRIST 3V PA/LAT/OBL RT HISTORY: Unspecified injury of right shoulder and upper arm, initial encounter . Fall yesterday, pain dorsally. VIEWS: PA, oblique and lateral right wrist. COMPARISON: No relevant comparison. FINDINGS: No dislocation, acute fracture or focal lesion. Joint spaces are preserved. Chondrocalcinosis of triangular fibrocartilage and hyaline cartilage. Ulnar arteriosclerosis. IMPRESSION: No acute bony abnormality. Calcium pyrophosphate deposition disease. Baseball Player: [email or web address] Transcribe Date/Time: Nov 06 2017 8:34A Dictated by : Stanislaw BERMUDEZ MD This examination was interpreted and the report reviewed and electronically signed by: Stanislaw BERMUDEZ MD on Nov 06 2017 8:36AM EST [id number] PROGRESS Observed: 11/06/2017 Status: COMPLETED Source: [place] 8:16 AM [facility] REPOSITORY HNO ID: [id number] Author: Denise Rhodes (Rt) Bertrand Lobo Service: (none) Author Type: Cable Former Type: Progress Notes Filed: 11/06/2017 8:29 AM Note Text: Radiology Service Progress Note PATIENT NAME: Ankit West Jr. DATE OF SERVICE: November 06, 2017 TIME: 8:16 AM PATIENT IDENTITY VERIFICATION COMPLETED USING TWO (2) METHODS: Patient confirmed name verbally and Date of . PATIENT GENDER DATA: Male PATIENT RELEVANT IMPLANT DATA REVIEWED: Not Applicable RADIOLOGY DEPARTMENT: General X-ray: Exam(s) Completed: Upper Extremity X-Ray(s): Wrist, right : PERIPHERAL IV DATA: Not applicable SIGNED BY: Denise Lobo RT November 06, 2017 8:16 AM XR FOREARM 2V AP/LAT Observed: 11/05/2017 Status: F Source: [facility] 7:05 PM [facility] REPOSITORY * * *Final Report* * * DATE OF EXAM: Nov 05 2017 7:05PM WOX 5342 - XR FOREARM 2V AP/LAT RT / PROCEDURE REASON: Unspecified injury of right shoulder and upper arm, initial encounter * * * * Physician Interpretation * * * * EXAMINATION: XR FOREARM 2V AP/LAT RT CLINICAL HISTORY: Injury RESULTS: A suspected nondisplaced mildly comminuted fracture of the distal radial metaphysis on its ulnar aspect. Additional views of the wrist recommended. No additional fracture or focal bony abnormality. IMPRESSION: Suspected fracture of the distal radial metaphysis as described. Baseball Player: PSCB Transcribe Date/Time: Nov 05 2017 7:15P Dictated by : CHINO WHITEHEAD MD This examination was interpreted and the report reviewed and electronically signed by: CHINO WHITEHEAD MD on Nov 05 2017 7:17PM EST [id number] PROGRESS Observed: 11/05/2017 Status: COMPLETED Source: [place] 6:54 PM [facility] REPOSITORY HNO ID: [id number] Author: Hedy Rashid Service: (none) Author Type: (none) Type: Progress Notes Filed: 11/05/2017 7:05 PM Note Text: Radiology Service Progress Note PATIENT NAME: Ankit West Jr. DATE OF SERVICE: November 05, 2017 TIME: 6:54 PM PATIENT IDENTITY VERIFICATION COMPLETED USING TWO (2) METHODS: Patient confirmed name verbally and Date of . PATIENT GENDER DATA: Male PATIENT RELEVANT IMPLANT DATA REVIEWED: Not Applicable RADIOLOGY DEPARTMENT: General X-ray: Exam(s) Completed: Upper Extremity X-Ray(s): Forearm, right : PERIPHERAL IV DATA: Not applicable SIGNED BY: Hedy Rashid November 05, 2017 6:54 PM CNOV Observed: 11/05/2017 Status: COMPLETED Source: [place] 6:45 PM [facility] REPOSITORY Office Visit ([facility]) ANKIT WEST JR. ([id number]) 1945 M Date Time Provider Department 11/05/17 6:45 PM RAQUEL PARADA (CHOCOLATE FINISHER) [facility] During your visit today, we recorded the following information about you: Temperature Pulse Blood pressure Weight 98.2 degrees 88/minute 150/80 114.8 kg Raquel Parada APRN.ELEONORA 11/05/2017 8:35 PM Addendum Subjective HPI HPI Ankit West Jr. is a 72 year old male who presents today for CC of skin tear after fall. This started today. Risk factors patient is diabetic and on coumadin. Denies numbness/tingling of right upper extremity. Last tetanus 02/2017 .Patient presents with: Wound Check: RT lower arm wound from fall tonight PAST MEDICAL HISTORY Diagnosis Date - Abdominal pain, LLQ 12/04/2014 - Atrial fibrillation (HCC) chronic - Biliary dyskinesia 10/01/2011 Symptom free at this time 03/2015 - BPH W URINARY OBS/LUTS 05/12/2006 - DIARRHEA NOS 10/12/2008 - Essential and other specified forms of tremor 09/10/2011 - Essential hypertension, benign 12/26/2009 - Fatty liver 05/08/2011 - Generalized osteoarthrosis, unspecified site hands, knees, hips - GERD without esophagitis 03/06/2015 Hiatal hernia. 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 - Trigger finger (acquired) 07/17/2014 - Type 2 diabetes mellitus with diabetic neuropathy (HCC) 03/06/2015 PAST SURGICAL HISTORY Procedure Laterality Date - COLONOSCOP W/ OR W/O [facility] SPEC 1997,1988 Colonoscopy - COLONOSCOPY W/BX 10/12/08 - COLONOSCOPY W/BX 12/04/2014 Repeat 2024 - EGD W/O [facility] SPECIMEN W/BX 10/12/08 - FECAL OCCULT BLOOD TEST 08/01/2016 negative - INCISION OF TENDON SHEATH 07/07/14 right thumb trigger release - PAST SURGICAL HISTORY OF 1961 left knee - PAST SURGICAL HISTORY OF 2013 R knee meniscus tears - STRESS TEST 07/2015 NL - STRESS TEST 10/09/2017 normel - THYROIDECTOMY 2004 Left side - TOTAL KNEE REPLACEMENT 05/24/2012 Left ALLERGIES Flomax [Tamsulosin Hcl]; Cortisone; Dexamethasone; Naldecon Senior Ex [Guaifenesin]; Ornade [Other]; Rynatan [Chlorpheniramine-Pe Tannates]; Septra [Sulfamethoxazole-Trimethoprim]; Vioxx [Rofecoxib] MEDICATIONS spironolactone (ALDACTONE) 25 mg tablet Take 1 tablet by mouth twice daily. glipiZIDE XL (GLUCOTROL XL) 10 mg 24 hr tablet TAKE 1 TABLET DAILY metFORMIN ER (GLUCOPHAGE XR) 500 mg 24 hr tablet TAKE 2 TABLETS TWICE A DAY dicyclomine (BENTYL) 10 mg capsule TAKE 1 CAPSULE AT BEDTIME NEEDED furosemide (LASIX) 20 mg tablet TAKE 1 TABLET TWICE A DAY atenolol (TENORMIN) 25 mg tablet TAKE ONE-HALF (1/2) TABLET DAILY warfarin (COUMADIN) 2 mg tablet Take 1 tablet by mouth daily as directed. lisinopril (PRINIVIL) 10 mg tablet Take 1 tablet by mouth once daily. flecainide (TAMBOCOR) 100 mg tablet Take 1 tablet by mouth twice daily. pioglitazone (ACTOS) 15 mg tablet Take 1 tablet by mouth once daily. warfarin (COUMADIN) 3 mg tablet TAKE 1 TABLET DAILY OR DIRECTED warfarin (COUMADIN) 5 mg tablet In combination with 2 or 3mg tablet as directed. nitroglycerin sublingual (NITROQUICK) 0.4 mg SL tablet Dissolve 1 tablet under the tongue as needed. FOR CHEST PAIN. IF NO RELIEF CALL 911 Artificial Tear, Hypromellose, (SYSTANE GEL) 0.3 % gel Use 1 Drop in both eyes daily at bedtime. Lancets lancets USE TO TEST BLOOD SUGAR ONCE A DAY AND NEEDED blood sugar diagnostic (CONTOUR TEST STRIPS) test strip USE FOR BLOOD SUGAR TESTING ONCE DAILY AND NEEDED, 250.00 omeprazole (PRILOSEC) 20 mg ORAL capsule Take one(1) capsule daily. aspirin(ECOTRIN LOW STRENGTH 81 MG TAB) Take one(1) tablet daily. FAMILY HISTORY Problem Relation Age of Onset - Heart Failure Mother - COPD Mother - Hypertension Mother - tremors [OTHER] Father age 96. - AAA [OTHER] Father Repaired at [facility]. - Diabetes Brother - tremors [OTHER] Paternal Uncle - Heart Failure Sister 54 viral. - Cancer Brother esophagus - Cancer Sister pancreas - Cervical Cancer Maternal Aunt lung - Cancer Maternal Aunt - Idiopathic pulmonary fibrosis [OTHER] Son age 47 after 2 lung transplants. Social History Substance Use Topics - Smoking status: Former Smoker Packs/day: 3.00 Years: 37.00 Types: Cigarettes Quit date: 05/04/1987 - Smokeless tobacco: Never Used - Alcohol use 1.5 oz/week 1 Cans of Beer (12oz) per week Comment: occasional Review of Systems Constitutional: Negative for chills and fever. Skin: Negative for itching and rash. Objective Blood pressure 150/80, pulse 88, temperature 36.8 ?C (98.2 ?F), temperature source Tympanic, weight 114.8 kg (253 lb). Component Latest Ref Rng AND Units 10/24/2017 Glucose 74 - 99 mg/dL 225 (H) BUN 9 - 24 mg/dL 21 Creatinine 0.73 - 1.22 mg/dL 1.14 Sodium 136 - 144 mmol/L 137 Potassium 3.7 - 5.1 mmol/L 4.2 Chloride 97 - 105 mmol/L 101 CO2 22 - 30 mmol/L 27 Anion Gap 9 - 18 mmol/L 9 Calcium 8.5 - 10.2 mg/dL 8.7 eGFR- >60 eGFR-All Other Races . >60 Physical Exam Constitutional: He is oriented to person, place, and time and well-developed, well-nourished, and in no distress. Non-toxic appearance. He does not have a sickly appearance. No distress. HENT: Head: Normocephalic and atraumatic. Cardiovascular: Pulses: Radial pulses are 2+ on the right side. Pulmonary/Chest: Effort normal. No accessory muscle usage. No respiratory distress. Musculoskeletal: Right forearm: He exhibits tenderness, bony tenderness and swelling. He exhibits no edema, no deformity and no laceration. Arms: Neurological: He is alert and oriented to person, place, and time. Skin: He is not diaphoretic. ASSESSMENT/PLAN: 1. Closed fracture of distal end of right radius, unspecified fracture morphology, initial encounter - ICD9: 813.42, ICD10: S52.501A (primary diagnosis) -will schedule with ortho -tylenol for pain -reverse sugar tongue and sling applied, perfusion check after application, intact -discussed how to check for perfusion, loosen if too tight -radiologist recommended wrist xray and xray gone for the day, will return tomorrow in morning for wrist xray. - CONSULT TO ORTHOPAEDICS - 3-4 days 2. Injury of right upper extremity, initial encounter - ICD9: 959.8, ICD10: S49.91XA as above - XR FOREARM GENERAL 2V AP/LAT RT - XR WRIST GENERAL 3V PA/LAT/OBL RT 3. Skin tear of forearm without complication, right, initial encounter - ICD9: 881.00, ICD10: S51.811A Will cover with cephalexin d/t close proximity of fx site. - CEPHALEXIN 500 MG CAPSULE Prescription instructions reviewed with patient as applicable. Patient advised if symptoms do not improve or if symptoms worsen sooner, to contact the office for further evaluation by their primary care physician. Potential red flag symptoms discussed with the patient. Reviewed appropriate action plan to take if red flag symptoms occur. Patient agreeable to treatment plan. Raquel Parada APRN.ELEONORA Parada APRN.ELEONORA 11/05/2017 7:50 PM Signed ASSESSMENT/PLAN: 1. Closed fracture of distal end of right radius, unspecified fracture morphology, initial encounter - ICD9: 813.42, ICD10: S52.501A (primary diagnosis) -will schedule with ortho -tylenol for pain -discussed how to check for perfusion, loosen if too tight - CONSULT TO ORTHOPAEDICS 2. Injury of right upper extremity, initial encounter - ICD9: 959.8, ICD10: S49.91XA as above - XR FOREARM GENERAL 2V AP/LAT RT - XR WRIST GENERAL 3V PA/LAT/OBL RT Referring Provider: SELF [200] Allergies As of Date: 11/05/2017 Noted Allergy Reaction FLOMAX (TAMSULOSIN HCL) 06/02/2017 7 - Swelling Comments: Couldn't sleep and acted strange CORTISONE 01/13/2012 14 - Other: See Comments Comments: Heart palpitations DEXAMETHASONE 01/13/2012 14 - Other: See Comments Comments: Heart palpitations NALDECON SENIOR EX (GUAIFENESIN) 12/31/2004 8 - GI Upset Comments: CTM=Chlor-Trimeton ornade [Other] 01/01/2005 8 - GI Upset RYNATAN (CHLORPHENIRAMINE-PE TANN*12/31/2004 8 - GI Upset SEPTRA (SULFAMETHOXAZOLE-TRIMETHO*12/31/2004 8 - GI Upset VIOXX (ROFECOXIB) 12/31/2004 8 - GI Upset Date Reviewed: 11/05/2017 Reviewed by: Raquel CaraballoContinuity Reader) - Fully Assessed Reason for Visit: Wound Check [133] Cmt: RT lower arm wound from fall tonight Primary Visit Diagnosis:Closed fracture of distal end of right radius, unspecified fracture morphology, initial encounter [S52.501A] Other Visit Diagnoses:Injury of right upper extremity, initial encounter [S49.91XA] Skin tear of forearm without complication, right, initial encounter [S51.811A] Order(s):XR FOREARM GENERAL 2V AP/LAT RT [[id number]] Order #: [id number] #:[id number] CONSULT TO ORTHOPAEDICS [9006] Order #: [id number]: 1 XR WRIST GENERAL 3V PA/LAT/OBL RT [[id number]] Order #: [id number] cephALEXin (KEFLEX) 500 mg capsuleTake 1 capsule by mouth three times daily for 10 days.Disp: 30 capsuleRfl: 0 Prescriptions as of 11/05/2017 Sig: SPIRONOLACTONE 25 MG TABLET Take 1 tablet by mouth twice * GLIPIZIDE ER 10 MG TABLET, EX* TAKE 1 TABLET DAILY METFORMIN ER 500 MG TABLET,EX* TAKE 2 TABLETS TWICE A DAY DICYCLOMINE 10 MG CAPSULE TAKE 1 CAPSULE AT BEDTIME * FUROSEMIDE 20 MG TABLET TAKE 1 TABLET TWICE A DAY ATENOLOL 25 MG TABLET TAKE ONE-HALF (1/2) TABLET DA* WARFARIN 2 MG TABLET Take 1 tablet by mouth daily * Patient taking differently: Take 7 mg by mouth daily as d* LISINOPRIL 10 MG TABLET Take 1 tablet by mouth once d* FLECAINIDE 100 MG TABLET Take 1 tablet by mouth twice * PIOGLITAZONE 15 MG TABLET Take 1 tablet by mouth once d* WARFARIN 3 MG TABLET TAKE 1 TABLET DAILY OR DIR* WARFARIN 5 MG TABLET In combination with 2 or 3mg * NITROGLYCERIN 0.4 MG SUBLINGU* Dissolve 1 tablet under the t* ARTIFICIAL TEARS (HYPROMELLOS* Use 1 Drop in both eyes daily* LANCETS USE TO TEST BLOOD SUGAR ONCE * BLOOD SUGAR DIAGNOSTIC STRIPS USE FOR BLOOD SUGAR TESTING O* * OMEPRAZOLE 20 MG CAPSULE,RENY* Take one(1) capsule daily. * ECOTRIN LOW STRENGTH 81 MG TA* Take one(1) tablet daily. CEPHALEXIN 500 MG CAPSULE Take 1 capsule by mouth three* Problem List As Of Date 11/05/2017 Noted Resolved Postinflammatory pulmonary fibrosis [J84.10] Priority: B Irritable bowel syndrome [K58.9] Priority: B Atrial fibrillation [I48.91] Priority: A More... Generalized osteoarthrosis, unspecified site [M* Priority: M Hallux valgus (acquired) [M20.10] INVALID FOR* Priority: M Benign non-nodular prostatic hyperplasia with l*INVALID FOR* Priority: C Acute gastritis without mention of hemorrhage [*INVALID FOR*07/04/2014 Essential hypertension, benign [I10] INVALID FOR* Priority: A Type II or unspecified type diabetes mellitus w*INVALID FOR*12/02/2013 More... Fatty liver [K76.0] INVALID FOR* Priority: B Essential tremor [G25.0] INVALID FOR* Priority: B Right flank pain [R10.9] INVALID FOR*07/04/2014 Biliary dyskinesia [K82.8] INVALID FOR* Priority: B More... Chest pain [R07.9] INVALID FOR*07/04/2014 Knee effusion, left [M25.462] INVALID FOR*07/04/2014 More... Respiratory failure with hypoxia (HCC) [J96.91] INVALID FOR*07/04/2014 More... Normocytic anemia [D64.9] INVALID FOR*07/04/2014 More... Fall [W19.XXXA] INVALID FOR*02/07/2012 More... SUMMARY [V999.95] INVALID FOR*07/04/2014 Priority: A More... DISPOSITION AND FOLLOW-UP [V999.01] INVALID FOR*07/04/2014 Priority: D More... LOI on CPAP [G47.33, Z99.89] INVALID FOR*04/03/2014 Multinodular goiter [E04.2] INVALID FOR* Priority: B More... LOI (obstructive sleep apnea) [G47.33] INVALID FOR* Priority: B More... Trigger finger (acquired) [M65.30] INVALID FOR* Priority: M Mesenteric adenitis [I88.0] INVALID FOR* Priority: B GERD without esophagitis [K21.9] INVALID FOR* Priority: A Ex-smoker [Z87.891] INVALID FOR* Priority: C Asbestosis (HCC) [J61] INVALID FOR* Priority: B More... 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 Disorder of prostate [N42.9] INVALID FOR* Well adult exam [Z00.00] INVALID FOR* Priority: E More... Colon cancer screening [Z12.11] INVALID FOR* Morbid obesity due to excess calories (HCC) [E6*INVALID FOR* Priority: B Diabetic eye exam (HCC) [Z01.00, E11.9] INVALID FOR* Priority: A More... WILSON (dyspnea on exertion) [R06.09] INVALID FOR* Priority: B More... 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 Medicare annual wellness visit, subsequent [Z00*INVALID FOR* Priority: E More... Current use of proton pump inhibitor [Z79.899] INVALID FOR* Obesity, Class II, BMI 35-39.9 [E66.9] INVALID FOR* Other instructions from your clinician: ASSESSMENT/PLAN: 1. Closed fracture of distal end of right radius, unspecified fracture morphology, initial encounter - ICD9: 813.42, ICD10: S52.501A (primary diagnosis) -will schedule with ortho -tylenol for pain -discussed how to check for perfusion, loosen if too tight - CONSULT TO ORTHOPAEDICS 2. Injury of right upper extremity, initial encounter - ICD9: 959.8, ICD10: S49.91XA as above - XR FOREARM GENERAL 2V AP/LAT RT - XR WRIST GENERAL 3V PA/LAT/OBL RT Prescriptions ordered this encounter Disp Refills Start End CEPHALEXIN 500 MG CAPSULE 30 c* 0 11/05/2017 11/15/2017 Route: ORAL Sig: Take 1 capsule by mouth three times daily for 10 days. Encounter Status:Closed by RAQUEL PARADA CNP on 11/05/17 PROGRESS Observed: 11/05/2017 Status: COMPLETED Source: [place] 6:[address] [facility] REPOSITORY HNO ID: [id number] Author: Raquel (Eleonora) Service: (none) Author Type: Nurse Practitioner Type: Progress Notes Filed: 11/05/2017 8:35 PM Note Text: Subjective HPI HPI Ankit West Jr. is a 72 year old male who presents today for CC of skin tear after fall. This started today. Risk factors patient is diabetic and on coumadin. Denies numbness/tingling of right upper extremity. Last tetanus 02/2017 .Patient presents with: Wound Check: RT lower arm wound from fall tonight PAST MEDICAL HISTORY Diagnosis Date - Abdominal pain, LLQ 12/04/2014 - Atrial fibrillation (HCC) chronic - Biliary dyskinesia 10/01/2011 Symptom free at this time 03/2015 - BPH W URINARY OBS/LUTS 05/12/2006 - DIARRHEA NOS 10/12/2008 - Essential and other specified forms of tremor 09/10/2011 - Essential hypertension, benign 12/26/2009 - Fatty liver 05/08/2011 - Generalized osteoarthrosis, unspecified site hands, knees, hips - GERD without esophagitis 03/06/2015 Hiatal hernia. 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 - Trigger finger (acquired) 07/17/2014 - Type 2 diabetes mellitus with diabetic neuropathy (HCC) 03/06/2015 PAST SURGICAL HISTORY Procedure Laterality Date - COLONOSCOP W/ OR W/O [facility] SPEC 1997,1988 Colonoscopy - COLONOSCOPY W/BX 10/12/08 - COLONOSCOPY W/BX 12/04/2014 Repeat 2024 - EGD W/O [facility] SPECIMEN W/BX 10/12/08 - FECAL OCCULT BLOOD TEST 08/01/2016 negative - INCISION OF TENDON SHEATH 07/07/14 right thumb trigger release - PAST SURGICAL HISTORY OF 1961 left knee - PAST SURGICAL HISTORY OF 2013 R knee meniscus tears - STRESS TEST 07/2015 NL - STRESS TEST 10/09/2017 normel - THYROIDECTOMY 2004 Left side - TOTAL KNEE REPLACEMENT 05/24/2012 Left ALLERGIES Flomax [Tamsulosin Hcl]; Cortisone; Dexamethasone; Naldecon Senior Ex [Guaifenesin]; Ornade [Other]; Rynatan [Chlorpheniramine-Pe Tannates]; Septra [Sulfamethoxazole-Trimethoprim]; Vioxx [Rofecoxib] MEDICATIONS spironolactone (ALDACTONE) 25 mg tablet Take 1 tablet by mouth twice daily. glipiZIDE XL (GLUCOTROL XL) 10 mg 24 hr tablet TAKE 1 TABLET DAILY metFORMIN ER (GLUCOPHAGE XR) 500 mg 24 hr tablet TAKE 2 TABLETS TWICE A DAY dicyclomine (BENTYL) 10 mg capsule TAKE 1 CAPSULE AT BEDTIME NEEDED furosemide (LASIX) 20 mg tablet TAKE 1 TABLET TWICE A DAY atenolol (TENORMIN) 25 mg tablet TAKE ONE-HALF (1/2) TABLET DAILY warfarin (COUMADIN) 2 mg tablet Take 1 tablet by mouth daily as directed. lisinopril (PRINIVIL) 10 mg tablet Take 1 tablet by mouth once daily. flecainide (TAMBOCOR) 100 mg tablet Take 1 tablet by mouth twice daily. pioglitazone (ACTOS) 15 mg tablet Take 1 tablet by mouth once daily. warfarin (COUMADIN) 3 mg tablet TAKE 1 TABLET DAILY OR DIRECTED warfarin (COUMADIN) 5 mg tablet In combination with 2 or 3mg tablet as directed. nitroglycerin sublingual (NITROQUICK) 0.4 mg SL tablet Dissolve 1 tablet under the tongue as needed. FOR CHEST PAIN. IF NO RELIEF CALL 911 Artificial Tear, Hypromellose, (SYSTANE GEL) 0.3 % gel Use 1 Drop in both eyes daily at bedtime. Lancets lancets USE TO TEST BLOOD SUGAR ONCE A DAY AND NEEDED blood sugar diagnostic (CONTOUR TEST STRIPS) test strip USE FOR BLOOD SUGAR TESTING ONCE DAILY AND NEEDED, 250.00 omeprazole (PRILOSEC) 20 mg ORAL capsule Take one(1) capsule daily. aspirin(ECOTRIN LOW STRENGTH 81 MG TAB) Take one(1) tablet daily. FAMILY HISTORY Problem Relation Age of Onset - Heart Failure Mother - COPD Mother - Hypertension Mother - tremors [OTHER] Father age 96. - AAA [OTHER] Father Repaired at [facility]. - Diabetes Brother - tremors [OTHER] Paternal Uncle - Heart Failure Sister 54 viral. - Cancer Brother esophagus - Cancer Sister pancreas - Cervical Cancer Maternal Aunt lung - Cancer Maternal Aunt - Idiopathic pulmonary fibrosis [OTHER] Son age 47 after 2 lung transplants. Social History Substance Use Topics - Smoking status: Former Smoker Packs/day: 3.00 Years: 37.00 Types: Cigarettes Quit date: 05/04/1987 - Smokeless tobacco: Never Used - Alcohol use 1.5 oz/week 1 Cans of Beer (12oz) per week Comment: occasional Review of Systems Constitutional: Negative for chills and fever. Skin: Negative for itching and rash. Objective Blood pressure 150/80, pulse 88, temperature 36.8 ?C (98.2 ?F), temperature source Tympanic, weight 114.8 kg (253 lb). Component Latest Ref Rng AND Units 10/24/2017 Glucose 74 - 99 mg/dL 225 (H) BUN 9 - 24 mg/dL 21 Creatinine 0.73 - 1.22 mg/dL 1.14 Sodium 136 - 144 mmol/L 137 Potassium 3.7 - 5.1 mmol/L 4.2 Chloride 97 - 105 mmol/L 101 CO2 22 - 30 mmol/L 27 Anion Gap 9 - 18 mmol/L 9 Calcium 8.5 - 10.2 mg/dL 8.7 eGFR- >60 eGFR-All Other Races . >60 Physical Exam Constitutional: He is oriented to person, place, and time and well-developed, well-nourished, and in no distress. Non-toxic appearance. He does not have a sickly appearance. No distress. HENT: Head: Normocephalic and atraumatic. Cardiovascular: Pulses: Radial pulses are 2+ on the right side. Pulmonary/Chest: Effort normal. No accessory muscle usage. No respiratory distress. Musculoskeletal: Right forearm: He exhibits tenderness, bony tenderness and swelling. He exhibits no edema, no deformity and no laceration. Arms: Neurological: He is alert and oriented to person, place, and time. Skin: He is not diaphoretic. ASSESSMENT/PLAN: 1. Closed fracture of distal end of right radius, unspecified fracture morphology, initial encounter - ICD9: 813.42, ICD10: S52.501A (primary diagnosis) -will schedule with ortho -tylenol for pain -reverse sugar tongue and sling applied, perfusion check after application, intact -discussed how to check for perfusion, loosen if too tight -radiologist recommended wrist xray and xray gone for the day, will return tomorrow in morning for wrist xray. - CONSULT TO ORTHOPAEDICS - 3-4 days 2. Injury of right upper extremity, initial encounter - ICD9: 959.8, ICD10: S49.91XA as above - XR FOREARM GENERAL 2V AP/LAT RT - XR WRIST GENERAL 3V PA/LAT/OBL RT 3. Skin tear of forearm without complication, right, initial encounter - ICD9: 881.00, ICD10: S51.811A Will cover with cephalexin d/t close proximity of fx site. - CEPHALEXIN 500 MG CAPSULE Prescription instructions reviewed with patient as applicable. Patient advised if symptoms do not improve or if symptoms worsen sooner, to contact the office for further evaluation by their primary care physician. Potential red flag symptoms discussed with the patient. Reviewed appropriate action plan to take if red flag symptoms occur. Patient agreeable to treatment plan. Raquel Parada APRN.CHOCOLATE FINISHER PROGRESS Observed: 10/29/2017 Status: COMPLETED Source: [place] 9:15 AM [facility] REPOSITORY O ID: [id number] Author: Nelsy Brown Ct Service: (none) Author Type: (none) Type: Progress Notes Filed: 10/29/2017 9:15 AM Note Text: Radiology Service Progress Note PATIENT NAME: Ankit West Jr. DATE OF SERVICE: October 29, 2017 TIME: 9:15 AM PATIENT IDENTITY VERIFICATION COMPLETED USING TWO (2) METHODS: Patient confirmed name verbally and Date of . PATIENT GENDER DATA: Male PATIENT RELEVANT IMPLANT DATA REVIEWED: Not Applicable RADIOLOGY DEPARTMENT: CT; Exam(s) Completed: Chest PERIPHERAL IV DATA: Not applicable SIGNED BY: Nelsy Brown Ct October 29, 2017 9:[address] CHEST WO IVCON Observed: 10/29/2017 Status: F Source: [place] 9:01 AM [facility] REPOSITORY * * *Final Report* * * DATE OF EXAM: Oct 29 2017 9:01AM [facility] 0541 - CT CHEST WO IVCON / PROCEDURE REASON: Other nonspecific abnormal finding of lung field * * * * Physician Interpretation * * * * EXAMINATION: CHEST CT WITHOUT CONTRAST CLINICAL HISTORY: Other nonspecific abnormal finding of lung field Technique: Spiral CT acquisition of the chest from the thoracic inlet to the upper abdomen without contrast. MQ: CTCWOR_4 CT Dose-Length Product: 522 mGy*cm CT Dose Reduction Employed: Automated exposure control (AEC) Comparison: 04/17/2017, 10/07/2016 RESULT: Limitations: None. Lines, tubes, and devices: None. Lung parenchyma and pleura: There is mild emphysema with mild, diffuse bronchiectasis. There is mild biapical fibrosis. There is mild reticulation seen within the periphery of the lungs and lower lobes, bilaterally, suggesting early interstitial lung disease. No CT evidence for pneumonia. There is no pleural effusion, endobronchial lesion, or pneumothorax. There are stable subcentimeter pulmonary nodules. For example, there is a stable, approximately 5 mm nodule seen within the superior segment of the right lower lobe (series 2, image #107). Thoracic inlet, heart, and mediastinum: There is stable mediastinal adenopathy. For example, a precarinal lymph node measures approximately 1.4 cm in short axis dimension (series 2, image #65). There is stable bilateral hilar adenopathy. No owen axillary adenopathy is identified. Enlargement of the right lobe of thyroid gland, with associated substernal extension and heterogeneity, which can be seen with thyroid goiter. The left lobe of the thyroid gland is absent. Atherosclerotic calcifications are present thoracic aorta and predominantly the LAD. There is fatty hypertrophy of the intra-atrial septum. There is cardiomegaly. There is no significant pericardial effusion. Again seen are enlarged distal paraesophageal lymph nodes, stable. Bones and soft tissues: There is osteopenia, scoliosis, and multilevel degenerative change seen within the thoracic spine. There is no destructive bony lesion. Upper abdomen: Nonspecific wall thickening of the stomach likely relates to underdistention. The gallbladder is relatively collapsed but is otherwise unremarkable. Granulomatous are seen within the spleen. Fat stranding, with prominent lymph nodes again seen within the root of mesentery, a nonspecific finding but one which can be seen with mesenteric panniculitis. There is mild, nonspecific bilateral perinephric fat stranding. Calcified periportal lymph nodes. IMPRESSION: Mild emphysema with mild, diffuse bronchiectasis. Mild biapical fibrosis. No acute pulmonary process is identified. Reticulation seen within the periphery of the lungs and lower lobes, bilaterally, suggesting early interstitial lung disease. Stable subcentimeter pulmonary nodules. Stable mediastinal, bilateral hilar, and distal esophageal lymphadenopathy. Stable fat stranding and prominent lymph nodes within the root of mesentery, a nonspecific finding, but one which can be seen with mesenteric panniculitis. Baseball Player: SIVAKUMAR Transcribe Date/Time: Oct 29 2017 9:17A Dictated by : ASAF BARRY MD This examination was interpreted and the report reviewed and electronically signed by: ASAF BARRY MD on Oct 29 2017 9:24AM EST [id number] BASIC METABOLIC PANL Collected: 10/24/2017 Status: F Source: [place] 9:20 AM [facility] REPOSITORY TYPE CODE TESTS RESULT OUT OF REFERENCE UNITS RANGE LAB GLU 74-99 mg/dL High Glucose 225 Result Comment: The [place] Diabetes Association (ADA) provides guidance for cutoff values for fasting glucose and random glucose. The ADA defines fasting as no caloric intake for at least 8 hours. Fas ting plasma glucose results between 100 to 125 mg/dL indicate increased risk for diabetes (prediabetes). Fasting plasma glucose results greater than or equal to 126 mg/dL meet the criteria for diagnosis of diabetes. In the absence of unequivocal hyperglycemia, results should be confirmed by repeat testing. In a patient with classic symptoms of hyperglycemia or hyperglycemic crisis, random plasma glucose results greater than or equal to 200 mg/dL meet the criteria for diagnosis of diabetes. Reference: Standards of Medical Care in Diabetes 2016, [place] [employer] Association. Diabetes Care. 2016.39(Suppl 1). LAB BUN 9-24 mg/dL BUN 21 LAB CRET 0.73-1.22 mg/dL Creatinine 1.14 LAB NA 136-144 mmol/L Sodium 137 LAB K 3.7-5.1 mmol/L Potassium 4.2 LAB CL 97-105 mmol/L Chloride 101 LAB CO2 22-30 mmol/L CO2 27 LAB AGAP 9-18 mmol/L Anion Gap 9 LAB CA 8.5-10.2 mg/dL Calcium, Total 8.7 LAB GFRAA eGFR- Amer. >60 LAB GFRNAA . eGFR-All Other Races >60 Result Comment: eGFR (Estimated GFR) Units of measure: mL/min/1.73 meters squared eGFR is derived from the reexpressed MDRD Study equation using the following parameters: serum creatinine, age, gender and race. The creatinine assay has been calibrated to be traceable to [employer]StyleJam. An eGFR <60 mL/min/1.73m2 for >3 months is consistent with chronic kidney disease. Refer to KDOQI guidelines for clinical interpretation. In patients with unstable renal function, e.g. those with acute kidney injury, the eGFR may not accurately reflect actual GFR. Performed By: #### BMP #### [facility] [address] [place], [place] [address] PROGRESS Observed: 10/22/2017 Status: COMPLETED Source: [place] 4:03 PM [facility] REPOSITORY O ID: [id number] Author: Nelsy Brown Ct Service: (none) Author Type: (none) Type: Progress Notes Filed: 10/22/2017 4:04 PM Note Text: Radiology Service Progress Note PATIENT NAME: Ankit West Jr. DATE OF SERVICE: October 22, 2017 TIME: 4:03 PM PATIENT IDENTITY VERIFICATION COMPLETED USING TWO (2) METHODS: Patient confirmed name verbally and Date of . PATIENT GENDER DATA: Male PATIENT RELEVANT IMPLANT DATA REVIEWED: Not Applicable CONTRAST INDUCED NEPHROPATHY RISK FACTORS: Patient age > 60 years CREATININE: Creatinine Date Value Ref Range Status 10/13/2017 1.09 0.73 - 1.22 mg/dL Final 04/02/2017 1.03 0.73 - 1.22 mg/dL Final 02/24/2017 1.05 0.73 - 1.22 mg/dL Final eGFR-All Other Races Date Value Ref Range Status 10/13/2017 >60 . Final Comment: eGFR (Estimated GFR) Units of measure: mL/min/1.73 meters squared eGFR is derived from the reexpressed MDRD Study equation using the following parameters: serum creatinine, age, gender and race. The creatinine assay has been calibrated to be traceable to IDMS. An eGFR <60 mL/min/1.73m2 for >3 months is consistent with chronic kidney disease. Refer to KDOQI guidelines for clinical interpretation. In patients with unstable renal function, e.g. those with acute kidney injury, the eGFR may not accurately reflect actual GFR. eGFR- Date Value Ref Range Status 10/13/2017 >60 Final P.O.C.T. RESULTS: POC done: Yes, See Lab Tab October 22, 2017 RADIOLOGIST NOTIFIED?: No ALLERGIES: Reviewed and unchanged CONTRAST ALLERGY: NO. PERIPHERAL IV ACCESS: Ambulatory: IV type: A peripheral IV was started in the Left lt wrist 22 g with a Angio cath: 22 gauge., Site assessment: Clean,Dry and Intact, Site disposition Discontinued RADIOLOGY DEPARTMENT: CT; Exam(s) Completed: Abdomen/Pelvis SIGNED BY: Nelsy Brown Ct October 22, 2017 4:[address] ABD/PEL W IVCON Observed: 10/22/2017 Status: F Source: [place] 2:51 PM [facility] REPOSITORY * * *Final Report* * * DATE OF EXAM: Oct 22 2017 2:51PM [facility] 0530 - CT ABD/PEL W IVCON / PROCEDURE REASON: multiple diagnoses * * * * Physician Interpretation * * * * EXAMINATION: CT ABDOMEN AND PELVIS WITH IV CONTRAST CLINICAL HISTORY: LEFT lower quadrant pain TECHNIQUE: CT of the abdomen and pelvis was performed using standard technique, scanning from just above the dome of the diaphragm to the symphysis pubis. MQ: CTAP_3 Contrast: IV: 145 ml of Omnipaque 300 Oral: 50 ml of 50ML Omnipaque [address] Radiation dose: Integrated Dose-length product (DLP) for this visit = 1001 mGy*cm. CT Dose Reduction Employed: Automated exposure control (AEC) COMPARISON: 10/13/2014 RESULT: Liver: No mass. Biliary: No bile duct dilation. Gallbladder is unremarkable. Spleen: No mass. No splenomegaly. Pancreas: No mass or duct dilation. Adrenals: No mass. Kidneys: No focal mass or hydronephrosis GI tract: No dilation or wall thickening. Colonic diverticulosis without diverticulitis. Lymph nodes: Mildly prominent lymph nodes in the mesentery measuring up to 0.9 cm, stable since 10/13/2014. There is a 1 cm paraesophageal node in the posterior mediastinum (series 3 image 11), stable. Mesentery/Peritoneum: No ascites. Minimal central mesenteric fat stranding. In conjunction with the slightly prominent nodes, this is suspicious for sclerosing mesenteritis Retroperitoneum: No mass. Vasculature: The celiac axis and SMA are patent. The portal vein and branches, splenic vein, SMV, and hepatic veins are patent. Pelvis: Urinary bladder is unremarkable. No ascites, adenopathy or focal collections. Bones/Soft Tissues: Degenerative changes, no acute bone abnormality. Small fat-containing oblique hernia Lower thorax: Only the lung bases are evaluated. There are no pulmonary parenchymal nodules/opacities. IMPRESSION: No acute process in the abdomen and pelvis. Mild mesenteric stranding and prominent mesenteric nodes. This is overall consistent with sclerosing mesenteritis and is stable since 10/13/2014 Baseball Player: [facility] Transcribe Date/Time: Oct 22 2017 3:22P Dictated by : GENI FOX MD This examination was interpreted and the report reviewed and electronically signed by: GENI FOX MD on Oct 22 2017 3:28PM EST [id number] CNOV Observed: 10/16/2017 Status: COMPLETED Source: [place] 1:00 PM [facility] REPOSITORY Office Visit (PULMWS) ANKIT WEST JR. ([id number]) 1945 [address] Date Time Provider Department 10/16/17 1:00 PM MADELAINE MARTINEZ PULMWS During your visit today, we recorded the following information about you: Pulse Respiration Blood pressure Weight 63/minute 17/minute 120/64 114.8 kg Madelaine Martinez PA-C 10/16/2017 1:25 PM Signed [facility] [place], 04/17/17: INTERVAL HISTORY: Mr. West is a 72 yo male who presents for follow up of dyspnea and exercise intolerance. PMH: AFib, HTN, LOI on CPAP, DM, Hyperlipidemia, ASHD, GERD, BPH. Former smoker, quit 1987. 111 pack years. Patient states he continues with dyspnea and decreased exercise tolerance. Difficulty with climbing stairs, walking long distances. No cough. Occasional wheezing. No fevers or chills. Consistently wears CPAP with sleep. No childhood allergies, asthma, no prior COPD. ? 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 ? ROS: General: Generally feels out of breath. Appetite good. Weight stable. States he has been eating out frequently. Eyes, Ears, nose, throat: No post nasal drip, rhinorrhea, purulent nasal discharge, epistaxis, hoarseness. Vision stable. Cardiac: No angina, orthopnea. Lower extremity edema. GI: No heartburn, diarrhea, constipation. Dysphagia, swallow study ordered per PCP. 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 Musculoskeletal: No pain. Neuro:No headache, focal weakness, tremor. Skin: No rash. Otherwise negative. Allergies reviewed and updated, and medications reconciled today. Immunization History Administered Date(s) Administered Influenza Seasonal - High Dose - Age 65+ 04/04/2016 02/06/2017 Influenza Seasonal Inj Age 3+ 03/02/2014 Influenza Seasonal Inj Quadrivalent Age 3+ 03/06/2015 Influenza Vaccine, Split-Non Spec 03/06/2006 03/09/2008 02/08/2009 03/29/2010 02/26/2011 03/01/2012 02/22/2013 Pneumococcal-13 Vac Conjugate 03/06/2015 Pneumovax 03/10/2005 03/29/2010 07/30/2016 Tdap (Age 7+) 02/06/2017 PMH: Reviewed with patient today. No changes. FAMH: Reviewed with patient today. No changes. SOCH: No changes. PHYSICAL EXAMINATION: BP 120/64 Pulse 63 Resp 17 Wt 253 lb (114.8kg) SpO2 96% Body mass index is 39.04 kg/m?. Gen: No acute distress. Cooperative with examination. ENT: Sclerae clear. Nares clear. Oral hygeine/dentition good. Pharynx clear. No halitosis. Resp: No stridor, accessory respiratory muscle use, supra- sternal or intercostal retractions. No crackles, wheezes, rubs. CV: Regular rythm. Heart tones normal. No carotid bruit. Radial pulses normal. Abd: Non distended. MSK: No kyphoscoliosis, joint deformities. Ext: Warm and well perfused. No clubbing, cyanosis. 1+ pitting edema bilaterally. Skin: Color normal. Texture normal. No rash, eczema, urticaria, Petechiae. Lymph: No adenopathy in neck, supra-clavicular fossae. Endo: No goiter, exophthalmos, onycholysis. Neuro: Mental status normal. Affect normal. Muscle tone normal. No tremor. DATA REVIEW: DATE: 09/30/16 FVC 3.12 (82 % pred) FEV1 2.43 (88 % pred) FEV1/FVC 0.78 TLC DLco 20.97 (96 % pred) Six Minute Walk, 10/07/16 InspO2* ? SpO2% ? ? HR Activity ?Feet ?Time ? MPH ?Flag RA ? 94 ? ? 61 resting RA ? 91 ? ? 92 six minute walk ? ? ? 1300 ?6.00 ?2.46 RA ? 96 ? ? 70 resting ? 1 min. post RA ? 95 ? ? 58 resting ? 2 min. post RA ? 94 ? ? 63 resting ? 3 min. post Echo, 10/14/17 MEASUREMENTS: ?Value ?Indexed ? ?Normal Max aortic dimension ? ? 3.9 cm ? 1.65 cm/m? Left atrium diameter ? ? 3.9 cm (M-Mode) ? LAd < 4 LV ID (diastole) ? 4.8 cm (2D) LV ID (systole) ?3.0 cm (2D) IVS, leaflet tips ?1.3 cm (2D) Posterior wall thickness 1.2 cm (2D) Left ventricular mass ? 95 g/m? Ejection Fraction ?60 % (visual est.) ?EF > 52 ? FINDINGS: ? LEFT VENTRICLE The left ventricle is normal in size. There is mild concentric left ventricular hypertrophy. Left ventricular systolic function is normal. Indeterminate left ventricular diastolic dysfunction. Mitral annular lateral E/e': 11.4. Mitral annular septal E/e': 11.4. Wall Motion: All scored segments are normal. ? RIGHT VENTRICLE The right ventricle is normal in size. Right ventricular systolic function is normal. RV systolic tissue Doppler velocity ?is 15.0 cm/s. Estimated right ventricular systolic pressure is not reported due to an insufficient tricuspid regurgitation signal. ? LEFT ATRIUM The left atrial cavity is normal in size. ? RIGHT ATRIUM Unable to reliably measure RA volume due to technical limitations. ? MITRAL VALVE There is trivial (trivial - 1+) mitral valve regurgitation. There is no thickening. There is no calcification. The pressure half time is 68 msec. The peak ?mitral E/A ratio is 1.13. The average mitral E/e' ratio is 11.4. The mitral flow deceleration time is 236 msec. ? TRICUSPID VALVE There is trivial tricuspid valve regurgitation. ? AORTIC VALVE There is no aortic valve regurgitation. Tricuspid aortic valve. ? PULMONIC VALVE There is no pulmonic valve regurgitation. ? AORTA The visualized aorta is normal in size. Measurements - Sinus 3.5 cm. Mid ascending aorta 3.9 cm. PULMONARY ARTERIES The pulmonary arteries are unseen or not interrogated. ? PERICARDIUM There is no pericardial effusion. There is an epicardial fat pad. ? CONCLUSIONS: - Technically difficult exam due to body habitus. - Exam indication: Shortness?of Breath - The left ventricle is normal in size. There is mild concentric left ventricular hypertrophy. Left ventricular systolic function is normal. EF = 60 ? 5% (visual est.) Indeterminate left ventricular diastolic dysfunction. - The right ventricle is normal in size. Right ventricular systolic function is normal. - There are no significant valvular abnormalities. - Exam was compared with the prior echocardiographic exam performed on 02/07/2016, no significant change. ? Labs, 10/13/17 NT Pro BNP 246 (H) <125 pg/mL Final [facility] CT chest, 04/17/17 IMPRESSION: Unchanged pulmonary nodules. Mild emphysema. Unchanged but prominent mediastinal lymph nodes are nonspecific. Unchanged but prominent mesenteric lymph nodes incidentally seen, also nonspecific. RESULT: Lung parenchyma and pleura: ?Mild emphysema. ?Bilateral apical pleural scarring. ?Right upper lobe nodule on image 101 measuring up to 7 mm is unchanged. ?Smaller scattered nodules appear unchanged. ?Mild peripheral reticulation bilaterally. ?No new consolidation, pneumothorax or pleural effusion. ?There is no central airway obstruction. Thoracic inlet, heart, and mediastinum: ?Postoperative changes of left thyroid resection. ?Again seen are mildly prominent mediastinal lymph nodes which are unchanged since the prior examination. ?The largest measures 2.2 x 1.8 cm on image 80. ?Borderline cardiac enlargement. ?Mild calcifications of the coronary arteries. ?No pericardial effusion. ? Normal caliber of the thoracic aorta demonstrating mild calcification. ? Normal caliber of the main pulmonary artery. Bones and soft tissues: ?No destructive bone lesion. Chest wall is unremarkable. Upper abdomen: ?No acute findings in the upper abdomen. ?Again seen are mildly prominent mesenteric lymph nodes with mild stranding in the mesentery, nonspecific. IMPRESSION AND RECOMMENDATIONS: 1. Dyspnea. There is no CT evidence of ILD, specific asbestosis or asbestos related pleural disease. Additionally, there is no evidence of limit to ambulation, or O2 desaturation with ambulation, hence no evidence of ILD. - No further Pulmonary evaluation or treamtent is indicated at this time. 2. The subcentimeter pulmonary nodules identified on this CT scan. Initial CT scan October 2016. Last CT scan 04/[address] scan now. Goal is for 2 years of stability. -->If stable, repeat in 6 months. -->If progression, will further evaluate with flexible bronchoscopy and PET scan. 3. Your shortness of breath is most likely due to your morbid obesity. Body Mass Index (BMI) currently is 39 at current weight of 253 pounds. Normal BMI is 18.5-25, corresponding to a goal weight range of 120-160 pounds in an individual 5 feet 7 inches tall. - Weight loss is critical. Consider referral to Weight Management program such as Weight Watchers, or to Bariatric Surgery program. Deferred to Primary Care Physician, Nathaniel Lakhani MD. I addressed the questions of the patient and , and they expressed understanding and acceptance of my answers. Madelaine Martinez PA-C [facility] [place] [phone] Madelaine Martinez PA-C 10/16/2017 1:25 PM Signed 1. Dyspnea. There is no CT evidence of ILD, specific asbestosis or asbestos related pleural disease. Additionally, there is no evidence of limit to ambulation, or O2 desaturation with ambulation, hence no evidence of ILD. - No further Pulmonary evaluation or treamtent is indicated at this time. 2. The subcentimeter pulmonary nodules identified on this CT scan. Initial CT scan October 2016. Last CT scan 04/[address] scan now. Goal is for 2 years of stability. -->If stable, repeat in 6 months. -->If progression, will further evaluate with flexible bronchoscopy and PET scan. 3. Your shortness of breath is most likely due to your morbid obesity. Body Mass Index (BMI) currently is 39 at current weight of 253 pounds. Normal BMI is 18.5-25, corresponding to a goal weight range of 120-160 pounds in an individual 5 feet 7 inches tall. - Weight loss is critical. Consider referral to Weight Management program such as Weight Watchers, or to Bariatric Surgery program. Deferred to Primary Care Physician, Nathaniel Lakhani MD. Referring Provider: CLAUDIA PRADHAN [[id number]] Allergies As of Date: 10/16/2017 Noted Allergy Reaction FLOMAX (TAMSULOSIN HCL) 06/02/2017 7 - Swelling Comments: Couldn't sleep and acted strange CORTISONE 01/13/2012 14 - Other: See Comments Comments: Heart palpitations DEXAMETHASONE 01/13/2012 14 - Other: See Comments Comments: Heart palpitations NALDECON SENIOR EX (GUAIFENESIN) 12/31/2004 8 - GI Upset Comments: CTM=Chlor-Trimeton ornade [Other] 01/01/2005 8 - GI Upset RYNATAN (CHLORPHENIRAMINE-PE TANN*12/31/2004 8 - GI Upset SEPTRA (SULFAMETHOXAZOLE-TRIMETHO*12/31/2004 8 - GI Upset VIOXX (ROFECOXIB) 12/31/2004 8 - GI Upset Date Reviewed: 10/16/2017 Reviewed by: Madelaine Martinez - Fully Assessed Reason for Visit: Established Patient [175] Cmt: 6 month follow up Visit Diagnoses:Obesity, Class II, BMI 35-39.9 [E66.9] Lung nodules [R91.8] Order(s):CT CHEST WO IVCON [[id number]] Order #: [id number] FUTURE Prescriptions as of 10/16/2017 Sig: SPIRONOLACTONE 25 MG TABLET Take 1 tablet by mouth once d* POTASSIUM CHLORIDE ER 10 MEQ * Take 1 tablet by mouth once d* GLIPIZIDE ER 10 MG TABLET, EX* TAKE 1 TABLET DAILY METFORMIN ER 500 MG TABLET,EX* TAKE 2 TABLETS TWICE A DAY DICYCLOMINE 10 MG CAPSULE TAKE 1 CAPSULE AT BEDTIME * FUROSEMIDE 20 MG TABLET TAKE 1 TABLET TWICE A DAY ATENOLOL 25 MG TABLET TAKE ONE-HALF (1/2) TABLET DA* WARFARIN 2 MG TABLET Take 1 tablet by mouth daily * Patient taking differently: Take 7 mg by mouth daily as d* LISINOPRIL 10 MG TABLET Take 1 tablet by mouth once d* FLECAINIDE 100 MG TABLET Take 1 tablet by mouth twice * PIOGLITAZONE 15 MG TABLET Take 1 tablet by mouth once d* WARFARIN 3 MG TABLET TAKE 1 TABLET DAILY OR DIR* WARFARIN 5 MG TABLET In combination with 2 or 3mg * NITROGLYCERIN 0.4 MG SUBLINGU* Dissolve 1 tablet under the t* ARTIFICIAL TEARS (HYPROMELLOS* Use 1 Drop in both eyes daily* BLOOD SUGAR DIAGNOSTIC STRIPS USE FOR BLOOD SUGAR TESTING O* * OMEPRAZOLE 20 MG CAPSULE,RENY* Take one(1) capsule daily. * ECOTRIN LOW STRENGTH 81 MG TA* Take one(1) tablet daily. 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 Generalized osteoarthrosis, unspecified site [M* Priority: M Hallux valgus (acquired) [M20.10] INVALID FOR* Priority: M Benign non-nodular prostatic hyperplasia with l*INVALID FOR* Priority: C Acute gastritis without mention of hemorrhage [*INVALID FOR*07/04/2014 Essential hypertension, benign [I10] INVALID FOR* Priority: A Type II or unspecified type diabetes mellitus w*INVALID FOR*12/02/2013 More... Fatty liver [K76.0] INVALID FOR* Priority: B Essential tremor [G25.0] INVALID FOR* Priority: B Right flank pain [R10.9] INVALID FOR*07/04/2014 Biliary dyskinesia [K82.8] INVALID FOR* Priority: B More... Chest pain [R07.9] INVALID FOR*07/04/2014 Knee effusion, left [M25.462] INVALID FOR*07/04/2014 More... Respiratory failure with hypoxia (HCC) [J96.91] INVALID FOR*07/04/2014 More... Normocytic anemia [D64.9] INVALID FOR*07/04/2014 More... Fall [W19.XXXA] INVALID FOR*02/07/2012 More... SUMMARY [V999.95] INVALID FOR*07/04/2014 Priority: A More... DISPOSITION AND FOLLOW-UP [V999.01] INVALID FOR*07/04/2014 Priority: D More... LOI on CPAP [G47.33, Z99.89] INVALID FOR*04/03/2014 Multinodular goiter [E04.2] INVALID FOR* Priority: B More... LOI (obstructive sleep apnea) [G47.33] INVALID FOR* Priority: B More... Trigger finger (acquired) [M65.30] INVALID FOR* Priority: M Mesenteric adenitis [I88.0] INVALID FOR* Priority: B GERD without esophagitis [K21.9] INVALID FOR* Priority: A Ex-smoker [Z87.891] INVALID FOR* Priority: C Asbestosis (HCC) [J61] INVALID FOR* Priority: B More... 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 Disorder of prostate [N42.9] INVALID FOR* Well adult exam [Z00.00] INVALID FOR* Priority: E More... Colon cancer screening [Z12.11] INVALID FOR* Morbid obesity due to excess calories (HCC) [E6*INVALID FOR* Priority: B Diabetic eye exam (HCC) [Z01.00, E11.9] INVALID FOR* Priority: A More... WILSON (dyspnea on exertion) [R06.09] INVALID FOR* Priority: B More... 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 Medicare annual wellness visit, subsequent [Z00*INVALID FOR* Priority: E More... Current use of proton pump inhibitor [Z79.899] INVALID FOR* Obesity, Class II, BMI 35-39.9 [E66.9] INVALID FOR* Other instructions from your clinician: 1. Dyspnea. There is no CT evidence of ILD, specific asbestosis or asbestos related pleural disease. Additionally, there is no evidence of limit to ambulation, or O2 desaturation with ambulation, hence no evidence of ILD. - No further Pulmonary evaluation or treamtent is indicated at this time. 2. The subcentimeter pulmonary nodules identified on this CT scan. Initial CT scan October 2016. Last CT scan 04/[address] scan now. Goal is for 2 years of stability. -->If stable, repeat in 6 months. -->If progression, will further evaluate with flexible bronchoscopy and PET scan. 3. Your shortness of breath is most likely due to your morbid obesity. Body Mass Index (BMI) currently is 39 at current weight of 253 pounds. Normal BMI is 18.5-25, corresponding to a goal weight range of 120-160 pounds in an individual 5 feet 7 inches tall. - Weight loss is critical. Consider referral to Weight Management program such as Weight Watchers, or to Bariatric Surgery program. Deferred to Primary Care Physician, Nathaniel Lakhani MD. Disposition: Return in about 6 months (around 04/17/2018). Follow-up and Disposition History Recorded Encounter Status:Closed by MADELAINE MARTINEZ on 10/16/17 PROGRESS Observed: 10/16/2017 Status: COMPLETED Source: [place] 12:59 PM [facility] REPOSITORY HNO ID: [id number] Author: Madelaine Martinez Service: (none) Author Type: Physician Supervisor [employer] Type: Progress Notes Filed: 10/16/2017 1:25 PM Note Text: [facility] [place], 04/17/17: INTERVAL HISTORY: Mr. West is a 72 yo male who presents for follow up of dyspnea and exercise intolerance. PMH: AFib, HTN, LOI on CPAP, DM, Hyperlipidemia, ASHD, GERD, BPH. Former smoker, quit 1987. 111 pack years. Patient states he continues with dyspnea and decreased exercise tolerance. Difficulty with climbing stairs, walking long distances. No cough. Occasional wheezing. No fevers or chills. Consistently wears CPAP with sleep. No childhood allergies, asthma, no prior COPD. ? 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 ? ROS: General: Generally feels out of breath. Appetite good. Weight stable. States he has been eating out frequently. Eyes, Ears, nose, throat: No post nasal drip, rhinorrhea, purulent nasal discharge, epistaxis, hoarseness. Vision stable. Cardiac: No angina, orthopnea. Lower extremity edema. GI: No heartburn, diarrhea, constipation. Dysphagia, swallow study ordered per PCP. 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 Musculoskeletal: No pain. Neuro:No headache, focal weakness, tremor. Skin: No rash. Otherwise negative. Allergies reviewed and updated, and medications reconciled today. Immunization History Administered Date(s) Administered Influenza Seasonal - High Dose - Age 65+ 04/04/2016 02/06/2017 Influenza Seasonal Inj Age 3+ 03/02/2014 Influenza Seasonal Inj Quadrivalent Age 3+ 03/06/2015 Influenza Vaccine, Split-Non Spec 03/06/2006 03/09/2008 02/08/2009 03/29/2010 02/26/2011 03/01/2012 02/22/2013 Pneumococcal-13 Vac Conjugate 03/06/2015 Pneumovax 03/10/2005 03/29/2010 07/30/2016 Tdap (Age 7+) 02/06/2017 PMH: Reviewed with patient today. No changes. FAMH: Reviewed with patient today. No changes. SOCH: No changes. PHYSICAL EXAMINATION: BP 120/64 Pulse 63 Resp 17 Wt 253 lb (114.8kg) SpO2 96% Body mass index is 39.04 kg/m?. Gen: No acute distress. Cooperative with examination. ENT: Sclerae clear. Nares clear. Oral hygeine/dentition good. Pharynx clear. No halitosis. Resp: No stridor, accessory respiratory muscle use, supra- sternal or intercostal retractions. No crackles, wheezes, rubs. CV: Regular rythm. Heart tones normal. No carotid bruit. Radial pulses normal. Abd: Non distended. MSK: No kyphoscoliosis, joint deformities. Ext: Warm and well perfused. No clubbing, cyanosis. 1+ pitting edema bilaterally. Skin: Color normal. Texture normal. No rash, eczema, urticaria, Petechiae. Lymph: No adenopathy in neck, supra-clavicular fossae. Endo: No goiter, exophthalmos, onycholysis. Neuro: Mental status normal. Affect normal. Muscle tone normal. No tremor. DATA REVIEW: DATE: 09/30/16 FVC 3.12 (82 % pred) FEV1 2.43 (88 % pred) FEV1/FVC 0.78 TLC DLco 20.97 (96 % pred) Six Minute Walk, 10/07/16 InspO2* ? SpO2% ? ? HR Activity ?Feet ?Time ? MPH ?Flag RA ? 94 ? ? 61 resting RA ? 91 ? ? 92 six minute walk ? ? ? 1300 ?6.00 ?2.46 RA ? 96 ? ? 70 resting ? 1 min. post RA ? 95 ? ? 58 resting ? 2 min. post RA ? 94 ? ? 63 resting ? 3 min. post Echo, 10/14/17 MEASUREMENTS: ?Value ?Indexed ? ?Normal Max aortic dimension ? ? 3.9 cm ? 1.65 cm/m? Left atrium diameter ? ? 3.9 cm (M-Mode) ? LAd < 4 LV ID (diastole) ? 4.8 cm (2D) LV ID (systole) ?3.0 cm (2D) IVS, leaflet tips ?1.3 cm (2D) Posterior wall thickness 1.2 cm (2D) Left ventricular mass ? 95 g/m? Ejection Fraction ?60 % (visual est.) ?EF > 52 ? FINDINGS: ? LEFT VENTRICLE The left ventricle is normal in size. There is mild concentric left ventricular hypertrophy. Left ventricular systolic function is normal. Indeterminate left ventricular diastolic dysfunction. Mitral annular lateral E/e': 11.4. Mitral annular septal E/e': 11.4. Wall Motion: All scored segments are normal. ? RIGHT VENTRICLE The right ventricle is normal in size. Right ventricular systolic function is normal. RV systolic tissue Doppler velocity ?is 15.0 cm/s. Estimated right ventricular systolic pressure is not reported due to an insufficient tricuspid regurgitation signal. ? LEFT ATRIUM The left atrial cavity is normal in size. ? RIGHT ATRIUM Unable to reliably measure RA volume due to technical limitations. ? MITRAL VALVE There is trivial (trivial - 1+) mitral valve regurgitation. There is no thickening. There is no calcification. The pressure half time is 68 msec. The peak ?mitral E/A ratio is 1.13. The average mitral E/e' ratio is 11.4. The mitral flow deceleration time is 236 msec. ? TRICUSPID VALVE There is trivial tricuspid valve regurgitation. ? AORTIC VALVE There is no aortic valve regurgitation. Tricuspid aortic valve. ? PULMONIC VALVE There is no pulmonic valve regurgitation. ? AORTA The visualized aorta is normal in size. Measurements - Sinus 3.5 cm. Mid ascending aorta 3.9 cm. PULMONARY ARTERIES The pulmonary arteries are unseen or not interrogated. ? PERICARDIUM There is no pericardial effusion. There is an epicardial fat pad. ? CONCLUSIONS: - Technically difficult exam due to body habitus. - Exam indication: Shortness?of Breath - The left ventricle is normal in size. There is mild concentric left ventricular hypertrophy. Left ventricular systolic function is normal. EF = 60 ? 5% (visual est.) Indeterminate left ventricular diastolic dysfunction. - The right ventricle is normal in size. Right ventricular systolic function is normal. - There are no significant valvular abnormalities. - Exam was compared with the prior echocardiographic exam performed on 02/07/2016, no significant change. ? Labs, 10/13/17 NT Pro BNP 246 (H) <125 pg/mL Final [facility] CT chest, 04/17/17 IMPRESSION: Unchanged pulmonary nodules. Mild emphysema. Unchanged but prominent mediastinal lymph nodes are nonspecific. Unchanged but prominent mesenteric lymph nodes incidentally seen, also nonspecific. RESULT: Lung parenchyma and pleura: ?Mild emphysema. ?Bilateral apical pleural scarring. ?Right upper lobe nodule on image 101 measuring up to 7 mm is unchanged. ?Smaller scattered nodules appear unchanged. ?Mild peripheral reticulation bilaterally. ?No new consolidation, pneumothorax or pleural effusion. ?There is no central airway obstruction. Thoracic inlet, heart, and mediastinum: ?Postoperative changes of left thyroid resection. ?Again seen are mildly prominent mediastinal lymph nodes which are unchanged since the prior examination. ?The largest measures 2.2 x 1.8 cm on image 80. ?Borderline cardiac enlargement. ?Mild calcifications of the coronary arteries. ?No pericardial effusion. ? Normal caliber of the thoracic aorta demonstrating mild calcification. ? Normal caliber of the main pulmonary artery. Bones and soft tissues: ?No destructive bone lesion. Chest wall is unremarkable. Upper abdomen: ?No acute findings in the upper abdomen. ?Again seen are mildly prominent mesenteric lymph nodes with mild stranding in the mesentery, nonspecific. IMPRESSION AND RECOMMENDATIONS: 1. Dyspnea. There is no CT evidence of ILD, specific asbestosis or asbestos related pleural disease. Additionally, there is no evidence of limit to ambulation, or O2 desaturation with ambulation, hence no evidence of ILD. - No further Pulmonary evaluation or treamtent is indicated at this time. 2. The subcentimeter pulmonary nodules identified on this CT scan. Initial CT scan October 2016. Last CT scan 04/[address] scan now. Goal is for 2 years of stability. -->If stable, repeat in 6 months. -->If progression, will further evaluate with flexible bronchoscopy and PET scan. 3. Your shortness of breath is most likely due to your morbid obesity. Body Mass Index (BMI) currently is 39 at current weight of 253 pounds. Normal BMI is 18.5-25, corresponding to a goal weight range of 120-160 pounds in an individual 5 feet 7 inches tall. - Weight loss is critical. Consider referral to Weight Management program such as Weight Watchers, or to Bariatric Surgery program. Deferred to Primary Care Physician, Nathaniel Lakhani MD. I addressed the questions of the patient and , and they expressed understanding and acceptance of my answers. Madelaine Martinez PA-C [facility] [place] [facility] Surgery [id number] [place] [address] PROGRESS Observed: 10/13/2017 Status: COMPLETED Source: [place] 4:[address] [facility] REPOSITORY HNO ID: [id number] Author: Sudarshan Salamanca Service: (none) Author Type: Physician Type: Progress Notes Filed: 10/13/2017 4:09 PM Note Text: PERTINENT CARDIAC HISTORY Atrial fib - PAF HTN LOI - CPAP DM HL - declines statin ASHD - moderate plaque by cath ADHERENCE TO GUIDELINES ARMAND-I or ARB for HF with prior LVEF<40 (NQF 0081) - N/A ASA or Plavix for ASHD (NQF 0067) - met Beta des for ASHD with prior IA or prior LVEF<40 (NQF 0070) - met Beta des for HF with prior LVEF<40 (NQF 0083) - N/A ARMAND-I or ARB for ASHD with DM or prior LVEF<40 (NQF 0066) - met Statin therapy for ASHD or FHL or DM - declined BMI documented and plan if >25 (NQF 0421) - lifestyle recommendation form Tobacco use screening and referral (NQF 0028) - lifestyle recommendation form Recommendation for whole food, plant based diet - lifestyle recommendation form CLINICAL IMPRESSION/PLAN: Ankit West Jr. has significant exercise intolerance, which is largely related to his obesity. He may have a component of diastolic dysfunction with fluid retention. We will check basic profile and BNP. His amlodipine will be discontinued. His blood pressure is borderline low, he is retaining fluid and he is relatively bradycardic. He will continue his low-dose beta des, which needs to be onboard if we are to continue flecainide. Flecainide has been effective at controlling his rhythm. For assessment of his lower extremity symptoms, he will undergo peripheral vascular study. There is no evidence of decompensated ischemic heart disease. I will see him in 6 months or as needed. If there is increased chest pain or shortness breath, he has been advised to contact me. Written and verbal health teaching given to patient, patient verbalizes understanding and agrees with treatment plan. DIAGNOSIS FOR VISIT: ASHD PAF HISTORY OF PRESENT ILLNESS Ankit West Jr. returns for problem follow-up visit. He has been having more difficulty with shortness of breath and exercise intolerance. He reports that when he begins moving around, his legs will ache. Symptoms improve while walking, but he is concerned about loss of function. He has had no chest discomfort and has used no nitroglycerin. However, he has noted significant exercise intolerance. He recently underwent stress test. He has noticed no palpitations. He notes that his heart rate has been somewhat slow. Blood pressure has been borderline low for him. He has had postural lightheadedness but no syncope. He denies TIAs, amaurosis and claudication. ALLERGIES: ALLERGIES Allergen Reactions - Flomax [Tamsulosin * Swelling Couldn't sleep and acted strange - Cortisone Other: See Comments Heart palpitations - Dexamethasone Other: See Comments Heart palpitations - Naldecon Senior Ex * GI Upset CTM=Chlor-Trimeton - Ornade [Other] GI Upset - Rynatan [Chlorpheni* GI Upset - Septra [Sulfamethox* GI Upset - Vioxx [Rofecoxib] GI Upset CURRENT OUTPATIENT MEDICATIONS: cefADROxil (DURICEF) 500 mg capsule Take 1 capsule by mouth twice daily for 14 days. glipiZIDE XL (GLUCOTROL XL) 10 mg 24 hr tablet TAKE 1 TABLET DAILY potassium chloride ER (K-DUR, KLOR-CON) 10 mEq tablet Take 1 tablet by mouth twice daily. metFORMIN ER (GLUCOPHAGE XR) 500 mg 24 hr tablet TAKE 2 TABLETS TWICE A DAY dicyclomine (BENTYL) 10 mg capsule TAKE 1 CAPSULE AT BEDTIME NEEDED furosemide (LASIX) 20 mg tablet TAKE 1 TABLET TWICE A DAY atenolol (TENORMIN) 25 mg tablet TAKE ONE-HALF (1/2) TABLET DAILY lisinopril (PRINIVIL) 10 mg tablet Take 1 tablet by mouth once daily. flecainide (TAMBOCOR) 100 mg tablet Take 1 tablet by mouth twice daily. pioglitazone (ACTOS) 15 mg tablet Take 1 tablet by mouth once daily. nitroglycerin sublingual (NITROQUICK) 0.4 mg SL tablet Dissolve 1 tablet under the tongue as needed. FOR CHEST PAIN. IF NO RELIEF CALL 911 Artificial Tear, Hypromellose, (SYSTANE GEL) 0.3 % gel Use 1 Drop in both eyes daily at bedtime. blood sugar diagnostic (CONTOUR TEST STRIPS) test strip USE FOR BLOOD SUGAR TESTING ONCE DAILY AND NEEDED, 250.00 omeprazole (PRILOSEC) 20 mg ORAL capsule Take one(1) capsule daily. aspirin(ECOTRIN LOW STRENGTH 81 MG TAB) Take one(1) tablet daily. warfarin (COUMADIN) 2 mg tablet Take 1 tablet by mouth daily as directed. warfarin (COUMADIN) 3 mg tablet TAKE 1 TABLET DAILY OR DIRECTED warfarin (COUMADIN) 5 mg tablet In combination with 2 or 3mg tablet as directed. Lancets lancets USE TO TEST BLOOD SUGAR ONCE A DAY AND NEEDED PAST MEDICAL HISTORY Diagnosis Date - Abdominal pain, LLQ 12/04/2014 - Atrial fibrillation (HCC) chronic - Biliary dyskinesia 10/01/2011 Symptom free at this time 03/2015 - BPH W URINARY OBS/LUTS 05/12/2006 - DIARRHEA NOS 10/12/2008 - Essential and other specified forms of tremor 09/10/2011 - Essential hypertension, benign 12/26/2009 - Fatty liver 05/08/2011 - Generalized osteoarthrosis, unspecified site hands, knees, hips - GERD without esophagitis 03/06/2015 Hiatal hernia. 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 - Trigger finger (acquired) 07/17/2014 - Type 2 diabetes mellitus with diabetic neuropathy (HCC) 03/06/2015 PAST SURGICAL HISTORY Procedure Laterality Date - COLONOSCOP W/ OR W/O [facility] SPEC 1997,1988 Colonoscopy - COLONOSCOPY W/BX 10/12/08 - COLONOSCOPY W/BX 12/04/2014 Repeat 2024 - EGD W/O [facility] SPECIMEN W/BX 10/12/08 - FECAL OCCULT BLOOD TEST 08/01/2016 negative - INCISION OF TENDON SHEATH 07/07/14 right thumb trigger release - PAST SURGICAL HISTORY OF 1961 left knee - PAST SURGICAL HISTORY OF 2013 R knee meniscus tears - STRESS TEST 07/2015 NL - STRESS TEST 10/09/2017 normel - THYROIDECTOMY 2004 Left side - TOTAL KNEE REPLACEMENT 05/24/2012 Left FAMILY HISTORY Problem Relation Age of Onset - Heart Failure Mother - COPD Mother - Hypertension Mother - tremors [OTHER] Father age 96. - AAA [OTHER] Father Repaired at [facility]. - Diabetes Brother - tremors [OTHER] Paternal Uncle - Heart Failure Sister 54 viral. - Cancer Brother esophagus - Cancer Sister pancreas - Cervical Cancer Maternal Aunt lung - Cancer Maternal Aunt - Idiopathic pulmonary fibrosis [OTHER] Son age 47 after 2 lung transplants. 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 Daughter Sole Galindo REVIEW OF SYSTEMS: General: No chills, fever, weight loss, night sweats. Respiratory: No productive cough. Cardiac: As noted above. GI: No melena. : No dysuria. Musculoskeletal: No myalgias. PHYSICAL EXAMINATION: S/he is alert and in no distress. VITAL SIGNS: BP 126/62 Pulse 59 Resp 19 Wt 259 lb (117.5kg) SpO2 96% SHEENT: Skin is warm and dry. No xanthelasmas appreciated. Pharynx is benign. There is no oral cyanosis. Neck: supple. No adenopathy or thyroid enlargement. Chest: Clear to percussion and auscultation. Trachea is midline. Air entry is equal. There is no chest wall tenderness. Cardiac: Regular rhythm. S1 and S2 are normal. PMI is nondisplaced. There is a soft systolic ejection. No click is heard. Carotids are brisk without bruits. JVP is less than 10 cm. Abdomen: Soft and nontender. There is morbid obesity. There are no pulsatile masses or bruits. No liver enlargement. Bowel sounds are active. Extremities: 1 plus diffuse edema. Skin over the abdomen and back is relatively tense, although there is minimal pitting. Pulses are slightly diminished in the lower extremities, but symmetrical. No clubbing or cyanosis. No femoral bruits. Neurologic: Grossly normal motor and sensory. S/he is alert and oriented x4. EKG shows sinus bradycardia and is unchanged. Recent labs were reviewed. Renal function is normal. LDL was 69. Recent stress test showed no evidence of ischemia. LV function was normal. Echo is pending. Electronically Signed: Sudarshan Salamanca MD October 13, 2017 4:02 PM CC:Nathaniel Lakhani MD BASIC METABOLIC PANL Collected: 10/13/2017 Status: F Source: [place] 2:[address] [facility] [place] REPOSITORY TYPE CODE TESTS RESULT OUT OF REFERENCE UNITS RANGE LAB GLU 74-99 mg/dL High Glucose 148 Result Comment: The [place] [employer] Association (ADA) provides guidance for cutoff values for fasting glucose and random glucose. The ADA defines fasting as no caloric intake for at least 8 hours. Fas ting plasma glucose results between 100 to 125 mg/dL indicate increased risk for diabetes (prediabetes). Fasting plasma glucose results greater than or equal to 126 mg/dL meet the criteria for diagnosis of diabetes. In the absence of unequivocal hyperglycemia, results should be confirmed by repeat testing. In a patient with classic symptoms of hyperglycemia or hyperglycemic crisis, random plasma glucose results greater than or equal to 200 mg/dL meet the criteria for diagnosis of diabetes. Reference: Standards of Medical Care in Diabetes 2016, [place] [employer]. Diabetes Care. 2016.39(Suppl 1). LAB BUN 9-24 mg/dL BUN 18 LAB CRET 0.73-1.22 mg/dL Creatinine 1.09 LAB NA 136-144 mmol/L Sodium 139 LAB K 3.7-5.1 mmol/L Potassium 4.4 LAB CL 97-105 mmol/L Chloride 105 LAB CO2 22-30 mmol/L CO2 23 LAB AGAP 9-18 mmol/L Anion Gap 11 LAB CA 8.5-10.2 mg/dL Calcium, Total 9.0 LAB GFRAA eGFR- Amer. >60 LAB GFRNAA . eGFR-All Other Races >60 Result Comment: eGFR (Estimated GFR) Units of measure: mL/min/1.73 meters squared eGFR is derived from the reexpressed MDRD Study equation using the following parameters: serum creatinine, age, gender and race. The creatinine assay has been calibrated to be traceable to IDMS. An eGFR <60 mL/min/1.73m2 for >3 months is consistent with chronic kidney disease. Refer to KDOQI guidelines for clinical interpretation. In patients with unstable renal function, e.g. those with acute kidney injury, the eGFR may not accurately reflect actual GFR. Performed By: #### BMP, NTBNP #### [facility] [employer] [address] [place], [place] [id number] NT PRO BNP Collected: 10/13/2017 Status: F Source: [place] 2:06 PM [facility] REPOSITORY TYPE CODE TESTS RESULT OUT OF REFERENCE UNITS RANGE LAB PBNP <125 pg/mL High PRO B Natr 246 Peptide Performed By: #### BMP, NTBNP #### [facility] [employer] [address] [place], [place] [address] CNOV Observed: 10/13/2017 Status: COMPLETED Source: [place] 1:00 PM [facility] REPOSITORY Office Visit (CAWSTR) ANKIT WEST JR. ([id number]) 1945 M Date Time Provider Department 10/13/17 1:00 PM SUDARSHAN SALAMANCAWSTR During your visit today, we recorded the following information about you: Pulse Respiration Blood pressure Weight 59/minute 19/minute 126/62 117.5 kg Sudarshan Salamanca MD 10/13/2017 4:09 PM Signed PERTINENT CARDIAC HISTORY Atrial fib - PAF HTN LOI - CPAP DM HL - declines statin ASHD - moderate plaque by cath ADHERENCE TO GUIDELINES ARMAND-I or ARB for HF with prior LVEF<40 (NQF 0081) - N/A ASA or Plavix for ASHD (NQF 0067) - met Beta des for ASHD with prior IA or prior LVEF<40 (NQF 0070) - met Beta des for HF with prior LVEF<40 (NQF 0083) - N/A ARMAND-I or ARB for ASHD with DM or prior LVEF<40 (NQF 0066) - met Statin therapy for ASHD or FHL or DM - declined BMI documented and plan if >25 (NQF 0421) - lifestyle recommendation form Tobacco use screening and referral (NQF 0028) - lifestyle recommendation form Recommendation for whole food, plant based diet - lifestyle recommendation form CLINICAL IMPRESSION/PLAN: Ankit West Jr. has significant exercise intolerance, which is largely related to his obesity. He may have a component of diastolic dysfunction with fluid retention. We will check basic profile and BNP. His amlodipine will be discontinued. His blood pressure is borderline low, he is retaining fluid and he is relatively bradycardic. He will continue his low-dose beta des, which needs to be onboard if we are to continue flecainide. Flecainide has been effective at controlling his rhythm. For assessment of his lower extremity symptoms, he will undergo peripheral vascular study. There is no evidence of decompensated ischemic heart disease. I will see him in 6 months or as needed. If there is increased chest pain or shortness breath, he has been advised to contact me. Written and verbal health teaching given to patient, patient verbalizes understanding and agrees with treatment plan. DIAGNOSIS FOR VISIT: ASHD PAF HISTORY OF PRESENT ILLNESS Ankit West Jr. returns for problem follow-up visit. He has been having more difficulty with shortness of breath and exercise intolerance. He reports that when he begins moving around, his legs will ache. Symptoms improve while walking, but he is concerned about loss of function. He has had no chest discomfort and has used no nitroglycerin. However, he has noted significant exercise intolerance. He recently underwent stress test. He has noticed no palpitations. He notes that his heart rate has been somewhat slow. Blood pressure has been borderline low for him. He has had postural lightheadedness but no syncope. He denies TIAs, amaurosis and claudication. ALLERGIES: ALLERGIES Allergen Reactions - Flomax [Tamsulosin * Swelling Couldn't sleep and acted strange - Cortisone Other: See Comments Heart palpitations - Dexamethasone Other: See Comments Heart palpitations - Naldecon Senior Ex * GI Upset CTM=Chlor-Trimeton - Ornade [Other] GI Upset - Rynatan [Chlorpheni* GI Upset - Septra [Sulfamethox* GI Upset - Vioxx [Rofecoxib] GI Upset CURRENT OUTPATIENT MEDICATIONS: cefADROxil (DURICEF) 500 mg capsule Take 1 capsule by mouth twice daily for 14 days. glipiZIDE XL (GLUCOTROL XL) 10 mg 24 hr tablet TAKE 1 TABLET DAILY potassium chloride ER (K-DUR, KLOR-CON) 10 mEq tablet Take 1 tablet by mouth twice daily. metFORMIN ER (GLUCOPHAGE XR) 500 mg 24 hr tablet TAKE 2 TABLETS TWICE A DAY dicyclomine (BENTYL) 10 mg capsule TAKE 1 CAPSULE AT BEDTIME NEEDED furosemide (LASIX) 20 mg tablet TAKE 1 TABLET TWICE A DAY atenolol (TENORMIN) 25 mg tablet TAKE ONE-HALF (1/2) TABLET DAILY lisinopril (PRINIVIL) 10 mg tablet Take 1 tablet by mouth once daily. flecainide (TAMBOCOR) 100 mg tablet Take 1 tablet by mouth twice daily. pioglitazone (ACTOS) 15 mg tablet Take 1 tablet by mouth once daily. nitroglycerin sublingual (NITROQUICK) 0.4 mg SL tablet Dissolve 1 tablet under the tongue as needed. FOR CHEST PAIN. IF NO RELIEF CALL 911 Artificial Tear, Hypromellose, (SYSTANE GEL) 0.3 % gel Use 1 Drop in both eyes daily at bedtime. blood sugar diagnostic (CONTOUR TEST STRIPS) test strip USE FOR BLOOD SUGAR TESTING ONCE DAILY AND NEEDED, 250.00 omeprazole (PRILOSEC) 20 mg ORAL capsule Take one(1) capsule daily. aspirin(ECOTRIN LOW STRENGTH 81 MG TAB) Take one(1) tablet daily. warfarin (COUMADIN) 2 mg tablet Take 1 tablet by mouth daily as directed. warfarin (COUMADIN) 3 mg tablet TAKE 1 TABLET DAILY OR DIRECTED warfarin (COUMADIN) 5 mg tablet In combination with 2 or 3mg tablet as directed. Lancets lancets USE TO TEST BLOOD SUGAR ONCE A DAY AND NEEDED PAST MEDICAL HISTORY Diagnosis Date - Abdominal pain, LLQ 12/04/2014 - Atrial fibrillation (HCC) chronic - Biliary dyskinesia 10/01/2011 Symptom free at this time 03/2015 - BPH W URINARY OBS/LUTS 05/12/2006 - DIARRHEA NOS 10/12/2008 - Essential and other specified forms of tremor 09/10/2011 - Essential hypertension, benign 12/26/2009 - Fatty liver 05/08/2011 - Generalized osteoarthrosis, unspecified site hands, knees, hips - GERD without esophagitis 03/06/2015 Hiatal hernia. 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 - Trigger finger (acquired) 07/17/2014 - Type 2 diabetes mellitus with diabetic neuropathy (HCC) 03/06/2015 PAST SURGICAL HISTORY Procedure Laterality Date - COLONOSCOP W/ OR W/O [facility] SPEC 1997,1988 Colonoscopy - COLONOSCOPY W/BX 10/12/08 - COLONOSCOPY W/BX 12/04/2014 Repeat 2024 - EGD W/O [facility] SPECIMEN W/BX 10/12/08 - FECAL OCCULT BLOOD TEST 08/01/2016 negative - INCISION OF TENDON SHEATH 07/07/14 right thumb trigger release - PAST SURGICAL HISTORY OF 1961 left knee - PAST SURGICAL HISTORY OF 2013 R knee meniscus tears - STRESS TEST 07/2015 NL - STRESS TEST 10/09/2017 normel - THYROIDECTOMY 2004 Left side - TOTAL KNEE REPLACEMENT 05/24/2012 Left FAMILY HISTORY Problem Relation Age of Onset - Heart Failure Mother - COPD Mother - Hypertension Mother - tremors [OTHER] Father age 96. - AAA [OTHER] Father Repaired at [facility]. - Diabetes Brother - tremors [OTHER] Paternal Uncle - Heart Failure Sister 54 viral. - Cancer Brother esophagus - Cancer Sister pancreas - Cervical Cancer Maternal Aunt lung - Cancer Maternal Aunt - Idiopathic pulmonary fibrosis [OTHER] Son age 47 after 2 lung transplants. 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 Daughter Sole Galindo REVIEW OF SYSTEMS: General: No chills, fever, weight loss, night sweats. Respiratory: No productive cough. Cardiac: As noted above. GI: No melena. : No dysuria. Musculoskeletal: No myalgias. PHYSICAL EXAMINATION: S/he is alert and in no distress. VITAL SIGNS: BP 126/62 Pulse 59 Resp 19 Wt 259 lb (117.5kg) SpO2 96% SHEENT: Skin is warm and dry. No xanthelasmas appreciated. Pharynx is benign. There is no oral cyanosis. Neck: supple. No adenopathy or thyroid enlargement. Chest: Clear to percussion and auscultation. Trachea is midline. Air entry is equal. There is no chest wall tenderness. Cardiac: Regular rhythm. S1 and S2 are normal. PMI is nondisplaced. There is a soft systolic ejection. No click is heard. Carotids are brisk without bruits. JVP is less than 10 cm. Abdomen: Soft and nontender. There is morbid obesity. There are no pulsatile masses or bruits. No liver enlargement. Bowel sounds are active. Extremities: 1 plus diffuse edema. Skin over the abdomen and back is relatively tense, although there is minimal pitting. Pulses are slightly diminished in the lower extremities, but symmetrical. No clubbing or cyanosis. No femoral bruits. Neurologic: Grossly normal motor and sensory. S/he is alert and oriented x4. EKG shows sinus bradycardia and is unchanged. Recent labs were reviewed. Renal function is normal. LDL was 69. Recent stress test showed no evidence of ischemia. LV function was normal. Echo is pending. Electronically Signed: Sudarshan Salamanca MD October 13, 2017 4:02 PM CC:Nathaniel Lakhani MD Referring Provider: SUDARSHAN SALAMANCA [[id number]] Allergies As of Date: 10/13/2017 Noted Allergy Reaction FLOMAX (TAMSULOSIN HCL) 06/02/2017 7 - Swelling Comments: Couldn't sleep and acted strange CORTISONE 01/13/2012 14 - Other: See Comments Comments: Heart palpitations DEXAMETHASONE 01/13/2012 14 - Other: See Comments Comments: Heart palpitations HOLLAND SENIOR EX (GUAIFENESIN) 12/31/2004 8 - GI Upset Comments: CTM=Chlor-Trimeton ornade [Other] 01/01/2005 8 - GI Upset RYNATAN (CHLORPHENIRAMINE-PE TANN*12/31/2004 8 - GI Upset SEPTRA (SULFAMETHOXAZOLE-TRIMETHO*12/31/2004 8 - GI Upset VIOXX (ROFECOXIB) 12/31/2004 8 - GI Upset Date Reviewed: 10/13/2017 Reviewed by: Mattie Fox LPN - Fully Assessed Reason for Visit: Established Patient [175] Cmt: follow up Primary Visit Diagnosis:PAF (paroxysmal atrial fibrillation) ([facility]) [I48.0] Other Visit Diagnoses:ASHD (arteriosclerotic heart disease) [I25.10] Atherosclerosis of nikolai artery of both lower extremities with intermittent claudication ([facility]) [I70.213] Chronic diastolic CHF (congestive heart failure) ([facility]) [I50.32] Order(s):ECG COMPLETE W INTERPRETATION [ECG01] Order #: [id number] FUTURE BASIC METABOLIC PNL [SQBMP] Order #: [id number] FUTURE NT PRO BNP [SQNTBNP] Order #: [id number] FUTURE PVR LEG W/EXC [facility] [[id number]] Order #: [id number] FUTURE Prescriptions as of 10/13/2017 Sig: CEFADROXIL 500 MG CAPSULE Take 1 capsule by mouth twice* GLIPIZIDE ER 10 MG TABLET, EX* TAKE 1 TABLET DAILY POTASSIUM CHLORIDE ER 10 MEQ * Take 1 tablet by mouth twice * METFORMIN ER 500 MG TABLET,EX* TAKE 2 TABLETS TWICE A DAY DICYCLOMINE 10 MG CAPSULE TAKE 1 CAPSULE AT BEDTIME * FUROSEMIDE 20 MG TABLET TAKE 1 TABLET TWICE A DAY ATENOLOL 25 MG TABLET TAKE ONE-HALF (1/2) TABLET DA* LISINOPRIL 10 MG TABLET Take 1 tablet by mouth once d* FLECAINIDE 100 MG TABLET Take 1 tablet by mouth twice * PIOGLITAZONE 15 MG TABLET Take 1 tablet by mouth once d* NITROGLYCERIN 0.4 MG SUBLINGU* Dissolve 1 tablet under the t* ARTIFICIAL TEARS (HYPROMELLOS* Use 1 Drop in both eyes daily* BLOOD SUGAR DIAGNOSTIC STRIPS USE FOR BLOOD SUGAR TESTING O* * OMEPRAZOLE 20 MG CAPSULE,RENY* Take one(1) capsule daily. * ECOTRIN LOW STRENGTH 81 MG TA* Take one(1) tablet daily. WARFARIN 2 MG TABLET Take 1 tablet by mouth daily * Patient taking differently: Take 7 mg by mouth daily as d* WARFARIN 3 MG TABLET TAKE 1 TABLET DAILY OR DIR* WARFARIN 5 MG TABLET In combination with 2 or 3mg * LANCETS USE TO TEST BLOOD SUGAR ONCE * Problem List As Of Date 10/13/2017 Noted Resolved Postinflammatory pulmonary fibrosis [J84.10] Priority: B Irritable bowel syndrome [K58.9] Priority: B Atrial fibrillation [I48.91] Priority: A More... Generalized osteoarthrosis, unspecified site [M* Priority: M Hallux valgus (acquired) [M20.10] INVALID FOR* Priority: M Benign non-nodular prostatic hyperplasia with l*INVALID FOR* Priority: C Acute gastritis without mention of hemorrhage [*INVALID FOR*07/04/2014 Essential hypertension, benign [I10] INVALID FOR* Priority: A Type II or unspecified type diabetes mellitus w*INVALID FOR*12/02/2013 More... Fatty liver [K76.0] INVALID FOR* Priority: B Essential tremor [G25.0] INVALID FOR* Priority: B Right flank pain [R10.9] INVALID FOR*07/04/2014 Biliary dyskinesia [K82.8] INVALID FOR* Priority: B More... Chest pain [R07.9] INVALID FOR*07/04/2014 Knee effusion, left [M25.462] INVALID FOR*07/04/2014 More... Respiratory failure with hypoxia (HCC) [J96.91] INVALID FOR*07/04/2014 More... Normocytic anemia [D64.9] INVALID FOR*07/04/2014 More... Fall [W19.XXXA] INVALID FOR*02/07/2012 More... SUMMARY [V999.95] INVALID FOR*07/04/2014 Priority: A More... DISPOSITION AND FOLLOW-UP [V999.01] INVALID FOR*07/04/2014 Priority: D More... LOI on CPAP [G47.33, Z99.89] INVALID FOR*04/03/2014 Multinodular goiter [E04.2] INVALID FOR* Priority: B More... LOI (obstructive sleep apnea) [G47.33] INVALID FOR* Priority: B More... Trigger finger (acquired) [M65.30] INVALID FOR* Priority: M Mesenteric adenitis [I88.0] INVALID FOR* Priority: B GERD without esophagitis [K21.9] INVALID FOR* Priority: A Ex-smoker [Z87.891] INVALID FOR* Priority: C Asbestosis (HCC) [J61] INVALID FOR* Priority: B More... 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 Disorder of prostate [N42.9] INVALID FOR* Well adult exam [Z00.00] INVALID FOR* Priority: E More... Colon cancer screening [Z12.11] INVALID FOR* Morbid obesity due to excess calories (HCC) [E6*INVALID FOR* Priority: B Diabetic eye exam (HCC) [Z01.00, E11.9] INVALID FOR* Priority: A More... WILSON (dyspnea on exertion) [R06.09] INVALID FOR* Priority: B More... 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 Medicare annual wellness visit, subsequent [Z00*INVALID FOR* Priority: E More... Current use of proton pump inhibitor [Z79.899] INVALID FOR* Medications Discontinued During This Encounter amLODIPine (NORVASC) 5 mg tablet 90 t* 1 06/23/2017 10/13/2017 Route: ORAL Sig: Take 1 tablet by mouth once daily. Disc: Reason for discontinue is not on file. Follow-up and Disposition History Recorded Encounter Status:Closed by SUDARSHAN SALAMANCA MD on 10/13/17 XR UPPER GI DOUBLE Observed: 10/12/2017 Status: F Source: [facility] 10:21 AM CLINIC OTHER CAMPUS REPOSITORY * * *Final Report* * * DATE OF EXAM: Oct 12 2017 10:21AM MDX [id number] - XR UPPER GI DOUBLE CONTRAST/AIR / PROCEDURE REASON: R13.10-Dysphagia, unspecified * * * * Physician Interpretation * * * * HISTORY: Dysphagia TECHNIQUE: Dual phase studies. Fluoroscopic Radiation Summary: Plane A, Air Kerma: 79.0 mGy Dose Area Product (DAP): 83256.0 mGy*cmS2 Fluoro time: 1:29 min:sec COMPARISON: None RESULT: Distal esophagus, stomach, and duodenum appear unremarkable without mass, ulceration, obstruction, or other significant abnormalities. There is a small diverticulum from the third part of the duodenum, which is significant. No esophageal reflux was seen on fluoroscopy. IMPRESSION: Unremarkable upper GI study. Baseball Player: SIVAKUMAR Transcribe Date/Time: Oct 12 2017 11:06A Dictated by : GABRIELLA TAYLOR MD This examination was interpreted and the report reviewed and electronically signed by: GABRIELLA TAYLOR MD on Oct 12 2017 11:09AM EST [id number] NM CARDIAC PERF Observed: 10/09/2017 Status: F Source: [place] STRESS/PHARM 9:[address] [facility] OTHER CAMPUS REPOSITORY * * *Final Report* * * DATE OF EXAM: Oct 09 2017 9:45AM CARLA 0006 - NM CARDIAC PERF STRESS/PHARM / PROCEDURE REASON: multiple diagnoses * * * * Physician Interpretation * * * * PATIENT: Name: ANKIT WEST Age: 72 years Gender: M CONCLUSIONS: 1. SPECT Perfusion Study: Normal. 2. There is no scintigraphic evidence for inducible ischemia. 3. No evidence of scarred myocardium. 4. Functional capacity N/A (pharmacological). 5. Left ventricle is normal in size. The left ventricle systolic function is normal. 6. This is a low risk scan. 1 LVEF % 71 Prior Study Comparison Prior nuclear cardiology exam was performed on 07/31/2015. Nuclear Med Report:1-Day Tc-Tetrofosmin Gated SPECT Myocardial Perfusion with Regadenoson Stress: Myocardial perfusion imaging was performed at rest 30 minutes following the IV injection of Tc-99m tetrofosmin. The patient received 0.4 mg of regadenoson, via rapid IV push, immediately followed by Tc-99m tetrofosmin IV. Gated post stress tomographic imaging was performed 30 to 60 minutes later. See administered doses below. [facility] Date of service: 10/09/2017 7:53:34 AM Ordering Physician: Nathaniel Lakhani Requesting Physician: Indication: Dyspnea and Assessment for suspected CAD. Interpreting physician: Raul Persaud MD Patient History: History of arrhythmia, diabetes mellitus, hypertension and Prior smoker. Medications currently taking are Ca Des, diuretic, B-des, anticoagulation, ACEI, tambocor and ASA. Height: 171.45 cm BSA: 2.35 m? Weight: 116.12 kg BMI: 39.5 kg/m? Exam Type: Rest Stress Radiopharm: Tc-99m Tetrofosmin Tc-99m Tetrofosmin Dosage(mCi): 16.8 47.3 Atten Correction: not performed not performed Stress Agent: Regadenoson 0.4mg Supply provided from [facility] Resting Heart Rate: 55 bpm Resting Blood Press: 133/74 mmHg Image Quality The overall study imaging quality was deemed to be good. FINDINGS: Left Ventricle Wall Motion: 1 - All scored segments are normal. 1 1 LVEF: 71 % LEFT VENTRICLE The left ventricle is normal in size. Left ventricular systolic function is normal. Right Ventricle The right ventricle is unseen or not interrogated. Stress Test Findings: There is no scintigraphic evidence for inducible ischemia. There is no evidence of scarring. The stress test was terminated due to the following: End of Protocol. Peak HR 82 bpm. (56 % MPHR) Peak BP 142 mmHg/60 mmHg Patient experienced shortness of breath during stress. Stress ECG normal sinus rhythm and normal ST segment response. Stress complications: none. Final Baseball Player: JIMENA Transcribe Date/Time: Oct 09 2017 7:53A Dictated by : RAUL PERSAUD MD This examination was interpreted and the report reviewed and electronically signed by: RAUL PERSAUD MD on Oct 12 2017 8:22AM EST [id number] NUCLEAR STRESS Observed: 10/09/2017 Status: F [facility] REPOSITORY NAME : ANKIT WEST PID : [id number] : 1945 Gender : Male Race : ORD : [id number] Procedure Date : Oct 09 2017 08:40:47 Edit Date : Oct 12 2017 10:47:17 Protocol Name : LEXISCAN Time In Exercise Phase : 00:06:00 Max. Systolic BP : 142 mmHg Max Diastolic BP : 60 mmHg Max Heart Rate : 84 BPM Max Predicted Heart Rate : 146 BPM Recovery ECG Response (OLD) : Reason For Termination : End of Protocol Test Reason : CAD Location :[facility] Overread By : MD Madison Qarab Edited By : Phyllis Martin Referred By : NATHANIEL LAKHANI Acquired by : CAROLANN BOYKIN PROCEDURE Observed: 10/09/2017 Status: COMPLETED Source: [place] 12:00 AM CLINIC OTHER CAMPUS REPOSITORY O ID: [id number] Author: Rea Madison Service: Cardiovascular Medicine Author Type: Physician Type: Procedures Filed: 10/09/2017 11:42 AM Note Text: [facility]- Stress Test ANKIT WEST : 1945 AGE: 72 SEX: M ACCTNUM: [id number] [facility] SVC: LOCATION: ATTENDING PHYSICIAN: DATE OF STUDY: 10/09/2017 LEXISCAN EKG PART OF THE REPORT INDICATION: Coronary artery disease, dyspnea on exertion, diabetes, hypertension, and former smoker. REPORT: Resting EKG shows sinus rhythm at 55 beats per minute. Resting EKG is normal. Blood pressure was 133/74 mmHg. The patient was given Lexiscan injection and he felt shortness of breath after receiving Lexiscan for 2-3 minutes. He also felt heaviness in his arms, legs and stomach, which resolved after [address]-segment depression. The patient was noted to have slight decrease in the blood pressure down to 109/66 mmHg, but it recovered in 6 minutes. The patient had no arrhythmia noted. IMPRESSION: 1. Nondiagnostic EKG part of the stress test. However, there was no ST-segment depression noted on the EKG. 2. Correlate with nuclear SPECT imaging which will be dictated separately from the Radiology Department. Rea Madison M.D. Cardiology QS:[id number] /[id number] ARAVIND CREATININE Collected: 10/07/2017 Status: F Source: [place] 9:[address] [facility] REPOSITORY TYPE CODE TESTS RESULT OUT OF REFERENCE UNITS RANGE LAB WCRET 0.7-1.4 mg/dL Aravind Creatinine 1.1 CNPN Observed: 10/07/2017 Status: COMPLETED Source: [place] 12:[address] [facility] OTHER CAMPUS REPOSITORY Telephone ([facility]) ANKIT WEST JR. ([id number]) 1945 M Date Time Provider Department 10/07/17 TRICE DOMINGUEZ (RN) [facility] During your visit today, we recorded the following information about you: Trice Dominguez RN, RN 10/07/2017 1:38 PM Signed Left message regarding reminder for stress test on Thursday morning and given instructions Allergies As of Date: 10/07/2017 Noted Allergy Reaction FLOMAX (TAMSULOSIN HCL) 06/02/2017 7 - Swelling Comments: Couldn't sleep and acted strange CORTISONE 01/13/2012 14 - Other: See Comments Comments: Heart palpitations DEXAMETHASONE 01/13/2012 14 - Other: See Comments Comments: Heart palpitations NALDECON SENIOR EX (GUAIFENESIN) 12/31/2004 8 - GI Upset Comments: CTM=Chlor-Trimeton ornade [Other] 01/01/2005 8 - GI Upset RYNATAN (CHLORPHENIRAMINE-PE TANN*12/31/2004 8 - GI Upset SEPTRA (SULFAMETHOXAZOLE-TRIMETHO*12/31/2004 8 - GI Upset VIOXX (ROFECOXIB) 12/31/2004 8 - GI Upset Date Reviewed: 10/06/2017 Reviewed by: Nathaniel Lakhani - Fully Assessed Reason for Visit: Reminder Call [[id number]] Prescriptions as of 10/07/2017 Sig: IV CONTRAST (RADIOLOGY PROCED* CT ABD/PEL -Inject, intraveno* ENTERIC CONTRAST (RADIOLOGY P* For CT ABD/PEL W IVCON Routin* CEFADROXIL 500 MG CAPSULE Take 1 capsule by mouth twice* GLIPIZIDE ER 10 MG TABLET, EX* TAKE 1 TABLET DAILY POTASSIUM CHLORIDE ER 10 MEQ * Take 1 tablet by mouth twice * METFORMIN ER 500 MG TABLET,EX* TAKE 2 TABLETS TWICE A DAY AMLODIPINE 5 MG TABLET Take 1 tablet by mouth once d* DICYCLOMINE 10 MG CAPSULE TAKE 1 CAPSULE AT BEDTIME * FUROSEMIDE 20 MG TABLET TAKE 1 TABLET TWICE A DAY ATENOLOL 25 MG TABLET TAKE ONE-HALF (1/2) TABLET DA* WARFARIN 2 MG TABLET Take 1 tablet by mouth daily * Patient taking differently: Take 7 mg by mouth daily as d* LISINOPRIL 10 MG TABLET Take 1 tablet by mouth once d* FLECAINIDE 100 MG TABLET Take 1 tablet by mouth twice * PIOGLITAZONE 15 MG TABLET Take 1 tablet by mouth once d* WARFARIN 3 MG TABLET TAKE 1 TABLET DAILY OR DIR* WARFARIN 5 MG TABLET In combination with 2 or 3mg * NITROGLYCERIN 0.4 MG SUBLINGU* Dissolve 1 tablet under the t* ARTIFICIAL TEARS (HYPROMELLOS* Use 1 Drop in both eyes daily* LANCETS USE TO TEST BLOOD SUGAR ONCE * BLOOD SUGAR DIAGNOSTIC STRIPS USE FOR BLOOD SUGAR TESTING O* * OMEPRAZOLE 20 MG CAPSULE,RENY* Take one(1) capsule daily. * ECOTRIN LOW STRENGTH 81 MG TA* Take one(1) tablet daily. Problem List As Of Date 10/07/2017 Noted Resolved Postinflammatory pulmonary fibrosis [J84.10] Priority: B Irritable bowel syndrome [K58.9] Priority: B Atrial fibrillation [I48.91] Priority: A More... Generalized osteoarthrosis, unspecified site [M* Priority: M Hallux valgus (acquired) [M20.10] INVALID FOR* Priority: M Benign non-nodular prostatic hyperplasia with l*INVALID FOR* Priority: C Acute gastritis without mention of hemorrhage [*INVALID FOR*07/04/2014 Essential hypertension, benign [I10] INVALID FOR* Priority: A Type II or unspecified type diabetes mellitus w*INVALID FOR*12/02/2013 More... Fatty liver [K76.0] INVALID FOR* Priority: B Essential tremor [G25.0] INVALID FOR* Priority: B Right flank pain [R10.9] INVALID FOR*07/04/2014 Biliary dyskinesia [K82.8] INVALID FOR* Priority: B More... Chest pain [R07.9] INVALID FOR*07/04/2014 Knee effusion, left [M25.462] INVALID FOR*07/04/2014 More... Respiratory failure with hypoxia (HCC) [J96.91] INVALID FOR*07/04/2014 More... Normocytic anemia [D64.9] INVALID FOR*07/04/2014 More... Fall [W19.XXXA] INVALID FOR*02/07/2012 More... SUMMARY [V999.95] INVALID FOR*07/04/2014 Priority: A More... DISPOSITION AND FOLLOW-UP [V999.01] INVALID FOR*07/04/2014 Priority: D More... LOI on CPAP [G47.33, Z99.89] INVALID FOR*04/03/2014 Multinodular goiter [E04.2] INVALID FOR* Priority: B More... LOI (obstructive sleep apnea) [G47.33] INVALID FOR* Priority: B More... Trigger finger (acquired) [M65.30] INVALID FOR* Priority: M Mesenteric adenitis [I88.0] INVALID FOR* Priority: B GERD without esophagitis [K21.9] INVALID FOR* Priority: A Ex-smoker [Z87.891] INVALID FOR* Priority: C Asbestosis (HCC) [J61] INVALID FOR* Priority: B More... 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 Disorder of prostate [N42.9] INVALID FOR* Well adult exam [Z00.00] INVALID FOR* Priority: E More... Colon cancer screening [Z12.11] INVALID FOR* Morbid obesity due to excess calories (HCC) [E6*INVALID FOR* Priority: B Diabetic eye exam (HCC) [Z01.00, E11.9] INVALID FOR* Priority: A More... WILSON (dyspnea on exertion) [R06.09] INVALID FOR* Priority: B More... 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 Medicare annual wellness visit, subsequent [Z00*INVALID FOR* Priority: E More... Current use of proton pump inhibitor [Z79.899] INVALID FOR* Encounter Status:Closed by TRICE DOMINGUEZ on 10/07/17 PROGRESS Observed: 10/06/2017 Status: COMPLETED Source: [place] 2:[address] [facility] REPOSITORY HNO ID: [id number] Author: Nathaniel Lakhani Service: (none) Author Type: Physician Type: Progress Notes Filed: 10/06/2017 10:39 PM Note Text: Medicare Yearly Visit Medical B eligibilty date 02/02/2008 Date of last exam NA PAST MEDICAL HISTORY Diagnosis Date - Abdominal pain, LLQ 12/04/2014 - Atrial fibrillation (HCC) chronic - Biliary dyskinesia 10/01/2011 Symptom free at this time 03/2015 - BPH W URINARY OBS/LUTS 05/12/2006 - DIARRHEA NOS 10/12/2008 - Essential and other specified forms of tremor 09/10/2011 - Essential hypertension, benign 12/26/2009 - Fatty liver 05/08/2011 - Generalized osteoarthrosis, unspecified site hands, knees, hips - GERD without esophagitis 03/06/2015 Hiatal hernia. 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 - Trigger finger (acquired) 07/17/2014 - Type 2 diabetes mellitus with diabetic neuropathy (HCC) 03/06/2015 PAST SURGICAL HISTORY Procedure Laterality Date - COLONOSCOP W/ OR W/O [facility] SPEC 1997,1988 Colonoscopy - COLONOSCOPY W/BX 10/12/08 - COLONOSCOPY W/BX 12/04/2014 Repeat 2024 - EGD W/O [facility] SPECIMEN W/BX 10/12/08 - FECAL OCCULT BLOOD TEST 08/01/2016 negative - INCISION OF TENDON SHEATH 07/07/14 right thumb trigger release - PAST SURGICAL HISTORY OF 1961 left knee - PAST SURGICAL HISTORY OF 2013 R knee meniscus tears - STRESS TEST 07/2015 NL - THYROIDECTOMY 2004 Left side - TOTAL KNEE REPLACEMENT 05/24/2012 Left Flomax [Tamsulosin Hcl]; Cortisone; Dexamethasone; Naldecon Senior Ex [Guaifenesin]; Ornade [Other]; Rynatan [Chlorpheniramine-Pe Tannates]; Septra [Sulfamethoxazole-Trimethoprim]; Vioxx [Rofecoxib] Medications reviewed: Yes FAMILY HISTORY Problem Relation Age of Onset - Heart Failure Mother - COPD Mother - Hypertension Mother - tremors [OTHER] Father age 96. - AAA [OTHER] Father Repaired at [facility]. - Diabetes Brother - tremors [OTHER] Paternal Uncle - Heart Failure Sister 54 viral. - Cancer Brother esophagus - Cancer Sister pancreas - Cervical Cancer Maternal Aunt lung - Cancer Maternal Aunt - Idiopathic pulmonary fibrosis [OTHER] Son age 47 after 2 lung transplants. 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 Daughter Sole Pham denies regular aerobic exercise. He watches his diet for sodium, low fat and low cholesterol generally not very much. List of current specialists seen: Dr. Salamanca, Dr. Pradhan End of Live Planning discussed including patients advanced directive wishes: Yes I am willing to follow Ankit's advanced directives. Depression screen He in the past two weeks denies having felt down, depressed, hopeless or with little interest or pleasure in doing things. Functional Ability/Safety Screen 1. Was the patient's timed Up and Go test unsteady or longer than 30 seconds? No 2. Does the patient need help with the phone, transportation, shopping,preparing meals, housework, laundry, medications or managing money? No 3. Does your home have rugs in the hallway (Y), lack of grab bars in the bathroom (Y), lack of handrails on the stairs or have poor lighting? No Hearing Evaluation: hard of hearing. Has hearing aids but wont wear PHYSICAL EXAM BP 110/62 Pulse 76 Resp 20 Wt 116.1 kg (256 lb) BMI 39.50 kg/m? Alert and oriented X 3: YES Body mass index is 39.5 kg/m?. Seeing optho See below ASSESSMENT/PLAN: 72 year old male The following prevention plan was discussed during the office visit and provided to the patient: See below Nathaniel Lakhani MD Chief Complaint Patient presents with: 6 Month Exam HPI Ankit West Jr. is a 72 year old male who presents here today for extensive exam. Patient with Hx as reviewed and documented below. Has noted increased WILSON, No orthopnea or nocturnal dyspnea. Wearing CPAP and sleeps well with it. Past medical history, appointments, medications, allergies reviewed. Previous Medical History PAST MEDICAL HISTORY Diagnosis Date - Abdominal pain, LLQ 12/04/2014 - Atrial fibrillation (HCC) chronic - Biliary dyskinesia 10/01/2011 Symptom free at this time 03/2015 - BPH W URINARY OBS/LUTS 05/12/2006 - DIARRHEA NOS 10/12/2008 - Essential and other specified forms of tremor 09/10/2011 - Essential hypertension, benign 12/26/2009 - Fatty liver 05/08/2011 - Generalized osteoarthrosis, unspecified site hands, knees, hips - GERD without esophagitis 03/06/2015 Hiatal hernia. 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 - Trigger finger (acquired) 07/17/2014 - Type 2 diabetes mellitus with diabetic neuropathy (HCC) 03/06/2015 Previous Surgical History PAST SURGICAL HISTORY Procedure Laterality Date - COLONOSCOP W/ OR W/O [facility] SPEC 1997,1988 Colonoscopy - COLONOSCOPY W/BX 10/12/08 - COLONOSCOPY W/BX 12/04/2014 Repeat 2024 - EGD W/O [facility] SPECIMEN W/BX 10/12/08 - FECAL OCCULT BLOOD TEST 08/01/2016 negative - INCISION OF TENDON SHEATH 07/07/14 right thumb trigger release - PAST SURGICAL HISTORY OF 1961 left knee - PAST SURGICAL HISTORY OF 2013 R knee meniscus tears - STRESS TEST 07/2015 NL - THYROIDECTOMY 2004 Left side - TOTAL KNEE REPLACEMENT 05/24/2012 Left Family History FAMILY HISTORY Problem Relation Age of Onset - Heart Failure Mother - COPD Mother - Hypertension Mother - tremors [OTHER] Father age 96. - AAA [OTHER] Father Repaired at [facility]. - Diabetes Brother - tremors [OTHER] Paternal Uncle - Heart Failure Sister 54 viral. - Cancer Brother esophagus - Cancer Sister pancreas - Cervical Cancer Maternal Aunt lung - Cancer Maternal Aunt - Idiopathic pulmonary fibrosis [OTHER] Son age 47 after 2 lung transplants. Patient Allergies ALLERGIES Allergen Reactions - Flomax [Tamsulosin * Swelling Couldn't sleep and acted strange - Cortisone Other: See Comments Heart palpitations - Dexamethasone Other: See Comments Heart palpitations - Naldecon Senior Ex * GI Upset CTM=Chlor-Trimeton - Ornade [Other] GI Upset - Rynatan [Chlorpheni* GI Upset - Septra [Sulfamethox* GI Upset - Vioxx [Rofecoxib] GI Upset Current Medications Current Outpatient Prescriptions on File Prior to Visit: glipiZIDE XL (GLUCOTROL XL) 10 mg 24 hr tablet TAKE 1 TABLET DAILY potassium chloride ER (K-DUR, KLOR-CON) 10 mEq tablet Take 1 tablet by mouth twice daily. metFORMIN ER (GLUCOPHAGE XR) 500 mg 24 hr tablet TAKE 2 TABLETS TWICE A DAY amLODIPine (NORVASC) 5 mg tablet Take 1 tablet by mouth once daily. dicyclomine (BENTYL) 10 mg capsule TAKE 1 CAPSULE AT BEDTIME NEEDED furosemide (LASIX) 20 mg tablet TAKE 1 TABLET TWICE A DAY atenolol (TENORMIN) 25 mg tablet TAKE ONE-HALF (1/2) TABLET DAILY warfarin (COUMADIN) 2 mg tablet Take 1 tablet by mouth daily as directed. (Patient taking differently: Take 7 mg by mouth daily as directed. Alternating 7mg and 6mg ) lisinopril (PRINIVIL) 10 mg tablet Take 1 tablet by mouth once daily. flecainide (TAMBOCOR) 100 mg tablet Take 1 tablet by mouth twice daily. pioglitazone (ACTOS) 15 mg tablet Take 1 tablet by mouth once daily. warfarin (COUMADIN) 3 mg tablet TAKE 1 TABLET DAILY OR DIRECTED warfarin (COUMADIN) 5 mg tablet In combination with 2 or 3mg tablet as directed. nitroglycerin sublingual (NITROQUICK) 0.4 mg SL tablet Dissolve 1 tablet under the tongue as needed. FOR CHEST PAIN. IF NO RELIEF CALL 911 Artificial Tear, Hypromellose, (SYSTANE GEL) 0.3 % gel Use 1 Drop in both eyes daily at bedtime. omeprazole (PRILOSEC) 20 mg ORAL capsule Take one(1) capsule daily. aspirin(ECOTRIN LOW STRENGTH 81 MG TAB) Take one(1) tablet daily. Lancets lancets USE TO TEST BLOOD SUGAR ONCE A DAY AND NEEDED blood sugar diagnostic (CONTOUR TEST STRIPS) test strip USE FOR BLOOD SUGAR TESTING ONCE DAILY AND NEEDED, 250.00 No current facility-administered medications on file prior to visit. 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 Daughter Sole Galindo Review of Symptoms REVIEW OF SYSTEMS GENERAL: No weight loss, malaise or fevers HEENT: Negative for frequent or significant headaches, significant change in vision, significant vision problems, significant ear problems or hearing loss, nasal discharge, or nose bleeds, sore throat, difficulty swallowing, mouth lesions, hoarseness NECK: Negative for lumps, goiter, pain and significant neck swelling RESPIRATORY: Negative for cough, hemoptysis. Some wheezing on occasion. See HPI CARDIOVASCULAR: Negative for chest pain, leg swelling, hypertension, CHF or palpitations. Blood pressure has been low. GI: No vomiting,No heartburn or reflux symptoms. Has been having lower abdominal pain and can be daily to every other day. Will get LUQ pain with tylenol but not his regular meds. No blood. Stools have been more loose then typical with his IBS. c/o dysphagia with solids and liquids. : No history of dysuria or blood. MUSCULOSKELETAL: some stiff and sore with doing yard work. SKIN: Negative for lesions, rash, and itching PSYCH: Negative for sleep disturbance, mood disorder and recent psychosocial stressors HEMATOLOGY/LYMPHOLOGY: Negative for prolonged bleeding, bruising easily or swollen nodes ENDOCRINE: Negative for cold or heat intolerance, polyuria,and goiter. Excess thirst NEURO: No history of headaches, syncope, paralysis, seizures. Tremors have increased. Has been having dizziness with position changes. EXAM: BP 110/62 Pulse 76 Resp 20 Wt 116.1 kg (256 lb) BMI 39.50 kg/m? General Appearance: Well appearing, alert, in no acute distress, well-hydrated, well nourished., Obese. Skin: Skin color, texture, turgor normal, no suspicious rashes or lesions. Head: Normocephalic, no masses, lesions, tenderness or abnormalities. Eyes: Anicteric sclera. Pupils are equally round and reactive to light. Extraocular movements are intact. . Ears: External ears normal, canals clear. Nose/Sinuses: Nares normal, septum midline, mucosa normal, no drainage or sinus tenderness. Oropharynx: Lips, mucosa, and tongue normal, teeth and gums normal, oropharynx normal. Neck: Supple, no adenopathy; thyroid symmetric, normal size, no bruits. Lungs: Lungs clear to auscultation. No wheezing, rhonchi, rales. Heart: RRR without murmur, gallop, or rubs. No ectopy. Abdomen: Normal abdominal exam, Abdomen soft. Has tenderness to palpation on the right side. Bowel sounds normal. No masses, organomegaly. Extremities: No deformities or skin discoloration,. Has minimal edema bilaterally Musculoskeletal: Muscular strength intact, No joint swelling, deformity, or tenderness. Peripheral Pulses: Normal. Neurologic: Gait normal. Reflexes normal and symmetric. Sensation to light touch and crainal nerves 2-12 intact.. Genitalia: Normal, Penis normal. No urethral discharge. Scrotum normal to palpation. No hernia.. Rectal: Negative findings: perianal area normal, anus normal, anal sphincter tone normal, prostate enlarged with smooth capsule, Positive findings: prostate moderately tender and boggy. Health Maintenance List DILATED RETINAL EXAM due on 09/25/2017 URINE ALBUMIN CREATININE RATIO due on 04/02/2018 HBA1C due on 04/03/2018 LDL due on 10/02/2018 DIABETIC FOOT EXAM due on 10/06/2018 COLORECTAL CANCER SCREENING,SEE MODIFIER due on 12/04/2024 DTAP,TDAP,TD(2 - Td) due on 02/06/2027 ADULT PREVNAR-13 Completed INFLUENZA Completed PNEUMOVAX AGE 65 AND OVER WITH 5YR LOOKBACK Completed Data reviewed Component Latest Ref Rng AND Units 04/02/2017 10/02/2017 Protein, Total 6.3 - 8.0 g/dL 6.9 Albumin 3.9 - 4.9 g/dL 3.9 Calcium 8.5 - 10.2 mg/dL 8.7 Bilirubin, Total 0.2 - 1.3 mg/dL 0.4 Alkaline Phosphatase 36 - 108 U/L 67 AST 14 - 40 U/L 16 Glucose 74 - 99 mg/dL 117 (H) BUN 9 - 24 mg/dL 20 Creatinine 0.73 - 1.22 mg/dL 1.03 Sodium 136 - 144 mmol/L 139 Potassium 3.7 - 5.1 mmol/L 4.2 Chloride 97 - 105 mmol/L 101 CO2 22 - 30 mmol/L 26 Anion Gap 9 - 18 mmol/L 12 ALT 10 - 54 U/L 13 eGFR- >60 eGFR-All Other Races . >60 Triglyceride <150 mg/dL 136 76 Cholesterol, Total <200 mg/dL 134 125 HDL Cholesterol >39 mg/dL 38 (L) 41 VLDL Cholesterol <30 mg/dL 27 15 LDL Cholesterol <100 mg/dL 69 69 Fasting Time hrs 3 9 TC:HDL Ratio <5.10 3.53 3.05 LDL:HDL Ratio <2.54 1.82 1.68 Non HDL Cholesterol <130 mg/dL 96 84 Hemoglobin A1C 4.3 - 5.6 % 6.9 (H) 6.9 (H) Estimated Average Glucose mg/dL 151 151 PSA 0.00 - 2.59 ng/mL 0.80 A/P ASSESSMENT/PLAN: 1. Medicare annual wellness visit, subsequent - ICD9: V70.0, ICD10: Z00.00 (primary diagnosis) - Completed Digital Rectal exam - Recommended regular aerobic exercise. - Follow up for annual exam in one year. 2. Type 2 diabetes mellitus with diabetic neuropathy, without long-term current use of insulin (HCC) - ICD9: 250.60, 357.2, ICD10: E11.40 Controlled. - Continue current medications - Daily Asprin therapy recommended - BP goal of <130/80 - LDL goal of <100 - ARAVIND CREATININE - CREATININE BLD 3. Essential hypertension, benign - ICD9: 401.1, ICD10: I10 - good control - Continue current medication(s) - Recommended regular aerobic exercise. - Recommend home blood pressure monitoring, to bring results in on next visit - Goal of BP <130/80 - ARAVIND CREATININE - CREATININE BLD 4. Coronary atherosclerosis due to lipid rich plaque - ICD9: 414.3, ICD10: I25.10, I25.83 Check - ECHO - NM CARDIAC PERF STRESS/PHARM 5. GERD without esophagitis - ICD9: 530.81, ICD10: K21.9 - Continue treatment with Prilosec 20 mg QD 6. Persistent atrial fibrillation (HCC) - ICD9: 427.31, ICD10: I48.1 - Cont coumadin and cardio f/u 7. WILSON (dyspnea on exertion) - ICD9: 786.09, ICD10: R06.09 check - ECHO - NM CARDIAC PERF STRESS/PHARM - REGADENOSON 0.4 MG/5 ML INTRAVENOUS SYRINGE 8. 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 Asbestosis (HCC) - ICD9: 501, ICD10: J61 - As above 10. Irritable bowel syndrome, unspecified type - ICD9: 564.1, ICD10: K58.9 - Advised using his bentyl on a more regular basis. 11. Essential tremor - ICD9: 333.1, ICD10: G25.0 - Stable will not make any changes in Tx. 12. LOI (obstructive sleep apnea) - ICD9: 327.23, ICD10: G47.33 - Cont CPAP with benefit. 13. Arthritis, lumbar spine (HCC) - ICD9: 721.3, ICD10: M46.96 - Clinically stable. 14. Prostatitis, acute - ICD9: 601.0, ICD10: N41.0 - will treat with duricef 500 mg twice a day for 14 days. Patient does not tolerate bactrim and cipro interacts with some of his heart meds. 15. Left sided abdominal pain - ICD9: 789.09, ICD10: R10.9 - Check - CT ABD/PEL W IVCON - IV CONTRAST (RADIOLOGY PROCEDURE) - ENTERIC CONTRAST (RADIOLOGY PROCEDURE) 16. Esophageal dysphagia - ICD9: 787.20, ICD10: R13.10 Check - XR UPPER GI ROUTINE DOUBLE CONTRAST/AIR 17. Encounter for screening for cardiovascular disorders - ICD9: V81.2, ICD10: Z13.6 Check - NM CARDIAC PERF STRESS/PHARM - REGADENOSON 0.4 MG/5 ML INTRAVENOUS SYRINGE - IV START - SPECIFY - IV DISCONTINUE 18. Abdominal pain, unspecified abdominal location - ICD9: 789.00, ICD10: R10.9 - Check - CT ABD/PEL W IVCON Signed Prescriptions Disp Refills regadenoson (LEXISCAN) 0.4 mg/5 mL syrg 5 mL 0 Sig: Inject 5 mL intravenously one time only for 1 dose. Give IV push over 10 seconds and follow with 5 ml of normal saline iv contrast (will be provided with radiology test) 1 Each 0 Sig: CT ABD/PEL -Inject, intravenously, once for 1 dose.No IV access, insert saline lock prior to the beginning of sedation, infusion, injection of imaging exam. Discontinue saline lock post exam. If Pt. has a central line or IVAD, may access for administration according to line specific nursing protocol. Once exam is complete flush line and de- access according to line specific nursing protocol in the CT contrast administration guidelines link. enteric contrast (will be provided with radiology test) 1 Each 0 Sig: For CT ABD/PEL W IVCON Routine order Administer, As Directed One Time Only, via Oral, Rectal, both Oral and Rectal, Enteric Tube, Stoma or Indwelling Catheter, Enteric Contrast as designated per enteric contrast guidelines cefADROxil (DURICEF) 500 mg capsule 28 capsule 0 Sig: Take 1 capsule by mouth twice daily for 14 days. f/u 6 months routine exam, check CMP, FLP, UA, Urine microalbumin, A1c and Mg. If abdominal pain not improving patient to f/u sooner. Time with patient face to face was 40 min for extensive exam and 10 min for medicare wellness exam Nathaniel Lakhani MD CNOV Observed: 10/06/2017 Status: COMPLETED Source: [place] 2:00 PM [facility] REPOSITORY Office Visit (FAMPWS) ANKIT WEST JR. ([id number]) 1945 M Date Time Provider Department 10/06/17 2:00 PM NATHANIEL LAKHANINALLELY During your visit today, we recorded the following information about you: Pulse Respiration Blood pressure Weight 76/minute 20/minute 110/62 116.1 kg Nathaniel Lakhani MD 10/06/2017 10:39 PM Signed Medicare Yearly Visit Medical B eligibilty date 02/02/2008 Date of last exam NA PAST MEDICAL HISTORY Diagnosis Date - Abdominal pain, LLQ 12/04/2014 - Atrial fibrillation (HCC) chronic - Biliary dyskinesia 10/01/2011 Symptom free at this time 03/2015 - BPH W URINARY OBS/LUTS 05/12/2006 - DIARRHEA NOS 10/12/2008 - Essential and other specified forms of tremor 09/10/2011 - Essential hypertension, benign 12/26/2009 - Fatty liver 05/08/2011 - Generalized osteoarthrosis, unspecified site hands, knees, hips - GERD without esophagitis 03/06/2015 Hiatal hernia. 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 - Trigger finger (acquired) 07/17/2014 - Type 2 diabetes mellitus with diabetic neuropathy (HCC) 03/06/2015 PAST SURGICAL HISTORY Procedure Laterality Date - COLONOSCOP W/ OR W/O [facility] SPEC 1997,1988 Colonoscopy - COLONOSCOPY W/BX 10/12/08 - COLONOSCOPY W/BX 12/04/2014 Repeat 2024 - EGD W/O [facility] SPECIMEN W/BX 10/12/08 - FECAL OCCULT BLOOD TEST 08/01/2016 negative - INCISION OF TENDON SHEATH 07/07/14 right thumb trigger release - PAST SURGICAL HISTORY OF 1961 left knee - PAST SURGICAL HISTORY OF 2013 R knee meniscus tears - STRESS TEST 07/2015 NL - THYROIDECTOMY 2004 Left side - TOTAL KNEE REPLACEMENT 05/24/2012 Left Flomax [Tamsulosin Hcl]; Cortisone; Dexamethasone; Naldecon Senior Ex [Guaifenesin]; Ornade [Other]; Rynatan [Chlorpheniramine-Pe Tannates]; Septra [Sulfamethoxazole-Trimethoprim]; Vioxx [Rofecoxib] Medications reviewed: Yes FAMILY HISTORY Problem Relation Age of Onset - Heart Failure Mother - COPD Mother - Hypertension Mother - tremors [OTHER] Father age 96. - AAA [OTHER] Father Repaired at [facility]. - Diabetes Brother - tremors [OTHER] Paternal Uncle - Heart Failure Sister 54 viral. - Cancer Brother esophagus - Cancer Sister pancreas - Cervical Cancer Maternal Aunt lung - Cancer Maternal Aunt - Idiopathic pulmonary fibrosis [OTHER] Son age 47 after 2 lung transplants. 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 Daughter Sole Pham denies regular aerobic exercise. He watches his diet for sodium, low fat and low cholesterol generally not very much. List of current specialists seen: Dr. Salamanca, Dr. Pradhan End of Live Planning discussed including patients advanced directive wishes: Yes I am willing to follow Ankit's advanced directives. Depression screen He in the past two weeks denies having felt down, depressed, hopeless or with little interest or pleasure in doing things. Functional Ability/Safety Screen 1. Was the patient's timed Up and Go test unsteady or longer than 30 seconds? No 2. Does the patient need help with the phone, transportation, shopping,preparing meals, housework, laundry, medications or managing money? No 3. Does your home have rugs in the hallway (Y), lack of grab bars in the bathroom (Y), lack of handrails on the stairs or have poor lighting? No Hearing Evaluation: hard of hearing. Has hearing aids but wont wear PHYSICAL EXAM BP 110/62 Pulse 76 Resp 20 Wt 116.1 kg (256 lb) BMI 39.50 kg/m? Alert and oriented X 3: YES Body mass index is 39.5 kg/m?. Seeing optho See below ASSESSMENT/PLAN: 72 year old male The following prevention plan was discussed during the office visit and provided to the patient: See below Nathaniel Lakhani MD Chief Complaint Patient presents with: 6 Month Exam HPI Ankit West Jr. is a 72 year old male who presents here today for extensive exam. Patient with Hx as reviewed and documented below. Has noted increased WILSON, No orthopnea or nocturnal dyspnea. Wearing CPAP and sleeps well with it. Past medical history, appointments, medications, allergies reviewed. Previous Medical History PAST MEDICAL HISTORY Diagnosis Date - Abdominal pain, LLQ 12/04/2014 - Atrial fibrillation (HCC) chronic - Biliary dyskinesia 10/01/2011 Symptom free at this time 03/2015 - BPH W URINARY OBS/LUTS 05/12/2006 - DIARRHEA NOS 10/12/2008 - Essential and other specified forms of tremor 09/10/2011 - Essential hypertension, benign 12/26/2009 - Fatty liver 05/08/2011 - Generalized osteoarthrosis, unspecified site hands, knees, hips - GERD without esophagitis 03/06/2015 Hiatal hernia. 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 - Trigger finger (acquired) 07/17/2014 - Type 2 diabetes mellitus with diabetic neuropathy (HCC) 03/06/2015 Previous Surgical History PAST SURGICAL HISTORY Procedure Laterality Date - COLONOSCOP W/ OR W/O [facility] SPEC 1997,1988 Colonoscopy - COLONOSCOPY W/BX 10/12/08 - COLONOSCOPY W/BX 12/04/2014 Repeat 2024 - EGD W/O [facility] SPECIMEN W/BX 10/12/08 - FECAL OCCULT BLOOD TEST 08/01/2016 negative - INCISION OF TENDON SHEATH 07/07/14 right thumb trigger release - PAST SURGICAL HISTORY OF 1961 left knee - PAST SURGICAL HISTORY OF 2013 R knee meniscus tears - STRESS TEST 07/2015 NL - THYROIDECTOMY 2004 Left side - TOTAL KNEE REPLACEMENT 05/24/2012 Left Family History FAMILY HISTORY Problem Relation Age of Onset - Heart Failure Mother - COPD Mother - Hypertension Mother - tremors [OTHER] Father age 96. - AAA [OTHER] Father Repaired at [facility]. - Diabetes Brother - tremors [OTHER] Paternal Uncle - Heart Failure Sister 54 viral. - Cancer Brother esophagus - Cancer Sister pancreas - Cervical Cancer Maternal Aunt lung - Cancer Maternal Aunt - Idiopathic pulmonary fibrosis [OTHER] Son age 47 after 2 lung transplants. Patient Allergies ALLERGIES Allergen Reactions - Flomax [Tamsulosin * Swelling Couldn't sleep and acted strange - Cortisone Other: See Comments Heart palpitations - Dexamethasone Other: See Comments Heart palpitations - Naldecon Senior Ex * GI Upset CTM=Chlor-Trimeton - Ornade [Other] GI Upset - Rynatan [Chlorpheni* GI Upset - Septra [Sulfamethox* GI Upset - Vioxx [Rofecoxib] GI Upset Current Medications Current Outpatient Prescriptions on File Prior to Visit: glipiZIDE XL (GLUCOTROL XL) 10 mg 24 hr tablet TAKE 1 TABLET DAILY potassium chloride ER (K-DUR, KLOR-CON) 10 mEq tablet Take 1 tablet by mouth twice daily. metFORMIN ER (GLUCOPHAGE XR) 500 mg 24 hr tablet TAKE 2 TABLETS TWICE A DAY amLODIPine (NORVASC) 5 mg tablet Take 1 tablet by mouth once daily. dicyclomine (BENTYL) 10 mg capsule TAKE 1 CAPSULE AT BEDTIME NEEDED furosemide (LASIX) 20 mg tablet TAKE 1 TABLET TWICE A DAY atenolol (TENORMIN) 25 mg tablet TAKE ONE-HALF (1/2) TABLET DAILY warfarin (COUMADIN) 2 mg tablet Take 1 tablet by mouth daily as directed. (Patient taking differently: Take 7 mg by mouth daily as directed. Alternating 7mg and 6mg ) lisinopril (PRINIVIL) 10 mg tablet Take 1 tablet by mouth once daily. flecainide (TAMBOCOR) 100 mg tablet Take 1 tablet by mouth twice daily. pioglitazone (ACTOS) 15 mg tablet Take 1 tablet by mouth once daily. warfarin (COUMADIN) 3 mg tablet TAKE 1 TABLET DAILY OR DIRECTED warfarin (COUMADIN) 5 mg tablet In combination with 2 or 3mg tablet as directed. nitroglycerin sublingual (NITROQUICK) 0.4 mg SL tablet Dissolve 1 tablet under the tongue as needed. FOR CHEST PAIN. IF NO RELIEF CALL 911 Artificial Tear, Hypromellose, (SYSTANE GEL) 0.3 % gel Use 1 Drop in both eyes daily at bedtime. omeprazole (PRILOSEC) 20 mg ORAL capsule Take one(1) capsule daily. aspirin(ECOTRIN LOW STRENGTH 81 MG TAB) Take one(1) tablet daily. Lancets lancets USE TO TEST BLOOD SUGAR ONCE A DAY AND NEEDED blood sugar diagnostic (CONTOUR TEST STRIPS) test strip USE FOR BLOOD SUGAR TESTING ONCE DAILY AND NEEDED, 250.00 No current facility-administered medications on file prior to visit. 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 Daughter Sole Galindo Review of Symptoms REVIEW OF SYSTEMS GENERAL: No weight loss, malaise or fevers HEENT: Negative for frequent or significant headaches, significant change in vision, significant vision problems, significant ear problems or hearing loss, nasal discharge, or nose bleeds, sore throat, difficulty swallowing, mouth lesions, hoarseness NECK: Negative for lumps, goiter, pain and significant neck swelling RESPIRATORY: Negative for cough, hemoptysis. Some wheezing on occasion. See HPI CARDIOVASCULAR: Negative for chest pain, leg swelling, hypertension, CHF or palpitations. Blood pressure has been low. GI: No vomiting,No heartburn or reflux symptoms. Has been having lower abdominal pain and can be daily to every other day. Will get LUQ pain with tylenol but not his regular meds. No blood. Stools have been more loose then typical with his IBS. c/o dysphagia with solids and liquids. : No history of dysuria or blood. MUSCULOSKELETAL: some stiff and sore with doing yard work. SKIN: Negative for lesions, rash, and itching PSYCH: Negative for sleep disturbance, mood disorder and recent psychosocial stressors HEMATOLOGY/LYMPHOLOGY: Negative for prolonged bleeding, bruising easily or swollen nodes ENDOCRINE: Negative for cold or heat intolerance, polyuria,and goiter. Excess thirst NEURO: No history of headaches, syncope, paralysis, seizures. Tremors have increased. Has been having dizziness with position changes. EXAM: BP 110/62 Pulse 76 Resp 20 Wt 116.1 kg (256 lb) BMI 39.50 kg/m? General Appearance: Well appearing, alert, in no acute distress, well-hydrated, well nourished., Obese. Skin: Skin color, texture, turgor normal, no suspicious rashes or lesions. Head: Normocephalic, no masses, lesions, tenderness or abnormalities. Eyes: Anicteric sclera. Pupils are equally round and reactive to light. Extraocular movements are intact. . Ears: External ears normal, canals clear. Nose/Sinuses: Nares normal, septum midline, mucosa normal, no drainage or sinus tenderness. Oropharynx: Lips, mucosa, and tongue normal, teeth and gums normal, oropharynx normal. Neck: Supple, no adenopathy; thyroid symmetric, normal size, no bruits. Lungs: Lungs clear to auscultation. No wheezing, rhonchi, rales. Heart: RRR without murmur, gallop, or rubs. No ectopy. Abdomen: Normal abdominal exam, Abdomen soft. Has tenderness to palpation on the right side. Bowel sounds normal. No masses, organomegaly. Extremities: No deformities or skin discoloration,. Has minimal edema bilaterally Musculoskeletal: Muscular strength intact, No joint swelling, deformity, or tenderness. Peripheral Pulses: Normal. Neurologic: Gait normal. Reflexes normal and symmetric. Sensation to light touch and crainal nerves 2-12 intact.. Genitalia: Normal, Penis normal. No urethral discharge. Scrotum normal to palpation. No hernia.. Rectal: Negative findings: perianal area normal, anus normal, anal sphincter tone normal, prostate enlarged with smooth capsule, Positive findings: prostate moderately tender and boggy. Health Maintenance List DILATED RETINAL EXAM due on 09/25/2017 URINE ALBUMIN CREATININE RATIO due on 04/02/2018 HBA1C due on 04/03/2018 LDL due on 10/02/2018 DIABETIC FOOT EXAM due on 10/06/2018 COLORECTAL CANCER SCREENING,SEE MODIFIER due on 12/04/2024 DTAP,TDAP,TD(2 - Td) due on 02/06/2027 ADULT PREVNAR-13 Completed INFLUENZA Completed PNEUMOVAX AGE 65 AND OVER WITH 5YR LOOKBACK Completed Data reviewed Component Latest Ref Rng AND Units 04/02/2017 10/02/2017 Protein, Total 6.3 - 8.0 g/dL 6.9 Albumin 3.9 - 4.9 g/dL 3.9 Calcium 8.5 - 10.2 mg/dL 8.7 Bilirubin, Total 0.2 - 1.3 mg/dL 0.4 Alkaline Phosphatase 36 - 108 U/L 67 AST 14 - 40 U/L 16 Glucose 74 - 99 mg/dL 117 (H) BUN 9 - 24 mg/dL 20 Creatinine 0.73 - 1.22 mg/dL 1.03 Sodium 136 - 144 mmol/L 139 Potassium 3.7 - 5.1 mmol/L 4.2 Chloride 97 - 105 mmol/L 101 CO2 22 - 30 mmol/L 26 Anion Gap 9 - 18 mmol/L 12 ALT 10 - 54 U/L 13 eGFR- >60 eGFR-All Other Races . >60 Triglyceride <150 mg/dL 136 76 Cholesterol, Total <200 mg/dL 134 125 HDL Cholesterol >39 mg/dL 38 (L) 41 VLDL Cholesterol <30 mg/dL 27 15 LDL Cholesterol <100 mg/dL 69 69 Fasting Time hrs 3 9 TC:HDL Ratio <5.10 3.53 3.05 LDL:HDL Ratio <2.54 1.82 1.68 Non HDL Cholesterol <130 mg/dL 96 84 Hemoglobin A1C 4.3 - 5.6 % 6.9 (H) 6.9 (H) Estimated Average Glucose mg/dL 151 151 PSA 0.00 - 2.59 ng/mL 0.80 A/P ASSESSMENT/PLAN: 1. Medicare annual wellness visit, subsequent - ICD9: V70.0, ICD10: Z00.00 (primary diagnosis) - Completed Digital Rectal exam - Recommended regular aerobic exercise. - Follow up for annual exam in one year. 2. Type 2 diabetes mellitus with diabetic neuropathy, without long-term current use of insulin (HCC) - ICD9: 250.60, 357.2, ICD10: E11.40 Controlled. - Continue current medications - Daily Asprin therapy recommended - BP goal of <130/80 - LDL goal of <100 - ARAVIND CREATININE - CREATININE BLD 3. Essential hypertension, benign - ICD9: 401.1, ICD10: I10 - good control - Continue current medication(s) - Recommended regular aerobic exercise. - Recommend home blood pressure monitoring, to bring results in on next visit - Goal of BP <130/80 - ARAVIND CREATININE - CREATININE BLD 4. Coronary atherosclerosis due to lipid rich plaque - ICD9: 414.3, ICD10: I25.10, I25.83 Check - ECHO - NM CARDIAC PERF STRESS/PHARM 5. GERD without esophagitis - ICD9: 530.81, ICD10: K21.9 - Continue treatment with Prilosec 20 mg QD 6. Persistent atrial fibrillation (HCC) - ICD9: 427.31, ICD10: I48.1 - Cont coumadin and cardio f/u 7. WILSON (dyspnea on exertion) - ICD9: 786.09, ICD10: R06.09 check - ECHO - NM CARDIAC PERF STRESS/PHARM - REGADENOSON 0.4 MG/5 ML INTRAVENOUS SYRINGE 8. 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 Asbestosis (HCC) - ICD9: 501, ICD10: J61 - As above 10. Irritable bowel syndrome, unspecified type - ICD9: 564.1, ICD10: K58.9 - Advised using his bentyl on a more regular basis. 11. Essential tremor - ICD9: 333.1, ICD10: G25.0 - Stable will not make any changes in Tx. 12. LOI (obstructive sleep apnea) - ICD9: 327.23, ICD10: G47.33 - Cont CPAP with benefit. 13. Arthritis, lumbar spine (HCC) - ICD9: 721.3, ICD10: M46.96 - Clinically stable. 14. Prostatitis, acute - ICD9: 601.0, ICD10: N41.0 - will treat with duricef 500 mg twice a day for 14 days. Patient does not tolerate bactrim and cipro interacts with some of his heart meds. 15. Left sided abdominal pain - ICD9: 789.09, ICD10: R10.9 - Check - CT ABD/PEL W IVCON - IV CONTRAST (RADIOLOGY PROCEDURE) - ENTERIC CONTRAST (RADIOLOGY PROCEDURE) 16. Esophageal dysphagia - ICD9: 787.20, ICD10: R13.10 Check - XR UPPER GI ROUTINE DOUBLE CONTRAST/AIR 17. Encounter for screening for cardiovascular disorders - ICD9: V81.2, ICD10: Z13.6 Check - NM CARDIAC PERF STRESS/PHARM - REGADENOSON 0.4 MG/5 ML INTRAVENOUS SYRINGE - IV START - SPECIFY - IV DISCONTINUE 18. Abdominal pain, unspecified abdominal location - ICD9: 789.00, ICD10: R10.9 - Check - CT ABD/PEL W IVCON Signed Prescriptions Disp Refills regadenoson (LEXISCAN) 0.4 mg/5 mL syrg 5 mL 0 Sig: Inject 5 mL intravenously one time only for 1 dose. Give IV push over 10 seconds and follow with 5 ml of normal saline iv contrast (will be provided with radiology test) 1 Each 0 Sig: CT ABD/PEL -Inject, intravenously, once for 1 dose.No IV access, insert saline lock prior to the beginning of sedation, infusion, injection of imaging exam. Discontinue saline lock post exam. If Pt. has a central line or IVAD, may access for administration according to line specific nursing protocol. Once exam is complete flush line and de-access according to line specific nursing protocol in the CT contrast administration guidelines link. enteric contrast (will be provided with radiology test) 1 Each 0 Sig: For CT ABD/PEL W IVCON Routine order Administer, As Directed One Time Only, via Oral, Rectal, both Oral and Rectal, Enteric Tube, Stoma or Indwelling Catheter, Enteric Contrast as designated per enteric contrast guidelines cefADROxil (DURICEF) 500 mg capsule 28 capsule 0 Sig: Take 1 capsule by mouth twice daily for 14 days. f/u 6 months routine exam, check CMP, FLP, UA, Urine microalbumin, A1c and Mg. If abdominal pain not improving patient to f/u sooner. Time with patient face to face was 40 min for extensive exam and 10 min for medicare wellness exam MD Nathaniel Alcantara MD 10/06/2017 3:17 PM Addendum f/u if lower abdominal pain not improving in 2-3 weeks. Otherwise see you in Dec for your 6 month routine. On the day of your CAT scan do not take your Glucophage. You will need to get a blood test two days after the CAT scan to check kidney functions to see if ok to restart the Glucophage. Do not restart till we tell you ok to do so. Please get fasting labs and urine testing done on or after 03/26/2018 prior to next visit. Referring Provider: NATHANIEL LAKHANI [[id number]] Allergies As of Date: 10/06/2017 Noted Allergy Reaction FLOMAX (TAMSULOSIN HCL) 06/02/2017 7 - Swelling Comments: Couldn't sleep and acted strange CORTISONE 01/13/2012 14 - Other: See Comments Comments: Heart palpitations DEXAMETHASONE 01/13/2012 14 - Other: See Comments Comments: Heart palpitations NALDECON SENIOR EX (GUAIFENESIN) 12/31/2004 8 - GI Upset Comments: CTM=Chlor-Trimeton ornade [Other] 01/01/2005 8 - GI Upset RYNATAN (CHLORPHENIRAMINE-PE TANN*12/31/2004 8 - GI Upset SEPTRA (SULFAMETHOXAZOLE-TRIMETHO*12/31/2004 8 - GI Upset VIOXX (ROFECOXIB) 12/31/2004 8 - GI Upset Date Reviewed: 10/06/2017 Reviewed by: Nathaniel Lakhani - Fully Assessed Reason for Visit: 6 Month Exam [189] Primary Visit Diagnosis:Medicare annual wellness visit, subsequent [Z00.00] Comment:last done: 10/06/2017 Other Visit Diagnoses:Type 2 diabetes mellitus with diabetic neuropathy, without long-term current use of insulin (HCC) [E11.40] Essential hypertension, benign [I10] Coronary atherosclerosis due to lipid rich plaque [I25.10, I25.83] GERD without esophagitis [K21.9] Persistent atrial fibrillation (HCC) [I48.1] WILSON (dyspnea on exertion) [R06.09] Postinflammatory pulmonary fibrosis [J84.10] Asbestosis (HCC) [J61] Irritable bowel syndrome, unspecified type [K58.9] Essential tremor [G25.0] LOI (obstructive sleep apnea) [G47.33] Arthritis, lumbar spine (HCC) [M46.96] Prostatitis, acute [N41.0] Left sided abdominal pain [R10.9] Esophageal dysphagia [R13.10] Encounter for screening for cardiovascular disorders [Z13.6] Abdominal pain, unspecified abdominal location [R10.9] Current use of proton pump inhibitor [Z79.899] Order(s):ECHO [554966] Order #: [id number]: 1 FUTURE NM CARDIAC PERF STRESS/PHARM [4793110] Order #: [id number] FUTURE regadenoson (LEXISCAN) 0.4 mg/5 mL syrgInject 5 mL intravenously one time only for 1 dose. Give IV push over 10 seconds and follow with 5 ml of normal salineDisp: 5 mLRfl: 0 IV START - SPECIFY [[id number]] Order #: [id number]: 1 IV DISCONTINUE [0984811] Order #: [id number]: 1 XR UPPER GI ROUTINE DOUBLE CONTRAST/AIR [[id number]] Order #: [id number] FUTURE CT ABD/PEL W IVCON [[id number]] Order #: [id number] FUTURE iv contrast (will be provided with radiology test)CT ABD/PEL -Inject, intravenously, once for 1 dose.No IV access, insert saline lock prior to the beginning of sedation, infusion, injection of imaging exam. Discontinue saline lock post exam. If Pt. has a central line or IVAD, may access for administration according to line specific nursing protocol. Once exam is complete flush line and de- access according to line specific nursing protocol in the CT contrast administration guidelines link.Disp: 1 EachRfl: 0 enteric contrast (will be provided with radiology test)For CT ABD/PEL W IVCON Routine order Administer, As Directed One Time Only, via Oral, Rectal, both Oral and Rectal, Enteric Tube, Stoma or Indwelling Catheter, Enteric Contrast as designated per enteric contrast guidelinesDisp: 1 EachRfl: 0 cefADROxil (DURICEF) 500 mg capsuleTake 1 capsule by mouth twice daily for 14 days.Disp: 28 capsuleRfl: 0 ARAVIND CREATININE [SQWCRET] Order #: [id number] FUTURE CREATININE BLD [SQCRET] Order #: [id number] FUTURE COMP METABOLIC PANEL [SQCMP] Order #: [id number] FUTURE HGB A1C [AFWAD7A] Order #: [id number] FUTURE LIPID PANEL BASIC [SQLIPB] Order #: [id number] FUTURE URINALYSIS WITH MICROSCOPIC [SQUAWMIC] Order #: [id number] FUTURE ALBUMIN/CREAT RATIO RND UR [SQUACR] Order #: [id number] FUTURE MAGNESIUM BLD [SQMG1] Order #: [id number] FUTURE Prescriptions as of 10/06/2017 Sig: GLIPIZIDE ER 10 MG TABLET, EX* TAKE 1 TABLET DAILY POTASSIUM CHLORIDE ER 10 MEQ * Take 1 tablet by mouth twice * METFORMIN ER 500 MG TABLET,EX* TAKE 2 TABLETS TWICE A DAY AMLODIPINE 5 MG TABLET Take 1 tablet by mouth once d* DICYCLOMINE 10 MG CAPSULE TAKE 1 CAPSULE AT BEDTIME * FUROSEMIDE 20 MG TABLET TAKE 1 TABLET TWICE A DAY ATENOLOL 25 MG TABLET TAKE ONE-HALF (1/2) TABLET DA* WARFARIN 2 MG TABLET Take 1 tablet by mouth daily * Patient taking differently: Take 7 mg by mouth daily as d* LISINOPRIL 10 MG TABLET Take 1 tablet by mouth once d* FLECAINIDE 100 MG TABLET Take 1 tablet by mouth twice * PIOGLITAZONE 15 MG TABLET Take 1 tablet by mouth once d* WARFARIN 3 MG TABLET TAKE 1 TABLET DAILY OR DIR* WARFARIN 5 MG TABLET In combination with 2 or 3mg * NITROGLYCERIN 0.4 MG SUBLINGU* Dissolve 1 tablet under the t* ARTIFICIAL TEARS (HYPROMELLOS* Use 1 Drop in both eyes daily* * OMEPRAZOLE 20 MG CAPSULE,RENY* Take one(1) capsule daily. * ECOTRIN LOW STRENGTH 81 MG TA* Take one(1) tablet daily. REGADENOSON 0.4 MG/5 ML INTRA* Inject 5 mL intravenously one* IV CONTRAST (RADIOLOGY PROCED* CT ABD/PEL -Inject, intraveno* ENTERIC CONTRAST (RADIOLOGY P* For CT ABD/PEL W IVCON Routin* CEFADROXIL 500 MG CAPSULE Take 1 capsule by mouth twice* LANCETS USE TO TEST BLOOD SUGAR ONCE * BLOOD SUGAR DIAGNOSTIC STRIPS USE FOR BLOOD SUGAR TESTING O* Medication notes this encounter TAMSULOSIN 0.4 MG CAPSULE >> Nathaniel Lakhani MD 10/06/2017 2:12 PM couldn't sleep Problem List As Of Date 10/06/2017 Noted Resolved Postinflammatory pulmonary fibrosis [J84.10] Priority: B Irritable bowel syndrome [K58.9] Priority: B Atrial fibrillation [I48.91] Priority: A More... Generalized osteoarthrosis, unspecified site [M* Priority: M Hallux valgus (acquired) [M20.10] INVALID FOR* Priority: M Benign non-nodular prostatic hyperplasia with l*INVALID FOR* Priority: C Acute gastritis without mention of hemorrhage [*INVALID FOR*07/04/2014 Essential hypertension, benign [I10] INVALID FOR* Priority: A Type II or unspecified type diabetes mellitus w*INVALID FOR*12/02/2013 More... Fatty liver [K76.0] INVALID FOR* Priority: B Essential tremor [G25.0] INVALID FOR* Priority: B Right flank pain [R10.9] INVALID FOR*07/04/2014 Biliary dyskinesia [K82.8] INVALID FOR* Priority: B More... Chest pain [R07.9] INVALID FOR*07/04/2014 Knee effusion, left [M25.462] INVALID FOR*07/04/2014 More... Respiratory failure with hypoxia (HCC) [J96.91] INVALID FOR*07/04/2014 More... Normocytic anemia [D64.9] INVALID FOR*07/04/2014 More... Fall [W19.XXXA] INVALID FOR*02/07/2012 More... SUMMARY [V999.95] INVALID FOR*07/04/2014 Priority: A More... DISPOSITION AND FOLLOW-UP [V999.01] INVALID FOR*07/04/2014 Priority: D More... LOI on CPAP [G47.33, Z99.89] INVALID FOR*04/03/2014 Multinodular goiter [E04.2] INVALID FOR* Priority: B More... LOI (obstructive sleep apnea) [G47.33] INVALID FOR* Priority: B More... Trigger finger (acquired) [M65.30] INVALID FOR* Priority: M Mesenteric adenitis [I88.0] INVALID FOR* Priority: B GERD without esophagitis [K21.9] INVALID FOR* Priority: A Ex-smoker [Z87.891] INVALID FOR* Priority: C Asbestosis (HCC) [J61] INVALID FOR* Priority: B More... 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 Disorder of prostate [N42.9] INVALID FOR* Well adult exam [Z00.00] INVALID FOR* Priority: E More... Colon cancer screening [Z12.11] INVALID FOR* Morbid obesity due to excess calories (HCC) [E6*INVALID FOR* Priority: B Diabetic eye exam (HCC) [Z01.00, E11.9] INVALID FOR* Priority: A More... WILSON (dyspnea on exertion) [R06.09] INVALID FOR* Priority: B More... 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 Medicare annual wellness visit, subsequent [Z00*INVALID FOR* Priority: E More... Current use of proton pump inhibitor [Z79.899] INVALID FOR* Other instructions from your clinician: f/u if lower abdominal pain not improving in 2-3 weeks. Otherwise see you in Dec for your 6 month routine. On the day of your CAT scan do not take your Glucophage. You will need to get a blood test two days after the CAT scan to check kidney functions to see if ok to restart the Glucophage. Do not restart till we tell you ok to do so. Please get fasting labs and urine testing done on or after 03/26/2018 prior to next visit. Prescriptions ordered this encounter Disp Refills Start End REGADENOSON 0.4 MG/5 ML INTRAVENOUS * 5 mL 0 10/06/2017 10/06/2017 Class: In Office Route: INTRAVENOUS Sig: Inject 5 mL intravenously one time only for 1 dose. Give IV push over 10 seconds and follow with 5 ml of normal saline IV CONTRAST (RADIOLOGY PROCEDURE) 1 Ea* 0 10/06/2017 10/07/2017 Class: In Office Sig: CT ABD/PEL -Inject, intravenously, once for 1 dose.No IV access, insert saline lock prior to the beginning of sedation, infusion, injection of imaging exam. Discontinue saline lock post exam. If Pt. has a central line or IVAD, may access for administration according to line specific nursing protocol. Once exam is complete flush line and de-access according to line specific nursing protocol in the CT contrast administration guidelines link. ENTERIC CONTRAST (RADIOLOGY PROCEDUR* 1 Ea* 0 10/06/2017 10/07/2017 Class: In Office Sig: For CT ABD/PEL W IVCON Routine order Administer, As Directed One Time Only, via Oral, Rectal, both Oral and Rectal, Enteric Tube, Stoma or Indwelling Catheter, Enteric Contrast as designated per enteric contrast guidelines CEFADROXIL 500 MG CAPSULE 28 c* 0 10/06/2017 10/20/2017 Route: ORAL Sig: Take 1 capsule by mouth twice daily for 14 days. Medications Discontinued During This Encounter tamsulosin ER (FLOMAX) 0.4 mg cp24 30 c* 2 05/05/2017 10/06/2017 Route: ORAL Sig: Take 1 capsule by mouth daily at bedtime. Patient not taking: Reported on 06/02/2017 Disc: Discontinued by Patient Disposition: Return in about 6 months (around 04/07/2018) for routine. Follow-up and Disposition History Recorded Encounter Status:Closed by NATHANIEL LAKHANI on 10/06/17 PROTIME Collected: 10/02/2017 Status: F Source: [place] 8:03 AM [facility] REPOSITORY TYPE CODE TESTS RESULT OUT OF RANGE REFERENCE UNITS LAB PSEC 9.7-13.0 sec High PT Sec 27.0 LAB INR 0.9-1.3 High PT INR 2.8 Result Comment: Vitamin K Antagonist (VKA) Therapeutic Range: INR 2 to 3 (Target INR of 2.5) Note: For patients treated with VKA drugs, such as warfarin, the [place] [employer] 2012 Guideline recommends a therapeutic INR range of 2 to 3 (target INR of 2.5). This recommendation includes high-risk patients with antiphospholipid syndrome with previous arterial or venous thromboembolism, current-generation mechanical or bioprosthetic aortic heart valve replacement. Note: Patients with mechanical aortic valve replacement and additional risk factors for thromboembolic events (atrial fibrillation, previous thromboembolism, LV dysfunction, hypercoagulable conditions) or an older generation mechanical AVR (i.e., ball in-Cage) or any mechanical MVR should have a INR therapeutic range of 2.5 to 3.5 (target INR of 3). Na GH, et al. Chest 2012, 141:7S-47S Dave KUMAR et al. [facility] 2017, 70: 252-289 Performed By: #### PT, HBA1C, LIPB, PSA #### [facility] [address] [address] HEMOGLOBIN A1C Collected: 10/02/2017 Status: F Source: [place] 8:03 AM [facility] REPOSITORY TYPE CODE TESTS RESULT OUT OF REFERENCE UNITS RANGE LAB HGBA1C 4.3-5.6 % High Hemoglobin A1c 6.9 LAB HBA0 mg/dL Est. Average Glucose 151 Result Comment: eAG: (Estimated average glucose) is a calculated value from HgbA1c and is client support representative of the average blood glucose level in the last 2-3 month period. Performed By: #### PT, HBA1C, LIPB, PSA #### [facility] [address] [place], [place] [address] LIPID PANEL, BASIC Collected: 10/02/2017 Status: F Source: [place] 8:03 AM [facility] REPOSITORY TYPE CODE TESTS RESULT OUT OF REFERENCE UNITS RANGE LAB CHOL <200 mg/dL Cholesterol 125 Result Comment: <200 mg/dL, Desirable 200-239 mg/dL, Borderline high >239 mg/dL, High LAB TRIGLY <150 mg/dL Triglyceride 76 Result Comment: <150 mg/dL, Normal 150-199 mg/dL, Borderline high 200-499 mg/dL, High >499 mg/dL, Very high LAB HDL >39 mg/dL HDL-Cholesterol 41 Result Comment: 40-59 mg/dL, Acceptable >59 mg/dL, High: Negative risk factor for coronary heart disease <40 mg/dL, Low: Positive risk factor for coronary heart disease LAB LDL <100 mg/dL LDL-Cholesterol 69 Result Comment: <100 mg/dL, Optimal 100-129 mg/dL, Near optimal/above optimal 130-159 mg/dL, Borderline high 160-189 mg/dL, High >189 mg/dL, Very high Secondary prevention optimal LDL Cholesterol levels are recommended to be < 70 mg/dL LAB NONHDL <130 mg/dL Non HDL Cholesterol 84 Result Comment: <130 mg/dL, Optimal 130-159 mg/dL, Near optimal/above optimal 160-189 mg/dL, Borderline high 190-219 mg/dL, High >219 mg/dL, Very high Secondary prevention optimal non HDL Cholesterol levels are recommended to be < 100 mg/dL LAB FT hrs Fasting Time 9 LAB VLDL <30 mg/dL VLDL Cholesterol 15 LAB TCHDL <5.10 TC:HDL Ratio 3.05 LAB LDLHDL <2.54 LDL:HDL Ratio 1.68 Result Comment: Reference: 1. National Cholesterol Education Program ATP III Guideline At-A-Glance Quick Desk Reference: National Heart, Lung, and Blood [place]. National Institutes of Health. 2001: NIH Publication No. 01-3305. 2. An International Atherosclerosis Society position paper: global recommendations for the management of dyslipidemia: executive summary, Atherosclerosis. 2014: 232(2):410-413. Performed By: #### PT, HBA1C, LIPB, PSA #### [facility] [address] [place], [place] [address] PSA, DIAGNOSTIC Collected: 10/02/2017 Status: F Source: [place] 8:03 AM [facility] REPOSITORY TYPE CODE TESTS RESULT OUT OF REFERENCE UNITS RANGE LAB PSA 0.00-2.59 ng/mL PSA, Diagnostic 0.80 Result Comment: Total PSA test methodology used is the Electrochemiluminescence Immunoassay. Performed By: #### PT, HBA1C, LIPB, PSA #### [facility] [address] [place], [place] [address] PROTIME Collected: 08/18/2017 Status: F Source: [place] 9:15 AM [facility] REPOSITORY TYPE CODE TESTS RESULT OUT OF RANGE REFERENCE UNITS LAB PSEC 9.7-13.0 sec High PT Sec 23.2 LAB INR 0.9-1.3 High PT INR 2.4 Result Comment: Vitamin K Antagonist (VKA) Therapeutic Range: INR 2 to 3 (Target INR of 2.5) Note: For patients treated with VKA drugs, such as warfarin, the [place] [employer] 2012 Guideline recommends a therapeutic INR range of 2 to 3 (target INR of 2.5). This recommendation includes high-risk patients with antiphospholipid syndrome with previous arterial or venous thromboembolism, current-generation mechanical or bioprosthetic aortic heart valve replacement. Note: Patients with mechanical aortic valve replacement and additional risk factors for thromboembolic events (atrial fibrillation, previous thromboembolism, LV dysfunction, hypercoagulable conditions) or an older generation mechanical AVR (i.e., ball in-Cage) or any mechanical MVR should have a INR therapeutic range of 2.5 to 3.5 (target INR of 3). Na GH, et al. Chest 2012, 141:7S-47S Dave RA et al. [facility] 2017, 70: 252-289 Performed By: #### PT #### [facility] [address] [place] [id number] PROGRESS Observed: 07/08/2017 Status: COMPLETED Source: [place] 8:41 PM [facility] REPOSITORY HNO ID: [id number] Author: Nathaniel Lakhani Service: (none) Author Type: Physician Type: Progress Notes Filed: 07/08/2017 8:41 PM Note Text: Noted. PROGRESS Observed: 07/08/2017 Status: COMPLETED Source: [place] 4:52 PM [facility] REPOSITORY HNO ID: [id number] Author: Nika Hatch) Bertin Service: (none) Author Type: Registered Nurse Type: Progress Notes Filed: 07/08/2017 4:54 PM Note Text: PRIMARY CARE COORDINATION DISCHARGE Patient has been identified by name and date of : Yes Patient discharged from Primary Care Coordination: YES Goals met Decreased number of hospital admissions over a 6-12 month period Appointment adherence (PCP and specialists) over 6-12 month period Diagnostic/laboratory/screening adherence over 6-12 month period Patient demonstrates ability to set and achieve healthcare self-management goals Health outcomes are maximized, evidence by patient-centered clinical outcomes Goals not met N/A Patient knowledgeable and confident in contacting Health Care Providers for questions or concerns: YES Reinforced with patient and/or caregiver that Primary Care Coordination may be reinitiated if a change in status warrants navigation readmission: NO Discussed with: PCP What was the Focus/Challenges addressed in Care Coordination? Education on Chronic Disease Management Resources Disposition: Follow up with PCP follow Up with Specialists Care Team Tab - End: YES Nika Denton, RN CNPTOUTREACH Observed: 07/08/2017 Status: COMPLETED Source: [place] 12:00 AM [facility] REPOSITORY Patient Outreach (FAMPWS) ANKIT WEST JR. ([id number]) 1945 M Date Time Provider Department 07/08/17 NIKA DENTON (RN) FAMYolandaWS During your visit today, we recorded the following information about you: Nika Denton RN 07/08/2017 4:54 PM Signed PRIMARY CARE COORDINATION DISCHARGE Patient has been identified by name and date of : Yes Patient discharged from Primary Care Coordination: YES Goals met Decreased number of hospital admissions over a 6-12 month period Appointment adherence (PCP and specialists) over 6-12 month period Diagnostic/laboratory/screening adherence over 6-12 month period Patient demonstrates ability to set and achieve healthcare self-management goals Health outcomes are maximized, evidence by patient-centered clinical outcomes Goals not met N/A Patient knowledgeable and confident in contacting Health Care Providers for questions or concerns: YES Reinforced with patient and/or caregiver that Primary Care Coordination may be reinitiated if a change in status warrants navigation readmission: NO Discussed with: PCP What was the Focus/Challenges addressed in Care Coordination? Education on Chronic Disease Management Resources Disposition: Follow up with PCP follow Up with Specialists Care Team Tab - ANDquot;EndANDquot;: YES KIMBERLY Knowles MD 07/08/2017 8:41 PM Signed Noted. Allergies As of Date: 07/08/2017 Noted Allergy Reaction FLOMAX (TAMSULOSIN HCL) 06/02/2017 7 - Swelling NALDECON SENIOR EX (GUAIFENESIN) 12/31/2004 8 - GI Upset Comments: CTM=Chlor-Trimeton RYNATAN (CHLORPHENIRAMINE-PE TANN*12/31/2004 8 - GI Upset SEPTRA (SULFAMETHOXAZOLE-TRIMETHO*12/31/2004 8 - GI Upset VIOXX (ROFECOXIB) 12/31/2004 8 - GI Upset ornade [Other] 01/01/2005 8 - GI Upset Date Reviewed: 06/02/2017 Reviewed by: Laura Hoang Jr. - Fully Assessed Reason for Visit: Api Developer- Other [[id number]] Cmt: Primary Care Coordination Discharge Prescriptions as of 07/08/2017 Sig: AMLODIPINE 5 MG TABLET Take 1 tablet by mouth once d* DICYCLOMINE 10 MG CAPSULE TAKE 1 CAPSULE AT BEDTIME * FUROSEMIDE 20 MG TABLET TAKE 1 TABLET TWICE A DAY ATENOLOL 25 MG TABLET TAKE ONE-HALF (1/2) TABLET DA* WARFARIN 2 MG TABLET Take 1 tablet by mouth daily * LISINOPRIL 10 MG TABLET Take 1 tablet by mouth once d* FLECAINIDE 100 MG TABLET Take 1 tablet by mouth twice * TAMSULOSIN 0.4 MG CAPSULE Take 1 capsule by mouth daily* Patient not taking: Reported on 06/02/2017 PIOGLITAZONE 15 MG TABLET Take 1 tablet by mouth once d* GLIPIZIDE ER 10 MG TABLET, EX* TAKE 1 TABLET DAILY POTASSIUM CHLORIDE ER 10 MEQ * Take 1 tablet by mouth twice * WARFARIN 3 MG TABLET TAKE 1 TABLET DAILY OR DIR* METFORMIN ER 500 MG TABLET,EX* TAKE 2 TABLETS TWICE A DAY WARFARIN 5 MG TABLET In combination with 2 or 3mg * NITROGLYCERIN 0.4 MG SUBLINGU* Dissolve 1 tablet under the t* ARTIFICIAL TEARS (HYPROMELLOS* Use 1 Drop in both eyes daily* LANCETS USE TO TEST BLOOD SUGAR ONCE * BLOOD SUGAR DIAGNOSTIC STRIPS USE FOR BLOOD SUGAR TESTING O* * OMEPRAZOLE 20 MG CAPSULE,RENY* Take one(1) capsule daily. * ECOTRIN LOW STRENGTH 81 MG TA* Take one(1) tablet daily. 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 Generalized osteoarthrosis, unspecified site [M* Priority: M Hallux valgus (acquired) [M20.10] INVALID FOR* Priority: M Benign non-nodular prostatic hyperplasia with l*INVALID FOR* Priority: C Acute gastritis without mention of hemorrhage [*INVALID FOR*07/04/2014 Essential hypertension, benign [I10] INVALID FOR* Priority: A Type II or unspecified type diabetes mellitus w*INVALID FOR*12/02/2013 More... Fatty liver [K76.0] INVALID FOR* Priority: B Essential tremor [G25.0] INVALID FOR* Priority: B Right flank pain [R10.9] INVALID FOR*07/04/2014 Biliary dyskinesia [K82.8] INVALID FOR* Priority: B More... Chest pain [R07.9] INVALID FOR*07/04/2014 Knee effusion, left [M25.462] INVALID FOR*07/04/2014 More... Respiratory failure with hypoxia (HCC) [J96.91] INVALID FOR*07/04/2014 More... Normocytic anemia [D64.9] INVALID FOR*07/04/2014 More... Fall [W19.XXXA] INVALID FOR*02/07/2012 More... SUMMARY [V999.95] INVALID FOR*07/04/2014 Priority: A More... DISPOSITION AND FOLLOW-UP [V999.01] INVALID FOR*07/04/2014 Priority: D More... LOI on CPAP [G47.33, Z99.89] INVALID FOR*04/03/2014 Multinodular goiter [E04.2] INVALID FOR* Priority: B More... LOI (obstructive sleep apnea) [G47.33] INVALID FOR* Priority: B More... Trigger finger (acquired) [M65.30] INVALID FOR* Priority: M Mesenteric adenitis [I88.0] INVALID FOR* Priority: B GERD without esophagitis [K21.9] INVALID FOR* Priority: A Ex-smoker [Z87.891] INVALID FOR* Priority: C Asbestosis (HCC) [J61] INVALID FOR* Priority: B More... 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 Disorder of prostate [N42.9] INVALID FOR* Well adult exam [Z00.00] INVALID FOR* Priority: E More... Colon cancer screening [Z12.11] INVALID FOR* Morbid obesity due to excess calories (HCC) [E6*INVALID FOR* Priority: B Diabetic eye exam (HCC) [E11.9, Z01.00] INVALID FOR* Priority: A More... WILSON (dyspnea on exertion) [R06.09] INVALID FOR* Priority: B More... 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 Encounter Status:Closed by NATHANIEL LAKHANI on 07/08/17 PROTIME Collected: 06/29/2017 Status: F Source: [place] 9:20 AM [facility] REPOSITORY TYPE CODE TESTS RESULT OUT OF RANGE REFERENCE UNITS LAB PSEC 9.7-13.0 sec High PT Sec 20.4 LAB INR 0.9-1.3 High PT INR 2.1 Result Comment: Vitamin K Antagonist (VKA) Therapeutic Range: INR 2 to 3 (Target INR of 2.5) Note: For patients treated with VKA drugs, such as warfarin, the [place] [employer] 2012 Guideline recommends a therapeutic INR range of 2 to 3 (target INR of 2.5). This recommendation includes high-risk patients with antiphospholipid syndrome with previous arterial or venous thromboembolism, current-generation mechanical or bioprosthetic aortic heart valve replacement. Note: Patients with mechanical aortic valve replacement and additional risk factors for thromboembolic events (atrial fibrillation, previous thromboembolism, LV dysfunction, hypercoagulable conditions) or an older generation mechanical AVR (i.e., ball in-Cage) or any mechanical MVR should have a INR therapeutic range of 2.5 to 3.5 (target INR of 3). Na GH, et al. Chest 2012, 141:7S-47S Dave RA, et al. [facility] 2017, 70: 252-289 Performed By: #### PT #### [facility] [address] [address] PROGRESS Observed: 06/02/2017 Status: COMPLETED Source: [place] 1:17 PM [facility] REPOSITORY HNO ID: [id number] Author: Laura Hoang Jr. Service: (none) Author Type: Physician Type: Progress Notes Filed: 06/02/2017 1:18 PM Note Text: ESTABLISHED PATIENT OFFICE VISIT HPI Ankit West Jr. is a 72 year old male who presents refer for L flank pain, on and off. No imaging done yet. Also has low back pain. Also co weak stream at times with burning at the end of the stream. pvr 65cc. psa reviewed .6. No hematuria. Non smoker. No constipation. ++caffeine 05/23/17 - renal us discussed, normal. Did not tolerate flomax due to nasal congestion. ua neg today. Discussed cysto and trying other meds. Overall dysuria causes very little degree of bother. He understands that without cysto can't be 100% sure there is no other pathology contributing. Wishes to hold for now. LAB: Creatinine Date Value Ref Range Status 04/02/2017 1.03 0.73 - 1.22 mg/dL Final PSA (ng/mL) Date Value 08/01/2016 0.60 Glucose, Urine (mg/dL) Date Value 04/02/2017 Negative Bilirubin, Urine (no units) Date Value 04/02/2017 Negative Ketones, Urine (no units) Date Value 04/02/2017 Negative Specific [place], Ur (no units) Date Value 04/02/2017 1.025 Hemoglobin/Blood,Ur ( ) Date Value 04/02/2017 Negative pH, Urine (no units) Date Value 04/02/2017 6.0 Protein, Urine (mg/dL) Date Value 04/02/2017 Negative Urobilinogen, Urine (EU) Date Value 09/09/2014 2 Nitrites (no units) Date Value 04/02/2017 Negative Leukocytes (no units) Date Value 09/09/2014 norm WBC, Urine (/HPF) Date Value 04/02/2017 0-5 Color/Appearance (comment:) Date Value 09/09/2014 drk yellow/clear MEDICATIONS: furosemide (LASIX) 20 mg tablet TAKE 1 TABLET TWICE A DAY atenolol (TENORMIN) 25 mg tablet TAKE ONE-HALF (1/2) TABLET DAILY warfarin (COUMADIN) 2 mg tablet Take 1 tablet by mouth daily as directed. lisinopril (PRINIVIL) 10 mg tablet Take 1 tablet by mouth once daily. flecainide (TAMBOCOR) 100 mg tablet Take 1 tablet by mouth twice daily. dicyclomine (BENTYL) 10 mg capsule Take 1 capsule by mouth at bedtime as needed. pioglitazone (ACTOS) 15 mg tablet Take 1 tablet by mouth once daily. glipiZIDE XL (GLUCOTROL XL) 10 mg 24 hr tablet TAKE 1 TABLET DAILY amLODIPine (NORVASC) 10 mg tablet Take 0.5 tablets by mouth once daily. potassium chloride ER (K-DUR, KLOR-CON) 10 mEq tablet Take 1 tablet by mouth twice daily. warfarin (COUMADIN) 3 mg tablet TAKE 1 TABLET DAILY OR DIRECTED metFORMIN ER (GLUCOPHAGE XR) 500 mg 24 hr tablet TAKE 2 TABLETS TWICE A DAY warfarin (COUMADIN) 5 mg tablet In combination with 2 or 3mg tablet as directed. nitroglycerin sublingual (NITROQUICK) 0.4 mg SL tablet Dissolve 1 tablet under the tongue as needed. FOR CHEST PAIN. IF NO RELIEF CALL 911 Artificial Tear, Hypromellose, (SYSTANE GEL) 0.3 % gel Use 1 Drop in both eyes daily at bedtime. Lancets lancets USE TO TEST BLOOD SUGAR ONCE A DAY AND NEEDED blood sugar diagnostic (CONTOUR TEST STRIPS) test strip USE FOR BLOOD SUGAR TESTING ONCE DAILY AND NEEDED, 250.00 omeprazole (PRILOSEC) 20 mg ORAL capsule Take one(1) capsule daily. aspirin(ECOTRIN LOW STRENGTH 81 MG TAB) Take one(1) tablet daily. tamsulosin ER (FLOMAX) 0.4 mg cp24 Take 1 capsule by mouth daily at bedtime. REVIEW OF SYSTEMS Review of Systems Constitutional: Negative. Respiratory: Negative. Cardiovascular: Negative. Gastrointestinal: Negative. Genitourinary: Negative. Skin: Negative. Neurological: Negative. Psychiatric/Behavioral: Negative. HISTORIES PAST MEDICAL HISTORY Diagnosis Date - Abdominal pain, LLQ 12/04/2014 - Atrial fibrillation (HCC) chronic - Biliary dyskinesia 10/01/2011 Symptom free at this time 03/2015 - BPH W URINARY OBS/LUTS 05/12/2006 - DIARRHEA NOS 10/12/2008 - Essential and other specified forms of tremor 09/10/2011 - Essential hypertension, benign 12/26/2009 - Fatty liver 05/08/2011 - Generalized osteoarthrosis, unspecified site hands, knees, hips - GERD without esophagitis 03/06/2015 Hiatal hernia. 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 - AAA [OTHER] Father Repaired at [facility]. - Diabetes Brother - tremors [OTHER] Paternal Uncle - Heart Failure Sister 54 viral. - Cancer Brother esophagus - Cancer Sister pancreas - Cervical Cancer Maternal Aunt lung - Cancer Maternal Aunt - Idiopathic pulmonary fibrosis [OTHER] Son age 47 after 2 lung transplants. SOCIAL HISTORY Social History Substance Use Topics - Smoking status: Former Smoker Packs/day: 3.00 Years: 37.00 Types: Cigarettes Quit date: 05/04/1987 - Smokeless tobacco: Never Used - Alcohol use 1.5 oz/week 1 Cans of Beer (12oz) per week Comment: occasional PHYSICAL EXAMINATION General appearance: Well appearing, alert, in no acute distress, well-hydrated, well nourished Skin: Skin color, texture, turgor normal, no suspicious rashes or lesions Respiratory:+ effort Cardiovascular: Not examined GI: Normal abdominal exam, Abdomen soft, non-tender. Bowel sounds normal. No masses, organomegaly Musculoskeletal: Negative Neuro: Negative Genitourinary: not examined Impression: (R30.0) Dysuria (primary encounter diagnosis) Plan: adrian Hoang Jr, MD 06/02/2017 CNOV Observed: 06/02/2017 Status: COMPLETED Source: [place] 1:15 PM [facility] REPOSITORY Office Visit (UROLMD) ANKIT WEST JR. ([id number]) 1945 M Date Time Provider Department 06/02/17 1:15 PM LAURA HOANG JR UROLMD During your visit today, we recorded the following information about you: Temperature Pulse Blood pressure Weight 97.5 degrees 90/minute 125/75 117.1 kg Height 1.715 m Laura Hoang Jr, MD 06/02/2017 1:18 PM Signed ESTABLISHED PATIENT OFFICE VISIT HPI Ankit West Jr. is a 72 year old male who presents refer for L flank pain, on and off. No imaging done yet. Also has low back pain. Also co weak stream at times with burning at the end of the stream. pvr 65cc. psa reviewed .6. No hematuria. Non smoker. No constipation. ++caffeine 05/23/17 - renal us discussed, normal. Did not tolerate flomax due to nasal congestion. ua neg today. Discussed cysto and trying other meds. Overall dysuria causes very little degree of bother. He understands that without cysto can't be 100% sure there is no other pathology contributing. Wishes to hold for now. LAB: Creatinine Date Value Ref Range Status 04/02/2017 1.03 0.73 - 1.22 mg/dL Final PSA (ng/mL) Date Value 08/01/2016 0.60 Glucose, Urine (mg/dL) Date Value 04/02/2017 Negative Bilirubin, Urine (no units) Date Value 04/02/2017 Negative Ketones, Urine (no units) Date Value 04/02/2017 Negative Specific [place], Ur (no units) Date Value 04/02/2017 1.025 Hemoglobin/Blood,Ur ( ) Date Value 04/02/2017 Negative pH, Urine (no units) Date Value 04/02/2017 6.0 Protein, Urine (mg/dL) Date Value 04/02/2017 Negative Urobilinogen, Urine (EU) Date Value 09/09/2014 2 Nitrites (no units) Date Value 04/02/2017 Negative Leukocytes (no units) Date Value 09/09/2014 norm WBC, Urine (/HPF) Date Value 04/02/2017 0-5 Color/Appearance (comment:) Date Value 09/09/2014 drk yellow/clear MEDICATIONS: furosemide (LASIX) 20 mg tablet TAKE 1 TABLET TWICE A DAY atenolol (TENORMIN) 25 mg tablet TAKE ONE-HALF (1/2) TABLET DAILY warfarin (COUMADIN) 2 mg tablet Take 1 tablet by mouth daily as directed. lisinopril (PRINIVIL) 10 mg tablet Take 1 tablet by mouth once daily. flecainide (TAMBOCOR) 100 mg tablet Take 1 tablet by mouth twice daily. dicyclomine (BENTYL) 10 mg capsule Take 1 capsule by mouth at bedtime as needed. pioglitazone (ACTOS) 15 mg tablet Take 1 tablet by mouth once daily. glipiZIDE XL (GLUCOTROL XL) 10 mg 24 hr tablet TAKE 1 TABLET DAILY amLODIPine (NORVASC) 10 mg tablet Take 0.5 tablets by mouth once daily. potassium chloride ER (K-DUR, KLOR-CON) 10 mEq tablet Take 1 tablet by mouth twice daily. warfarin (COUMADIN) 3 mg tablet TAKE 1 TABLET DAILY OR DIRECTED metFORMIN ER (GLUCOPHAGE XR) 500 mg 24 hr tablet TAKE 2 TABLETS TWICE A DAY warfarin (COUMADIN) 5 mg tablet In combination with 2 or 3mg tablet as directed. nitroglycerin sublingual (NITROQUICK) 0.4 mg SL tablet Dissolve 1 tablet under the tongue as needed. FOR CHEST PAIN. IF NO RELIEF CALL 911 Artificial Tear, Hypromellose, (SYSTANE GEL) 0.3 % gel Use 1 Drop in both eyes daily at bedtime. Lancets lancets USE TO TEST BLOOD SUGAR ONCE A DAY AND NEEDED blood sugar diagnostic (CONTOUR TEST STRIPS) test strip USE FOR BLOOD SUGAR TESTING ONCE DAILY AND NEEDED, 250.00 omeprazole (PRILOSEC) 20 mg ORAL capsule Take one(1) capsule daily. aspirin(ECOTRIN LOW STRENGTH 81 MG TAB) Take one(1) tablet daily. tamsulosin ER (FLOMAX) 0.4 mg cp24 Take 1 capsule by mouth daily at bedtime. REVIEW OF SYSTEMS Review of Systems Constitutional: Negative. Respiratory: Negative. Cardiovascular: Negative. Gastrointestinal: Negative. Genitourinary: Negative. Skin: Negative. Neurological: Negative. Psychiatric/Behavioral: Negative. HISTORIES PAST MEDICAL HISTORY Diagnosis Date - Abdominal pain, LLQ 12/04/2014 - Atrial fibrillation (HCC) chronic - Biliary dyskinesia 10/01/2011 Symptom free at this time 03/2015 - BPH W URINARY OBS/LUTS 05/12/2006 - DIARRHEA NOS 10/12/2008 - Essential and other specified forms of tremor 09/10/2011 - Essential hypertension, benign 12/26/2009 - Fatty liver 05/08/2011 - Generalized osteoarthrosis, unspecified site hands, knees, hips - GERD without esophagitis 03/06/2015 Hiatal hernia. 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 - AAA [OTHER] Father Repaired at [facility]. - Diabetes Brother - tremors [OTHER] Paternal Uncle - Heart Failure Sister 54 viral. - Cancer Brother esophagus - Cancer Sister pancreas - Cervical Cancer Maternal Aunt lung - Cancer Maternal Aunt - Idiopathic pulmonary fibrosis [OTHER] Son age 47 after 2 lung transplants. SOCIAL HISTORY Social History Substance Use Topics - Smoking status: Former Smoker Packs/day: 3.00 Years: 37.00 Types: Cigarettes Quit date: 05/04/1987 - Smokeless tobacco: Never Used - Alcohol use 1.5 oz/week 1 Cans of Beer (12oz) per week Comment: occasional PHYSICAL EXAMINATION General appearance: Well appearing, alert, in no acute distress, well-hydrated, well nourished Skin: Skin color, texture, turgor normal, no suspicious rashes or lesions Respiratory:+ effort Cardiovascular: Not examined GI: Normal abdominal exam, Abdomen soft, non-tender. Bowel sounds normal. No masses, organomegaly Musculoskeletal: Negative Neuro: Negative Genitourinary: not examined Impression: (R30.0) Dysuria (primary encounter diagnosis) Plan: prn Laura Hoang Jr, MD 06/02/2017 Referring Provider: LAURA HOANG JR [[id number]] Allergies As of Date: 06/02/2017 Noted Allergy Reaction FLOMAX (TAMSULOSIN HCL) 06/02/2017 7 - Swelling NALDECON SENIOR EX (GUAIFENESIN) 12/31/2004 8 - GI Upset Comments: CTM=Chlor-Trimeton RYNATAN (CHLORPHENIRAMINE-PE TANN*12/31/2004 8 - GI Upset SEPTRA (SULFAMETHOXAZOLE-TRIMETHO*12/31/2004 8 - GI Upset VIOXX (ROFECOXIB) 12/31/2004 8 - GI Upset ornade [Other] 01/01/2005 8 - GI Upset Date Reviewed: 06/02/2017 Reviewed by: Laura Hoang Jr. - Fully Assessed Reason for Visit: Follow Up For [3040] Cmt: Patient states still having slight pain after urination. Reason For Visit History Recorded Primary Visit Diagnosis:Dysuria [R30.0] Order(s):UA DIP, URINE (POC) [9902984] Order #: [id number]. #:[id number] Prescriptions as of 06/02/2017 Sig: FUROSEMIDE 20 MG TABLET TAKE 1 TABLET TWICE A DAY ATENOLOL 25 MG TABLET TAKE ONE-HALF (1/2) TABLET DA* WARFARIN 2 MG TABLET Take 1 tablet by mouth daily * LISINOPRIL 10 MG TABLET Take 1 tablet by mouth once d* FLECAINIDE 100 MG TABLET Take 1 tablet by mouth twice * DICYCLOMINE 10 MG CAPSULE Take 1 capsule by mouth at be* PIOGLITAZONE 15 MG TABLET Take 1 tablet by mouth once d* GLIPIZIDE ER 10 MG TABLET, EX* TAKE 1 TABLET DAILY AMLODIPINE 10 MG TABLET Take 0.5 tablets by mouth onc* POTASSIUM CHLORIDE ER 10 MEQ * Take 1 tablet by mouth twice * WARFARIN 3 MG TABLET TAKE 1 TABLET DAILY OR DIR* METFORMIN ER 500 MG TABLET,EX* TAKE 2 TABLETS TWICE A DAY WARFARIN 5 MG TABLET In combination with 2 or 3mg * NITROGLYCERIN 0.4 MG SUBLINGU* Dissolve 1 tablet under the t* ARTIFICIAL TEARS (HYPROMELLOS* Use 1 Drop in both eyes daily* LANCETS USE TO TEST BLOOD SUGAR ONCE * BLOOD SUGAR DIAGNOSTIC STRIPS USE FOR BLOOD SUGAR TESTING O* * OMEPRAZOLE 20 MG CAPSULE,RENY* Take one(1) capsule daily. * ECOTRIN LOW STRENGTH 81 MG TA* Take one(1) tablet daily. 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 Generalized osteoarthrosis, unspecified site [M* Priority: M Hallux valgus (acquired) [M20.10] INVALID FOR* Priority: M Benign non-nodular prostatic hyperplasia with l*INVALID FOR* Priority: C Acute gastritis without mention of hemorrhage [*INVALID FOR*07/04/2014 Essential hypertension, benign [I10] INVALID FOR* Priority: A Type II or unspecified type diabetes mellitus w*INVALID FOR*12/02/2013 More... Fatty liver [K76.0] INVALID FOR* Priority: B Essential tremor [G25.0] INVALID FOR* Priority: B Right flank pain [R10.9] INVALID FOR*07/04/2014 Biliary dyskinesia [K82.8] INVALID FOR* Priority: B More... Chest pain [R07.9] INVALID FOR*07/04/2014 Knee effusion, left [M25.462] INVALID FOR*07/04/2014 More... Respiratory failure with hypoxia (HCC) [J96.91] INVALID FOR*07/04/2014 More... Normocytic anemia [D64.9] INVALID FOR*07/04/2014 More... Fall [W19.XXXA] INVALID FOR*02/07/2012 More... SUMMARY [V999.95] INVALID FOR*07/04/2014 Priority: A More... DISPOSITION AND FOLLOW-UP [V999.01] INVALID FOR*07/04/2014 Priority: D More... LOI on CPAP [G47.33, Z99.89] INVALID FOR*04/03/2014 Multinodular goiter [E04.2] INVALID FOR* Priority: B More... LOI (obstructive sleep apnea) [G47.33] INVALID FOR* Priority: B More... Trigger finger (acquired) [M65.30] INVALID FOR* Priority: M Mesenteric adenitis [I88.0] INVALID FOR* Priority: B GERD without esophagitis [K21.9] INVALID FOR* Priority: A Ex-smoker [Z87.891] INVALID FOR* Priority: C Asbestosis (HCC) [J61] INVALID FOR* Priority: B More... 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 Disorder of prostate [N42.9] INVALID FOR* Well adult exam [Z00.00] INVALID FOR* Priority: E More... Colon cancer screening [Z12.11] INVALID FOR* Morbid obesity due to excess calories (HCC) [E6*INVALID FOR* Priority: B Diabetic eye exam (HCC) [E11.9, Z01.00] INVALID FOR* Priority: A More... WILSON (dyspnea on exertion) [R06.09] INVALID FOR* Priority: B More... 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 Disposition: Return if symptoms worsen or fail to improve. Follow-up and Disposition History Recorded Encounter Status:Closed by LAURA HOANG MD on 06/02/17 OBSOLETE Observed: 05/31/2017 Status: COMPLETED Source: [place] 12:00 AM [facility] JR. ([id number]) 1945 M Date Time Provider Department 05/31/17 SUDARSHAN SALAMANCA During your visit today, we recorded the following information about you: Sudarshan Salamanca MD 06/01/2017 9:21 AM Signed The following approved medication requests have been transmitted electronically. Signed Prescriptions Disp Refills furosemide (LASIX) 20 mg tablet 180 tablet 3 Sig: TAKE 1 TABLET TWICE A DAY ROSA ISELA: No Authorizing Provider: SUDARSHAN SALAMANCA MD Allergies As of Date: 05/31/2017 Noted Allergy Reaction NALDECON SENIOR EX (GUAIFENESIN) 12/31/2004 8 - GI Upset Comments: CTM=Chlor-Trimeton RYNATAN (CHLORPHENIRAMINE-PE TANN*12/31/2004 8 - GI Upset SEPTRA (SULFAMETHOXAZOLE-TRIMETHO*12/31/2004 8 - GI Upset VIOXX (ROFECOXIB) 12/31/2004 8 - GI Upset ornade [Other] 01/01/2005 8 - GI Upset Date Reviewed: 05/05/2017 Reviewed by: Laura Hoang Jr. - Fully Assessed Reason for Visit: Refill Request [94] Order(s):furosemide (LASIX) 20 mg tabletTAKE 1 TABLET TWICE A DAYDisp: 180 tabletRfl: 3 Prescriptions as of 05/31/2017 Sig: FUROSEMIDE 20 MG TABLET TAKE 1 TABLET TWICE A DAY ATENOLOL 25 MG TABLET TAKE ONE-HALF (1/2) TABLET DA* WARFARIN 2 MG TABLET Take 1 tablet by mouth daily * LISINOPRIL 10 MG TABLET Take 1 tablet by mouth once d* FLECAINIDE 100 MG TABLET Take 1 tablet by mouth twice * TAMSULOSIN 0.4 MG CAPSULE Take 1 capsule by mouth daily* DICYCLOMINE 10 MG CAPSULE Take 1 capsule by mouth at be* PIOGLITAZONE 15 MG TABLET Take 1 tablet by mouth once d* GLIPIZIDE ER 10 MG TABLET, EX* TAKE 1 TABLET DAILY AMLODIPINE 10 MG TABLET Take 0.5 tablets by mouth onc* POTASSIUM CHLORIDE ER 10 MEQ * Take 1 tablet by mouth twice * WARFARIN 3 MG TABLET TAKE 1 TABLET DAILY OR DIR* METFORMIN ER 500 MG TABLET,EX* TAKE 2 TABLETS TWICE A DAY WARFARIN 5 MG TABLET In combination with 2 or 3mg * NITROGLYCERIN 0.4 MG SUBLINGU* Dissolve 1 tablet under the t* ARTIFICIAL TEARS (HYPROMELLOS* Use 1 Drop in both eyes daily* LANCETS USE TO TEST BLOOD SUGAR ONCE * BLOOD SUGAR DIAGNOSTIC STRIPS USE FOR BLOOD SUGAR TESTING O* * OMEPRAZOLE 20 MG CAPSULE,RENY* Take one(1) capsule daily. * ECOTRIN LOW STRENGTH 81 MG TA* Take one(1) tablet daily. 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 Generalized osteoarthrosis, unspecified site [M* Priority: M Hallux valgus (acquired) [M20.10] INVALID FOR* Priority: M Benign non-nodular prostatic hyperplasia with l*INVALID FOR* Priority: C Acute gastritis without mention of hemorrhage [*INVALID FOR*07/04/2014 Essential hypertension, benign [I10] INVALID FOR* Priority: A Type II or unspecified type diabetes mellitus w*INVALID FOR*12/02/2013 More... Fatty liver [K76.0] INVALID FOR* Priority: B Essential tremor [G25.0] INVALID FOR* Priority: B Right flank pain [R10.9] INVALID FOR*07/04/2014 Biliary dyskinesia [K82.8] INVALID FOR* Priority: B More... Chest pain [R07.9] INVALID FOR*07/04/2014 Knee effusion, left [M25.462] INVALID FOR*07/04/2014 More... Respiratory failure with hypoxia (HCC) [J96.91] INVALID FOR*07/04/2014 More... Normocytic anemia [D64.9] INVALID FOR*07/04/2014 More... Fall [W19.XXXA] INVALID FOR*02/07/2012 More... SUMMARY [V999.95] INVALID FOR*07/04/2014 Priority: A More... DISPOSITION AND FOLLOW-UP [V999.01] INVALID FOR*07/04/2014 Priority: D More... LOI on CPAP [G47.33, Z99.89] INVALID FOR*04/03/2014 Multinodular goiter [E04.2] INVALID FOR* Priority: B More... LOI (obstructive sleep apnea) [G47.33] INVALID FOR* Priority: B More... Trigger finger (acquired) [M65.30] INVALID FOR* Priority: M Mesenteric adenitis [I88.0] INVALID FOR* Priority: B GERD without esophagitis [K21.9] INVALID FOR* Priority: A Ex-smoker [Z87.891] INVALID FOR* Priority: C Asbestosis (HCC) [J61] INVALID FOR* Priority: B More... 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 Disorder of prostate [N42.9] INVALID FOR* Well adult exam [Z00.00] INVALID FOR* Priority: E More... Colon cancer screening [Z12.11] INVALID FOR* Morbid obesity due to excess calories ([facility]) [E6*INVALID FOR* Priority: B Diabetic eye exam ([facility]) [E11.9, Z01.00] INVALID FOR* Priority: A More... WILSON (dyspnea on exertion) [R06.09] INVALID FOR* Priority: B More... 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 Prescriptions ordered this encounter Disp Refills Start End FUROSEMIDE 20 MG TABLET 180 * 3 06/01/2017 Sig: TAKE 1 TABLET TWICE A DAY Medications Discontinued During This Encounter furosemide (LASIX) 20 mg tablet 180 * 3 06/04/2016 06/01/2017 Route: ORAL Sig: Take 1 tablet by mouth twice daily. Disc: Reason for discontinue is not on file. Encounter Status:Closed by KERRI LEES LPN on 06/01/17 ALLERGIES ALLERGIES DATE TYPE / CODE NAME / CODE REACTION SEVERITY SOURCE 04/15/20 Drug phenylpropanolamine Upset Unknown [place] 18 Allergy/920996015 HCl/[id number](RXNORM) [facility] ([facility] DC) [facility] Repository 04/15/20 Drug chlorpheniramine Upset Unknown [facility] 18 Allergy/049107945 maleate/W207520273(RXNO [facility] (SNOMED CT) [facility] Hospital Repository 04/15/20 Drug sulfamethoxazole/O51385 Upset Unknown [facility] 18 Allergy/729914626 2827(RXNORM) [facility] (SNOMED CT) Hospital Repository 04/15/20 Drug trimethoprim/N927045468 Upset Unknown [facility] 18 Allergy/648524645 (RXNORM) [facility] (SNOMED CT) Hospital Repository 04/15/20 Drug rofecoxib/G407256500(RX Upset Unknown [facility] 18 Allergy/436730843 NORM) [facility] (SNOMED CT) Hospital Repository 11/12/19 Miscellaneous NALDECON Upset Unknown [facility] 18 Allergy/516349395 [facility] (SNOMED CT) Hospital Repository 06/02/19 DRUG TAMSULOSIN HCL SWELLING [facility] 18 INGREDI/716506445 Clinic Main (SNOMED CT) [place] Repository 01/13/20 DRUG CORTISONE OTHER: SEE C [facility] 12 INGREDI/040774016 Clinic Main (SNOMED CT) [place] Repository 01/13/20 DRUG DEXAMETHASONE OTHER: SEE C [facility] 12 INGREDI/898889690 Clinic Main (SNOMED CT) [place] Repository 01/13/20 DRUG CORTISONE [facility] 12 INGREDI/079635636 Clinic Main (SNOMED CT) [place] Repository 01/13/20 DRUG DEXAMETHASONE [facility] 12 INGREDI/438834106 Clinic Main (SNOMED CT) [place] Repository 01/02/20 Miscellaneous OTHER GI UPSET [facility] 05 Allergy/956455071 [facility] (SNOMED CT) [place] Repository 01/02/20 Miscellaneous OTHER GI UPSET [place] 05 Allergy/311714283 [facility] (SNOMED CT) [place] Repository 01/01/20 DRUG GUAIFENESIN GI UPSET [facility] 05 INGREDI/227247448 [facility] (SNOMED CT) [place] Repository 01/01/20 DRUG/151624924(SN CHLORPHENIRAMINE-PE GI UPSET [facility] [address]) TANNATES [facility] Main [place] Repository 01/01/20 DRUG/813822578(SN SULFAMETHOXAZOLE-TRIMET GI UPSET [facility] [address]) HOPRIM [facility] Main [place] Repository 01/01/20 DRUG ROFECOXIB GI UPSET [facility] 05 INGREDI/352913132 Clinic Main (SNOMED CT) [place] Repository 01/01/20 DRUG GUAIFENESIN GI UPSET [place] 05 INGREDI/592988303 Clinic Main (SNOMED CT) [place] Repository 01/01/20 DRUG/020029493(SN CHLORPHENIRAMINE-PE GI UPSET [place] [address]) [facility] Main [place] Repository 01/01/20 DRUG/719355133(SN SULFAMETHOXAZOLE-TRIMET GI UPSET [place] [address]) [facility] Main [place] Repository 01/01/20 DRUG ROFECOXIB GI [facility] 05 INGREDI/426204907 [facility] (SNOMED CT) [place] Repository NG/429025777(SNOM TAMSULOSIN HCL [facility] ED [facility]) [facility] Repository NG/789858504(SNOM CORTISONE [facility] ED CT) [facility] System Repository NG/872897975(SNOM DEXAMETHASONE [facility] ED CT) [facility] System Repository NG/504013687(SNOM GUAIFENESIN [facility] ED CT) Health System Repository NG/025061947(SNOM CHLORPHENIRAMINE-PE [facility] ED CT) [facility] System Repository NG/876914042(SNOM SULFAMETHOXAZOLE-TRIMET [facility] ED CT) [facility] Repository NG/484781730(SNOM ROFECOXIB [facility] ED CT) Health System Repository NG/171370908(SNOM OTHER [facility] ED CT) Health System Repository ENCOUNTERS ENCOUNTERS ADMIT/DISCHARGE ACCOUNT NUMBER ADMITTING ENCOUNTER LOCATION SOURCE CLASS 05/19/2018 [id number] Ambulatory [facility] MEDICAL Repository CENTERBuildi ng:AGGASTW 04/28/2018 [id number] Ambulatory [facility] MEDICAL Repository GARFIELDBuildi ng:AGGASTW 04/22/2018/04/22/[id number] Main [place] Repository 04/19/2018/04/19/20 [id number] Ambulatory [address] ding:ENRoom: Repository AC17 04/13/2018/04/13/20 [id number] Ambulatory [address] Main [place] Repository 04/12/2018/04/14/20 [id number] Ambulatory [address] Main [place] Repository 03/29/2018/03/30/20 [id number] Ambulatory [address] Main [place] Repository 03/17/2018/03/17/20 [id number] FARIBA, [address] Other [place] Repository 03/17/2018/03/17/20 [id number] FARIBA, Inpatient SONIA [address] MEDICAL Repository CENTERBuildi ng:CCLERoom: POOLBed: 02 03/10/2018/03/10/20 [id number] Ambulatory [address] Repository 03/10/2018/03/12/20 [id number] Ambulatory [address] Repository 02/11/2018/02/15/20 [id number] Ambulatory [address] Repository 02/10/2018 [id number] FARIBA, Ambulatory SONIA [facility] MEDICAL Repository CENTERBuildi ng:AKCATH 02/05/2018/02/09/20 [id number] Ambulatory [address] Repository 02/04/2018/02/05/20 [id number] Ambulatory [address] Repository 01/28/2018/01/29/20 [id number] Ambulatory [address] Repository 01/28/2018/01/30/20 [id number] Ambulatory [address] Repository 01/06/2018/01/07/20 [id number] Ambulatory [address] Repository 12/08/2017/12/09/19 [id number] Ambulatory [address] Repository 11/24/2017/11/25/19 [id number] Ambulatory [address] Repository 11/12/2017/11/13/19 [id number] Ambulatory BMSBuilding: [facility] Repository 11/11/2017/11/13/19 [id number] Marga, Ambulatory [place] 18 [facility] ding:PCURoom Repository : [id number]: 11/11/2017 [id number] Marga, Ambulatory BMSBuilding: [place] Ghasem BMS.[facility] Repository 11/11/2017 [id number] Marga, Ambulatory BMSBuilding: Aravind Ghasem BMS.[facility] Repository 11/09/2017/11/10/19 [id number] Ambulatory [address] Repository 11/09/2017/11/10/19 [id number] Ambulatory [facility] [place] Repository 11/06/2017/11/07/19 [id number] Ambulatory [facility] [place] Repository 11/05/2017/11/06/19 [id number] Ambulatory [facility] [place] Repository 11/05/2017/11/07/19 [id number] Ambulatory [facility] [place] Repository 10/29/2017/10/30/19 [id number] Ambulatory [facility] [place] Repository 10/24/2017/10/25/19 [id number] Ambulatory [facility] [place] Repository 10/22/2017/10/23/19 [id number] Ambulatory [facility] [place] Repository 10/22/2017/10/23/19 [id number] Ambulatory [facility] [place] Repository 10/19/2017/10/22/19 [id number] Ambulatory [facility] [place] Repository 10/16/2017/10/21/19 [id number] Ambulatory [facility] [place] Repository 10/15/2017 [id number] [facility]ulatory [facility] [place] Repository 10/15/2017/10/16/19 [id number] Ambulatory [facility] [place] Repository 10/14/2017/10/15/19 [id number] Ambulatory [facility] [place] Repository 10/13/2017/10/14/19 [id number] Ambulatory [facility] [place] Repository 10/13/2017/10/14/19 [id number] Ambulatory [facility] [place] Repository 10/13/2017 [id number] Ambulatory Building:[facility] Repository 10/12/2017 [id number] Ambulatory [facility] Other [place] Repository 10/09/2017 [id number] Ambulatory [facility] Other [place] Repository 10/09/2017 [id number] Ambulatory [facility] Other [place] Repository 10/07/2017/10/09/19 [id number] Ambulatory [facility] [place] Repository 10/06/2017/10/08/19 [id number] Ambulatory [facility] [place] Repository 10/02/2017 [id number] [facility]ulatory [facility] [place] Repository 08/18/2017/08/19/19 [id number] Ambulatory [facility] [place] Repository 06/29/2017/06/29/19 [id number] Ambulatory [facility] [place] Repository 06/02/2017/06/02/[id number] Repository PAYERS PAYERS ENCOUNTER GUARANTOR PAYER SUBSCRIBER SOURCE 05/19/2018 [facility] WEST Primary ANKIT WEST [facility] JR[facility] Insurance:MEDICARE A JR.: [facility] Number: [id number] Repository [place] [id number] [place] Date: [address]Nou: () 05/19/2018 Secondary ANKIT WEST [facility] Insurance:BLUE CARD JR.: [facility] Number: [id number] Repository [id number] Date: 04/28/2018 ANKIT WEST Primary ANKIT WEST [facility] JR.: Insurance:MEDICARE A JR.: [facility] Number: [id number] Repository [place] [id number] [place], [place] Date: [address]Mpg: () 04/28/2018 Secondary ANKIT WEST [facility] Insurance:BLUE CARD JR.: [facility] Number: [id number] Repository [id number] Date: 04/19/2018 ANKIT WEST Primary ANKIT WEST Aravind Jr.[address] Insurance:MEDICARE Jr.: [place] PART A [facility] [id number] Hospital [address]Fpb: 330) Number: Repository [phone] () [id number] Date:2018-04-02 04/19/2018 Secondary ANKIT WEST Aravind Insurance:ANTHEMPolic Jr.: [facility] Number: [id number] Corners Regional Health [id number] Repository Date:[id number] [address]XS: 04/19/2018 Tertiary NOT GIVENUNK Aravind Insurance:SELF PAY [place] Number: Effective Repository Date:2018-04-02 03/17/2018 ANKIT SIMMSDOB: Primary ANKIT SIMMSDOB: [facility] Insurance:MEDICARE A [id number] Health System [place] AND [facility] Number: Repository [place] [id number] [id number]: 330) Date: [phone] () 03/17/2018 Secondary ANKIT SIMMSDOB: [facility] Insurance:BLUE CARD [id number] Number: Repository [id number] Date: 02/10/2018 ANKIT WEST Primary ANKIT WEST [facility] JR.: Insurance:MEDICARE A JR.: [facility] AND [facility] Number: [id number] [id number] [place] Date: [address]Zjt: () 02/10/2018 Secondary ANKIT WEST [facility] Insurance:BLUE CARD JR.: [facility] Number: [id number] Repository [id number] Date: 11/12/2017 ANKIT WEST Primary ANKIT WEST Aravind Jr.[address] Insurance:MEDICARE Jr.: [place] PART A [facility] [id number] Hospital [address]Pmy: (330) Number: Repository [phone] () [id number] Date:2017-11-11 11/12/2017 Secondary ANKIT WEST [place] Insurance:ANTHEMPolic Jr.: Community Number: [id number] Corners Regional Health [id number] Repository Date:[id number] [address]EF: 11/12/2017 Tertiary NOT GIVENUNK Aravind Insurance:SELF PAY [place] Number: Effective Repository Date:2017-11-12 11/11/2017 ANKIT WEST Primary ANKIT WEST [place] Jr.[address] Insurance:MEDICARE Jr.: [place] PART A [facility] [id number] Hospital [address]Gxg: (330) Number: Repository [phone] () [id number] Date:2017-11-11 11/11/2017 Secondary ANKIT WEST [place] Insurance:ANTHEMPolic Jr.: Community y Number: [id number] Corners Regional Health [id number] Repository Date:[id number] [address] [place] [address]IT: 11/11/2017 Tertiary NOT GIVENUNK [place] Insurance:SELF PAY [place] Number: Effective Repository Date:2017-11-11 11/11/2017 [place] Primary [place] Aravind JR[address] Insurance:MEDICARE JRDOB: [place] PART A [facility] [id number] Hospital [address]Hlj: (330) Number: Repository [phone] () [id number] Date:2017-11-11 11/11/2017 Secondary Ankit [place] Insurance:ANTHEMPolic JRDOB: Community y Number: [id number] General [id number] Repository Date:1065-06-94QP [address] [place] [address]HV: 11/11/2017 Tertiary NOT GIVENUNK [place] Insurance:SELF PAY [place] Number: Effective Repository Date:2017-11-11 11/11/2017 ANKIT WEST Primary ANKIT WEST Aravind Jr.[address] Insurance:MEDICARE Jr.: [place] PART [facility] [id number] Hospital [address]Blk: (330) Number: Repository [phone] () [id number] Date:2017-11-11 11/11/2017 Secondary ANKIT WEST [place] Insurance:ANTHEMPolic Jr.: Community y Number: [id number] General [id number] Repository Date:6064-97-52ZW [address] [place] [address]KJ: 11/11/2017 Tertiary NOT GIVENUNK Aravind Insurance:SELF PAY [place] Number: Effective Repository Date:2017-11-11 10/13/2017 [facility] Primary [facility] JR.: Insurance:MEDICARE A JR.: [facility] [id number] AND BPolicy Number: [id number] [address]ository [place] [address] [id number], Date: [place] [address]Thi: () 10/13/2017 Secondary [facility] Insurance:BLUE CARD JR.: [facility] PPOPolicy Number: [id number] Repository [id number] Date:
== END 2018-04-19 13:55 | disposition home or self-care (01) ==
LOC: EN 11:21 → AC 11:22
PROVIDERS: Family Provider Family Medicine; PCP Family Medicine; Referring Provider Family Medicine; Visit Provider Surgery
PROC: 0DJD8ZZ Inspection of Lower Intestinal Tract, Via Natural or Artificial Opening Endoscopic (ICD-10-PCS; CPT 45378; principal; 2018-04-19 12:25)
DX: D50.9 Iron deficiency anemia, unspecified (principal); K57.30 Diverticulosis of large intestine without perforation or abscess without bleeding; K64.8 Other hemorrhoids; K29.70 Gastritis, unspecified, without bleeding; K58.0 Irritable bowel syndrome with diarrhea; K21.9 Gastro-esophageal reflux disease without esophagitis; I48.2 Chronic atrial fibrillation; E11.40 Type 2 diabetes mellitus with diabetic neuropathy, unspecified; I10 Essential (primary) hypertension; E78.00 Pure hypercholesterolemia, unspecified; G25.0 Essential tremor; M15.9 Polyosteoarthritis, unspecified; N40.1 Benign prostatic hyperplasia with lower urinary tract symptoms; G47.33 Obstructive sleep apnea (adult) (pediatric); Z79.01 Long term (current) use of anticoagulants; Z79.84 Long term (current) use of oral hypoglycemic drugs; Z79.82 Long term (current) use of aspirin; Z79.899 Other long term (current) drug therapy; Z96.652 Presence of left artificial knee joint; Z87.891 Personal history of nicotine dependence
CPT/HCPCS: 43239; 45378; 36416; 82962; 85610; 88305; 88342; J7050; J7120

== ENCOUNTER 2019-08-01 21:35 | Emergency (ER) | payer MEDICARE, BC, SELFPAY ==
[2019-08-01 21:35] VITALS: BP 157/89; PULSE 64; RESP 18; TEMP 36.8; O2SAT 98; BMI 37.8
--- NOTE | 2019-08-01 21:38 | ED.RN ---
CALLED FOR EKG PER RN REQUEST, PULLED OLD EKGS FOR
--- NOTE | 2019-08-01 21:57 | EKG12_ITS ---
Test Reason : CP Blood Pressure : / mmHG Vent. Rate : 054 BPM Atrial Rate : 054 BPM P-R Int : 232 ms QRS Dur : 120 ms QT Int : 468 ms P-R-T Axes : 019 048 042 degrees QTc Int : 443 ms Sinus bradycardia with 1st degree A-V block Otherwise normal ECG Confirmed by JACK CONTRERAS, MARISSA ([id number]), subeditor JUAN DANIEL BERRY ([id number]) on 08/03/2019 9:41:09 AM Referred By: JUAN Confirmed By:MARISSA SANTIAGO MD
--- NOTE | 2019-08-01 21:58 | ED.VIS.CHEST ---
History of Present Illness Chief Complaint: Chest Pain Informant: Patient, EMS Onset: Hours - 4-5 Activity at onset: Light Activity Timing: Continuous Location: Substernal - w/ radiation to throat and BUE Worsened By: Exertion, - - bearing down during BM. Not Worsened By: Movement of Arm, Movement of Torso, Breathing, Coughing Relieved By: NTG - x1. Not Relieved By: Rest Associated Symptoms: Negative for: Nausea, Vomiting, Diaphoresis, Dyspnea, Cough, Fever, Lightheadedness, Palpitations Narrative: Patient states this discomfort started about 4 hours prior to evaluation while he was walking from the family room to the kitchen to get some dinner. With rest it did not go away. It is nonpleuritic and radiated down both arms. He took 1 nitroglycerin and it went away so he called EMS. The pain came back after the nitroglycerin, but then it resolved on its own and is currently still resolved except he still has some discomfort in his throat. His arms are back to normal. He does not have any known history of coronary disease, states he has had stress test in the past that did not require any heart catheterizations, and he has a history of paroxysmal atrial fibrillation for which he is on warfarin. He last tested himself 2 weeks ago, his INR was 2.5. He denies any pain or swelling in his legs, history of DVT or PE or congestive heart failure. He is a former smoker. No recent illnesses or contact with others with known recent illnesses. No travel out of the area. Prior Similar Symptoms: No Recent Illness/Hospitalization: No CVD Risk Factors: Hypertension, Diabetes, Hypercholesterolemia. Negative for: Smoking PE Risk Factors: Negative for: Recent Travel/Surgery, Recenet Immobilization, Prior DVT or PE, Cancer, OCP + Smoking + >/=35 - Past Medical History (1) Hyperlipidemia Status: Chronic (2) Essential hypertension Status: Chronic (3) Non-alcoholic fatty liver disease Status: Chronic (4) Paroxysmal atrial fibrillation Status: Chronic (5) Type II diabetes mellitus Status: Chronic Past Medical History - Allergies and Home Meds Allergies/Adverse Reactions: Allergies chlorpheniramine maleate [From Ornade] Adverse Reaction (Verified 08/01/19 21:40) Upset Stomach phenylpropanolamine HCl [From Ornade] Adverse Reaction (Verified 08/01/19 21:40) Upset Stomach rofecoxib [From Vioxx] Adverse Reaction (Verified 08/01/19 21:40) Upset Stomach sulfamethoxazole [From Bactrim] Adverse Reaction (Verified 08/01/19 21:40) Upset Stomach trimethoprim [From Bactrim] Adverse Reaction (Verified 08/01/19 21:40) Upset Stomach NALDECON Adverse Reaction (Uncoded 08/01/19 21:40) Upset Stomach Primary Care Physician: Renan Thomas MD [STAFF PHYSICIAN] - As soon as possible Nathaniel Estrada MD [Primary Care Provider] - Surgical History: total knee arthroplasty, - - Partial thyroidectomy. Lives: Spouse/ Significant Other Smoking Status: Former smoker - Family History Paternal Family History: Reports: No pertinent history Maternal Family History: Reports: No pertinent history Review of Systems General: Reports: Malaise. Denies: Chills, Fever, Sweats Eyes: Denies: Visual changes - bilaterally, Diplopia ENT: Denies: Bilateral ear pain, Rhinorrhea, Sore throat Cardiovascular: Reports: Chest pain. Denies: Palpitations Respiratory: Denies: Dyspnea, Cough, Dyspnea on exertion Gastrointestinal: Denies: Abdominal pain, Nausea, Vomiting, Diarrhea, Melena, Hematochezia Genitourinary: Denies: Dysuria, Hematuria, Frequency Musculoskeletal: Reports: Neck pain, Extremity Pain. Denies: Back pain Skin: Denies: Rash, Wounds Neurological: Denies: Headache, Weakness, Numbness Physical Exam Vital Signs/Narrative: Vital Signs Temp Pulse Resp BP Pulse Ox 08/01/19 21:35 98.3 F 64 18 157/89 H 98 Inital Vital Signs reviewed: Yes General: Well nourished, Well developed, No Acute Distress Head: Normocephalic, Atraumatic Eyes: Perrl, EOMI ENT: Moist mucous membranes, No rhinorrhea Neck: Supple, Nontender, No lymphadenopathy, No JVD Cardiovascular: Regular rate, Regular rhythm, No murmurs, Normal S1, Bradycardia Respiratory: No distress, CTA bilaterally, Chest nontender Abdomen: Soft, Nontender, Nondistended, Normal bowel sounds, Ventral hernia - small, easily reducible, nontender Back: Nontender, Normal Inspection Extremities: Nontender, No edema. Negative for: Calf Tenderness Skin: Normal color, No rash, No Trauma Neurological: Alert, Oriented x3, Cranial nerves II-XII grossly intact, Normal Strength, Normal Sensation Psychological: Normal affect, Normal Mood Diagnostic/Tx/Re-eval Chest X-Ray - ED: 1 View, Read by ED Physician, Chronic Changes - Unchanged Clinical Impression(s) from Imaging Studies Chest X-Ray 08/01/19 22:00 IMPRESSION: Interstitial edema or infiltrates. Cardiac enlargement. Electronically Signed: Luigi Tinoco MD at 22:25 EDT , Service support , Laboratory Tests 08/01/19 08/01/19 08/01/19 Range/Units 21:40 21:40 21:40 WBC 9.5 (4.4-11.0) K/mm3 RBC 4.55 L (4.6-6.2) M/mm3 Hgb 12.9 L (13.0-16.5) g/dL Hct 40.5 (40-54) % MCV 89.0 (80-94) fL MCH 28.4 (27.0-32.0) pg MCHC 31.9 L (32-36) g/dL RDW Std Deviation 46.4 H (35.1-43.9) fl RDW Coeff of Mracia 14.6 (11.6-14.6) % Plt Count 240 (150-450) K/mm3 MPV 10.2 (6.2-12.0) fl Immature Gran % (Auto) 0.400 (0.0-0.9) % Neut % (Auto) 54.5 (47-70) % Lymph % (Auto) 31.3 (19-41) % [place] % (Auto) 11.0 H (0-10) % Eos % (Auto) 2.2 (0-5) % Baso % (Auto) 0.6 (0-1) % Absolute Neuts (auto) 5.2 (2.0-7.7) X10^3/uL Absolute Lymphs (auto) 2.96 (0.83-4.51) X10^3/uL Nucleated RBC % 0 (0-5) % PT 26.3 H (11.7-14.9) SECONDS INR 2.4 APTT 36.8 H (24.1-36.2) Seconds Sodium 143 (136-145) mmol/L Potassium 4.4 (3.5-5.1) mmol/L Chloride 108 H (98-107) mmol/L Carbon Dioxide 30.0 (21.0-32.0) mmol/L Anion Gap 5 (5-15) BUN 27 H (7-18) mg/dL Creatinine 1.41 H (0.70-1.30) mg/dL Estim Creat Clear Calc 43.12 ml/min Est GFR (MDRD) Af Amer 63 (>60) mL/min Est GFR (MDRD) Non-Af 52 L (>60) mL/min BUN/Creatinine Ratio 19.1 (10-20) RATIO Glucose 79 (74-106) mg/dL Calcium 8.8 (8.5-10.1) mg/dL Troponin I < 0.015 (<0.045) ng/mL - Rhythm Strip Rhythm Strip: sinus amarilis Rate: 54 Ectopy: PVC(s) - EKG Initial EKG Interpretation: No Acute Injury Pattern, Sinus Bradycardia, AV Block - 1st deg, - - otherwise, normal EKG Prior: Unchanged PETROS Risk: Age >/= 65, >/= 3RF, Severe Angina </=24 hours Score: 3 - Medical Decision Making Nitroglycerin paste placed in the patient's chest, he remained chest pain-free. His work-up shows bradycardia, which is stable for him as is the first degree AV blockade, and no other acute abnormalities. He has some mild renal insufficiency. His troponin returned negative. His story/history is concerning for unstable angina, so I discussed with cardiology Dr. Thomas. He advises since he is therapeutic on warfarin, and his chest pain-free, the discharge him home on isosorbide 30 mg once daily, and to follow-up in the office soon as possible, returning to the ER for recurrent symptoms. The patient was comfortable with this plan and prefers to be discharged. ED Disposition - Plan for ED Patient: Disposition: Home or Assisted Living Diagnosis: Chest pain, unspecified Instructions: ED Chest Pain Angina Stable Prescriptions: Isosorbide Dinitrate 30 mg PO DAILY #30 tab Prescription Printed Referrals: Nathaniel Estrada MD [Primary Care Provider] - Renan Thomas MD [STAFF PHYSICIAN] - As soon as possible Additional Instructions: Return to the ER for recurrent symptoms.
--- NOTE | 2019-08-01 22:00 | RAD_ITS ---
STUDY: X-RAY CHEST REASON FOR EXAM: Male, 74 years old. CHEST PAIN STARTING AROUND 5PM. RELIEVED BY BABY ASPIRIN AND NITRO GIVEN BY EMS TECHNIQUE: Single AP portable view of the chest. COMPARISON: November 11, 2017 FINDINGS: There are monitoring devices. There are interstitial and groundglass increased opacities of the lungs. There is no demonstrated pleural abnormality. There is mild cardiac enlargement. Normal mediastinum and chanell. Normal visualized pulmonary arteries. Normal visualized aortic arch and descending thoracic aorta. There are diffuse degenerative changes of the visualized thoracic spine. Normal visualized ribs, clavicles, and shoulders. There is no demonstrated abnormality of the visualized soft tissue structures of the upper abdomen. RAD/Chest 1 View (Portable) IMPRESSION: Interstitial edema or infiltrates. Cardiac enlargement. Electronically Signed: Luigi Tinoco MD at 22:25 EDT , Service support ,
[2019-08-01 22:01] VITALS: BP 118/69; PULSE 52
[2019-08-01] MEDS: Nitroglycerin Oint 1 INCH PACKET TRANSDERM. (22:01)
[2019-08-01] MEDS: 0.9% Normal Saline 1,000 ML 250 ML IV (22:05)
[2019-08-01 22:10] LABS: Absolute Lymphocyte Count 2.96 X10^3/uL (0.83-4.51); Absolute Neutrophil Count 5.2 X10^3/uL (2.0-7.7); Basophil# 0.06 X10^3/uL; Basophil% 0.6 % (0-1); Eosinophil# 0.21 X10^3/uL; Eosinophils% 2.2 % (0-5); Hematocrit 40.5 % (40-54); Hemoglobin 12.9 g/dL (13.0-16.5); Lymphocyte # 2.96 X10^3/ul (4.0); Lymphocyte % 31.3 % (19-41); Mean Corp Hgb Conc 31.9 g/dL (32-36); Mean Corpuscular Hgb 28.4 pg (27.0-32.0); Mean Platelet Vol. 10.2 fl (6.2-12.0); Monocyte# 1.04 X10^3/uL; NRBC Flagged by Analyzer 0 % (0-5); Neutrophil # 5.15 X10^3/uL (2.7-7.7); Neutrophil % 54.5 % (47-70); Platelet Count 240 K/mm3 (150-450); RBC Distribution Width CV 14.6 % (11.6-14.6); RBC Distribution Width SD 46.4 fl (35.1-43.9); Red Blood Count 4.55 M/mm3 (4.6-6.2); White Blood Count 9.5 K/mm3 (4.4-11.0)
[2019-08-01 22:14] LABS: International Normalized Ratio 2.4; Prothrombin Time (Protime)PT. 26.3 SECONDS (11.7-14.9)
[2019-08-01 22:16] LABS: Partial Thromboplast Time 36.8 Seconds (24.1-36.2)
[2019-08-01 22:18] LABS: Anion Gap 5 (5-15); BUN 27 mg/dL (7-18); BUN/Creat Ratio 19.1 RATIO (10-20); Calcium,Total 8.8 mg/dL (8.5-10.1); Chloride 108 mmol/L (98-107); Creatinine, Serum 1.41 mg/dL (0.70-1.30); EST Glomerular Filtration Rate 52 mL/min (>60); Est Glom Filt Rate - Afr Amer 63 mL/min (>60); Estimated Creatinine Clearance 43.12 ml/min; Glucose 79 mg/dL (74-106); Potassium 4.4 mmol/L (3.5-5.1); Sodium Level 143 mmol/L (136-145)
[2019-08-01 22:35] VITALS: BP 118/69; PULSE 54; RESP 19; O2SAT 96
[2019-08-01 23:00] VITALS: BP 119/64; PULSE 54; RESP 11; O2SAT 96
[2019-08-01 23:30] VITALS: BP 119/64; PULSE 53; RESP 12; O2SAT 98
== END 2019-08-01 23:58 | disposition home or self-care (01) ==
PROVIDERS: Emergency Provider Emergency Medicine; PCP Family Medicine
DX: R07.9 Chest pain, unspecified (principal); R00.1 Bradycardia, unspecified; N28.9 Disorder of kidney and ureter, unspecified; I48.0 Paroxysmal atrial fibrillation; E11.9 Type 2 diabetes mellitus without complications; I10 Essential (primary) hypertension; E78.5 Hyperlipidemia, unspecified; K76.0 Fatty (change of) liver, not elsewhere classified; Z79.01 Long term (current) use of anticoagulants; Z79.84 Long term (current) use of oral hypoglycemic drugs; Z79.82 Long term (current) use of aspirin; Z79.899 Other long term (current) drug therapy; Z88.2 Allergy status to sulfonamides; Z88.1 Allergy status to other antibiotic agents; Z87.891 Personal history of nicotine dependence
CPT/HCPCS: 71045; 80048; 84484; 85025; 85610; 85730; 93005; 96360; 99285; J7030; A4216

== ENCOUNTER 2020-06-27 09:20 | Outpatient (RCR) | payer MEDICARE, BC, SELFPAY | END 2020-06-27 23:59 | LOC: IMMUN 09:20 | PROVIDERS: PCP Family Medicine; Visit Provider Family Medicine | DX: Z23 Encounter for immunization (principal) | CPT/HCPCS: 0011A; 0012A ==

== ENCOUNTER 2020-12-08 13:34 | Emergency (ER) | payer MEDICARE, BC, SELFPAY ==
--- NOTE | 2020-12-08 02:23 | RAD_ITS ---
STUDY: X-RAY - LEFT ANKLE REASON FOR EXAM: Male, 75 years old. fall , pain TECHNIQUE: 3 view(s) of the ankle. COMPARISON: None. FINDINGS: Old fracture of the distal tibia/fibula with bridging ankylosis. Obliquely oriented fracture of the distal fibula extending to the level of the tibiotalar joint. Fracture of the medial malleolus with corticated margins, indeterminate age. Normal tibiotalar articulation and ankle mortise. Calcaneal enthesophyte present. There are calcifications along the proximal plantar surface. The visualized subtalar, talonavicular, calcaneocuboid and tarsal articulations are normal. Lateral more than medial soft tissue swelling. RAD/Ankle min 3 Views IMPRESSION: 1. QUINONEZ B distal fibular fracture, acute. 2. Old fracture deformity of the distal tibial/fibula. 3. Age indeterminate medial malleolus fracture. Electronically Signed: Kael Arauz MD ([place]) at 14:52 EDT , Service support ,
--- NOTE | 2020-12-08 02:33 | RAD_ITS ---
STUDY: X-RAY - LEFT FOOT CLINICAL: Male, 75 years old. FELL DOWN 3 STEPS OF CAMPER, HIT HEAD ON CONCRETE. DENIES LOC, PT IS ON THINNERS. TECHNIQUE: 3 view(s) of the foot. COMPARISON: None. FINDINGS: There is an enthesophyte involving the posterior superior calcaneus at the site of insertion of the Achilles tendon. Distal fibular fracture described on ankle x-ray. Small osseous densities of the lateral foot adjacent to the base of the fifth metatarsal and cuboid. Lateral subluxation of the fifth metatarsal in relation to the cuboid on the oblique view. Small osseous density of the dorsal foot at the junction of the tarsal-metatarsal articulation with sharp indistinct margin proximally suggesting acute fracture. Normal metatarsophalangeal joint of the great toe. Normal tibial and fibular sesamoid bones. Normal interphalangeal joint of the great toe. Normal phalanges of the great toe. Normal second through fifth metatarsophalangeal joints. Normal interphalangeal joints and phalanges of the lesser toes. There is lateral foot soft tissue swelling. RAD/Foot min 3 Views IMPRESSION: 1. Suspected tarsal-metatarsal fractures of the dorsal foot and lateral (near cuboid/fifth metatarsal) foot. Lateral subluxation of the fifth metatarsal in relation to the cuboid, likely traumatic. Limited evaluation. Recommend further imaging with CT. Electronically Signed: Kael Arauz MD ([place]) at 14:55 EDT , Service support ,
--- NOTE | 2020-12-08 02:39 | RAD_ITS ---
STUDY: X-RAY - LEFT SHOULDER REASON FOR EXAM: Male, 75 years old. FELL DOWN 3 STEPS OF CAMPER, HIT HEAD ON CONCRETE. Pain. DENIES LOC, PT IS ON THINNERS. TECHNIQUE: 3 view(s) of the shoulder. COMPARISON: None. FINDINGS: There is mild degenerative arthrosis of the glenohumeral articulation. There is degenerative arthrosis of the acromioclavicular joint without inferior osseous spur formation. Normal acromion. Normal humeral head and visualized proximal humerus. The soft tissue structures are unremarkable. Normal visualized pulmonary apex. RAD/Shoulder min 2 Views IMPRESSION: Degenerative arthrosis. No demonstrated fracture. Electronically Signed: Kael Arauz MD ([place]) at 14:56 EDT , Service support ,
[2020-12-08 13:36] VITALS: BP 127/69; PULSE 56; RESP 12; TEMP 36.6; O2SAT 96; BMI 39.4
--- NOTE | 2020-12-08 13:52 | CT_ITS ---
EXAM: CT CERVICAL SPINE WITHOUT INTRAVENOUS CONTRAST CLINICAL INDICATION: Fall out of camper, trauma, pain TECHNIQUE: Helically acquired images were obtained of the cervical spine without intravenous contrast. 2D reformatted images were reviewed. This CT exam was performed using one or more of the following dose reduction techniques: automated exposure control, adjustment of the mA and/or kV according to patient size, and/or use of iterative reconstruction technique. This report was created using [employer] report generation technology. COMPARISON: None. FINDINGS: VERTEBRAE: Anterior spondylosis at multiple cervical vertebral bodies. DISCS/SPINAL CANAL/NEURAL FORAMINA: Multilevel facet arthropathy and uncovertebral hypertrophy causing foraminal stenosis of the right more than left C5-C6 and C6-C7. Disc space narrowing with endplate sclerosis at C4-C5 and C6-C7. Mild acquired canal narrowing at C4-C5 and C5-C6. SOFT TISSUES: Unremarkable. No prevertebral soft tissue swelling. VASCULATURE: Atherosclerosis of the carotid arteries. LYMPH NODES: Unremarkable. No cervical adenopathy. LUNG APICES: Mild fibrotic changes of the upper lungs. CT/Spine Cervical without Contras IMPRESSION: No acute findings in the cervical spine. Electronically Signed: Kael Arauz MD ([place]) at 14:34 EDT , Service support ,
--- NOTE | 2020-12-08 13:52 | CT_ITS ---
STUDY: CT BRAIN WITHOUT CONTRAST REASON FOR EXAM: Male, 75 years old. trauma on coumadin, fall out of camper RADIATION DOSAGE (If Supplied By Facility): CTDIvol = ( 44.99 ) mGy, DLP = ( 779.24 ) mGycm TECHNIQUE: Transaxial CT imaging of the brain was performed without administration of intravenous contrast material. Individualized dose optimization techniques were used for this CT. COMPARISON: No relevant priors. FINDINGS: Normal soft tissue structures. Normal calvarium. There is mild cerebral atrophy with widening of the extra-axial spaces and ventricular dilatation. There are areas of decreased attenuation within the white matter tracts of the supratentorial brain, consistent with microvascular disease changes. Normal basal ganglia and thalami. Normal brainstem. Normal cerebellum. There is no intracranial hemorrhage. There are no findings of an acute ischemic infarction. Normal visualized paranasal sinuses. CT/Brain/Head without Contrast IMPRESSION: No acute intracranial hemorrhage or mass effect. Electronically Signed: Kael Arauz MD ([place]) at 14:32 EDT , Service support ,
--- NOTE | 2020-12-08 13:54 | EDS_ITS ---
HPI HPI - Fall History of Present Illness Chief Complaint: Fall Informant: patient Occured/Mechanism Occurred: Today and Hours Usually ambulates: Without assistance Pain/Injury Pain Location: head, neck, upper extremity and lower extremity Quality of Pain: Sharp Current Severity: Moderate Maximum Severity: Moderate Associated Symptoms Associated Symptoms: Positive for Inability to ambulate; Negative for Par asthesias, Weakness, Loss of function, Loss of consciousness and Amnesia Narrative Narrative: 75-year-old male history of A. fib on Coumadin. Also diabetic. Patient was walking down the steps getting out of his camper when his left knee gave out and he fell. Hit his left shoulder and struck his head on the cement. No LOC. Complaining of mild head pain and neck pain. Left shoulder pain and primarily left ankle and foot pain. Prior to the fall he was feeling fine. Prior similar symptoms: No Recent Illness/Hospitalization: No [facility] Medical History Diabetes Hypertension Home Medications aspirin 81 mg PO DAILY@0800 09/15/14 [History Last Taken 08/01/19] atenolol 12.5 mg PO DAILY 09/15/14 [History Last Taken 08/01/19] flecainide 100 mg PO BID 09/15/14 [History Last Taken 08/01/19] furosemide 20 mg PO BID 09/15/14 [History Last Taken 08/01/19] metformin 1,000 mg PO BID 09/15/14 [History Last Taken 08/01/19] omeprazole 20 mg PO DAILY 09/15/14 [History Last Taken 08/01/19] warfarin [Jantoven] 6 mg PO DAILY 09/15/14 [History Last Taken 08/01/19] dicyclomine 10 mg PO PRN PRN 11/11/17 [History Last Taken 11/11/17 10] lisinopril [Zestril] 10 mg PO DAILY 11/11/17 [History Last Taken 08/01/19] pioglitazone 15 mg PO DAILY 11/11/17 [History Last Taken 08/01/19] spironolactone 25 mg PO DAILY 11/11/17 [History Last Taken 08/01/19] ferrous sulfate 325 mg PO TIDCM 04/15/18 [History Last Taken 08/01/19] atorvastatin 20 mg PO QHS 08/01/19 [History Last Taken 08/01/19] cyclobenzaprine 5 mg PO TID PRN 08/01/19 [History Last Taken Unknown] fluticasone propionate 1 spray NASAL DAILY 08/01/19 [History Last Taken 08/01/19] glipizide 10 mg PO DAILY 08/01/19 [History Last Taken 08/01/19] isosorbide dinitrate 30 mg PO DAILY #30 tab 08/01/19 [Rx Last Taken Unknown] meclizine 12.5 mg PO TID PRN 08/01/19 [History Last Taken Unknown] potassium chloride 10 meq PO DAILY 08/01/19 [History Last Taken 08/01/19] Allergy/AdvReac Type Severity Reaction Status Date / Time chlorpheniramine maleate AdvReac Upset Verified 12/08/20 13:35 [From Ornade] Stomach phenylpropanolamine HCl AdvReac Upset Verified 12/08/20 13:35 [From Ornade] Stomach rofecoxib [From Vioxx] AdvReac Upset Verified 12/08/20 13:35 Stomach sulfamethoxazole AdvReac Upset Verified 12/08/20 13:35 [From Bactrim] Stomach trimethoprim [From Bactrim] AdvReac Upset Verified 12/08/20 13:35 Stomach NALDECON AdvReac Upset Uncoded 12/08/20 13:35 Stomach Social History Smoking Status: Former smoker ROS ROS ED ROS Narrative Denies recent illness. Review of Systems ROS Unobtainable: Denies due to encephalopathy Constitutional Constitutional ED: Denies chills or fever(s) Eyes Eyes: Denies change in vision ENT ENT ED: Denies ear pain or sore throat Respiratory/Chest Respiratory/Chest: Denies dyspnea Gastrointestinal Gastrointestinal: Denies abdominal pain, diarrhea, nausea or vomiting Genitourinary Genitourinary ED: Denies dysuria Musculoskeletal Musculoskeletal: Denies myalgias Integumentary Denies rash Neurologic Neurologic: Denies headache(s) Psychiatric Psychiatric: Denies depression Endocrine Endocrinology: Denies polyuria Hematologic/Lymphatic Hematologic/Lymphatic: Denies easy bruising Allergic/Immunologic Allergic/Immunologic ED: Denies urticaria EXAM Physical Exam Narrative Exam Narrative: Older male sitting upright in bed with a c-collar on. Vital signs are stable afebrile. HEENT exam pupils round reactive light his motions are intact. No facial trauma. Is a small contusion nose left lateral scalp posteriorly. No laceration. Is a c-collar on. Trachea midline. Lungs clear to auscultation bilaterally. Heart regular rate and rhythm no murmur. Chest wall nontender. Abdomen soft nontender normal bowel sounds no peritoneal signs. Pelvic girdle intact. He has a prior left knee surgery replacement. Knee is nontender. He has tenderness to both the left ankle medially and laterally and left foot both are swollen. Neurovascularly intact. Able to wiggle his toes. Normal touch sensation. Right lower extremity unremarkable. Left shoulder mild tenderness but normal range of motion no deformity. Both elbows both wrists and hands are unremarkable. Back nontender. Thoracic and lumbar spine nontender. Neurologically is awake and alert with no focal motor deficits. Const Vital Signs: 12/08/20 13:36 12/08/20 13:38 Temperature 98 F Temperature Source Temporal Pulse Rate 56 L Respiratory Rate 12 Respiratory Effort Normal Non-Labored Blood Pressure 127/69 H Blood Pressure Mean 88 Pulse Ox 96 Oxygen Delivery Method Room Air HEENT Reports normocephalic trauma and tenderness; Negative for atraumatic Eyes PERRL and EOMs intact bilaterally Neck no lymphadenopathy and supple General: tenderness Chest Wall inspection of chest normal and palpation of chest normal Resp normal respiratory effort, no retractions and clear to auscultation bilaterally Auscultation: Negative for rales, rhonchi or wheezes Cardio regular rate, regular rhythm, S1 normal heart sound, S2 normal heart sound and no murmurs GI non-tender, non-distended and no masses Inspection: Negative for abdominal distention Auscultation: normoactive bowel sounds Palpation: soft; Negative for guarding or rebound tenderness present Back/Spine no CVA tenderness Thoracic Spine / Upper Back: Negative for thoracic spinal tenderness Lumbar Spine / Lower Back: Negative for lumbar spinal tenderness Extremity normal to inspection, full ROM, normal capillary refill, no joint enlargement, no clubbing, cyanosis or edema, no calf tenderness and no pedal edema Extremity Narrative: Left ankle and circulation tender. Swollen. No gross deformity. Able to wiggle his toes. Normal touch sensation. Mild tenderness left shoulder no deformity. Normal range of motion. Small abrasion distal left forearm. No need to repair. Neuro oriented x3, CN's II-XII intact bilaterally, moves all extremities, no focal motor deficits and no sensory deficits noted Sensorium / Orientation: alert, oriented to person, oriented to place and oriented to time; Negative for orientation impaired, lethargic or stuporous Motor Exam: strength 5/5 throughout Psych mental status grossly normal Skin Lesions: no lesions Rashes: no rashes MDM MDM MDM Narrative Medical decision making narrative: Older male. Fall on Coumadin. Hit his head. CAT scan of his head neck being obtained. Left shoulder x-ray. Left ankle and foot x-ray. Patient was placed on a short leg well-padded posterior splint for his distal fibular fracture. This will immobilize both his left ankle and left foot. He knows it to do no weightbearing. He will be given crutches and discharged home with Rockfall for pain 14 no refill. He is seeing Dr. Kong Jones of orthopedics in the past and will follow up with him. Patient I discussed all his CAT scan and x-ray results specifically the foot and ankle also. Radiography Diagnostic Testing: Radiology Impression Ankle X-Ray 12/08/20 02:23 IMPRESSION: 1. QUINONEZ B distal fibular fracture, acute. 2. Old fracture deformity of the distal tibial/fibula. 3. Age indeterminate medial malleolus fracture. Electronically Signed: Kael Arauz MD ([place]) at 14:52 EDT , Service support , Foot X-Ray 12/08/20 02:33 IMPRESSION: 1. Suspected tarsal-metatarsal fractures of the dorsal foot and lateral (near cuboid/fifth metatarsal) foot. Lateral subluxation of the fifth metatarsal in relation to the cuboid, likely traumatic. Limited evaluation. Recommend further imaging with CT. Electronically Signed: Kael Arauz MD ([facility]) at 14:55 EDT , Service support , Shoulder X-Ray 12/08/20 02:39 IMPRESSION: Degenerative arthrosis. No demonstrated fracture. Electronically Signed: Kael Arauz MD ([facility]) at 14:56 EDT , Service support , Brain CT 12/08/20 13:52 IMPRESSION: No acute intracranial hemorrhage or mass effect. Electronically Signed: Kael Arauz MD ([facility]) at 14:32 EDT , Service support , Cervical Spine CT 12/08/20 13:52 IMPRESSION: No acute findings in the cervical spine. Electronically Signed: Kael Arauz MD ([place]) at 14:34 EDT , Service support , Left ankle x-ray 3 view shows a distal fibular fracture. Interpreted by both the radiologist and myself. Left foot radiologist is concerned for tarsal metatarsal fracture with lateral subluxation of the fifth metatarsal. CT of the brain showed no acute abnormalities read by the radiologist and reviewed by me. CT of the C-spine showed no acute ab normality as read by the radiologist and reviewed by me. Left shoulder x-ray no acute abnormality. 3 views interpreted by me and the radiologist. Procedures Lower Extremity Splints Lower Extremity Splint: Orthoglass Splint Fabrication: Fabricated Location: Left Discharge Plan Triage Chief Complaint: Fall ED Provider: Ricardo Hernandez Dx/Rx/DC Orders Clinical Impression: Fall, Closed head injury, Anticoagulated, Ankle fracture, left, Foot fracture, left Instructions: ED Ankle Fracture, ED Fracture, Foot, ED Head Injury (Adult) Prescriptions: No Action metformin 500 MG tablet 1,000 mg PO BID RF: 0 atenolol 25 MG tablet 12.5 mg PO DAILY RF: 0 aspirin 81 MG tablet 81 mg PO DAILY@0800 RF: 0 warfarin [Jantoven] 5 MG tablet 6 mg PO DAILY RF: 0 flecainide 100 MG tablet 100 mg PO BID RF: 0 furosemide 20 MG tablet 20 mg PO BID RF: 0 omeprazole 20 MG capsule 20 mg PO DAILY RF: 0 pioglitazone 15 MG tablet 15 mg PO DAILY RF: 0 spironolactone 25 MG tablet 25 mg PO DAILY RF: 0 lisinopril [Zestril] 10 MG tablet 10 mg PO DAILY RF: 0 dicyclomine 10 MG capsule 10 mg PO PRN PRN (Reason: BOWEL SPASMS) RF: 0 ferrous sulfate 325 MG tablet 325 mg PO TIDCM RF: 0 atorvastatin 20 MG tablet 20 mg PO QHS RF: 0 glipizide 10 MG tablet extended release 24hr 10 mg PO DAILY RF: 0 meclizine 12.5 MG tablet 12.5 mg PO TID PRN (Reason: Dizziness) RF: 0 potassium chloride 10 MEQ tablet extended release 10 meq PO DAILY RF: 0 fluticasone propionate 1 SPRAY spray,suspension 1 spray NASAL DAILY RF: 0 cyclobenzaprine 5 MG tablet 5 mg PO TID PRN (Reason: Spasms) RF: 0 isosorbide dinitrate 30 MG tablet 30 mg PO DAILY Qty: 30 RF: 0 Primary Care Provider: Nathaniel Estrada Referrals: Nathaniel Estrada MD [Primary Care Provider] - Charles Gutierrez DO [STAFF PHYSICIAN] - As soon as possible Activity Restrictions/Additional Instructions: Ice and elevate your left foot and ankle is much as possible the next 3 days to decrease the pain and swelling. Rockfall as needed for pain to every 48 hours. Plenty of fluids and fiber to prevent constipation. Keep the splint dry and clean. No weightbearing on the splint. Use your crutches. Call and follow-up with your orthopedic doctor on Thursday. Disposition Disposition: Home, Self Care
[2020-12-08] MEDS: morphine 8 MG/ML Syringe IV (16:46)
[2020-12-08] MEDS: Ondansetron 4 MG/2 ML Vial IV (16:46)
== END 2020-12-08 18:31 | disposition home or self-care (01) ==
PROVIDERS: Emergency Provider Emergency Medicine; PCP Family Medicine
DX: S82.432A Displaced oblique fracture of shaft of left fibula, initial encounter for closed fracture (principal); S92.352A Displaced fracture of fifth metatarsal bone, left foot, initial encounter for closed fracture; S00.33XA Contusion of nose, initial encounter; S50.812A Abrasion of left forearm, initial encounter; M54.2 Cervicalgia; M25.512 Pain in left shoulder; W10.8XXA Fall (on) (from) other stairs and steps, initial encounter; W22.09XA Striking against other stationary object, initial encounter; Y93.01 Activity, walking, marching and hiking; Y92.818 Other transport vehicle as the place of occurrence of the external cause; Y99.9 Unspecified external cause status; I48.91 Unspecified atrial fibrillation; E11.9 Type 2 diabetes mellitus without complications; I10 Essential (primary) hypertension; Z79.01 Long term (current) use of anticoagulants; Z79.84 Long term (current) use of oral hypoglycemic drugs; Z79.82 Long term (current) use of aspirin; Z79.899 Other long term (current) drug therapy; Z87.891 Personal history of nicotine dependence; Z96.652 Presence of left artificial knee joint
CPT/HCPCS: 29515; 70450; 72125; 73030; 73610; 73630; 96374; 96375; 99284; A4216; J2405

== ENCOUNTER 2023-02-04 22:28 | Emergency (ER) | payer MEDICARE, BC, SELFPAY ==
[2023-02-04 22:29] VITALS: BP 145/66; PULSE 61; RESP 15; TEMP 36.3; O2SAT 96
[2023-02-04 22:58] VITALS: BMI 41.6
--- NOTE | 2023-02-04 23:19 | CT_ITS ---
STUDY: CT CHEST, ABDOMEN T PELVIS WITH CONTRAST REASON FOR EXAM: Male, 77 years old. trauma on coumadin RADIATION DOSAGE (If Supplied By Facility): CTDIvol = ( 24.05 ) mGy, DLP = ( 2263.62 ) mGycm TECHNIQUE: Transaxial imaging was performed following intravenous administration of IV 100mL Isovue-300. Individualized dose optimization techniques were used for this CT. COMPARISON: October 27, 2016. FINDINGS: CHEST Left anterior chest loop recorder. Left chest multi lead cardiac pacer. Multiple small thyroid nodules. Absent left thyroid Mild bilateral apical scarring. Small apical paraseptal and centrilobular emphysematous change. Normal heart and pericardium. Mild coronary atherosclerosis. Prominent pericardial fat. Scattered diffuse mediastinal lymph nodes up to 1.8 cm in short axis, precarinal. Bilateral hilar lymph nodes up to 1 cm short axis. Normal unenhanced pulmonary arteries. Aortic atherosclerosis without ectasia or dissection. ABDOMEN PELVIS Homogeneous parenchyma with hepatomegaly. Normal gallbladder and extrahepatic biliary system. Normal spleen. Normal pancreas. Normal bilateral adrenal glands. Normal right kidney. Exophytic left renal cysts, no imaging follow-up required.. No acute gastric finding. No small bowel distention or focal wall thickening. Normal appendix. Colonic diverticulosis without evidence of diverticulitis. Moderate colonic stool. . Aortic atherosclerosis without ectasia.. Normal inferior vena cava. Normal retroperitoneum. Normal urinary bladder. MUSCULOSKELETAL: Fat-containing umbilical hernia without inflammation. No acute osseous finding. Moderate bilateral hip osteoarthritis. Facet arthropathy L4-5 with minimal grade 1 anterolisthesis L4 on L5. Multilevel vertebral bridging osteophytes with chronic anterior vertebral height loss in the midthoracic spine. CT/CT Chest, Abd, Pel w/Contrast IMPRESSION: No CT evidence of acute injury within the chest abdomen or pelvis. Nonspecific mediastinal and bilateral hilar adenopathy without significant change from October 27 2016. Prior left thyroidectomy. Large right thyroid with multiple small nodules. Moderate colonic stool burden as can be seen with constipation. Scattered colonic diverticulosis without evidence of diverticulitis. Electronically Signed: Acosta Gayle MD at 1:28 EDT ,
--- NOTE | 2023-02-04 23:20 | ED.VIS.FALL ---
HPI HPI - Fall History of Present Illness Chief Complaint: Fall Informant: patient Narrative Narrative: After a fall with back pain. Patient fell in the shower in his house today. Is the first time he used his brand-new shower to help him prevent falls. He sat down back on a seat in the shower. It was slippery. This caused him to slide and fall. He then hit his mid upper back on the edge of that seat. He has pain in the area that radiates around mostly to the right side not so much the left. He denies being short of breath. He has been up moving since this but it sore. He has tramadol at home for pain but did not take any. He is also on Coumadin for history of atrial fibrillation. He denies ever hitting his head. He states the only thing that hurts is his mid upper back. This happened about 2-1/2 hours ago. [facility] Medical History Acute bilateral low back pain with bilateral sciatica Arthritis Asbestosis Biliary dyskinesia CAD (coronary artery disease) Centrilobular emphysema Coronary atherosclerosis Diabetes Dyspnea on exertion Epigastric pain Essential tremor Fatty liver GERD (gastroesophageal reflux disease) Hernia, hiatal Hypertension Hypomagnesemia IBS (irritable bowel syndrome) Iron deficiency anemia Mesenteric adenitis Multinodular goiter Nausea LOI (obstructive sleep apnea) Postinflammatory pulmonary fibrosis Tachycardia Umbilical hernia without mention of obstruction or gangrene Vitamin B12 deficiency Home Medications aspirin 81 mg tablet,delayed release 81 mg PO DAILY@0800 09/15/14 [History Last Taken 08/01/19] flecainide 100 mg tablet 100 mg PO BID 09/15/14 [History Last Taken 08/01/19] furosemide 20 mg tablet 20 mg PO BID 09/15/14 [History Last Taken 08/01/19] metformin 500 mg tablet 1,000 mg PO BID 09/15/14 [History Last Taken 08/01/19] omeprazole 20 mg capsule,delayed release 20 mg PO DAILY 09/15/14 [History Last Taken 08/01/19] warfarin 5 mg tablet (Jantoven) 6 mg PO DAILY 09/15/14 [History Last Taken 08/01/19] dicyclomine 10 mg capsule 10 mg PO PRN PRN BOWEL SPASMS 11/11/17 [History Last Taken 11/11/17 10] lisinopril 10 mg tablet (Zestril) 10 mg PO DAILY 11/11/17 [History Last Taken 08/01/19] pioglitazone 15 mg tablet 15 mg PO DAILY 11/11/17 [History Last Taken 08/01/19] spironolactone 25 mg tablet 25 mg PO DAILY 11/11/17 [History Last Taken 08/01/19] atorvastatin 20 mg tablet 20 mg PO QHS 08/01/19 [History Last Taken 08/01/19] cyclobenzaprine 5 mg tablet 5 mg PO TID PRN Spasms 08/01/19 [History Last Taken Unknown] fluticasone propionate 50 mcg/actuation nasal spray,suspension 1 spray NASAL DAILY 08/01/19 [History Last Taken 08/01/19] glipizide 10 mg tablet, extended release 24 hr 10 mg PO DAILY 08/01/19 [History Last Taken 08/01/19] isosorbide dinitrate 30 mg tablet 30 mg PO DAILY #30 tabs 08/01/19 [Rx Last Taken Unknown] potassium chloride 10 mEq tablet,extended release 10 meq PO DAILY 08/01/19 [History Last Taken 08/01/19] hydrocodone-acetaminophen 5-325mg 5mg-325mg 1 tab PO Q4H PRN pain 5 days #20 tabs 12/08/20 [Rx Last Taken Unknown] metoprolol tartrate 25 mg tablet 25 mg PO DAILY 06/13/22 [History Last Taken Unknown] ondansetron HCl 4 mg tablet 4 mg PO Q8H 06/13/22 [History Last Taken Unknown] sildenafil 100 mg tablet 100 mg PO DAILY PRN 06/13/22 [History Last Taken Unknown] tramadol 50 mg tablet 50 mg PO Q6H PRN pain #12 tabs 02/05/23 [Rx Last Taken Unknown] Allergy/AdvReac Type Severity Reaction Status Date / Time chlorpheniramine AdvReac Upset Verified 02/04/23 22:34 Stomach chlorpheniramine maleate AdvReac Upset Verified 02/04/23 22:34 [From Ornade] Stomach phenylpropanolamine HCl AdvReac Upset Verified 02/04/23 22:34 [From Ornade] Stomach rofecoxib [From Vioxx] AdvReac Upset Verified 02/04/23 22:34 Stomach sulfamethoxazole AdvReac Upset Verified 02/04/23 22:34 [From Bactrim] Stomach trimethoprim [From Bactrim] AdvReac Upset Verified 02/04/23 22:34 Stomach Family History Mother Heart disease COPD (chronic obstructive pulmonary disease) Hypertension Father AAA (abdominal aortic aneurysm) Brother Diabetes Esophageal cancer Sister Heart disease Pancreatic cancer Surgical History H/O left knee surgery H/O thyroidectomy S/P cardiac pacemaker procedure Social History Smoking Status: Former smoker alcohol intake: current ROS ROS ED ROS Narrative A complete review of systems was performed and is negative except as documented in the history of present illness. Some specific details below. Constitutional: No recent fevers or chills. Fine prior to the event. EYE: No discharge, visual complaints, or pain. ENT: Trauma or soreness. He swears he never hit his head. He slid hit his back on the seat and was still in the shower with his head up in the air. CV: History of atrial fibrillation but no symptoms related to this. He also has a pacemaker in. Respiratory: No trouble breathing. GI: Patient states the pain radiates around to the front of his right upper quadrant and right chest but most of his abdomen is not at all sore. : No urine since the fall 2 hours ago so he does not know if he has hematuria. Musculoskeletal: History of present illness Skin: No rash. Nondiaphoretic. Neuro: No weakness or numbness. Endocrine: No polyuria or polydipsia. EXAM Physical Exam Narrative Exam Narrative: CONSTITUTIONAL: Patient is nontoxic in appearance. The patient looks comfortable. Work of breathing looks normal. HEENT: No notable trauma. Mucous membranes moist. No trauma anywhere on his head consistent with his history. EYES: No conjunctival injection. No proptosis. NECK:No JVD. No stridor. CARDIOVASCULAR: Regular rate. Regular rhythm. No notable murmur. No JVD. Does have a pacemaker in the left upper chest. RESPIRATORY: No respiratory distress. Breathing is unlabored. No wheezes. No rhonchi. No rales. No pain with a deep breath. Have some tenderness to the lower ribs mostly on his right. But there is no bruising or subcu air. GASTROINTESTINAL: Obese but not distended. I get no anterior tenderness anywhere. No indication hepatosplenomegaly. There is an umbilical hernia that is nontender and easily reduces. GENITOURINARY: No tenderness over the bladder. No CVA tenderness. MUSCULOSKELETAL: Some tenderness at the lower thoracic area and midline and just to the right. But no bruising is yet seen. NEUROLOGICAL: Patient is alert and appropriate. No focal deficit noted. SKIN: No noted rashes. No diaphoresis. PSYCHIATRIC: Patient is calm. Mood is appropriate. Const Vital Signs: 02/04/23 22:29 02/04/23 23:00 02/05/23 00:35 Temperature 97.4 F L Temperature Source Temporal Pulse Rate 61 68 Respiratory Rate 15 18 Respiratory Effort Normal Non-Labored Blood Pressure 145/66 H 163/86 H Blood Pressure Mean 92 111 Pulse Ox 96 92 Oxygen Delivery Method Room Air Room Air MDM MDM MDM Narrative Medical decision making narrative: Patient CBC is normal including platelets. There is just minimal decrease of hemoglobin which is not. Patient's INR is therapeutic at 2.4. Patient's electrolytes showed mild elevation of the BUN to creatinine ratio but otherwise no major abnormality. Urinalysis shows no sign of red blood cells of significance. My independent interpretation of the patient's CT scan of chest abdomen and pelvis shows no acute intrathoracic, intra-abdominal or bony injury. Final reading was similar. They do note prior surgeries some stable hilar lymphadenopathy and increased stool. I talk with the patient. He does have a few tramadol at home left from problems with his knee. I will write for a few more because these work for him and do not cause problems. Would encourage increased fiber or MiraLAX while on pain meds to avoid constipation. We discussed returning with worsening pain, nausea vomiting bloating in the abdomen, numbness tingling or any other concerns. Lab Data Attestation: I reviewed the patient's lab results. Labs: Laboratory Results - last 24 hr 02/04/23 10 23:50 00:35 WBC 9.8 RBC 4.87 Hgb 12.6 L Hct 40.8 MCV 83.8 MCH 25.9 L MCHC 30.9 L RDW Std Deviation 47.9 H RDW Coeff of Marcia 15.9 H Plt Count 294 MPV 10.2 Immature Gran % (Auto) 1.400 H Neut % (Auto) 71.4 H Lymph % (Auto) 16.4 L [place] % (Auto) 8.6 Eos % (Auto) 1.7 Baso % (Auto) 0.5 Absolute Neuts (auto) 7.0 Absolute Lymphs (auto) 1.61 Nucleated RBC % 0 PT 26.8 H INR 2.4 Sodium 139 Potassium 3.9 Chloride 107 Carbon Dioxide 28.0 Anion Gap 4 L BUN 27 H Creatinine 1.17 Estim Creat Clear Calc 47.86 Est GFR (MDRD) Af Amer 77 Est GFR (MDRD) Non-Af 64 BUN/Creatinine Ratio 23.1 H Glucose 111 H Calcium 9.0 Urine Color Yellow Urine Clarity Clear Urine pH 5.0 Ur Specific [place] 1.020 Urine Protein 30 H Urine Glucose (UA) 100 H Urine Ketones 5 H Urine Occult Blood 10 H Urine Nitrite Negative Urine Bilirubin Negative Urine Urobilinogen Normal Ur Leukocyte Esterase Negative Urine RBC 0-5 SEEN Urine WBC 0 SEEN Ur Squamous Epith Cells 0 SEEN Urine Bacteria 0 SEEN Urine Mucus 0 SEEN Radiography Diagnostic Testing: Clinical Impression(s) from Imaging Studies Chest/Abdomen/Pelvis CT 02/04/23 23:19 IMPRESSION: No CT evidence of acute injury within the chest abdomen or pelvis. Nonspecific mediastinal and bilateral hilar adenopathy without significant change from October 27 2016. Prior left thyroidectomy. Large right thyroid with multiple small nodules. Moderate colonic stool burden as can be seen with constipation. Scattered colonic diverticulosis without evidence of diverticulitis. Electronically Signed: Acosta Gayle MD at 1:28 EDT Reading Location ID and State: [facility] / [place] Tel , Service support , Discharge Plan Triage Chief Complaint: Fall ED Provider: Riley León Dx/Rx/DC Orders Clinical Impression: Back contusion, Warfarin-induced coagulopathy, Fall in (into) shower or empty bathtub, initial encounter Instructions: ED Back Contusion Prescriptions: New tramadol 50 mg tablet 50 mg PO Q6H PRN (Reason: pain) Qty: 12 0RF No Action ondansetron HCl 4 mg tablet 4 mg PO Q8H sildenafil 100 mg tablet 100 mg PO DAILY PRN Rx Instructions: administer 30 minutes to 4 hours before activity metoprolol tartrate 25 mg tablet 25 mg PO DAILY metformin 500 MG tablet 1,000 mg PO BID Patient Comments: DIABETES aspirin 81 MG tablet 81 mg PO DAILY@0800 Patient Comments: HEART/BLOOD THINNER warfarin [Jantoven] 5 MG tablet 6 mg PO DAILY Patient Comments: BLOOD THINNER flecainide 100 MG tablet 100 mg PO BID Patient Comments: HEART furosemide 20 MG tablet 20 mg PO BID Patient Comments: DIURESIS omeprazole 20 MG capsule 20 mg PO DAILY Patient Comments: ACID REFLUX pioglitazone 15 MG tablet 15 mg PO DAILY spironolactone 25 MG tablet 25 mg PO DAILY lisinopril [Zestril] 10 MG tablet 10 mg PO DAILY dicyclomine 10 MG capsule 10 mg PO PRN PRN (Reason: BOWEL SPASMS) atorvastatin 20 MG tablet 20 mg PO QHS glipizide 10 MG tablet extended release 24hr 10 mg PO DAILY potassium chloride 10 MEQ tablet extended release 10 meq PO DAILY fluticasone propionate 1 SPRAY spray,suspension 1 spray NASAL DAILY cyclobenzaprine 5 MG tablet 5 mg PO TID PRN (Reason: Spasms) isosorbide dinitrate 30 MG tablet 30 mg PO DAILY Qty: 30 0RF hydrocodone-acetaminophen 5-325 mg tablet 1 tab PO Q4H PRN (Reason: pain) 5 Days Qty: 20 0RF Primary Care Provider: Nathaniel Estrada Referrals: Nathaniel Estrada MD [Primary Care Provider] - 3-5 Days if not improving Activity Restrictions/Additional Instructions: Use MiraLAX or increase fiber while taking pain meds to avoid constipation. Disposition Disposition: Home, Self Care
[2023-02-04] MEDS: Morphine 4 MG/ML Syringe IV (23:47)
[2023-02-04] MEDS: Ondansetron 4 MG/2 ML Vial IV (23:47)
[2023-02-05 00:08] LABS: Absolute Lymphocyte Count 1.61 X10^3/uL (0.83-4.51); Basophil# 0.05 X10^3/uL; Basophil% 0.5 % (0-1); Eosinophil# 0.17 X10^3/uL; Eosinophils% 1.7 % (0-5); Hematocrit 40.8 % (40-54); Hemoglobin 12.6 g/dL (13.0-16.5); Lymphocyte # 1.61 X10^3/ul (0.83-4.51); Lymphocyte % 16.4 % (19-41); Mean Corp Hgb Conc 30.9 g/dL (32-36); Mean Corpuscular Hgb 25.9 pg (27.0-32.0); Mean Corpuscular Volume 83.8 fL (80-94); Mean Platelet Vol. 10.2 fl (6.2-12.0); Monocyte# 0.84 X10^3/uL; Monocyte% 8.6 % (0-10); NRBC Flagged by Analyzer 0 % (0-5); Neutrophil # 6.99 X10^3/uL (2.7-7.7); Neutrophil % 71.4 % (47-70); Platelet Count 294 K/mm3 (150-450); RBC Distribution Width CV 15.9 % (11.6-14.6); RBC Distribution Width SD 47.9 fl (35.1-43.9); Red Blood Count 4.87 M/mm3 (4.6-6.2); White Blood Count 9.8 K/mm3 (4.4-11.0)
[2023-02-05 00:12] LABS: Anion Gap 4 (5-15); BUN 27 mg/dL (7-18); BUN/Creat Ratio 23.1 RATIO (10-20); Chloride 107 mmol/L (98-107); Creatinine, Serum 1.17 mg/dL (0.70-1.30); EST Glomerular Filtration Rate 64 mL/min (>60); Est Glom Filt Rate - Afr Amer 77 mL/min (>60); Estimated Creatinine Clearance 47.86 ml/min; Glucose 111 mg/dL (74-106); Potassium 3.9 mmol/L (3.5-5.1); Sodium Level 139 mmol/L (136-145)
[2023-02-05] MEDS: 0.9% Normal Saline (500mL Bag) 500 ML 1000 ML IV (00:34)
[2023-02-05 00:35] VITALS: BP 163/86; PULSE 68; RESP 18; O2SAT 92
[2023-02-05 00:35] LABS: International Normalized Ratio 2.4; Prothrombin Time (Protime)PT. 26.8 SECONDS (11.7-14.9)
[2023-02-05 00:47] LABS: Bacteria 0 SEEN /hpf (None Seen); Mucous, Urine 0 SEEN /hpf (<or=2+); Squamous Epithelial Cells - UA 0 SEEN /hpf (0-5); White Blood Cells 0 SEEN /hpf (0-5)
[2023-02-05 00:51] LABS: Color, Urine Yellow (Yellow); Glucose, Dipstick 100 mg/dl (Normal); Ketone-Dipstick 5 mg/dl (Negative); Leukocyte Esterase-Dipstick Negative /ul (Negative); Nitrite-Dipstick Negative (Negative); Occult Blood-Urine 10 /ul (Negative); Protein-Dipstick 30 mg/dl (Negative); Urine Bilirubin Dipstick Negative (Negative); Urine Clarity Clear (Clear); Urine Urobilinogen Normal (Normal)
[2023-02-05 01:11] LABS: Red Blood Cells-Urine 0-5 SEEN /hpf (0-5)
[2023-02-05 02:06] VITALS: BP 156/72; PULSE 71; RESP 14; O2SAT 94
== END 2023-02-05 02:32 | disposition home or self-care (01) ==
PROVIDERS: Emergency Provider Emergency Medicine; PCP Family Medicine; Visit Provider Emergency Medicine
DX: S20.224A Contusion of middle back wall of thorax, initial encounter (principal); J43.2 Centrilobular emphysema; I48.91 Unspecified atrial fibrillation; E11.9 Type 2 diabetes mellitus without complications; W18.2XXA Fall in (into) shower or empty bathtub, initial encounter; Y93.E1 Activity, personal bathing and showering; Y92.012 Bathroom of single-family (private) house as the place of occurrence of the external cause; I25.10 Atherosclerotic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 native coronary artery without angina pectoris; I10 Essential (primary) hypertension; K21.9 Gastro-esophageal reflux disease without esophagitis; Z79.84 Long term (current) use of oral hypoglycemic drugs; Z79.82 Long term (current) use of aspirin; Z79.01 Long term (current) use of anticoagulants; Z79.899 Other long term (current) drug therapy; Z87.891 Personal history of nicotine dependence; Z95.0 Presence of cardiac pacemaker
CPT/HCPCS: 71260; 74177; 80048; 81001; 85025; 85610; 96361; 96374; 96375; 99284; J7040; Q9967; A4216; J2405

== ENCOUNTER → 2024-04-14 | Outpatient (CLI) | payer MEDICARE, BC, SELFPAY ==
[2024-04-14 10:07] LABS: Absolute Lymphocyte Count 1.71 X10^3/uL (0.83-4.51); Basophil# 0.04 X10^3/uL; Basophil% 0.5 % (0-1); Eosinophil# 0.17 X10^3/uL; Eosinophils% 2.2 % (0-5); Hematocrit 40.6 % (40-54); Hemoglobin 12.3 g/dL (13.0-16.5); Lymphocyte # 1.71 X10^3/ul (0.83-4.51); Mean Corp Hgb Conc 30.3 g/dL (32-36); Mean Corpuscular Hgb 25.1 pg (27.0-32.0); Mean Corpuscular Volume 82.9 fL (80-94); Mean Platelet Vol. 9.7 fl (6.2-12.0); Monocyte% 10.3 % (0-10); NRBC Flagged by Analyzer 0 % (0-5); Neutrophil # 5.02 X10^3/uL (2.7-7.7); Neutrophil % 64.6 % (47-70); Platelet Count 290 K/mm3 (150-450); RBC Distribution Width CV 16.2 % (11.6-14.6); RBC Distribution Width SD 48.8 fl (35.1-43.9); White Blood Count 7.8 K/mm3 (4.4-11.0)
[2024-04-14 11:05] LABS: AST(SGOT) 12 U/L (15-37); Alanine Aminotransfer ALT/SGPT 20 U/L (16-61); Albumin, Serum 3.5 g/dL (3.2-5.0); Alkaline Phosphatase 94 U/L (45-117); Anion Gap 3 (5-15); BUN 21 mg/dL (7-18); BUN/Creat Ratio 17.2 RATIO (10-20); Calcium,Total 9.1 mg/dL (8.5-10.1); Chloride 108 mmol/L (98-107); Creatinine, Serum 1.22 mg/dL (0.70-1.30); EST Glomerular Filtration Rate 61 mL/min (>60); Est Glom Filt Rate - Afr Amer 73 mL/min (>60); Ferritin 16 ng/mL (26-388); Globulin 3.6 g/dL (2.2-4.2); Glucose 118 mg/dL (74-106); Iron 36 ug/dL (65-175); Iron Binding Capacity,Total 353 ug/dL (250-450); Lipase 19 U/L (13-75); Potassium 4.2 mmol/L (3.5-5.1); Protein, Total 7.1 g/dL (6.4-8.2); Sodium Level 140 mmol/L (136-145)
== END | disposition home or self-care (01) ==
PROVIDERS: PCP Family Medicine; Referring Provider Nurse Practitioner Acute Care; Visit Provider Nurse Practitioner Acute Care
DX: R10.12 Left upper quadrant pain (principal); R11.0 Nausea; D64.9 Anemia, unspecified
CPT/HCPCS: 36415; 80053; 82728; 83540; 83550; 83690; 85025

== ENCOUNTER → 2024-04-20 | Outpatient (CLI) | payer MEDICARE, BC, SELFPAY ==
--- NOTE | 2024-04-20 14:48 | CT_ITS ---
STUDY: CT ABDOMEN AND PELVIS WITH CONTRAST REASON FOR EXAM: Male, 79 years old. LUQ abdominal pain -- With PO and IV contrast RADIATION DOSAGE (If Supplied By Facility): CTDIvol = ( 21.71 ) mGy, DLP = ( 1718.81 ) mGycm TECHNIQUE: Transaxial images were obtained from the dome of the diaphragm to the symphysis pubis with oral contrast. Oral and amp; IV Readi-CAT and amp; 100mL Isovue-300 was administered. Sagittal and coronal images were reconstructed. Individualized dose optimization techniques were used for this CT. COMPARISON: Comparison is made with prior examination dated February 05, 2023. FINDINGS: Mild increased markings at the lung bases suggestive of scarring. A dual-chamber pacemaker is seen. There is decreased attenuation of the liver consistent with steatosis. Normal gallbladder and extrahepatic biliary system. There is a benign calcified granuloma of the spleen. There is diffuse atrophy of the pancreas. Focal calcification in the neck of the pancreas. Normal bilateral adrenal glands. Normal right kidney. 2.2 cm cyst in the lateral aspect of the left kidney. Normal visualized stomach. Small duodenal diverticulum along the second portion of the duodenum. Normal small intestine. There are multiple colonic diverticula consistent with diverticulosis. The appendix is visualized and appears normal. There is scattered atherosclerotic calcification of the abdominal aorta, without a demonstrated aneurysm. Normal inferior vena cava. Normal retroperitoneum. Empty urinary bladder. There is a small umbilical hernia containing fat. The neck of the hernia measures 3.9 cm. There are diffuse degenerative changes of the visualized lumbar spine. Minimal anterior listhesis of L4 on L5. Osteoarthritis of both hip joints. CT/Abdomen/Pelvis WITH Contrast IMPRESSION: Fenestration of the liver. Atrophy of the pancreas. Focal calcification in the neck of the pancreas. Stable left renal cyst. Sigmoid diverticulosis. Umbilical hernia containing fat. The neck of the hernia measures 3.9 cm. Electronically Signed: Aaron Rooney MD at 13:02 EST ,
== END | disposition home or self-care (01) ==
PROVIDERS: PCP Family Medicine; Referring Provider Nurse Practitioner Acute Care; Visit Provider Nurse Practitioner Acute Care
DX: R10.12 Left upper quadrant pain (principal); R11.0 Nausea
CPT/HCPCS: 74177; Q9967; A4216

== ENCOUNTER → 2024-05-09 | Outpatient (CLI) | payer MEDICARE, BC, SELFPAY ==
[2024-05-10 20:07] LABS: Pancreatic Elastase, Fecal 692 (>200)
== END | disposition home or self-care (01) ==
PROVIDERS: PCP Family Medicine; Referring Provider Nurse Practitioner Acute Care; Visit Provider Nurse Practitioner Acute Care
DX: R10.12 Left upper quadrant pain (principal); K90.9 Intestinal malabsorption, unspecified
CPT/HCPCS: 82653

== ENCOUNTER 2024-05-24 05:52 | Day surgery (SDC) | payer MEDICARE, BC, SELFPAY ==
--- NOTE | 2024-05-20 14:56 | PAT.ANE_ITS ---
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 When Was Last Pacemaker Check QUESTION #4 FULL TEXT: You/Your Family Experience fever (hyperthermia) with Anesthesia Last Oral Intake Last Oral intake: Last Oral Intake NPO since Meds taken in AM with sips of water? Meds patient instructed to take am of surgery PONV PONV - patternmaker metal bench: PONV - patternmaker metal bench Female No 05/19/24 13:20 HX of Motion Sickness No 05/19/24 13:20 HX of N/V After Surgery No 05/19/24 13:20 Non-Smoker Yes 05/19/24 13:20 Duration of Surgery greater No 05/19/24 13:20 than 60 minutes Number of Risk Factors 1 05/19/24 13:20 PONV Score Low Risk 05/19/24 13:20 Height & Weight Height & Weight: Anesthesia: Height & Weight Height 5 ft 7 in 04/14/24 09:07 Respiratory Assessment Respiratory Assessment - patternmaker metal bench: Respiratory Tract Infection Hx - patternmaker metal bench Hx Respiratory Tract Infection No 05/19/24 13:20 STOP Sleep Apnea STOP Sleep Apnea - patternmaker metal bench: STOP Sleep Apnea - patternmaker metal bench Hx Hypertension Yes: CONTROLLED WITH MEDS 05/19/24 13:20 Hx Sleep Apnea Yes 05/19/24 13:20 CPAP No 05/19/24 13:20 BIPAP Yes 05/19/24 13:20 Do you snore loudly (louder than talking or can be heard Do you often feel tired/ fatigued/ sleepy during daytime? Has anyone observed you stop breathing during sleep? STOP Results Positive 05/19/24 13:20 QUESTION #5 FULL TEXT : Do you snore loudly (louder than talking or can be heard through closed doors)? 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 Specify any problems Hx of Preganancy in last 3 N/A 05/19/24 13:20 Months Nurse Filling Out Transfusion [id number] 05/19/24 13:20 & Questions: Date: 05/19/24 05/19/24 13:20 Time: 05/19/24 13:20 Patient unable to answer at this time (ie. confused, unrespo /Reproduction History /Reproductive History - patternmaker metal bench: /Reproductive Hx- patternmaker metal bench Hx Now Gestational Age (in weeks): EDC: Hx Hx Para [facility] Medical History (Updated 05/19/24 @ 13:32 by Adal Zhao) Wears glasses Wears dentures Low iron History of hiatal hernia Gastric reflux Former smoker BiPAP (biphasic positive airway pressure) dependence Sleep apnea History of pain when walking History of atrial fibrillation History of echocardiogram Cardiology follow-up encounter Vitamin B12 deficiency Umbilical hernia without mention of obstruction or gangrene Tachycardia Postinflammatory pulmonary fibrosis LOI (obstructive sleep apnea) Multinodular goiter Mesenteric adenitis IBS (irritable bowel syndrome) Iron deficiency anemia Hypomagnesemia Essential tremor Dyspnea on exertion Coronary atherosclerosis CAD (coronary artery disease) Centrilobular emphysema Biliary dyskinesia Hernia, hiatal Fatty liver Asbestosis Arthritis Acute bilateral low back pain with bilateral sciatica Nausea GERD (gastroesophageal reflux disease) Epigastric pain Diabetes Hypertension Home Medications ?Medication ?Instructions ?Recorded ?Last Taken ?Type aspirin 81 mg tablet,delayed 81 mg PO DAILY@0800 09/15/14 08/01/19 History release flecainide 100 mg tablet 100 mg PO BID 09/15/14 08/01/19 History furosemide 20 mg tablet 20 mg PO BID 09/15/14 08/01/19 History metformin 500 mg tablet 1,000 mg PO BID 09/15/14 08/01/19 History dicyclomine 10 mg capsule 10 mg PO PRN PRN BOWEL SPASMS 11/11/17 11/11/17 History 10 lisinopril 10 mg tablet (Zestril) 10 mg PO DAILY 11/11/17 08/01/19 History pioglitazone 15 mg tablet 15 mg PO DAILY 11/11/17 08/01/19 History spironolactone 25 mg tablet 25 mg PO DAILY 11/11/17 08/01/19 History cyclobenzaprine 5 mg tablet 5 mg PO TID PRN Spasms 08/01/19 Unknown History glipizide 10 mg tablet, extended 10 mg PO DAILY 08/01/19 08/01/19 History release 24 hr potassium chloride 10 mEq 10 meq PO DAILY 08/01/19 08/01/19 History tablet,extended release metoprolol tartrate 25 mg tablet 25 mg PO DAILY 06/13/22 Unknown History magnesium chloride 64 mg 64 mg PO ONCE 04/14/24 Unknown History (magnesium chloride) tablet,delayed release omeprazole 40 mg capsule,delayed 40 mg PO QDAY take 30 minutes 04/14/24 Unknown Rx release before breakfast every morning #90 caps ondansetron HCl 4 mg tablet 4 mg PO Q8H PRN nausea and 04/14/24 Unknown Rx vomiting #20 tabs warfarin 3 mg tablet 3 mg PO WE 04/14/24 Unknown History warfarin 5 mg tablet ([place]) 6 mg PO .[id number] 04/14/24 Unknown History glipizide 2.5 mg tablet, extended 2.5 mg PO QHS 05/19/24 Unknown History release 24 hr Allergy/AdvReac Type Severity Reaction Status Date / Time chlorpheniramine AdvReac Upset Verified 05/19/24 13:15 Stomach chlorpheniramine maleate AdvReac Upset Verified 05/19/24 13:15 (From Ornade) Stomach phenylpropanolamine HCl AdvReac Upset Verified 05/19/24 13:15 (From Ornade) Stomach rofecoxib (From Vioxx) AdvReac Upset Verified 05/19/24 13:15 Stomach sulfamethoxazole (From AdvReac Upset Verified 05/19/24 13:15 Bactrim) Stomach trimethoprim (From Bactrim) AdvReac Upset Verified 05/19/24 13:15 Stomach Family History Mother Heart disease COPD (chronic obstructive pulmonary disease) Hypertension Father AAA (abdominal aortic aneurysm) Brother Diabetes Esophageal cancer Sister Heart disease Pancreatic cancer Surgical History (Updated 05/19/24 @ 13:32 by Adal Zhao) H/O partial thyroidectomy H/O left knee surgery S/P cardiac pacemaker procedure Social History Smoking Status: Former smoker alcohol intake: current Audit: Pertinent Findings Pertinent Findings EKG Perinent findings: August 19, 2023. Atrial paced ventricular sensed rhythm 63 bpm. Right bundle branch block. Stress test pertinent findings: February 10, 2024. Negative for transthyretin amyloidosis. November 16, 2019. Ejection fraction 64%. No evidence for inducible ischemia. No evidence of scarred myocardium Echo (EF%) pertinent findings: October 29, 2023. Ejection fraction is 54%. There is no aortic valve stenosis. Heart catheterization pertinent findings: March 17 2018. Ejection fraction is 50-55%. Left circumflex has 40 to 50% mid stenosis Consult pertinent findings: August 19, 2023. Dr. Rob?cardiology 1. Paroxysmal A-fib-no significant burden, tolerating the flecainide. Continue flecainide. Monitor for A-fib through the pacemaker. 2. Pacemaker device is working appropriately. Recommendation Anesthesia Recommendation Anesthesia recommendation: OPTIMIZED for anesthesia
[2024-05-24] VITALS (8 sets, daily range): BP systolic 116–147; BP diastolic 66–70; PULSE 60–76; RESP 16–18; TEMP 36.2–36.8; O2SAT 94–96; BMI 42.0
--- NOTE | 2024-05-24 | IMM_PTH ---
PATIENT: ANKIT RODRIGUEZ Jr. LOC: EN U#:[id number] AGE/SX: 79/M ROOM: RE05/24/[address]: Dr. Otf Blanco DO : 1945 BED: DIS: 05/24/2024 SPEC #: [id number] RECD: 05/26/24 08:11 STATUS: JUAN REQ #: [id number] ZORA: 05/24/24 00:[address]: Otf Blanco DEPT: IMMUNOHISTOCHEMISTRY RECD BY: Samir Dietrich ENTERED: 05/26/24 08:12 SP TYPE: IMMUNO LEAH DR: Dr. Nathaniel Estrada MD Tissues: B - Esophagus, NOS Procedures: P53 (initial) KI-67 (add) PHYSICIAN & INSTITUTION [place] [id number] SPECIMEN INFORMATION: Tissue Source: B- Distal esophagus biopsy Clinical Info: Anemia, left upper quadrant pain Specimen Number: [id number] CPT code: 61652,19359 METHODOLOGY: Deparaffinized sections of prefer/formalin-fixed tissue or PAP/DQ stained slides are incubated with monoclonal/polyclonal antibodies/oligonucleotide probes. Localization is made via biotin free immunoperoxidase method. Appropriate controls are performed and reacted as expected. Results on target cell population are indicated in the following table: RESULTS: ANTIBODY / CLONE RESULT Block B 1 P53 (DO-7) negative (null pattern) Ki-67 (30-9) positive, low These tests were developed and their performance characteristics determined by [facility]. They may not have been cleared or approved by the U.[place]. Food and Drug Administration. The FDA has determined that such clearance or approval is not necessary. The above immunohistochemical/dualISH markers are ordered and reviewed by the Pathologist. INTERPRETATION: B. Distal esophagus, biopsy: Negative for dysplasia. 05/26/2024
[2024-05-24 06:13] LABS: INR Fingerstick 1.5; Prothrombin Time Fingerstick 16.5 SEC (11.7-14.9)
[2024-05-24 06:50] LABS: International Normalized Ratio 1.3; Prothrombin Time (Protime)PT. 16.3 SECONDS (11.7-14.9)
--- NOTE | 2024-05-24 07:00 | EGD_PTH ---
PATIENT: ANKIT RODRIGUEZ Jr. LOC: EN U#:[id number] AGE/SX: 79/M ROOM: RE05/24/[address]: Dr. Otf Blanco DO : 1945 BED: DIS: 05/24/2024 SPEC #: [id number] RECD: 05/24/24 10:17 STATUS: JUAN REQ #: [id number] ZORA: 05/24/24 07:[address]: Otf Blanco DEPT: SURGICAL PATHOLOGY RECD BY: Mack Millan ENTERED: 05/24/24 11:12 SP TYPE: EGD BIOPSY LEAH DR: Dr. Nathaniel Estrada MD Tissues: A - Duodenum, NOS B - Esophagus, NOS Procedures: Special Stain Group I Surgery Specimen Level IV Alcian Blue/PAS (control) HEADER OPERATION: EGD with biopsy and electrohemostasis PRE-OP DIAGNOSIS: Anemia, left upper quadrant pain TISSUE SUBMITTED: A- Duodenum biopsy, B- Distal esophagus biopsy MICROSCOPIC DIAGNOSIS A. Duodenum, biopsy: Chronic duodenitis. Villous architecture is maintained. No significant increase in intraepithelial lymphocytes, not suggestive of celiac disease. B. Distal esophagus, biopsy: Squamous and glandular mucosa showing intestinal metaplasia / Fowler's esophagus. Negative for dysplasia. Squamous mucosa showing changes suggestive of acute reflux esophagitis. Negative for eosinophilic esophagitis. See comment. 05/25/2024 COMMENT B. Alcian blue/PAS stain with matched control is used in the evaluation of the specimen and showing numerous goblet cells consistent with intestinal metaplasia / Fowler's esophagus. Immunohistochemistry ([id number]) for P53 and Ki-67 will be performed, and results will be reported separately. Case has been reviewed in consultation with Dr. Lynch who concurs with the above diagnosis. IDC:AM MICROSCOPIC DESCRIPTION Slides are reviewed. GROSS DESCRIPTION A. Received in fixative is one container labeled with the patient's name and designated Duodenum biopsy. The specimen consists of multiple irregular fragments of light garcia soft tissue that in aggregate measure 1 x 0.4 x 0.2 cm. The specimen is totally submitted in one cassette. B. Received in fixative is one container labeled with the patient's name and designated Distal esophagus biopsy. The specimen consists of multiple irregular fragments of light garcia soft tissue that in aggregate measure 1.1 x 0.3 x 0.2 cm. The specimen is totally submitted in one cassette. 05/24/2024 TC:3 CPT:[id number] ADDENDUM ADDENDUM ADDENDUM ADDENDUM ADDENDUM ADDENDUM ADDENDUM ADDENDUM ADDENDUM ADDENDUM ADDENDUM ADDENDUM ADDENDUM ADDENDUM ADDENDUM 06/27/2024 08:35 ADDENDUM 06/27/2024 08:35 ADDENDUM 06/27/2024 08:35 ADDENDUM 06/27/2024 08:35 ADDENDUM 06/27/2024 08:35 This addendum is added to incorporate an outside pathology consultation report. The case was examined at [facility] (#[id number] - B1) and the following diagnosis was rendered. TISSUEPHER RISK CLASS AND RISK SCORE Risk class: LOW Risk score: 0.5 5-year probability of progression: 0.30% Please see complete above mentioned consultation report in EMR
--- NOTE | 2024-05-24 07:03 | HP.PCM_ITS ---
HPI - General General Date of Admission: 05/24/24 Date of Service: 05/24/24 Chief Complaint: Nausea and abdominal pain HPI Narrative ANKIT RODRIGUEZ, is a 79 M who presents today for endoscopic evaluation of nausea and abdominal pain. He has been having left sided ABD pain. He was last seen by Tiarra West NP September 2022 for c/o daily nausea with resolution of epigastric pain since starting pantoprazole 40mg daily. Family history is significant for sister with pancreatic cancer and brother with esophageal cancer. CT 02/[address] evidence of acute injury within the chest abdomen or pelvis. Nonspecific mediastinal and bilateral hilar adenopathy without significant change from October 27 2016. Prior left thyroidectomy. Large right thyroid with multiple small nodules. Moderate colonic stool burden as can be seen with constipation. Scattered colonic diverticulosis without evidence of diverticulitis. - reports his last colonoscopy was a few years ago and revealed polyps - has not had an EGD in many years - left sided abdominal pain and nausea - a catch in my side -- dull, limits ADL's intermittently - reports the past 3 months the pain has been different - pain now radiates down to lower abdomen and around to left flank - reports when he wakes in the morning he has to stop and catch his breath due to pain - reports pain improves with having a BM and eating - Omeprazole 40mg daily - 10lb weight gain since passing of 3 years ago - dicyclomine PRN for frequent BM and on occasion this does help the pain - stomach gurgling - up to 7 BM daily, mushy but not watery diarrhea - denies taking any fiber supplements - 4 glasses of water daily - c/o chronic back pain - denies taking any NSAIDS COUNTS INCLUDE 234 BEDS AT THE [facility] Medical History Wears glasses Wears dentures Low iron History of hiatal hernia Gastric reflux Former smoker BiPAP (biphasic positive airway pressure) dependence Sleep apnea History of pain when walking History of atrial fibrillation History of echocardiogram Cardiology follow-up encounter Vitamin B12 deficiency Umbilical hernia without mention of obstruction or gangrene Tachycardia Postinflammatory pulmonary fibrosis LOI (obstructive sleep apnea) Multinodular goiter Mesenteric adenitis IBS (irritable bowel syndrome) Iron deficiency anemia Hypomagnesemia Essential tremor Dyspnea on exertion Coronary atherosclerosis CAD (coronary artery disease) Centrilobular emphysema Biliary dyskinesia Hernia, hiatal Fatty liver Asbestosis Arthritis Acute bilateral low back pain with bilateral sciatica Nausea GERD (gastroesophageal reflux disease) Epigastric pain Diabetes Hypertension Home Medications ?Medication ?Instructions ?Recorded ?Last Taken ?Type aspirin 81 mg tablet,delayed 81 mg PO DAILY@0800 09/15/14 05/20/24 History release flecainide 100 mg tablet 100 mg PO BID 09/15/14 05/24/24 04:30 History furosemide 20 mg tablet 20 mg PO BID 09/15/14 08/01/19 History metformin 500 mg tablet 1,000 mg PO BID 09/15/14 08/01/19 History dicyclomine 10 mg capsule 10 mg PO PRN PRN BOWEL SPASMS 11/11/17 11/11/17 Hi story 10 lisinopril 10 mg tablet (Zestril) 10 mg PO DAILY 11/11/17 08/01/19 History pioglitazone 15 mg tablet 15 mg PO DAILY 11/11/17 08/01/19 History spironolactone 25 mg tablet 25 mg PO DAILY 11/11/17 08/01/19 History cyclobenzaprine 5 mg tablet 5 mg PO TID PRN Spasms 08/01/19 Unknown History glipizide 10 mg tablet, extended 10 mg PO DAILY 08/01/19 08/01/19 History release 24 hr potassium chloride 10 mEq 10 meq PO DAILY 08/01/19 08/01/19 History tablet,extended release metoprolol tartrate 25 mg tablet 25 mg PO DAILY 06/13/22 05/24/24 04:30 History magnesium chloride 64 mg 64 mg PO ONCE 04/14/24 Unknown History (magnesium chloride) tablet,delayed release omeprazole 40 mg capsule,delayed 40 mg PO QDAY take 30 minutes 04/14/24 05/24/24 04:30 Rx release before breakfast every morning #90 caps ondansetron HCl 4 mg tablet 4 mg PO Q8H PRN nausea and 04/14/24 Unknown Rx vomiting #20 tabs warfarin 3 mg tablet 3 mg PO WE 04/14/24 Unknown History warfarin 5 mg tablet (Jantoven) 6 mg PO .MOTUTHFRSASU 04/14/24 05/20/24 History glipizide 2.5 mg tablet, extended 2.5 mg PO QHS 05/19/24 Unknown History release 24 hr Allergy/AdvReac Type Severity Reaction Status Date / Time chlorpheniramine AdvReac Upset Verified 05/24/24 06:38 Stomach chlorpheniramine maleate AdvReac Upset Verified 05/24/24 06:38 (From Ornade) Stomach phenylpropanolamine HCl AdvReac Upset Verified 05/24/24 06:38 (From Ornade) Stomach rofecoxib (From Vioxx) AdvReac Upset Verified 05/24/24 06:38 Stomach sulfamethoxazole (From AdvReac Upset Verified 05/24/24 06:38 Bactrim) Stomach trimethoprim (From Bactrim) AdvReac Upset Verified 05/24/24 06:38 Stomach Family History Mother Heart disease COPD (chronic obstructive pulmonary disease) Hypertension Father AAA (abdominal aortic aneurysm) Brother Diabetes Esophageal cancer Sister Heart disease Pancreatic cancer Surgical History H/O partial thyroidectomy H/O left knee surgery S/P cardiac pacemaker procedure Social History Smoking Status: Former smoker alcohol intake: current ROS Constitutional Constitutional: Denies fatigue, fever(s), poor appetite, weight gain or weight loss Gastrointestinal Gastrointestinal: Denies belching, bloating, change in bowel habits, change in stool character, chewing difficulty, coffee ground emesis, constipation, cramping, diarrhea, dyspepsia, dysphagia, early satiety, excessive flatus, fecal incontinence, heartburn, hematemesis, hematochezia, hemorrhoids, loose stools, melena, nausea, odynophagia, rectal bleeding, tenesmus, vomiting or weight changes Vital Signs Vital Signs Vital Signs: 05/24/24 06:41 05/24/24 06:41 Temperature 98.3 F Temperature Source Temporal Pulse Rate 76 Respiratory Rate 18 Respiratory Pattern Normal Blood Pressure 147/66 H Blood Pressure Mean 93 Blood Pressure Source Monitor Blood Pressure Position Semi-Fowlers Blood Pressure Location Right Arm Pulse Ox 96 Oxygen Delivery Method Room Air Weight Weight: 268 lb 11.896 oz Body Mass Index (BMI) 42.0 Physical Exam Const alert, oriented x3, no apparent distress and healthy appearing General Appearance: cooperative GI normal to inspection, nondistended, normoactive bowel sounds, soft to palpation, non-tender and non-distended Percussion: normal to percussion Rectal Exam: deferred Results Lab / Micro Data Labs: Laboratory Results - last 24 hr 05/24/24 06:10: POC PT 16.5 H, INR 1.5 05/24/24 06:33: PT 16.3 H, INR 1.3 Assessment & Plan Assessment/Plan (1) Anemia: QUALIFIERS: Anemia type: unspecified type Qualified Code(s): D64.9 - Anemia, unspecified (2) LUQ pain: PLAN: Plan Abdomen/Pelvis WITH Contrast Today R10.12 - Left upper quadrant pain, R11.0 - Nausea Comprehensive Metabolic Profil Today R10.12 - Left upper quadrant pain, R11.0 - Nausea Lipase Today R10.12 - Left upper quadrant pain, R11.0 - Nausea CBC W/Diff, Automated Today D64.9 - Anemia, unspecified, R10.12 - Left upper quadrant pain, R11.0 - Nausea Iron Today D64.9 - Anemia, unspecified Ferritin Today D64.9 - Anemia, unspecified Iron Binding Capacity,Total Today D64.9 - Anemia, unspecified Medications: New omeprazole 40 mg PO QDAY 90 caps 1RF take 30 minutes before breakfast every morning Changed From ondansetron HCl 4 mg PO Q8H To ondansetron HCl 4 mg PO Q8H PRN 20 tabs 0RF nausea and vomiting Discontinued omeprazole Discontinued Reason: Ordered/Entered in error 20 mg PO DAILY Plan 79y/o male presents for consultation with complaints of left sided ABD pain and nausea. Pain and nausea been present for >1 year with significant increase in pain x3 months. He c/o increase in pain with movement and taking a deep breath. Pain improves with PO intake and BM. CT completed February 2023 did reveal moderate stool burden. He remains on Omeprazole 40mg daily and is taking ondansetron and dicyclomine PRN. He reports having up to 7 soft stools daily. Labs completed February 2023 reveal mild anemia (HGB 12.1). He denies any bleeding. I have recommended he start Metamucil daily and increase water intake. I have ordered labs and scheduled him for a CT and EGD. He will require clearance and approval to hold Coumadin prior to procedure. Patient Instructions: CT ABD and Pelvis at [facility] Start Metamucil - mix 2 teaspoons in 8 ounces of water and drink daily after br eakfast Increase daily water intake Continue Omeprazole 40mg daily Plan Details Follow Up: 8 Weeks
--- NOTE | 2024-05-24 07:06 | PRE.ANES_ITS ---
ASA Classification* ASA Classification ASA Classification: 3 Assessment & Plan Anesthesia* Anesthesia Assessment Anesthesia Assessment: Discussed sedation and/or anesthesia options, risks, benefits, and alternatives with patient/parents/legal guardian/POA. Questions invited. The patient/parents/legal guardian/POA seems to understand and agrees to proceed with anesthesia plan. Reviewed the physical assessment, medical history, allergy history and patient home medications list prior to surgery/procedure/anesthetic and documented any changes. Performed airway and anesthesia risk assessments. Anesthesia Type Anesthesia Type: MAC History Source History Obtained from:: Patient and Chart Anesthesia Focused Assessment* Temperature: 98.3 F Pulse Rate: 76 Blood Pressure: 147/66 Respiratory Rate: 18 Pulse Ox: 96 Oxygen Delivery Method: Room Air Airway Assessment Mouth opens: >3 cm Mallampati Score: II Teeth Condition: Dentures (Patient has full upper and lower dentures.) Neck Range of motion (ROM): Limited ROM Focused Labs Anesthesia Preop lab: CBC WBC 7.8 K/mm3 (4.4-11.0) 04/14/24 09:57 RBC 4.90 M/mm3 (4.6-6.2) 04/14/24 09:57 Hgb 12.3 g/dL (13.0-16.5) L 04/14/24 09:57 Hct 40.6 % (40-54) 04/14/24 09:57 Plt Count 290 K/mm3 (150-450) 04/14/24 09:57 CHEMISTRY Potassium 4.2 mmol/L (3.5-5.1) 04/14/24 09:57 Sodium 140 mmol/L (136-145) 04/14/24 09:57 Magnesium 1.7 mg/dL (1.6-2.6) 11/11/17 23:02 BUN 21 mg/dL (7-18) H 04/14/24 09:57 Creatinine 1.22 mg/dL (0.70-1.30) 04/14/24 09:57 Glucose 118 mg/dL (74-106) H 04/14/24 09:57 POC Glucose 98 mg/dL (70-110) 04/19/18 11:44 TSH 2.86 uIU/mL (0.358-3.74) 11/11/17 23:02 COAG PT 16.3 SECONDS (11.7-14.9) H 05/24/24 06:33 Pre-Assessment Diagnosis/Proposed Procedure Planned Operative Procedure(s): EGD Anesthesia History 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 When Was Last Pacemaker Check QUESTION #4 FULL TEXT: You/Your Family Experience fever (hyperthermia) with Anesthesia Last Oral Intake Last Oral intake: Last Oral Intake NPO since 04:30 05/24/24 06:41 Meds taken in AM with sips of Yes 05/24/24 06:41 water? Meds patient instructed to take am of surgery Any additional information?: Yes NPO since: 04:30 (Patient took his medications at 4:30 AM.) Meds taken in AM with sips of water?: Yes PONV PONV - hazardous materials analyst: PONV - hazardous materials analyst Female No 05/19/24 13:20 HX of Motion Sickness No 05/19/24 13:20 HX of N/V After Surgery No 05/19/24 13:20 Non-Smoker Yes 05/19/24 13:20 Duration of Surgery greater No 05/19/24 13:20 than 60 minutes Number of Risk Factors 1 05/19/24 13:20 PONV Score Low Risk 05/19/24 13:20 Height & Weight Height & Weight: Anesthesia: Height & Weight Height 5 ft 7 in 05/24/24 06:41 Weight: 121.9 kg 05/24/24 06:41 Body Mass Index (BMI) 42.0 05/24/24 06:41 Respiratory Assessment Respiratory Assessment - hazardous materials analyst: Respiratory Tract Infection Hx - hazardous materials analyst Hx Respiratory Tract Infection No 05/19/24 13:20 STOP Sleep Apnea STOP Sleep Apnea - hazardous materials analyst: STOP Sleep Apnea - hazardous materials analyst Hx Hypertension Yes: CONTROLLED WITH MEDS 05/19/24 13:20 Hx Sleep Apnea Yes 05/19/24 13:20 CPAP No 05/19/24 13:20 BIPAP Yes 05/19/24 13:20 Do you snore loudly (louder than talking or can be heard Do you often feel tired/ fatigued/ sleepy during daytime? Has anyone observed you stop breathing during sleep? STOP Results Positive 05/19/24 13:20 QUESTION #5 FULL TEXT : Do you snore loudly (louder than talking or can be heard through closed doors)? 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 Specify any problems Hx of Preganancy in last 3 N/A 05/19/24 13:20 Months Nurse Filling Out Transfusion [id number] 05/19/24 13:20 & Questions: Date: 05/19/24 05/19/24 13:20 Time: 05/19/24 13:20 Patient unable to answer at this time (ie. confused, unrespo /Reproduction History /Reproductive History - hazardous materials analyst: /Reproductive Hx- hazardous materials analyst Hx Now Gestational Age (in weeks): EDC: Hx Hx Para Hx Section SAB PFSH Medical History Wears glasses Wears dentures Low iron History of hiatal hernia Gastric reflux Former smoker BiPAP (biphasic positive airway pressure) dependence Sleep apnea History of pain when walking History of atrial fibrillation History of echocardiogram Cardiology follow-up encounter Vitamin B12 deficiency Umbilical hernia without mention of obstruction or gangrene Tachycardia Postinflammatory pulmonary fibrosis LOI (obstructive sleep apnea) Multinodular goiter Mesenteric adenitis IBS (irritable bowel syndrome) Iron deficiency anemia Hypomagnesemia Essential tremor Dyspnea on exertion Coronary atherosclerosis CAD (coronary artery disease) Centrilobular emphysema Biliary dyskinesia Hernia, hiatal Fatty liver Asbestosis Arthritis Acute bilateral low back pain with bilateral sciatica Nausea GERD (gastroesophageal reflux disease) Epigastric pain Diabetes Hypertension Home Medications ?Medication ?Instructions ?Recorded ?Last Taken ?Type aspirin 81 mg tablet,delayed 81 mg PO DAILY@0800 09/15/14 05/20/24 History release flecainide 100 mg tablet 100 mg PO BID 09/15/14 05/24/24 04:30 History furosemide 20 mg tablet 20 mg PO BID 09/15/14 08/01/19 History metformin 500 mg tablet 1,000 mg PO BID 09/15/14 08/01/19 History dicyclomine 10 mg capsule 10 mg PO PRN PRN BOWEL SPASMS 11/11/17 11/11/17 History 10 lisinopril 10 mg tablet (Zestril) 10 mg PO DAILY 11/11/17 08/01/19 History pioglitazone 15 mg tablet 15 mg PO DAILY 11/11/17 08/01/19 History spironolactone 25 mg tablet 25 mg PO DAILY 11/11/17 08/01/19 History cyclobenzaprine 5 mg tablet 5 mg PO TID PRN Spasms 08/01/19 Unknown History glipizide 10 mg tablet, extended 10 mg PO DAILY 08/01/19 08/01/19 History release 24 hr potassium chloride 10 mEq 10 meq PO DAILY 08/01/19 08/01/19 History tablet,extended release metoprolol tartrate 25 mg tablet 25 mg PO DAILY 06/13/22 05/24/24 04:30 History magnesium chloride 64 mg 64 mg PO ONCE 04/14/24 Unknown History (magnesium chloride) tablet,delayed release omeprazole 40 mg capsule,delayed 40 mg PO QDAY take 30 minutes 04/14/24 05/24/24 04:30 Rx release before breakfast every morning #90 caps ondansetron HCl 4 mg tablet 4 mg PO Q8H PRN nausea and 04/14/24 Unknown Rx vomiting #20 tabs warfarin 3 mg tablet 3 mg PO WE 04/14/24 Unknown History warfarin 5 mg tablet (Jantoven) 6 mg PO .MOTUTHFRSASU 04/14/24 05/20/24 History glipizide 2.5 mg tablet, extended 2.5 mg PO QHS 05/19/24 Unknown History release 24 hr Allergy/AdvReac Type Severity Reaction Status Date / Time chlorpheniramine AdvReac Upset Verified 05/24/24 06:38 Stomach chlorpheniramine maleate AdvReac Upset Verified 05/24/24 06:38 (From Ornade) Stomach phenylpropanolamine HCl AdvReac Upset Verified 05/24/24 06:38 (From Ornade) Stomach rofecoxib (From Vioxx) AdvReac Upset Verified 05/24/24 06:38 Stomach sulfamethoxazole (From AdvReac Upset Verified 05/24/24 06:38 Bactrim) Stomach trimethoprim (From Bactrim) AdvReac Upset Verified 05/24/24 06:38 Stomach Family History Mother Heart disease COPD (chronic obstructive pulmonary disease) Hypertension Father AAA (abdominal aortic aneurysm) Brother Diabetes Esophageal cancer Sister Heart disease Pancreatic cancer Surgical History H/O partial thyroidectomy H/O left knee surgery S/P cardiac pacemaker procedure Social History Smoking Status: Former smoker alcohol intake: current Review of Systems (Anesthesia) ROS Narrative System reviewed and no additional complaints, except as documented.
[2024-05-24 07:16] LABS: Bedside Glucose 128 mg/dL (74-106)
--- NOTE | 2024-05-24 07:33 | OP.CCLET_ITS ---
05/24/2024 Nathaniel Estrada MD Re : Upper GI endoscopy procedure for Junior West Dear Dr. Estrada This procedure was performed on Friday, May 24, 2024. My impressions and recommendations are as follows: Impressions : - Esophageal mucosal changes consistent with short-segment Fowler's esophagus. Biopsied. - Three bleeding angiodysplastic lesions in the stomach. Treated with a heater probe. - Erythematous duodenopathy. Biopsied. Recommendations : - Discharge patient to home. - Resume previous diet. - Continue present medications. - Await pathology results. My findings are described in the full procedure note, which is enclosed. If I can be of further assistance, please feel free to contact me at . Sincerely, Otf Blanco, 05/24/2024 7:32:30 AM This report has been signed electronically.
--- NOTE | 2024-05-24 07:33 | OP.EGD_ITS ---
Patient Name: Junior West Procedure Date: 05/24/2024 7:06 AM Date of : 1945 Age: 79 Procedure: Upper GI endoscopy Indications: Epigastric abdominal pain, Heartburn Providers: Otf Blanco DO Referring MD: Nathaniel Estrada MD Medicines: Monitored Anesthesia Care Patient Profile: This is an 79 year old male. Refer to note in patient chart for documentation of history and physical. Patient has symptoms of chronic abdominal distention, acute epigastric abdominal pain, chronic epigastric abdominal pain, chronic heartburn and chronic nausea. Complications: No immediate complications. Procedure: Pre-Anesthesia Assessment: - Prior to the procedure, a History and Physical was performed, and patient medications and allergies were reviewed. The patient is competent. The risks and benefits of the procedure and the sedation options and risks were discussed with the patient. All questions were answered and informed consent was obtained. Patient identification and proposed procedure were verified by the physician in the pre-procedure area. Mental Status Examination: alert and oriented. Airway Examination: normal oropharyngeal airway and neck mobility. Respiratory Examination: clear to auscultation. CV Examination: normal. Prophylactic Antibiotics: The patient does not require prophylactic antibiotics. Prior Anticoagulants: The patient has taken no anticoagulant or antiplatelet agents except for NSAID medication. ASA Grade Assessment: II - A patient with mild systemic disease. After reviewing the risks and benefits, the patient was deemed in satisfactory condition to undergo the procedure. The anesthesia plan was to use monitored anesthesia care (MAC). Immediately prior to administration of medications, the patient was re-assessed for adequacy to receive sedatives. The heart rate, respiratory rate, oxygen saturations, blood pressure, adequacy of pulmonary ventilation, and response to care were monitored throughout the procedure. The physical status of the patient was re-assessed after the procedure. After obtaining informed consent, the endoscope was passed under direct vision. Throughout the procedure, the patient's blood pressure, pulse, and oxygen saturations were monitored continuously. The gastroscope was introduced through the mouth, and advanced to the second part of duodenum. The upper GI endoscopy was accomplished without difficulty. The patient tolerated the procedure well. Scope In: 7:20:56 AM Scope Out: 7:25:49 AM Total Procedure Duration Time 0 hours 4 minutes 53 seconds Findings: There were esophageal mucosal changes consistent with short-segment Fowler's esophagus present in the lower third of the esophagus. The maximum longitudinal extent of these mucosal changes was 3 cm in length. Mucosa was biopsied with a cold forceps for histology in a targeted manner at intervals of 1 cm in the lower third of the esophagus. One specimen bottle was sent to pathology. Three 5 mm angiodysplastic lesions with bleeding were found in the gastric body. Coagulation for hemostasis using heater probe was successful. Estimated blood loss was minimal. Patchy mildly erythematous mucosa without active bleeding and with no stigmata of bleeding was found in the duodenal bulb. Biopsies were taken with a cold forceps for histology. Verification of patient identification for the specimen was done. Estimated blood loss was minimal. 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 Biopsied. - Three bleeding angiodysplastic lesions in the stomach. Treated with a heater probe. - Erythematous duodenopathy. Biopsied. Recommendation: - Discharge patient to home. - Resume previous diet. - Continue present medications. - Await pathology results. Procedure Code(s): --- Professional --- 66172, 59, Esophagogastroduodenoscopy, flexible, transoral; with control of bleeding, any method 45847, 51, Esophagogastroduodenoscopy, flexible, transoral; with biopsy, single or multiple CPT copyright 2021 [employer]. All rights reserved. The codes documented in this report are preliminary and upon line erector apprentice review may be revised to meet current compliance requirements. Otf Blanco DO 05/24/2024 7:32:30 AM This report has been signed electronically. Number of Addenda: 0 Note Initiated On: 05/24/2024 7:06 AM
--- NOTE | 2024-05-24 07:39 | PCM.POST.ANE ---
Anesthesia: Postop Eval I Current Vital Signs Temperature: 97.2 F Pulse Rate: 60 Blood Pressure: 119/69 Respiratory Rate: 16 Pulse Ox: 96 Oxygen Delivery Method: Room Air Assessment Airway patent: Yes Spontaneous unlabored respirations: Yes Mental status: Asleep nausea: No Vomiting: No Anesthesia Complication: No Fluid Hydration Crystalloid volume administer (ml): 30 Total IV fluid infused: 30 Progress Note Anesthesia document: Postop Eval 1 completed: Yes
--- NOTE | 2024-05-24 08:31 | PCM.POSTANE2 ---
Anesthesia Postop Eval I Sum Postop Eval Completion status Anesthesia document: Postop Eval 1 completed: Yes Anesthesia Postop Eval I Summary Anesthesia Postop Eval I Summary: Anesthesia Postop Eval I: Assessment Summary Airway patent Yes 05/24/24 07:39 [email or web address] Spontaneous unlabored Yes 05/24/24 07:39 [email or web address] respirations Mental status Asleep 05/24/24 07:39 [email or web address] nausea No 05/24/24 07:39 [email or web address] Vomiting No 05/24/24 07:39 [email or web address] Anesthesia Postop Eval I: Fluid Summary Crystalloid volume administer 30 05/24/24 07:39 [email or web address] (ml) Colloids volume administered ( ml) Blood Product volume administered (ml) Total IV fluid infused 30 05/24/24 07:39 [email or web address] Anesthesia Postop Eval I: Summary Notes Anesthesia Complication No 05/24/24 07:39 [email or web address] Anesthesia Complication Comment: Post-operative progress note Anesthesia: Postop Eval II Evaluation Mental status: Awake and Calm Pain Level: 0 nausea: No Vomiting: No Complications Anesthesia Complication: No
== END 2024-05-24 08:13 | disposition home or self-care (01) ==
LOC: EN 05:52 → AC 05:53
PROVIDERS: Anesthesiology; PCP Family Medicine; Referring Provider Family Medicine; Visit Provider Internal Medicine Gastroenterology
PROC: 0DJ08ZZ Inspection of Upper Intestinal Tract, Via Natural or Artificial Opening Endoscopic (ICD-10-PCS; CPT 43235; principal; 2024-05-24 06:55)
DX: K22.70 Barrett's esophagus without dysplasia (principal); J43.2 Centrilobular emphysema; E11.9 Type 2 diabetes mellitus without complications; Z87.891 Personal history of nicotine dependence; K21.00 Gastro-esophageal reflux disease with esophagitis, without bleeding; I10 Essential (primary) hypertension; K57.30 Diverticulosis of large intestine without perforation or abscess without bleeding; I25.10 Atherosclerotic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 native coronary artery without angina pectoris; D64.9 Anemia, unspecified; Z79.01 Long term (current) use of anticoagulants; E89.0 Postprocedural hypothyroidism; Z79.899 Other long term (current) drug therapy; Z79.84 Long term (current) use of oral hypoglycemic drugs; K31.811 Angiodysplasia of stomach and duodenum with bleeding; K29.80 Duodenitis without bleeding; Z79.82 Long term (current) use of aspirin
CPT/HCPCS: 43255; 43239; 36416; 82962; 85610; 88305; 88312; 88341; 88342; A4216; J2405

== ENCOUNTER → 2024-09-02 | Outpatient (CLI) | payer MEDICARE, BC, SELFPAY ==
--- NOTE | 2024-09-02 08:26 | ST.MBS ---
Modified Barium Swallow Patient Information Study Date: 09/02/24 Study Time: 10:30 Direct Billable Minutes: 95 Total Minutes procedure & reportin Diagnosis: Dysphagia R13.10 Referring Physician: Madelaine Baron Reason for Referral: During 07/21/2024 GI office visit w/ Madelaine Baron CNP, the patient reported coughing with swallowing and choking with regurgitation at times. She referred him for MBSS and barium esophagram. The patient informed EDUCATION SPEC that he has had swallowing difficulty for years. ~1X/week he has an episode of swallowing difficulty. His swallowing difficulty is characterized by occ drinks going down the wrong way, foods not wanting to go down and needing a liquid wash. He has not required the Heimlich, but an episode of coughing on shelled peanuts gave him great difficulty to clear as he felt that parts of the shell went down the wrong way. Since then, he has gotten peanuts without the shells and eaten them more slowly without additional difficulty. Medical History: Dysphagia, cough, choking, Fowler?s esophagus (per EGD 05/24/2024), duodenitis (per EGD 05/24/2024), IBS, GERD, hiatal hernia, dyspnea on exertion, LOI, anemia, fall, closed head injury, HLD, A fib, HEN, DM type 2, Nausea, LUQ pain. Hx of partial thyroidectomy. See EMR for full PMH. MBSS 12/29/2013, which revealed mild pharyngeal dysphagia w/ laryngeal penetration of thin liquids but no aspiration. He was recommended for outpatient swallowing therapy for pharyngeal strengthening exercises. Current Diet Ordered: Regular textures / Thin liquids Dentition: Upper Dentures and Lower Dentures Mental Status: WNL Respiratory Status: Oxygenating on Room Air Penetration-Aspiration Scale Penetration-Aspiration Scale: OBJECTIVE ASSESSMENT OF SWALLOW FUNCTION (QUANTITATIVE ? PER TRIAL): PENETRATION / ASPIRATION SCALE (VOSS): 1 = does not enter airway 2 = enters airway/above vocal folds/ejected 3 = enters airway/above vocal folds/not ejected 4 = enters airway/contacts vocal folds/ejected 5 = enters airway/contacts vocal folds/not ejected 6 = enters airway/below vocal folds/ejected 7 = enters airway/below vocal folds/not ejected despite effort 8 = enters airway/below vocal folds/no effort VIDEOFLOROSCOPIC SCALE SCORE (VOSS): Grade I = aspiration of material that has penetrated into the laryngeal vestibule, intact cough reflex Grade II = aspiration < 10 % of the bolus, intact cough reflex Grade III = aspiration of < 10 % of the bolus, reduced cough reflex or aspiration of > 10 % of the bolus, intact cough reflex Grade IV = aspiration of > 10 % of the bolus, reduced cough reflex Penetration-Aspiration Scale Score Thin Liquid via teaspoon: Result: 2= enter airway/above vocal folds/ejected Thin Liquid via teaspoon Trial 2: Result: 3= enters airways/above vocal folds/not ejected (trace) Thin Liquid via small single sip: cup: Result: 2= enter airway/above vocal folds/ejected [place] Thick Liquid via large single sip: cup: Result: 3= enters airways/above vocal folds/not ejected (trace) Pudding via teaspoon: Result: 1= does not enter airway Comment: Esophageal screen - Retention in the upper-middle esophagus with retrograde flow through the LES. Thin Liquid via single sip: straw: Result: 1= does not enter airway Comment: Esophageal screen - Liquid wash somewhat cleared barium pudding, but continued retention in the upper-middle esophagus of pudding. Retention of liquids in the lower esophagus w/ retrograde flow through the LES. 1/2 Cookie w/ Barium Pudding coating: Result: 1= does not enter airway Comment: Esophageal screen - Retention in the upper and middle esophagus. Thin Liquid via sequential sips:straw: Result: 1= does not enter airway Comment: Esophageal screen - liquid wash somewhat cleared cookie; however, patient had retention of sequential sips of liquids with retrograde flow to the upper esophagus. Barium had not cleared through the UES after 30 seconds. Oral Phase Labial Seal: No Labial Escape Tongue Control During Bolus Hold: Posterior escape of less than half of bolus Bolus Preparation/Mastication: Timely and efficient chewing and mashing (possibly small pieces of un-chewed cookie, but cookie appeared mostly chewed.) Bolus Transport/Lingual Motion: Delayed initiation of tongue motion Oral Residue: Residue collection on oral structures Pharyngeal Phase Initiation of Pharyngeal Swallow: Bolus head in pyriforms Soft Palate Elevation: Trace column of contrast/air between soft palate and pharyngeal wall Laryngeal Elevation: Partial superior movement thyroid cart/partial apprx aryt-epig petiole Anterior Hyoid Excursion: Partial anterior movement Epiglottic Movement: Complete inversion Laryngeal Vestibule Closure at Height of Swallow: Incomplete; narrow column of air/contrast in laryngeal vestibule Pharyngeal Stripping Wave: Present - diminished Pharyngoesophageal Segment Opening: Complete distension and complete duration; no obstruction of flow Tongue Base Retraction: Narrow column of contrast between tongue base & post. pharyngeal wall Pharyngeal Residue: Collection of residue within or on pharyngeal structures Esophageal Phase Esophageal Clearance: Esophageal retention w/ retrograde flow below pharyngoesophageal seg. Diagnosis/Impression Diagnosis: Esophageal dysphagia R13.14; Mild oropharyngeal dysphagia R13.12 Impression: The oral phase is primarily marked by... -Decreased bolus control w/ <1/2 of liquids spilling to pyriforms prior to swallow onset w/ certain trials. -Timely mastication w/ very small pieces of cookie not fully chewed. -Trace-mild oral residue, which he cleared with a second swallow as needed. The pharyngeal phase is primarily marked by... -Mild delay in swallow onset. -Mildly decreased TB retraction and pharyngeal stripping wave w/ trace-mild pharyngeal residues, which mostly cleared w/ independent use of a second swallow. -Mildly decreased laryngeal elevation w/ laryngeal penetration of thin liquids, which did not fully eject 2X (trace residues in laryngeal vestibule). No aspiration observed. The esophageal phase is primarily marked by... -Retention of thin liquid barium in the esophagus w/ retrograde flow to the upper esophagus, most notable w/ sequential sips. -Retention of cookie and pudding in the upper and middle esophagus, which somewhat cleared w/ liquid wash. -Retrograde flow of thin liquids through the LES. Recommendations Diet: Regular Textures (avoid nuts/veggies w/ shells and popcorn) and Thin Liquids Comment: STOP meal if increased s/s of reflux, sensation of retention, or regurgitation despite use of strategies listed below and resume meal at a later time. Compensatory Strategies: Small Bites (Chew thoroughly), Small Sips (One at a time), Slow Rate, Alternate bites/solids and sips/liquids and Sitting upright (During and 60min after meals) Recommend Repeat Modified Barium Swallow: TBD Need for Skilled Speech Therapy Services: Yes Comment: -Train the patient in use of strategies to decrease risk for aspiration and reflux aspiration. -Ongoing assessment of diet tolerance of recommended textures. -Train the patient in oropharyngeal exercise program (lingual resistance, Mary, effortful, Ca). Recommended Referrals: GI Consult (Continue to follow w/ GI to manage esophageal dysphagia.) Education Completed: 1. Described result of evaluation., 2. Pt understands evaluation & agrees with goals and treatment plan. and 7. Pt requires further education on strategies & risks. Status Active ST Patient: Active Contact Information [facility] Speech Therapy:: Candice Rubi M.A. CCC-EDUCATION SPEC? Speech-Language Pathologist?? [facility] [address] [place] [address]? [email or web address]?? [phone]
== END | disposition home or self-care (01) ==
PROVIDERS: PCP Family Medicine; Referring Provider Nurse Practitioner Acute Care; Visit Provider Nurse Practitioner Acute Care
DX: T17.308A Unspecified foreign body in larynx causing other injury, initial encounter (principal); R05.9 Cough, unspecified; R10.12 Left upper quadrant pain
CPT/HCPCS: 74230; 92611

== ENCOUNTER → 2024-09-05 | Outpatient (CLI) | payer MEDICARE, BC, SELFPAY ==
--- NOTE | 2024-09-05 07:38 | RAD_ITS ---
EXAM: Single and double contrast esophagram CLINICAL HISTORY: Regurgitation, dysphagia. Pacemaker. COMPARISON: None. TECHNIQUE: Single and double contrast esophagram. FINDINGS: Normal mucosa and peristalsis of the esophagus is seen. No evidence of esophageal stenosis. No evidence of narrowing at the esophagogastric junction. Limited imaging of the stomach and duodenum demonstrates no abnormality. No hiatal hernia is seen. Prompt emptying the gastric contents into the small bowel was seen. Gastroesophageal reflux to the level of the proximal esophagus was noted. RAD/Esophagus Dual Contrast IMPRESSION: Gastroesophageal reflux was noted to the level of the proximal esophagus. Reading Location: [place] [id number]
== END | disposition home or self-care (01) ==
LOC: RAD 07:35
PROVIDERS: PCP Family Medicine; Referring Provider Nurse Practitioner Acute Care; Visit Provider Nurse Practitioner Acute Care
DX: R05.9 Cough, unspecified (principal); T17.308A Unspecified foreign body in larynx causing other injury, initial encounter; R13.10 Dysphagia, unspecified
CPT/HCPCS: 74221